=== PATIENT | male | born 1950 | race Caucasian/White ===

== ENCOUNTER → 2018-02-16 09:52 | Outpatient (CLI) | payer MEDICARE, SELFPAY ==
--- NOTE | 2018-02-16 09:54 | CDU_ITS ---
Reason For Study: CAROTID ATHEROSCLEROSIS Rt. Velocities/BP Lt. Velocities/BP Prox CCA 100/11 cm/sec. Prox CCA 155/19 cm/sec. Mid CCA 104/18 cm/sec. Mid CCA 130/29 cm/sec. Dist CCA 99/21 cm/sec. Dist CCA 97/21 cm/sec. Prox ICA 234/75 cm/sec. Prox ICA 77/28 cm/sec. Mid ICA 111/26 cm/sec. Mid ICA 57/19 cm/sec. Dist ICA 75/18 cm/sec. Dist ICA 55/21 cm/sec. Rt. ICA/CCA = 2.3. Lt. ICA/CCA = .6. Prox ECA 183/32 cm/sec. Prox ECA 141/30 cm/sec. Rt. Vert. 51/18 cm/sec. Lt. Vert. 51/13 cm/sec. Right Extracranial There is homogeneous, smooth atherosclerotic plaque noted in the right common carotid artery. There is homogeneous, smooth atherosclerotic plaque noted in the right internal carotid artery. There is homogeneous, smooth atherosclerotic plaque noted in the right external carotid artery. Antegrade flow is noted in the right vertebral artery. There is homogeneous, smooth atherosclerotic plaque noted in the right bulb. Left Extracranial There is homogeneous, smooth atherosclerotic plaque noted in the left common carotid artery. There is homogeneous, smooth atherosclerotic plaque noted in the left internal carotid artery. There is homogeneous, smooth atherosclerotic plaque noted in the left external carotid artery. Antegrade flow is noted in the left vertebral artery. There is heterogeneous, smooth atherosclerotic plaque noted in the left bulb. Procedure Carotid Duplex 22308. Exam performed in department. Interpretation Summary Smooth plague at the proximal right internal carotid with >70% stenosis. Moderate stenosis right external carotid Minimal plague at the proximal left internal carotid with <50% stenosis. Mild disease left external carotid Patent and antegrade vertebrals bilaterally Progression of stenosis on the right noted since the previous exam of 05/17/13 noted. Ordering Physician: Napoleon Sky Referring Physician: LEYLA HADLEY Performed By: Chayo Bass, RDCS, RVT
== END ==
PROVIDERS: Family Provider Internal Medicine; PCP Internal Medicine; Visit Provider Surgery
DX: I65.23 Occlusion and stenosis of bilateral carotid arteries (principal)
CPT/HCPCS: 93880

== ENCOUNTER → 2018-03-08 07:48 | Outpatient (CLI) | payer MEDICARE, SELFPAY ==
--- NOTE | 2018-03-08 07:49 | CT_ITS ---
STUDY: CTA NECK WITH CONTRAST REASON FOR EXAM: Male, 67 years old. Carotid stenosis. RADIATION DOSAGE (If Supplied By Facility): CTDIvol = ( 21.13 ) mGy, DLP = ( 589.77 ) mGycm TECHNIQUE: CT angiography with multi-detector data acquisition was performed from the aortic arch to the skull base following intravenous administration of 100cc ml of Isovue 370 contrast. MIP images were reconstructed from the axial data set. Post-processing of the angiographic images was performed, with multiplanar reformation and 3D reconstruction. Individualized dose optimization techniques were used for this CT. COMPARISON: None. FINDINGS: AORTIC ARCH: Normal visualized aortic arch. Normal origins of the brachiocephalic, left common carotid, and left subclavian arteries. RIGHT CAROTID ARTERIES: Normal right common carotid artery (CCA). There is a focal calcification at the carotid bifurcation. Narrowing of the carotid bulb which demonstrate a diameter 70% narrowing were then the proximal ICA. Normal origin of the right internal carotid (ICA) artery without a hemodynamically significant stenosis. Normal visualized cervical portion of the right internal carotid artery. Normal origin of the right external carotid artery (ECA). LEFT CAROTID ARTERIES: Normal left common carotid artery (CCA). There is minimal calcific plaque along the lateral aspect of the carotid bulb. There is no significant stenosis. Normal origin of the left internal carotid (ICA) artery without a hemodynamically significant stenosis. Normal visualized cervical portion of the left internal carotid artery. Normal origin of the left external carotid artery (ECA). VERTEBRAL ARTERIES: Normal bilateral vertebral arteries. CT/CTA Neck W/WO Contrast IMPRESSION: 1. Approximate 70% diameter stenosis of the right carotid bulb. 2. Minimal hemodynamically insignificant left carotid plaque. 3. Normal vertebral arteries. Electronically Signed: Clay Jose DO at 15:41 EDT Tel [phone], Service support ,
[2018-03-08 08:16] LABS: CREATININE FINGERSTICK 0.7 mg/dL (0.70-1.30); EGFR FINGERSTICK > 60.0000 mL/min (>60)
== END ==
PROVIDERS: Family Provider Internal Medicine; PCP Internal Medicine; Visit Provider Surgery
DX: I65.23 Occlusion and stenosis of bilateral carotid arteries (principal)
CPT/HCPCS: 70498; Q9967

== ENCOUNTER 2018-03-10 10:42 | Emergency (ER) | payer MEDICARE, SELFPAY ==
[2018-03-10 10:42] VITALS: BP 158/89; PULSE 95; RESP 16; TEMP 36.8; O2SAT 99; BMI 25.8
--- NOTE | 2018-03-10 11:05 | ED.DCSUM_ITS ---
- ER Visit Summary Date of Service: 03/10/18 Chief Complaint: Laceration History of Present Illness: The patient is a 67 M with a laceration to his left third digit with hedge clippers prior to arrival Physical Examination: There is a 3 cm laceration surrounding the nail but not invading into the nail or nailbed. Emergency Department Course and Treatment: A total of 5 of the 4 nylon sutures were placed using sterile technique. Patient tolerated procedure well Disposition: Discharged stable condition Impression: Finger laceration 3 cm left third This note was generated with [employer] dictation software. It may contain incorrect words, spelling, and punctuation that were not noted in review of the chart prior to signing ED Disposition - Plan for ED Patient: Disposition: Home or Assisted Living Chief Complaint: Laceration Instructions: ED Laceration Hand Referrals: Em Moore MD [Primary Care Provider] - 10 Day for suture removal
[2018-03-10] MEDS: Diphth,Pertuss(Acell),Tet Vac 0.5 ML Vial IM (11:10)
[2018-03-10 11:51] VITALS: RESP 18
== END 2018-03-10 11:52 | disposition home or self-care (01) ==
PROVIDERS: Emergency Provider Emergency Medicine; Family Provider Internal Medicine; PCP Internal Medicine
DX: S61.213A Laceration without foreign body of left middle finger without damage to nail, initial encounter (principal); W26.8XXA Contact with other sharp object(s), not elsewhere classified, initial encounter; Y93.9 Activity, unspecified; Y92.9 Unspecified place or not applicable
CPT/HCPCS: 12002; 90715; 99283

== ENCOUNTER → 2018-04-05 12:56 | Outpatient (CLI) | payer MEDICARE, SELFPAY | PROVIDERS: Family Provider Internal Medicine; PCP Internal Medicine; Visit Provider Internal Medicine Cardiovascular Disease | DX: Z98.890 Other specified postprocedural states (principal) | CPT/HCPCS: 93306 ==

== ENCOUNTER 2018-04-19 05:28 | Inpatient (IN) | payer MEDICARE, SELFPAY ==
[2018-04-12 13:41] VITALS: BP 146/90; PULSE 78; RESP 18; TEMP 37.2; O2SAT 94; BMI 26.6
[2018-04-12 15:03] LABS: Absolute Lymphocyte Count 1.55 X10^3/ul (0.83-4.51); Basophil# 0.02 X10^3/uL; Basophil% 0.3 % (0-1); Eosinophil# 0.46 X10^3/uL; Eosinophils% 6.9 % (0-5); Hematocrit 47.7 % (40-54); Hemoglobin 15.4 g/dl (13.0-16.5); Lymphocyte # 1.55 X10^3/ul (4.0); Lymphocyte % 23.3 % (19-41); Mean Corp Hgb Conc 32.3 g/gl (32-36); Mean Corpuscular Hgb 29.7 pg (27.0-32.0); Mean Corpuscular Volume 91.9 fL (80-94); Mean Platelet Vol. 9.3 fl (6.2-12.0); Neutrophil # 4.02 X10^3/uL (2.7-7.7); Neutrophil % 60.5 % (47-70); Platelet Count 286 K/mm3 (150-450); RBC Distribution Width CV 13.4 % (11.6-14.6); RBC Distribution Width SD 44.6 fl (35.1-43.9); Red Blood Count 5.19 M/mm3 (4.6-6.2); White Blood Count 6.7 K/mm3 (4.4-11.0)
[2018-04-12 15:06] LABS: POSITIVE COUNT NO; POSITIVE DIFFERENTIAL NO; POSITIVE MORPHOLOGY NO
[2018-04-12 15:11] LABS: Partial Thromboplast Time 29.3 Seconds (24.1-36.2); Prothrombin Time (Protime)PT. 12.7 SECONDS (11.7-14.9)
[2018-04-12 15:42] LABS: AST(SGOT) 41 U/L (15-37); Alanine Aminotransfer ALT/SGPT 54 U/L (16-61); Albumin, Serum 4.2 g/dL (3.2-5.0); Alkaline Phosphatase 88 U/L (45-117); Anion Gap 9 (5-15); BUN 34 mg/dL (7-18); BUN/Creat Ratio 32.1 RATIO (10-20); Bilirubin, Direct 0.14 mg/dL (0.00-0.30); Calcium,Total 9.4 mg/dL (8.5-10.1); Chloride 104 mmol/L (98-107); Creatinine, Serum 1.06 mg/dL (0.70-1.30); EST Glomerular Filtration Rate 74 mL/min (>60); Est Glom Filt Rate - Afr Amer 89 mL/min (>60); Estimated Creatinine Clearance 53.68 ml/min; Globulin 4.1 g/dL (2.2-4.2); Glucose 78 mg/dL (74-106); Potassium 4.5 mmol/L (3.5-5.1); Protein, Total 8.3 g/dL (6.4-8.2); Sodium Level 141 mmol/L (136-145)
[2018-04-19] VITALS (21 sets, daily range): BP systolic 131–176; BP diastolic 67–100; PULSE 73–112; RESP 14–18; TEMP 36.6–37.3; O2SAT 91–97; BMI 26.6
--- NOTE | 2018-04-19 06:48 | DCINST_ITS ---
Discharge Diet: Light diet - advance as tolerated - if you have questions about your diet instructions, please talk to you doctor. Discharge Activity: May Not Drive - for 1 week or while taking narcotic pain medicine. May shower in (days): 3 - You may shower on Wednesday Lifting Restrictions: 10 pounds Call your doctor if your incision/area has: Continuous Slow Oozing, Sudden Increased Bleeding, Increased Pain/ Swelling, Increased Redness, Foul Smelling Discharge Call your doctor if you observe: Fever of 101 or Higher Suture Line Care: Avoid Pulling/Pushing, Avoid Pinching/Bending Additional Dressing/Incision Instructions:: You may protect the incision with gauze and paper tape as needed to avoid clothing irritation. You may remove the Steri-Strips in 1 week Allergies/Adverse Reactions: Allergies No Known Allergies Allergy (Verified 04/12/18 13:10) Medications to take at Discharge Zolpidem Tartrate [Ambien] 5 mg PO QHS PRN PRN 09/19/16 Doxepin HCl 50 mg PO QHS 01/31/17 amoxicillin 500 mg capsule 2,000 mg PO .COMPLEX cap 10/19/17 aspirin 81 mg tablet,delayed release 81 mg PO .q day tab 10/19/17 clonazepam 0.5 mg tablet 0.5 mg PO TID PRN 10/19/17 duloxetine 30 mg capsule,delayed release 30 mg PO QDAY cap 10/19/17 omega-3 fatty acids 1,000 mg capsule 1,000 mg PO QDAY 10/19/17 rosuvastatin 40 mg tablet 40 mg PO QDAY 10/19/17 tadalafil 2.5 mg tablet 2.5 mg PO QDAY 10/19/17 Hydrocodone Bitart/Apap 5-325 [[place] 5MG-325MG] 1 tablet PO Q6H PRN PRN 3 Days # 8 tablet 04/19/18 The following prescriptions were given: Hydrocodone Bitart/Apap 5-325 [[place] 5MG-325MG] 1 tablet PO Q6H PRN PRN 3 Days # 8 tablet PRN Reason: Pain Primary Care Physician: Em Moore MD [Primary Care Provider] - Test Results: Test results from this visit will be discussed in further detail at your follow- up appointment, if applicable. Please Follow Up With: Napoleon Sky MD - [phone] When: Call to make an appointment to be seen in about 10 days.
--- NOTE | 2018-04-19 06:50 | OP.PCM_ITS ---
Problem List (1) Carotid stenosis, right Status: Acute Report of Operation Date of Procedure: 04/19/18 Pre-Operative Diagnosis: Severe stenosis right extracranial internal carotid Post-Operative Diagnosis: Same Surgery/Procedure Performed:: Right radial arterial line placement. Right carotid endarterectomy with bovine patch angioplasty Description of Surgical Findings:: Timeout and informed consent was obtained. Gonzalo test was performed demonstrating adequate ulnar flow. At the bedside the right wrist was gently extended prepped with Betadine. Under ultrasound guidance 1% lidocaine was instilled as local anesthetic. A total of 1 cc was used. A 20-gauge aero kit Angiocath under ultrasound guidance with advanced in the artery and then with Seldinger wire technique was easily advanced. It was secured to the skin with interrupted 3-0 silk. Pressure tubing was connected. OpSite dressing followed by 2 x 2 dressing and Janie wrap. The hand was viable to completion with no apparent complication and minimal blood loss. Good waveform was obtained. The patient was subsequently taken to the operating for planned definitive right carotid surgery. Patient was then taken to the operating room. He was placed on the table. He underwent general endotracheal intubation and anesthesia. He received 2 g of Ancef intravenously. The right neck was sterilely prepped draped. Oblique incision was made along the anterior border the sternocleidomastoid. Sharp dissection carried down through the substance tissue. The platysma was incised. The sternocleidomastoid was reflected laterally. Sharp dissection performed directly down upon the common carotid. Crossing facial vein branches were secured with hemoclips and 3-0 Vicryl ligatures. The bifurcation was identified and very careful dissection performed cephalad. Circumferential control was obtained of the common carotid. The vagus nerve had to be carefully freed from its adherence to the common carotid. A [place]ria tie of Dacron tape was placed. Dissection performed cephalad. There was a curving posterior nature to the internal carotid which was nicely dissected free. Cephalad then a Dacron tape and Abdi tourniquet was applied. Circumferential trial was obtained of the external carotid. FSE loop was applied. The patient received 7000 units of heparin weight base. After adequate circling time peripheral vascular clamps were placed on the internal common and external carotid. 11 blade was used to make an arteriotomy which was extended with Sanabria scissors. A #10 USCI style shunt was placed cephalad and proximally. Time to place the shunt was 2 minutes. An endarterectomy was performed by sharply incising the plaque proximally and then nicely feathering it with a [place]. Sharp transection was obtained proximally it was then carefully freed from the carotid bulb the primary moderate disease was right at the origin of the internal carotid almost like a focal web. I then was able to get the plaque to feathered nicely more distally. Inversion enterectomy was performed of the external carotid. Careful debris was carefully removed. 2 tacking sutures of 7-0 Prolene were used at the internal carotid to assure adherence of the intima. The vessel was irrigated and inspected. Then a is 0.8 x 8 cm bovine patch was shaped to form and a patch angioplasty was created with a running 6-0 Prolene. Prior to completion the shunt was removed and a patch angioplasty completed. There was good retrograde flow from the internal carotid external carotid good antegrade flow from the common carotid. Initial clamps are released from the external carotid common carotid find the internal carotid. A repair suture of 7-0 Prolene was used. Hemostasis was nicely intact. The patient then in aliquots received a total 30 minute grams of protamine. Assuring hemostasis then the neck was closed by approximating the platysma with a running 3-0 Vicryl. Skin edges approximated running septic or 5 -0 Vicryl. Ivanna-incisional areas anesthetized with 0.5% Marcaine 10 cc. Steri- Strips Telfa tape dressings applied. Sponge and instrument and needle counts were reported to the surgeon to be correct. Blood loss was minimal. Specimen includes plaque. Drains none. Blood loss minimal He was taken to the recovery room in satisfactory condition without apparent complication. He was grossly neurologically intact. Napoleon Sky M.D., F.A.C.S. senior assistant manager: None senior assistant manager: Colby Correia Type of Anesthesia:: General Anesthesiologist: Monalisa Martinez
[2018-04-19] MEDS: Cefazolin 2 GM in 0.9% Normal Saline 100 ML IV (07:09)
--- NOTE | 2018-04-19 07:15 | PLAQ_PTH ---
PATIENT: MARY ELLEN LABOY LOC: MS3 U#:[id number] AGE/SX: 67/M ROOM: MO316 RE04/19/[address]: Dr. Napoleon Sky MD : 1950 BED: 1 DIS: 04/20/2018 SPEC #: [id number] RECD: 04/19/18 13:34 STATUS: MELANIE REPaco #: [id number] SAY: 04/19/18 07:[address]: Napoleon Sky DEPT: SURGICAL PATHOLOGY RECD BY: Raul Eckert ENTERED: 04/19/18 13:35 SP TYPE: PLAQUE OTHR DR: Dr. Em Moore MD Tissues: PLAQUE Procedures: Decalcification bone/plaque Surgery Specimen Level III HEADER OPERATION: Carotid endarterectomy PRE-OP DIAGNOSIS: Severe stenosis right carotid artery; atherosclerosis of both carotid arteries TISSUE SUBMITTED: Plaque right carotid artery MICROSCOPIC DIAGNOSIS Right carotid artery plaque, endarterectomy: Calcified atheromatous plaque consistent with severe stenosis. AM:inocente 04/22/18 GROSS DESCRIPTION Received in fixative is one container labeled with the patient's name and designated plaque right carotid artery. The specimen consists of a previously opened, partially bifurcated tubular piece of castellanos, indurated tissue measuring 2 cm in length and 1.5 cm in diameter. The specimen cuts focally with a gritty sensation. The entire specimen is submitted in one cassette after decalcification. / SJ:inocente 04/19/18 TC:5 CPT: 73515, 27882
[2018-04-19] MEDS: Heparin Injection (Vial) 5,000 UNIT/ML VIAL 5000 UNIT (08:30)
[2018-04-19] MEDS: Bupivacaine Mpf 0.5% 30 ML VIAL (09:15)
[2018-04-19] MEDS: Cefazolin 1 GM/50 ML BAG IV ×2 (15:29→23:36)
--- NOTE | 2018-04-19 15:54 | NURSING ---
PT PLACED ON O2 1L VIA NC WHILE SLEEPING
[2018-04-19] MEDS: Acetaminophen 325 MG Tablet PO (18:00)
--- NOTE | 2018-04-19 18:47 | PCM.PN.BLA ---
Progress Note Neuro intact Mild swelling right neck Urinary retention Will get pt OOB to chair Stop IVF and give flomax
[2018-04-19] MEDS: Atorvastatin Calcium 80 MG Tablet PO (21:13)
[2018-04-19] MEDS: Tamsulosin HCl 0.4 MG Capsule PO (21:13)
[2018-04-19] MEDS: Zolpidem Tartrate 5 MG Tablet PO (21:14)
[2018-04-19] MEDS: DOXEPIN HCL 50 MG CAPSULE PO (21:14)
[2018-04-20 00:05] VITALS: BP 133/82; PULSE 87; RESP 16; TEMP 36.9; O2SAT 98
[2018-04-20 05:20] VITALS: BP 136/70; PULSE 90; RESP 18; TEMP 37.1; O2SAT 92
--- NOTE | 2018-04-20 05:50 | PCM.CAROT ---
General Carotid Note - Objective Vital Signs Temp Pulse Resp BP Pulse Ox 98.8 F 90 18 136/70 H 92 04/20/18 05:20 04/20/18 05:20 04/20/18 05:20 04/20/18 05:20 04/20/18 05:20 Neck: - - swollen right neck, stable from last night Neurological: Cranial nerves II-XII grossly intact Cardiovascular: Regular rate, Regular Rhythm - Plan discharge with dressing change this a.m.
[2018-04-20] MEDS: Enoxaparin 40 MG/0.4 ML Syringe SC (06:09)
== END 2018-04-20 09:30 | disposition home or self-care (01) | DRG 39 ==
PROVIDERS: Anesthesiology; Admitting Provider Surgery; Family Provider Internal Medicine; PCP Internal Medicine; Visit Provider Surgery
PROC: 03CK0Z6 (ICD-10-PCS; CPT 35301; principal; 2018-04-19 06:55)
DX: I65.21 Occlusion and stenosis of right carotid artery (principal); R33.9 Retention of urine, unspecified; E78.5 Hyperlipidemia, unspecified; Z87.891 Personal history of nicotine dependence
CPT/HCPCS: 80048; 80076; 85025; 85610; 85730; 88304; 88311; 93005; J7040; J7120; J2405

== ENCOUNTER → 2018-06-03 07:41 | Outpatient (CLI) | payer MEDICARE, SELFPAY ==
--- NOTE | 2018-06-03 07:45 | CDUL_ITS ---
Reason For Study: F/U RT CEA Rt. Velocities/BP Prox CCA 77.4/18.2 cm/sec. Mid CCA 75.6/17.0 cm/sec. Dist CCA 82.1/23.5 cm/sec. Prox ICA 51.5/14.9 cm/sec. Mid ICA 98.0/32.5 cm/sec. Dist ICA 94.2/30.6 cm/sec. Rt. ICA/CCA = 1.3. Prox ECA 92.6/17.6 cm/sec. Rt. Vert. 42.8/14.5 cm/sec. Right Extracranial There is intimal thickening but no significant atherosclerotic plaque noted in the right common carotid artery. There is no significant atherosclerotic plaque noted in the right internal carotid artery. There is no significant atherosclerotic plaque noted in the right external carotid artery. Antegrade flow is noted in the right vertebral artery. Procedure Carotid Duplex [id number]. Exam performed in department. Interpretation Summary Post operative changes of the right carotid bulb and internal carotid with widely patent findings and <50% stenosis. Normal flow right external carotid Patent and antegrade right vertebral Ordering Physician: Napoleon Sky Referring Physician: Napoleon Sky Performed By: Kristie Pollard RVT
== END ==
PROVIDERS: Family Provider Internal Medicine; PCP Internal Medicine; Referring Provider Surgery; Visit Provider Surgery
DX: I65.21 Occlusion and stenosis of right carotid artery (principal)
CPT/HCPCS: 93882

== ENCOUNTER → 2018-07-22 13:47 | Outpatient (CLI) | payer MEDICARE, SELFPAY | PROVIDERS: Family Provider Internal Medicine; PCP Internal Medicine; Referring Provider Otolaryngology; Visit Provider Otolaryngology | DX: H83.09 Labyrinthitis, unspecified ear (principal) | CPT/HCPCS: 87070; 87077; 87186; 87205 ==

== ENCOUNTER → 2019-06-16 08:37 | Outpatient (CLI) | payer MEDICARE, SELFPAY ==
[2018-10-27 08:59] VITALS: BMI 26.5
--- NOTE | 2019-06-16 08:39 | ECHOD_ITS ---
Reason For Study: Bicuspid AoV Procedure This was a 2D Doppler, Color Flow transthoracic echocardiogram. Exam performed in department. Left Ventricle Normal LV size. Left ventricular systolic function is normal. The estimated ejection fraction is 65 %. Stage 1 diastolic dysfunction. No regional wall motion abnormalities noted. Right Ventricle Normal RV size. Normal systolic function. Atria Normal left atrium. Normal right atrium. Mitral Valve Normal mitral valve. Tricuspid Valve Normal tricuspid valve. Mild (1+) tricuspid valve insufficiency. Pulmonary artery systolic pressure is 34 mmHg. Aortic Valve Moderate diffuse aortic valve calcification. The aortic valve is not well visualized. Peak aortic valve gradient 47 mmHg. Mean aortic valve gradient 27 mmHg. Calculated aortic valve area (continuity equation) is 1.4 cm2. Mild (1+) aortic valve insufficiency. Pulmonic Valve Normal pulmonic valve. Great Vessels Normal aortic root. The pulmonary artery is normal size. Normal inferior vena cava. Pericardium/Pleural No pericardial effusion. MMode/2D Measurements & Calculations LVIDd: 2.9 cm IVSd: 1.3 cm LVOT diam: 1.9 cm LVIDs: 1.7 cm LVPWd: 1.00 cm LVOT area: 2.8 cm2 RVDd: 3.2 cm FS: 41.7 % Ao root diam: 3.5 cm LAV(MOD-bp): 27.2 ml LVAd ap4: 17.4 cm2 LAV(MOD-bp) Indexed: 16.2 ml/m2 EDV(MOD-sp4): 36.8 ml LAV(MOD-sp2): 32.2 ml EDV(sp4-el): 38.6 ml LAV(MOD-sp4): 21.0 ml LVAs ap4: 7.3 cm2 ESV(MOD-sp4): 9.7 ml ESV(sp4-el): 9.7 ml EF(MOD-sp4): 73.6 % EF(sp4-el): 74.9 % SV(MOD-sp4): 27.1 ml SV(sp4-el): 28.9 ml LA A4 area: 10.0 cm2 RA A4 area: 10.4 cm2 Doppler Measurements & Calculations MV E max hola: 78.7 cm/sec Lat Peak E' Hola: 7.6 cm/sec Med Peak E' Hola: 5.4 cm/sec MV A max hola: 108.9 cm/sec E/E' lat: 10.3 E/E' med: 14.5 MV E/A: 0.72 Ao V2 max: 343.7 cm/sec AI max hola: 336.3 cm/sec LV V1 max: 170.9 cm/sec Ao max P.3 mmHg AI max P.3 mmHg LV V1 max P.7 mmHg Ao V2 mean: 243.9 cm/sec LV V1 mean P.0 mmHg Ao mean P.6 mmHg AI dec slope: 239.6 cm/sec2 LV V1 mean: 127.3 cm/sec Ao V2 VTI: 63.8 cm AI P1/2t: 411.1 msec LV V1 VTI: 33.6 cm APOLINAR(I,D): 1.5 cm2 APOLINAR(V,D): 1.4 cm2 SV(LVOT): 94.0 ml PA V2 max: 115.6 cm/sec TR max hola: 271.2 cm/sec TR max P.4 mmHg Interpretation Summary Normal LV size. Left ventricular systolic function is normal. The estimated ejection fraction is 65 %. Stage 1 diastolic dysfunction. Mean aortic valve gradient 27 mmHg. Calculated aortic valve area (continuity equation) is 1.4 cm2. Mild (1+) aortic valve insufficiency. Mild (1+) tricuspid valve insufficiency. Ordering Physician: Andrez Varela Referring Physician: Em Moore Performed By: Indy Yap, RDCS, RVT
--- NOTE | 2019-06-16 08:39 | CDU_ITS ---
Reason For Study: Carotid stenosis Rt. Velocities/BP Lt. Velocities/BP Prox CCA 86.5/16 cm/sec. Prox CCA 94.3/21.2 cm/sec. Mid CCA 78.6/17.3 cm/sec. Mid CCA 79.9/19.9 cm/sec. Dist CCA 83.8/21.3 cm/sec. Dist CCA 81.2/17.3 cm/sec. Prox ICA 68.2/21.3 cm/sec. Prox ICA 63/18.6 cm/sec. Mid ICA 89.1/25.2 cm/sec. Mid ICA 55.1/15.5 cm/sec. Dist ICA 79.9/21.3 cm/sec. Dist ICA 68.2/22.6 cm/sec. Rt. ICA/CCA = 1.1. Lt. ICA/CCA = 0.8. Prox ECA 109.9/20 cm/sec. Prox ECA 91.6/13.4 cm/sec. Rt. Vert. 43.4/16 cm/sec. Lt. Vert. 63/16 cm/sec. Right Extracranial There is homogeneous, smooth atherosclerotic plaque noted in the right common carotid artery. There is intimal thickening but no significant atherosclerotic plaque noted in the right internal carotid artery. There is no significant atherosclerotic plaque noted in the right external carotid artery. Antegrade flow is noted in the right vertebral artery. Left Extracranial There is homogeneous, smooth atherosclerotic plaque noted in the left common carotid artery. There is homogeneous, smooth atherosclerotic plaque noted in the left internal carotid artery. There is no significant atherosclerotic plaque noted in the left external carotid artery. Antegrade flow is noted in the left vertebral artery. Procedure Carotid Duplex [id number]. Exam performed in department. Interpretation Summary Post operative changes right carotid bulb and proximal internal carotid with no significant plague <50% stenosis right internal carotid <50% stenosis right external carotid Mild smooth plague at the proximal left internal carotid with <50% stenosis. <50% stenosis left external carotid Patent, antegrade, <50% stenosis bilateral vertebrals Ordering Physician: Napoleon Sky Referring Physician: Em Moore M.D. Performed By: Shereen Lange RVT
== END ==
PROVIDERS: Family Provider Internal Medicine; PCP Internal Medicine; Referring Provider Surgery; Visit Provider Surgery
DX: I65.21 Occlusion and stenosis of right carotid artery (principal); Z98.890 Other specified postprocedural states
CPT/HCPCS: 93306; 93880

== ENCOUNTER 2020-02-26 18:35 | Emergency (ER) | payer MEDICARE, SELFPAY ==
[2019-07-25 07:27] VITALS: BMI 25.3
[2020-02-26 18:36] VITALS: BP 159/95; PULSE 102; RESP 19; TEMP 36.7; O2SAT 93; BMI 25.4
[2020-02-26 18:56] LABS: Bacteria 0 SEEN /hpf (None Seen); Squamous Epithelial Cells - UA 0 SEEN /hpf (0-5)
[2020-02-26 19:05] LABS: Color, Urine Yellow (Yellow); Glucose, Dipstick Normal (Normal); Ketone-Dipstick 5 mg/dl (Negative); Leukocyte Esterase-Dipstick 25 /ul (Negative); Nitrite-Dipstick Negative (Negative); Occult Blood-Urine 250 /ul (Negative); Protein-Dipstick 30 mg/dl (Negative); Urine Bilirubin Dipstick Negative (Negative); Urine Clarity Sl. Cloudy (Clear); Urine Urobilinogen Normal (Normal)
[2020-02-26 19:16] LABS: Red Blood Cells-Urine > 100 SEEN /hpf (0-5); White Blood Cells 0-5 SEEN /hpf (0-5)
[2020-02-26 19:17] LABS: Mucous, Urine 1+ /hpf (<or=2+)
--- NOTE | 2020-02-26 20:13 | CT_ITS ---
HISTORY: LT FLANK PAIN LAST WEEK NOW IN PENIS,UNABLE TO URINAT,HEMATURIAHX:KIDNEY STONES,HERNIA REPAIR TECHNIQUE: Helically acquired images were obtained of the abdomen and pelvis without oral or IV contrast. A radiation dose optimization technique was used for this scan. COMPARISON: Most recent comparison study includes a chest x-ray from January 31, 2017. Previous CT scan of the abdomen and pelvis is June 16, 2010 FINDINGS: # of images incl. paperwork: [id number] LUNG BASES: New bilateral linear lung base airspace disease is likely atelectasis CT abdomen: Multilevel degenerative disc disease with loss of disc height, endplate sclerosis, subcortical cystic degenerative change, and enthesophytes. A tiny droplet of gas posterior to the superior aspect of the S1 vertebral body is likely disc gas phenomenon herniating through an annular tear of the L5-S1 disc. Although the disc gas phenomenon was present at the L5-S1 previously, the tiny amount of gas posterior to the superior aspect of the L5 vertebral body is new since 2009 The gallbladder remains. Liver, spleen, pancreas, and adrenal glands are normal. The kidneys are without hydronephrosis. Tiny nonobstructing 1-2 mm nephroliths are present within both kidneys. The right hydronephrosis and right ureterovesicular junction stone that was present on the previous study is no longer identified. A hypodense lesion within the posterior medial aspect of the right kidney likely representing a benign cyst is larger than the previous study The aorta is disease with calcific atherosclerotic plaque. There is no intra-or extrahepatic biliary ductal dilatation. CT pelvis: No ascites is present. The prostate gland is not enlarged. The appendix is normal. Series 2 image 127. The bladder is decompressed. Within the central posterior portion of the urinary bladder there is a 3 x 5 mm calcification, consistent with a stone, possibly at the bladder neck, at the origin of the urethra. Bowel gas pattern is normal. CT/Abdomen/Pelvis without Cont IMPRESSION: 3 x 5 mm calcification centrally posteriorly within the urinary bladder likely representing a ureteric stone that has passed into the bladder and may be causing ureteral, bladder neck obstruction. No hydronephrosis. Tiny nonobstructing bilateral nephroliths Individualized dose optimization techniques were used for this CT. at 2103 Reported and signed by: Juve Pierce MD Electronically Signed: Juve Pierce MD at 21:01 EDT Tel , Service support ,
[2020-02-26 20:54] LABS: Absolute Lymphocyte Count 1.56 X10^3/uL (0.83-4.51); Absolute Neutrophil Count 4.3 X10^3/uL (2.0-7.7); Basophil# 0.03 X10^3/uL; Basophil% 0.4 % (0-1); Eosinophil# 0.28 X10^3/uL; Hematocrit 44.8 % (40-54); Lymphocyte # 1.56 X10^3/ul (4.0); Lymphocyte % 22.5 % (19-41); Mean Corp Hgb Conc 31.3 g/dL (32-36); Mean Corpuscular Hgb 28.6 pg (27.0-32.0); Mean Corpuscular Volume 91.4 fL (80-94); Mean Platelet Vol. 9.4 fl (6.2-12.0); Monocyte# 0.74 X10^3/uL; Monocyte% 10.7 % (0-10); NRBC Flagged by Analyzer 0 % (0-5); Neutrophil # 4.31 X10^3/uL (2.7-7.7); Neutrophil % 62.1 % (47-70); Platelet Count 264 K/mm3 (150-450); RBC Distribution Width CV 14.2 % (11.6-14.6); RBC Distribution Width SD 47.8 fl (35.1-43.9); White Blood Count 6.9 K/mm3 (4.4-11.0)
[2020-02-26 21:14] LABS: Anion Gap 6 (5-15); BUN 25 mg/dL (7-18); BUN/Creat Ratio 20.7 RATIO (10-20); Calcium,Total 9.6 mg/dL (8.5-10.1); Chloride 106 mmol/L (98-107); Creatinine, Serum 1.21 mg/dL (0.70-1.30); EST Glomerular Filtration Rate 63 mL/min (>60); Est Glom Filt Rate - Afr Amer 76 mL/min (>60); Estimated Creatinine Clearance 45.72 ml/min; Glucose 84 mg/dL (74-106); Potassium 4.3 mmol/L (3.5-5.1); Sodium Level 140 mmol/L (136-145)
--- NOTE | 2020-02-26 21:58 | ED.VIS.GEN ---
History of Present Illness Chief Complaint: Complaint Informant: Patient Narrative: She states that he was experiencing bilateral flank pain left greater than right. He states now he is having penile pain dysuria and frequency. He states he went to urgent care they told him that he had hematuria. He wonders if he has a stone in his urethra. He does not believe he is having pain along the penile shaft or the meatus stating that it feels a little bit deeper than that. Past Medical History - Allergies and Home Meds Allergies/Adverse Reactions: Allergies No Known Allergies Allergy (Verified 02/26/20 18:38) Primary Care Physician: Em Moore MD [Primary Care Provider] - Surgical History: noncontributory Smoking Status: Former smoker Review of Systems General: Denies: Chills, Fever, Sweats Eyes: Denies: Visual changes - bilaterally, Diplopia ENT: Denies: Rhinorrhea, Sore throat Cardiovascular: Denies: Chest pain, Palpitations Respiratory: Denies: Dyspnea, Cough, Dyspnea on exertion Gastrointestinal: Denies: Abdominal pain, Nausea, Vomiting, Diarrhea, Melena, Hematochezia Genitourinary: Reports: Dysuria, Hematuria, Frequency Musculoskeletal: Reports: Back pain. Denies: Extremity Pain Skin: Denies: Rash, Wounds Neurological: Denies: Headache, Weakness, Numbness Physical Exam Vital Signs/Narrative: Vital Signs Temp Pulse Resp BP Pulse Ox 02/26/20 18:36 98.1 F 102 H 19 H 159/95 H 93 Inital Vital Signs reviewed: Yes General: Well nourished, Well developed, No Acute Distress Head: Normocephalic, Atraumatic Eyes: Perrl, EOMI ENT: Moist mucous membranes, No rhinorrhea Neck: Supple, Nontender Cardiovascular: Regular rate, Regular rhythm, No murmurs Respiratory: No distress, CTA bilaterally, Chest nontender Abdomen: Soft, Nontender, Nondistended, Normal bowel sounds : - - No pain upon palpation of the shaft and no obvious discharge or bleeding at the urethral meatus. No urinary retention Back: Nontender, Normal Inspection Extremities: Nontender, No edema Skin: Normal color, No rash Neurological: Alert, Oriented x3, Cranial nerves II-XII grossly intact, Normal Strength, Normal Sensation Psychological: Normal affect, Normal Mood Diagnostic/Tx/Re-eval Clinical Impression(s) from Imaging Studies Abdomen/Pelvis CT 02/26/20 20:13 IMPRESSION: 3 x 5 mm calcification centrally posteriorly within the urinary bladder likely representing a ureteric stone that has passed into the bladder and may be causing ureteral, bladder neck obstruction. No hydronephrosis. Tiny nonobstructing bilateral nephroliths Individualized dose optimization techniques were used for this CT. at 2103 Reported and signed by: Juve Pierce MD Electronically Signed: Juve Pierce MD at 21:01 EDT Tel , Service support , Laboratory Last Values WBC 6.9 K/mm3 (4.4-11.0) 02/26/20 20:20 RBC 4.90 M/mm3 (4.6-6.2) 02/26/20 20:20 Hgb 14.0 g/dL (13.0-16.5) 02/26/20 20:20 Hct 44.8 % (40-54) 02/26/20 20:20 MCV 91.4 fL (80-94) 02/26/20 20:20 MCH 28.6 pg (27.0-32.0) 02/26/20 20:20 MCHC 31.3 g/dL (32-36) L 02/26/20 20:20 RDW Std Deviation 47.8 fl (35.1-43.9) H 02/26/20 20:20 RDW Coeff of Uziel 14.2 % (11.6-14.6) 02/26/20 20:20 Plt Count 264 K/mm3 (150-450) 02/26/20 20:20 MPV 9.4 fl (6.2-12.0) 02/26/20 20:20 Immature Gran % (Auto) 0.300 % (0.0-0.9) 02/26/20 20:20 Neut % (Auto) 62.1 % (47-70) 02/26/20 20:20 Lymph % (Auto) 22.5 % (19-41) 02/26/20 20:20 [place] % (Auto) 10.7 % (0-10) H 02/26/20 20:20 Eos % (Auto) 4.0 % (0-5) 02/26/20 20:20 Baso % (Auto) 0.4 % (0-1) 02/26/20 20:20 Absolute Neuts (auto) 4.3 X10^3/uL (2.0-7.7) 02/26/20 20:20 Absolute Lymphs (auto) 1.56 X10^3/uL (0.83-4.51) 02/26/20 20:20 Nucleated RBC % 0 % (0-5) 02/26/20 20:20 Sodium 140 mmol/L (136-145) 02/26/20 20:20 Potassium 4.3 mmol/L (3.5-5.1) 02/26/20 20:20 Chloride 106 mmol/L (98-107) 02/26/20 20:20 Carbon Dioxide 28.0 mmol/L (21.0-32.0) 02/26/20 20:20 Anion Gap 6 (5-15) 02/26/20 20:20 BUN 25 mg/dL (7-18) H 02/26/20 20:20 Creatinine 1.21 mg/dL (0.70-1.30) 02/26/20 20:20 Estim Creat Clear Calc 45.72 ml/min 02/26/20 20:20 Est GFR (MDRD) Af Amer 76 mL/min (>60) 02/26/20 20:20 Est GFR (MDRD) Non-Af 63 mL/min (>60) 02/26/20 20:20 BUN/Creatinine Ratio 20.7 RATIO (10-20) H 02/26/20 20:20 Glucose 84 mg/dL (74-106) 02/26/20 20:20 Calcium 9.6 mg/dL (8.5-10.1) 02/26/20 20:20 Urine Color Yellow (Yellow) 02/26/20 18:50 Urine Clarity Sl. Cloudy (Clear) 02/26/20 18:50 Urine pH 5.0 (5.0 - 8.0) 02/26/20 18:50 Ur Specific [place] 1.020 (1.002-1.030) 02/26/20 18:50 Urine Protein 30 mg/dl (Negative) H 02/26/20 18:50 Urine Glucose (UA) Normal mg/dl (Normal) 02/26/20 18:50 Urine Ketones 5 mg/dl (Negative) H 02/26/20 18:50 Urine Occult Blood 250 /ul (Negative) H 02/26/20 18:50 Urine Nitrite Negative (Negative) 02/26/20 18:50 Urine Bilirubin Negative mg/dL (Negative) 02/26/20 18:50 Urine Urobilinogen Normal mg/dl (Normal) 02/26/20 18:50 Ur Leukocyte Esterase 25 /ul (Negative) H 02/26/20 18:50 Urine RBC > 100 SEEN /hpf (0-5) 02/26/20 18:50 Urine WBC 0-5 SEEN /hpf (0-5) 02/26/20 18:50 Ur Squamous Epith Cells 0 SEEN /hpf (0-5) 02/26/20 18:50 Urine Bacteria 0 SEEN /hpf (None Seen) 02/26/20 18:50 Urine Mucus 1+ /hpf (<or=2+) 02/26/20 18:50 - Medical Decision Making Patient has obvious hematuria but without evidence of infection. There is some hydronephrosis on the right and a 3 x 5 calculus in the bladder suggestive of a recently passed kidney stone. It is possible the patient's complaints of urinary frequency and small amounts could be due to the stone having difficulty entering the urethra. We will place him on Flomax and have him follow-up with urology. Return if worsening or concerns. We talked about urinary retention and indications to return. ED Disposition - Plan for ED Patient: Disposition: Home or Assisted Living Diagnosis: Bladder calculi, Kidney stone, Hematuria Instructions: ED Renal Stone w Colic Prescriptions: Tamsulosin HCl [Flomax] 0.4 mg PO QHS #7 cap Transmission Status: Pending to [facility] Referrals: Vel Claire MD [STAFF PHYSICIAN] - As soon as possible
[2020-02-26] MEDS: Tamsulosin HCl 0.4 MG Capsule PO (22:40)
== END 2020-02-26 22:41 | disposition home or self-care (01) ==
PROVIDERS: Emergency Provider Emergency Medicine; PCP Internal Medicine
DX: N13.2 Hydronephrosis with renal and ureteral calculous obstruction (principal); Z87.891 Personal history of nicotine dependence
CPT/HCPCS: 74176; 80048; 81001; 85025; 87086; 99283; A4216

== ENCOUNTER → 2020-06-29 07:05 | Outpatient (CLI) | payer MEDICARE, SELFPAY ==
[2020-06-29 08:43] LABS: Hematocrit 44.8 % (40-54); Hemoglobin 14.1 g/dL (13.0-16.5); Mean Corp Hgb Conc 31.5 g/dL (32-36); Mean Corpuscular Hgb 29.1 pg (27.0-32.0); Mean Corpuscular Volume 92.4 fL (80-94); Platelet Count 255 K/mm3 (150-450); RBC Distribution Width CV 13.6 % (11.6-14.6); Red Blood Count 4.85 M/mm3 (4.6-6.2); White Blood Count 6.4 K/mm3 (4.4-11.0)
[2020-06-29 09:16] LABS: Hemoglobin A1c 5.9 % (3.8-5.6)
[2020-06-29 09:18] LABS: AST(SGOT) 28 U/L (15-37); Alanine Aminotransfer ALT/SGPT 46 U/L (16-61); Alkaline Phosphatase 79 U/L (45-117); Anion Gap 6 (5-15); BUN 25 mg/dL (7-18); BUN/Creat Ratio 24.5 RATIO (10-20); Calcium,Total 9.3 mg/dL (8.5-10.1); Chloride 104 mmol/L (98-107); Cholesterol 156 mg/dL (200); Creatinine, Serum 1.02 mg/dL (0.70-1.30); EST Glomerular Filtration Rate 77 mL/min (>60); Est Glom Filt Rate - Afr Amer 93 mL/min (>60); Globulin 3.9 g/dL (2.2-4.2); Glucose 95 mg/dL (74-106); High Density Lipoprotein 60 mg/dL; Potassium 4.1 mmol/L (3.5-5.1); Protein, Total 7.9 g/dL (6.4-8.2); Sodium Level 138 mmol/L (136-145); Triglycerides 123 mg/dL; Very Low Density Lipoprotein 25 mg/dL (5-40)
== END ==
PROVIDERS: PCP Internal Medicine; Referring Provider Internal Medicine Cardiovascular Disease; Visit Provider Internal Medicine Cardiovascular Disease
DX: R06.02 Shortness of breath (principal); R63.5 Abnormal weight gain; E78.2 Mixed hyperlipidemia; R73.09 Other abnormal glucose; Z79.899 Other long term (current) drug therapy
CPT/HCPCS: 36415; 80053; 80061; 83036; 83880; 85027

== ENCOUNTER 2020-10-20 14:15 | Emergency (ER) | payer MEDICARE, SELFPAY ==
[2020-10-20 14:16] VITALS: BP 156/95; PULSE 84; RESP 18; TEMP 36.6; O2SAT 98; BMI 25.7
[2020-10-20 14:25] VITALS: BP 162/89; PULSE 86; RESP 18; TEMP 36.6; O2SAT 98
--- NOTE | 2020-10-20 14:31 | EKG12_ITS ---
Test Reason : Blood Pressure : / mmHG Vent. Rate : 081 BPM Atrial Rate : 081 BPM P-R Int : 154 ms QRS Dur : 072 ms QT Int : 358 ms P-R-T Axes : 063 062 064 degrees QTc Int : 415 ms Normal sinus rhythm Right atrial enlargement Borderline ECG Confirmed by SANCHEZ HAQUE, TIMOTEO ([id number]), video tape editor KAITLIN MCKEON ([id number]) on 10/22/2020 11:32:34 AM Referred By: REHAN Confirmed By:TIMOTEO BRADFORD MD
--- NOTE | 2020-10-20 14:32 | ED.VIS.GEN ---
History of Present Illness Chief Complaint: Shortness of Breath Narrative: Patient is a 69-year-old male who presents with shortness of breath. He has had about 3 weeks of shortness of breath. He also complains of a nonproductive cough. No fever. He has had rhinorrhea for about a year this is not a new symptom. He does complain of some postnasal drainage. He denies any chest pain. No peripheral edema. No vomiting or diarrhea. He did have some dizziness. He saw otolaryngology who initially thought that this was BPPV. It sounds like they attempted an Debbie maneuver. Patient saw ENT about 2 weeks ago and had ongoing dizziness so was advised to follow-up with cardiology for blood pressure check. Patient did have a nurse visit with cardiology for blood pressure check but it does not sound like they otherwise saw a provider. [facility]. Covid test returned negative. However ambulatory pulse ox was 87% and patient was sent here for further evaluation. They were also concerned that he may have heard crackles on auscultation of the lungs. Patient does have a history of a bicuspid aortic valve, no history of CHF or coronary disease. Past Medical History - Allergies and Home Meds Allergies/Adverse Reactions: Allergies No Known Allergies Allergy (Verified 10/20/20 14:19) Primary Care Physician: Em Moore MD [Primary Care Provider] - Past Medical History: - - Hypertension, hyperlipidemia Surgical History: noncontributory Smoking Status: Former smoker Review of Systems All systems negative except as indicated General: Denies: Fever Eyes: Denies: Visual changes - bilaterally ENT: Denies: Bilateral ear pain Cardiovascular: Denies: Chest pain Respiratory: Reports: Dyspnea, Cough. Denies: Sputum Gastrointestinal: Denies: Abdominal pain, Nausea, Vomiting, Diarrhea Musculoskeletal: Denies: Swelling, Extremity Pain Skin: Denies: Rash Neurological: Denies: Headache Hematologic: Denies: Easy bruising Allergy: Denies: Uticaria Physical Exam Vital Signs/Narrative: Vital Signs Temp Pulse Resp BP Pulse Ox 10/20/20 14:25 97.8 F 86 18 162/89 H 98 10/20/20 14:16 97.8 F 84 18 156/95 H 98 Inital Vital Signs reviewed: Yes General: Well nourished Head: Normocephalic Eyes: EOMI ENT: Moist mucous membranes Neck: Supple Cardiovascular: Regular rate, Regular rhythm Respiratory: No distress, CTA bilaterally. Negative for: Rales, Rhonchi, Wheezing Abdomen: Soft, Nontender Extremities: Nontender, No edema Skin: Normal color Neurological: Alert Psychological: Normal affect Diagnostic/Tx/Re-eval Impressions Chest X-Ray 10/20/20 14:50 IMPRESSION: Stable, nonacute x-ray examination of the chest. Electronically Signed: Marin Gong MD (Bro[place]) at 15:03 EST , Service support , 10/20/20 14:50 Chest PA and Lateral [RAD] Stat Laboratory Results 10/20/20 10/20/20 14:40 14:40 WBC 9.4 RBC 4.91 Hgb 14.3 Hct 45.8 MCV 93.3 MCH 29.1 MCHC 31.2 L RDW Std Deviation 44.9 H RDW Coeff of Uziel 13.2 Plt Count 334 MPV 9.0 Immature Gran % (Auto) 0.200 Neut % (Auto) 75.9 H Lymph % (Auto) 13.0 L [place] % (Auto) 8.0 Eos % (Auto) 2.6 Baso % (Auto) 0.3 Absolute Neuts (auto) 7.2 Absolute Lymphs (auto) 1.22 Nucleated RBC % 0 Sodium 140 Potassium 4.1 Chloride 103 Carbon Dioxide 32.0 Anion Gap 5 BUN 21 H Creatinine 1.12 Estim Creat Clear Calc 49.39 Est GFR (MDRD) Af Amer 83 Est GFR (MDRD) Non-Af 69 BUN/Creatinine Ratio 18.8 Glucose 85 Calcium 9.8 Troponin I < 0.015 - Medical Decision Making EKG shows normal sinus rhythm at a rate of 81 with no acute ischemic changes. Two-view chest x-ray obtained. On my interpretation the shows no acute process. X-ray read by radiology who agrees. Labs are unremarkable with a negative troponin. Ambulatory pulse ox normal here. Pulse ox 94% or greater with ambulation. Patient advised to follow-up as an outpatient with primary care and possibly pulmonology. He does understand return for new or worsening symptoms. All questions answered bedside. Patient discharged. ED Disposition - Plan for ED Patient: Disposition: Home or Assisted Living Diagnosis: Dyspnea Instructions: ED Dyspnea Referrals: Em Moore MD [Primary Care Provider] -
[2020-10-20 14:46] VITALS: O2SAT 99
--- NOTE | 2020-10-20 14:50 | RAD_ITS ---
STUDY: X-RAY CHEST REASON FOR EXAM: Male, 69 years old. shortness of breath x 1 month, difficulty swallowing TECHNIQUE: PA and lateral views of the chest. COMPARISON: 01/31/2017. FINDINGS: EKG leads project over the chest. There are surgical clips of the right neck. The lungs are clear and expanded. There is no demonstrated pleural abnormality. Normal size heart. Normal mediastinum and chana. Normal visualized pulmonary arteries. Normal visualized aortic arch and descending thoracic aorta. Normal visualized thoracic spine. Normal visualized ribs, clavicles, and shoulders. There is no demonstrated abnormality of the visualized soft tissue structures of the upper abdomen. RAD/Chest PA and Lateral IMPRESSION: Stable, nonacute x-ray examination of the chest. Electronically Signed: Marin Gong MD ([place]) at 15:03 EST , Service support ,
[2020-10-20 14:57] LABS: Absolute Lymphocyte Count 1.22 X10^3/uL (0.83-4.51); Absolute Neutrophil Count 7.2 X10^3/uL (2.0-7.7); Basophil# 0.03 X10^3/uL; Basophil% 0.3 % (0-1); Eosinophil# 0.24 X10^3/uL; Eosinophils% 2.6 % (0-5); Hematocrit 45.8 % (40-54); Hemoglobin 14.3 g/dL (13.0-16.5); Lymphocyte # 1.22 X10^3/ul (4.0); Mean Corp Hgb Conc 31.2 g/dL (32-36); Mean Corpuscular Hgb 29.1 pg (27.0-32.0); Mean Corpuscular Volume 93.3 fL (80-94); Monocyte# 0.75 X10^3/uL; NRBC Flagged by Analyzer 0 % (0-5); Neutrophil # 7.15 X10^3/uL (2.7-7.7); Neutrophil % 75.9 % (47-70); Platelet Count 334 K/mm3 (150-450); RBC Distribution Width CV 13.2 % (11.6-14.6); RBC Distribution Width SD 44.9 fl (35.1-43.9); Red Blood Count 4.91 M/mm3 (4.6-6.2); White Blood Count 9.4 K/mm3 (4.4-11.0)
[2020-10-20 15:14] LABS: Anion Gap 5 (5-15); BUN 21 mg/dL (7-18); BUN/Creat Ratio 18.8 RATIO (10-20); Calcium,Total 9.8 mg/dL (8.5-10.1); Chloride 103 mmol/L (98-107); Creatinine, Serum 1.12 mg/dL (0.70-1.30); EST Glomerular Filtration Rate 69 mL/min (>60); Est Glom Filt Rate - Afr Amer 83 mL/min (>60); Estimated Creatinine Clearance 49.39 ml/min; Glucose 85 mg/dL (74-106); Potassium 4.1 mmol/L (3.5-5.1); Sodium Level 140 mmol/L (136-145)
[2020-10-20 15:30] LABS: BNP,B-Type NATRIURETIC PEPTIDE 7.3 pg/mL (0-100)
[2020-10-20 15:37] VITALS: BP 153/84; PULSE 78; RESP 17; O2SAT 98
== END 2020-10-20 15:38 | disposition home or self-care (01) ==
PROVIDERS: Emergency Provider Emergency Medicine; PCP Internal Medicine
DX: R06.00 Dyspnea, unspecified (principal); R05 Cough; J34.89 Other specified disorders of nose and nasal sinuses; I10 Essential (primary) hypertension; E78.5 Hyperlipidemia, unspecified; Q23.1 Congenital insufficiency of aortic valve; Z79.82 Long term (current) use of aspirin; Z79.899 Other long term (current) drug therapy; Z87.891 Personal history of nicotine dependence
CPT/HCPCS: 71046; 80048; 83880; 84484; 85025; 93005; 99284; A4216

== ENCOUNTER → 2020-11-28 10:09 | Outpatient (CLI) | payer MEDICARE, SELFPAY ==
[2020-11-28 07:19] VITALS: BMI 25.4
[2020-11-28 13:00] LABS: BNP,B-Type NATRIURETIC PEPTIDE < 2.0 pg/mL (0-100)
== END ==
PROVIDERS: PCP Internal Medicine; Referring Provider Internal Medicine Cardiovascular Disease; Visit Provider Internal Medicine Cardiovascular Disease
DX: I35.2 Nonrheumatic aortic (valve) stenosis with insufficiency (principal)
CPT/HCPCS: 36415; 83880

== ENCOUNTER → 2020-12-09 10:33 | Outpatient (CLI) | payer MEDICARE, SELFPAY ==
[2020-11-28 07:19] VITALS: BMI 25.4
--- NOTE | 2020-12-09 10:36 | ECHOD_ITS ---
Version 2 Reason For Study: Murmur Procedure This was a 2D Doppler, Color Flow transthoracic echocardiogram. Exam performed in department. Left Ventricle Normal LV size. Left ventricular systolic function is normal. The estimated ejection fraction is 60 %. Stage 1 diastolic dysfunction. No regional wall motion abnormalities noted. Right Ventricle Normal size and thickness. Normal systolic function. Atria Normal left atrium. Normal right atrium. Mitral Valve Normal mitral valve. Tricuspid Valve Normal tricuspid valve. Mild (1+) tricuspid valve insufficiency. Pulmonary artery systolic pressure is 30 mmHg. Aortic Valve Trisinus/trileaflet aortic valve. Moderate focal aortic valve calcification. Peak aortic valve gradient 48 mmHg. Mean aortic valve gradient 26 mmHg. Mild to moderate aortic stenosis. Calculated aortic valve area (continuity equation) is 1.4 cm2. Mild (1+) aortic valve insufficiency. Pulmonic Valve Normal pulmonic valve. Great Vessels Normal aortic root. The pulmonary artery is normal size. Normal inferior vena cava. Pericardium/Pleural No pericardial effusion. MMode/2D Measurements & Calculations LVIDd: 4.3 cm IVSd: 1.1 cm LVOT diam: 1.9 cm LVIDs: 2.3 cm LVPWd: 1.3 cm LVOT area: 3.0 cm2 RVDd: 3.4 cm FS: 46.1 % Ao root diam: 3.5 cm LAV(MOD-bp): 28.4 ml LVAd ap4: 19.6 cm2 LAV(MOD-bp) Indexed: 16.9 ml/m2 EDV(MOD-sp4): 43.5 ml LAV(MOD-sp2): 31.8 ml EDV(sp4-el): 44.1 ml LAV(MOD-sp4): 23.5 ml LVAs ap4: 10.1 cm2 ESV(MOD-sp4): 14.0 ml ESV(sp4-el): 13.9 ml EF(MOD-sp4): 67.9 % EF(sp4-el): 68.6 % SV(MOD-sp4): 29.6 ml SV(sp4-el): 30.3 ml LA A4 area: 11.0 cm2 LA dimension(2D): 3.0 cm RA A4 area: 10.4 cm2 Doppler Measurements & Calculations MV E max hola: 88.7 cm/sec Lat Peak E' Hola: 7.5 cm/sec Med Peak E' Hola: 4.8 cm/sec MV A max hola: 114.4 cm/sec E/E' lat: 11.8 E/E' med: 18.6 MV E/A: 0.78 Ao V2 max: 349.4 cm/sec AI max hola: 358.1 cm/sec LV V1 max: 159.7 cm/sec Ao max P.8 mmHg AI max P.3 mmHg LV V1 max P.2 mmHg Ao V2 mean: 238.8 cm/sec LV V1 mean P.9 mmHg Ao mean P.6 mmHg AI dec slope: 221.2 cm/sec2 LV V1 mean: 116.7 cm/sec Ao V2 VTI: 68.3 cm AI P1/2t: 474.2 msec LV V1 VTI: 34.3 cm APOLINAR(I,D): 1.5 cm2 APOLINAR(V,D): 1.4 cm2 SV(LVOT): 101.3 ml PA V2 max: 119.1 cm/sec TR max hola: 258.3 cm/sec TR max P.7 mmHg ECHO/Echo Complete Interpretation Summary Normal LV size. Left ventricular systolic function is normal. The estimated ejection fraction is 60 %. Pulmonary artery systolic pressure is 30 mmHg. Stage 1 diastolic dysfunction. Calculated aortic valve area (continuity equation) is 1.4 cm2. Mild to moderate aortic stenosis. Mean aortic valve gradient 26 mmHg. The above findings are essentially the same. Trisinus/trileaflet aortic valve. Compared to previous study, the left ventricular systolic function is the same. . Ordering Physician: Andrez Varela Referring Physician: Em Moore Performed By: Indy Yap, RDCS, RVT
== END ==
PROVIDERS: PCP Internal Medicine; Referring Provider Internal Medicine Cardiovascular Disease; Visit Provider Internal Medicine Cardiovascular Disease
DX: I35.2 Nonrheumatic aortic (valve) stenosis with insufficiency (principal)
CPT/HCPCS: 93306

== ENCOUNTER → 2021-06-17 12:50 | Outpatient (CLI) | payer MEDICARE, SELFPAY ==
--- NOTE | 2021-06-17 12:53 | CDU_ITS ---
Reason For Study: STENOSIS Rt. Velocities/BP Lt. Velocities/BP Prox CCA 99.7/21.2 cm/sec. Prox CCA 138.5/25.4 cm/sec. Mid CCA 116.2/23.0 cm/sec. Mid CCA 102.0/25.4 cm/sec. Dist CCA 109.4/27.2 cm/sec. Dist CCA 111.1/29.0 cm/sec. Prox ICA 89.5/25.7 cm/sec. Prox ICA 87.4/18.1 cm/sec. Mid ICA 109.2/0.0 cm/sec. Mid ICA 105.6/30.8 cm/sec. Dist ICA 64.1/19.9 cm/sec. Dist ICA 133.0/18.1 cm/sec. Rt. ICA/CCA = 109.0/116.2=0.9. Lt. ICA/CCA = 133.0/102.0=1.3. Prox ECA 149.6/16.3 cm/sec. Prox ECA 127.5/21.7 cm/sec. Rt. Vert. 60.6/20.5 cm/sec. Lt. Vert. 85.6/21.7 cm/sec. Right Extracranial There is intimal thickening but no significant atherosclerotic plaque noted in the right common carotid artery. The right internal carotid artery is very tortuous. There is homogeneous, smooth atherosclerotic plaque noted in the right external carotid artery. Antegrade flow is noted in the right vertebral artery. Left Extracranial There is homogeneous, smooth atherosclerotic plaque noted in the left common carotid artery. There is homogeneous, smooth atherosclerotic plaque noted in the left internal carotid artery. The left internal carotid artery is very tortuous. There is homogeneous, smooth atherosclerotic plaque noted in the left external carotid artery. Antegrade flow is noted in the left vertebral artery. Procedure Carotid Duplex [id number]. This is a Carotid Duplex examination using B-mode, color flow and specral Doppler. Exam performed in department. VL/Carotid Duplex Ultrasound Interpretation Summary Postoperative changes of the right carotid bulb and proximal internal carotid a rtery with significant tortuosity noted but less than 50% stenosis of the internal carotid Less than 50% stenosis right external carotid Smooth plaque at the proximal left internal carotid artery Velocity is slightly elevated with the distal left internal carotid artery cons istent with 50 to 69% stenosis. Visualization of the carotid this point is difficult. There is no cinthya ocity elevation within the proximal mid left internal carotid making interpretation at that lev el less than 50% stenosis. Less than 50% stenosis left external carotid Patent antegrade vertebrals bilaterally From the previous examination of June 16, 2019 no change on the right and mi nimal change on the left Ordering Physician: Napoleon Sky Referring Physician: Em Moore Performed By: Roberta Ley, FRANSISCO, RVT
== END ==
PROVIDERS: PCP Internal Medicine; Referring Provider Surgery; Visit Provider Surgery
DX: I65.23 Occlusion and stenosis of bilateral carotid arteries (principal)
CPT/HCPCS: 93880

== ENCOUNTER 2021-09-04 15:13 | Outpatient (CLI) | payer MEDICARE, SELFPAY ==
[2021-09-04 15:48] LABS: Hematocrit 48.6 % (40-54); Hemoglobin 15.2 g/dL (13.0-16.5); Mean Corp Hgb Conc 31.3 g/dL (32-36); Mean Corpuscular Hgb 29.2 pg (27.0-32.0); Mean Corpuscular Volume 93.3 fL (80-94); Platelet Count 388 K/mm3 (150-450); RBC Distribution Width CV 13.5 % (11.6-14.6); RBC Distribution Width SD 46.2 fl (35.1-43.9); Red Blood Count 5.21 M/mm3 (4.6-6.2); White Blood Count 12.4 K/mm3 (4.4-11.0)
[2021-09-04 16:10] LABS: BNP,B-Type NATRIURETIC PEPTIDE 12.8 pg/mL (0-100)
[2021-09-04 16:12] LABS: Anion Gap 6 (5-15); BUN 31 mg/dL (7-18); BUN/Creat Ratio 32.5 RATIO (10-20); Calcium,Total 9.8 mg/dL (8.5-10.1); Chloride 104 mmol/L (98-107); Creatinine, Serum 0.96 mg/dL (0.70-1.30); EST Glomerular Filtration Rate 82 mL/min (>60); Est Glom Filt Rate - Afr Amer 100 mL/min (>60); Glucose 142 mg/dL (74-106); Potassium 4.4 mmol/L (3.5-5.1); Sodium Level 141 mmol/L (136-145)
== END 2021-09-04 23:59 | disposition short-term general hospital (02) ==
LOC: LAB 15:15
PROVIDERS: PCP Internal Medicine; Visit Provider Internal Medicine Cardiovascular Disease
DX: I35.2 Nonrheumatic aortic (valve) stenosis with insufficiency (principal); R06.02 Shortness of breath; Q23.1 Congenital insufficiency of aortic valve; I10 Essential (primary) hypertension
CPT/HCPCS: 36415; 80048; 83880; 85027

== ENCOUNTER → 2022-01-15 | Outpatient (CLI) | payer MEDICARE, SELFPAY ==
--- NOTE | 2022-01-15 12:57 | ECHOD_ITS ---
Reason For Study: DYSPNEA/SOB Procedure This was a 2D Doppler, Color Flow transthoracic echocardiogram. The study was technically difficult. Exam performed in department. Left Ventricle Normal LV size. Left ventricular systolic function is normal. The estimated ejection fraction is 60 %. Stage 1 diastolic dysfunction. No regional wall motion abnormalities noted. Right Ventricle Normal RV size. Normal systolic function. Atria Normal left atrium. Normal right atrium. Mitral Valve Normal mitral valve. Trivial eccentric mitral valve insufficiency. Tricuspid Valve Normal tricuspid valve. Mild (1+) tricuspid valve insufficiency. Pulmonary artery systolic pressure is 36 mmHg. Aortic Valve Trisinus/trileaflet aortic valve. Moderate focal aortic valve calcification. Peak aortic valve gradient 47 mmHg. Mean aortic valve gradient 29 mmHg. Mild to moderate aortic stenosis. Mild (1+) aortic valve insufficiency. Pulmonic Valve Normal pulmonic valve. Great Vessels Normal aortic root. The pulmonary artery is normal size. Normal inferior vena cava. Pericardium/Pleural No pericardial effusion. MMode/2D Measurements & Calculations LVIDd: 3.0 cm IVSd: 1.00 cm LVOT diam: 2.0 cm LVIDs: 2.0 cm LVPWd: 1.0 cm LVOT area: 3.0 cm2 RVDd: 3.2 cm FS: 33.7 % Ao root diam: 3.0 cm LAV(MOD-bp): 23.9 ml LVAd ap4: 20.6 cm2 LAV(MOD-bp) Indexed: 15.1 ml/m2 LVLd ap4: 7.1 cm LAV(MOD-sp2): 22.3 ml EDV(MOD-sp4): 49.5 ml LAV(MOD-sp4): 25.8 ml EDV(sp4-el): 51.0 ml LVAs ap4: 10.4 cm2 LVLs ap4: 5.6 cm ESV(MOD-sp4): 17.2 ml ESV(sp4-el): 16.4 ml EF(MOD-sp4): 65.4 % EF(sp4-el): 67.8 % SV(MOD-sp4): 32.4 ml SV(sp4-el): 34.6 ml LA A4 area: 11.8 cm2 LA dimension(2D): 3.2 cm RA A4 area: 8.8 cm2 Time Measurements MV dec time: 0.32 sec Doppler Measurements & Calculations MV E max hola: 63.2 cm/sec Lat Peak E' Hola: 10.1 cm/sec Med Peak E' Hola: 5.8 cm/sec MV A max hola: 111.7 cm/sec E/E' lat: 6.3 E/E' med: 10.9 MV E/A: 0.57 Ao V2 max: 354.0 cm/sec AI max hola: 435.3 cm/sec LV V1 max: 169.2 cm/sec Ao max P.1 mmHg AI max P.8 mmHg LV V1 max P.3 mmHg Ao V2 mean: 252.4 cm/sec LV V1 mean P.7 mmHg Ao mean P.7 mmHg AI dec slope: 368.4 cm/sec2 LV V1 mean: 121.9 cm/sec Ao V2 VTI: 65.5 cm AI P1/2t: 346.1 msec LV V1 VTI: 33.0 cm APOLINAR(I,D): 1.5 cm2 APOLINAR(V,D): 1.5 cm2 SV(LVOT): 100.1 ml PA V2 max: 104.3 cm/sec TR max hola: 285.1 cm/sec TR max P.5 mmHg ECHO/Echo Complete Interpretation Summary Normal LV size. Left ventricular systolic function is normal. The estimated ejection fraction is 60 %. Stage 1 diastolic dysfunction. Mean aortic valve gradient 29 mmHg. Mild to moderate aortic stenosis. Mild (1+) aortic valve insufficiency. In comparison with the previous there is no significant change in the ejection fraction or the aortic valve area. Ordering Physician: Ольга Moyer/Andrez Varela Referring Physician: LEYLA HADLEY Performed By: Jaqui Chaudhary, FRANSISCO
== END | disposition home or self-care (01) ==
LOC: CVS 12:56
PROVIDERS: PCP Internal Medicine; Referring Provider Physician Assistant Medical; Visit Provider Physician Assistant Medical
DX: Q23.1 Congenital insufficiency of aortic valve (principal)
CPT/HCPCS: 93306

== ENCOUNTER → 2022-01-21 | Outpatient (CLI) | payer MEDICARE, SELFPAY ==
--- NOTE | 2022-01-21 13:47 | ST.MBS ---
Modified Barium Swallow - Patient Information Study Date: 01/21/22 Study Time: 13:00 Direct Billable Minutes: 75 Total Minutes procedure & reportin Diagnosis: Dysphagia, unspecified (R13.10) Referring Physician: Storm Rosa Reason for Referral: Objectively assess swallow function, risk for aspiration, and determine recommendations for least restrictive diet textures and compensatory strategies to improve safety of swallow. Medical History: The patient is a 73-year-old male with PMH including anxiety, depression, GERD, BRIDGETTE, HTN, HLD, atherosclerosis of both carotid arteries, bicuspid aortic valve, nonrheumatic aortic valve stenosis (SEE EMR for full PMH). Per patient report, he has had increased difficulty swallowing in the past year characterized by coughing when consuming thin liquids, difficulty swallowing certain solids, sensation of certain foods becoming stuck. He informed the LEGAL MANAGER that recently his called the squad, while his daughter attempted the Heimlich on the patient. He had swallowed shredded wheat and couldn't breath. He ended up coughing up the food. He also reported having PNA in 2011 from inhaling liquid. He admits to quick rate of eating and drinking. Hx of GERD 10-15 years ago. Current Diet Ordered: Regular textures / Thin liquids Dentition: Missing Teeth - 2 teeth missing Mental Status: WNL Respiratory Status: Oxygenating on Room Air - Penetration-Aspiration Scale Penetration-Aspiration Scale: OBJECTIVE ASSESSMENT OF SWALLOW FUNCTION (QUANTITATIVE ? PER TRIAL): PENETRATION / ASPIRATION SCALE (BLOOD): 1 = does not enter airway 2 = enters airway/above vocal folds/ejected 3 = enters airway/above vocal folds/not ejected 4 = enters airway/contacts vocal folds/ejected 5 = enters airway/contacts vocal folds/not ejected 6 = enters airway/below vocal folds/ejected 7 = enters airway/below vocal folds/not ejected despite effort 8 = enters airway/below vocal folds/no effort VIDEOFLOROSCOPIC SCALE SCORE (BLOOD): Grade I = aspiration of material that has penetrated into the laryngeal vestibule, intact cough reflex Grade II = aspiration < 10 % of the bolus, intact cough reflex Grade III = aspiration of < 10 % of the bolus, reduced cough reflex or aspiration of > 10 % of the bolus, intact cough reflex Grade IV = aspiration of > 10 % of the bolus, reduced cough reflex - Penetration-Aspiration Scale Score Thin Liquid via teaspoon Result: 1= does not enter airway Thin Liquid via teaspoon Trial 2 Result: 1= does not enter airway Thin Liquid via small single sip from cup Result: 1= does not enter airway Thin Liquid via sequential sips from cup Result: 2= enter airway/above vocal folds/ejected [place] Thick Liquid via small single sip from cup Result: 1= does not enter airway [place] Thick Liquid via small single sip from cup Result: 1= does not enter airway Pudding via teaspoon with esophageal screen Result: 1= does not enter airway 1/2 Cookie with esophageal screen Result: 1= does not enter airway Whole Cookie Result: 1= does not enter airway Thin Liquid via single sip from straw Result: 1= does not enter airway Thin Liquid via sequential sips from straw Result: 1= does not enter airway - Oral Phase Labial Seal: No Labial Escape Tongue Control During Bolus Hold: Posterior escape of less than half of bolus Bolus Preparation/Mastication: Slow prolonged chewing/mashing with complete recollection - min posterior loss of <1/2 of whole cookie bolus to vallecula prior to swallow onset Bolus Transport/Lingual Motion: Brisk tongue motion Oral Residue: Residue collection on oral structures - Pharyngeal Phase Initiation of Pharyngeal Swallow: Bolus head in pyriforms - thin liquid Soft Palate Elevation: Trace column of contrast/air between soft palate and pharyngeal wall Laryngeal Elevation: Comp. Superior move thyroid cart w/comp. apprx arytenoid cart-epig pet Anterior Hyoid Excursion: Partial anterior movement Epiglottic Movement: Complete inversion Laryngeal Vestibule Closure at Height of Swallow: Incomplete; narrow column of air/contrast in laryngeal vestibule Pharyngeal Stripping Wave: Present - complete Pharyngoesophageal Segment Opening: Parital distension and partial duration; parital obstruction of flow Tongue Base Retraction: Narrow column of contrast between tongue base & post. pharyngeal wall Pharyngeal Residue: Collection of residue within or on pharyngeal structures - Esophageal Phase Esophageal Clearance: Esophageal retention w/ retrograde flow below pharyngoesophageal seg. - Treatment Strategies Effects of treatment strategies attemped:: Decreased bolus rate = effective. - Diagnosis/Impression Diagnosis: Mild oropharyngeal phase dysphagia (R13.12) Impression: The oral phase is marked by mild deficits in bolus control and oral residue. The patient demonstrated posterior loss of <1/2 liquid bolus to the pyriforms resulting in suboptimal bolus placement prior to swallow onset. He independently initiated second swallows to clear mild oral residues. The pharyngeal phase is marked by mildly decreased anterior hyoid excursion, tongue base retraction, and UES opening/duration. He demonstrated only trace penetration of sequential sips of thin liquids via cup with full ejection from the laryngeal vestibule. Trace retention of residue in upper esophagus. No aspiration observed during the study. - Recommendations Diet: Regular Textures, Thin Liquids Comment: Cut meat small bite size (1.5cmX1.5cm) and add sauce/gravy Compensatory Strategies: Small Bites, Small Sips, Slow Rate - Sips and bites one at a time. Practice setting down utensil and cup between each bite/sip prior to taking the next., Sitting upright, Remain sitting upright for 30 minutes after PO intake, Minimize/decrease distractions Recommend Repeat Modified Barium Swallow: No Need for Skilled Speech Therapy Services: Yes Comment: Will recommend the patient for outpatient dysphagia therapy to address mild deficits in oropharyngeal swallow function. Would consider the patient for oropharyngeal strengthening to improve lingual control, hyoid excursion, and duration of UES opening. The patient would benefit from thorough education regarding diet recommendations and recommended compensatory strategies, as he states he consumes food and drink with a quick rate. Education Completed: 1. Described result of evaluation., 7. Pt requires further education on strategies & risks. Comment: Discussed results with review of images, discussion, and written recommendations. Education well received and pt verbalized understanding. LEGAL MANAGER encouraged the patient to follow up with his ordering physician regarding referral for speech therapy. - Status Active ST Patient: Active
== END | disposition home or self-care (01) ==
LOC: RAD 12:39
PROVIDERS: PCP Internal Medicine; Referring Provider Internal Medicine; Visit Provider Otolaryngology
DX: R13.10 Dysphagia, unspecified (principal)
CPT/HCPCS: 74230; 92611

== ENCOUNTER 2022-02-17 09:43 | Observation (INO) | payer MEDICARE, SELFPAY ==
[2022-02-17] VITALS (15 sets, daily range): BP systolic 139–197; BP diastolic 76–115; PULSE 70–104; RESP 14–22; TEMP 36.6–36.8; O2SAT 93–97; BMI 23.7; BMI 22.8
--- NOTE | 2022-02-17 09:40 | CT_ITS ---
STUDY: CT HEAD STROKE PROTOCOL W/O CONTRAST INJECTION REASON FOR EXAM: Male, 71 years old. Neuro deficit, acute, stroke suspected RADIATION DOSAGE (If Supplied By Facility): CTDIvol = ( ) mGy, DLP = ( ) mGycm TECHNIQUE: Transaxial CT imaging of the brain was performed without administration of intravenous contrast material. Individualized dose optimization techniques were used for this CT. COMPARISON: No relevant priors. FINDINGS: No dense artery sign or sulcal effacement or focal area of parenchymal edema is seen on the current exam. Normal soft tissue structures. Normal calvarium. There is mild cerebral atrophy with widening of the extra-axial spaces and ventricular dilatation. There are areas of decreased attenuation within the white matter tracts of the supratentorial brain, consistent with microvascular disease changes. Normal basal ganglia and thalami. Normal brainstem. Normal cerebellum. There is no intracranial hemorrhage. There are no findings of an acute ischemic infarction. Normal visualized paranasal sinuses. ASPECT score: 10 CT/STROKE Brain/Head without Cont IMPRESSION: Chronic ischemic and involutional changes of the brain. N.B. : The above Results were Read Back by Fernandez Ramires MD to Phil Gan MD, and understanding confirmed on 02/17/2022 10:04:51 (ET). Electronically Signed: Fernandez Ramires MD at 10:05 EDT ,
--- NOTE | 2022-02-17 09:44 | CT_ITS ---
STUDY: CTA HEAD AND NECK WITH CONTRAST REASON FOR EXAM: Male, 71 years old. Neuro deficit, acute, stroke suspected RADIATION DOSAGE (If Supplied By Facility): CTDIvol = ( 18.78 ) mGy, DLP = ( 589.63 ) mGycm TECHNIQUE: CT angiography was performed with a multi-detector CT scanner. Data acquisition was obtained from the skull base through the vertex following intravenous administration of IV 100mL Isovue-370. MIP images were reconstructed from the axial data set. Post-processing of the angiographic images was performed, with multiplanar reformation and 3D reconstruction. Individualized dose optimization techniques were used for this CT. COMPARISON: Head CT dated FEBRUARY 17, 2022. CTA of the neck dated FEBRUARY 06, 2018 FINDINGS: Normal bilateral petrous carotid arteries. There is calcified plaque formation of the right cavernous carotid artery, with a mild stenosis (less than 50%). There is calcified plaque formation of the left cavernous carotid artery, with a mild stenosis (less than 50%). Normal right A1 segments of the anterior cerebral artery. Normal left A1 segments of the anterior cerebral artery. Normal intact anterior communicating artery (ACOM). Normal bilateral A2 segments of the anterior cerebral arteries. Normal right M1 and M2 segments of the middle cerebral arteries, with a normal M1 bifurcation. Normal left M1 and M2 segments of the middle cerebral arteries, with a normal M1 bifurcation. Normal right posterior communicating artery (PCOM). Normal left posterior communicating artery (PCOM). Patent bilateral vertebral arteries. Mild atherosclerotic calcium in focal narrowing in the left intracranial vertebral artery at the level of the occipital condyle. Normal basilar artery with a normal basilar bifurcation. The visualized bilateral superior cerebellar (SCA) arteries are normal. Normal bilateral P1, P2 and visualized P3 segments of the posterior cerebral arteries. There is no demonstrated aneurysm of the [place]. There is no demonstrated acute abnormality of the visualized brain. AORTIC ARCH: Normal visualized aortic arch. Normal origins of the brachiocephalic, left common carotid, and left subclavian arteries. RIGHT CAROTID ARTERIES: Normal right common carotid artery (CCA). Mild less than 50% luminal stenosis and evidence of prior angioplasty and dilatation since the previous neck CTA. Interval appearance of surgical clips around the distal aspect of the right common carotid artery/carotid bulb junction. Normal origin of the right internal carotid (ICA) artery without a hemodynamically significant stenosis. In the proximal one third aspect of the right internal carotid artery there is tortuosity and kinking and focal luminal narrowing of approximately 50-70%, see image 76/221 series 604. Normal visualized cervical portion of the right internal carotid artery. Normal origin of the right external carotid artery (ECA). LEFT CAROTID ARTERIES: Normal left common carotid artery (CCA). There is mild atherosclerotic plaque formation with minimal narrowing of the left carotid bulb. Normal origin of the left internal carotid (ICA) artery without a hemodynamically significant stenosis. Normal visualized cervical portion of the left internal carotid artery. Normal origin of the left external carotid artery (ECA). VERTEBRAL ARTERIES: Normal foraminal components of both vertebral arteries without luminal stenosis or occlusion or dissection. At the left foraminal V1 junction moderate concentric calcified plaque is present resulting in a 50% luminal stenosis, however the attachment to the subclavian artery is normal. There is a 70% focal luminal stenosis of the right V1 segment of the vertebral artery at the insertion on the subclavian artery. CT/STROKE CTA Head AND Neck W/Con IMPRESSION: 1. Unremarkable [place] without a demonstrated aneurysm or hemodynamically significant stenosis. 2. Mild less than 50% luminal stenosis and evidence of prior angioplasty and dilatation since the previous neck CTA. Interval appearance of surgical clips around the distal aspect of the right common carotid artery/carotid bulb junction. 3. In the proximal one third aspect of the right internal carotid artery there is tortuosity and kinking and focal luminal narrowing of approximately 50-70%, see image 76/221 series 604. 4. There is a 70% focal luminal stenosis of the right V1 segment of the vertebral artery at the insertion on the subclavian artery. N.B. : The above Results were Read Back by Fernandez Ramires MD to Phil Gan DO, and understanding confirmed on 02/17/2022 10:25:42 (ET). Electronically Signed: Fernandez Ramires MD at 10:27 EDT ,
--- NOTE | 2022-02-17 09:44 | RAD_ITS ---
STUDY: X-RAY CHEST REASON FOR EXAM: Male, 71 years old. Neuro deficit, acute, stroke suspected s PT. WAS AT [facility] FOR PT. PT. BECAME CONFUSED IN LOCKER ROOM AND DID NOT KNOW WHERE THEY WERE. WHEN EMS ARRIVED, PT. WAS UNABLE TO ARTICULATE ANY WORDS AND HAD SOME RIGHT SIDED WEAKNESS. BLOOD SUGAR 70, REPORTED BY EMS TECHNIQUE: Single AP portable view of the chest. COMPARISON: Chest x-ray dated October 20, 2020 FINDINGS: No visualized consolidation. There are bibasilar interstitial fibrotic changes of the lungs. Chronic emphysematous cystic changes in both lungs. Shallow lung volumes on the current study. There is no demonstrated pleural abnormality. Normal size heart. Normal mediastinum and chana. Normal visualized pulmonary arteries. There is atherosclerotic tortuosity of the aortic arch and descending thoracic aorta. There are diffuse degenerative changes of the visualized thoracic spine. Stable suture anchor in the left humeral head. There is no demonstrated abnormality of the visualized soft tissue structures of the upper abdomen. RAD/Chest 1 View IMPRESSION: No acute process Electronically Signed: Fernandez Ramires MD at 11:22 EDT Reading Location ID and State: [facility] / [place] , Service support ,
--- NOTE | 2022-02-17 09:44 | EKG12_ITS ---
Test Reason : R/OSTROKE Blood Pressure : / mmHG Vent. Rate : 097 BPM Atrial Rate : 097 BPM P-R Int : 148 ms QRS Dur : 074 ms QT Int : 330 ms P-R-T Axes : 045 056 041 degrees QTc Int : 419 ms Normal sinus rhythm Normal ECG Confirmed by PAULIE HAQUE, ARYA ([id number]), editor sound KAITLIN MCKEON ([id number]) on 02/19/2022 10:19:15 AM Referred By: ROBERT Confirmed By:ARYA APODACA MD
--- NOTE | 2022-02-17 09:45 | EDS_ITS ---
HPI History of Present Illness Chief Complaint: Neuro S/Sx Informant: patient Onset/Context/Timing Onset: Today Context: Sudden Onset Timing: Continuous Quality and Location: Positive for Expressive Aphasia Onset: 40 minutes prior to arrival Worsened by: Nothing Relieved by: Nothing Associated Symptoms Associated Symptoms: Negative for Headache, Nausea, Vomiting or Chest Pain Narrative Narrative: Patient presents with strokelike symptoms that began just prior to arrival. Patient's last known well was approximately 40 minutes prior to arrival. EMS states that the patient was unable to repeat the phrase that they had asked him to repeat. EMS also reports that the patient felt that sensation on his left leg was on his right leg. EMS triggered prehospital stroke alert. Patient is having some difficulty answering questions. Patient denies any headaches. Patient denies any weakness. [facility] Medical History Anxiety Bicuspid aortic valve Carotid stenosis Carotid stenosis, right Depression (emotion) Essential (primary) hypertension GERD (gastroesophageal reflux disease) HLD (hyperlipidemia) Nonrheumatic aortic (valve) stenosis with insufficiency Obstructive sleep apnea Home Medications zolpidem 5 mg tablet 10 mg PO QHS PRN PRN Insomnia 09/19/16 [History Last Taken Unknown] aspirin 81 mg tablet,delayed release (Adult Aspirin Regimen) 81 mg PO .q day heart health 10/19/17 [History Last Taken Unknown] omega-3 fatty acids 1,000 mg capsule (Fish Oil Concentrate) 1,000 mg PO QDAY supplement 10/19/17 [History Last Taken Unknown] rosuvastatin 40 mg tablet 40 mg PO QDAY cholesterol 10/19/17 [History Last Taken Unknown] tadalafil 2.5 mg tablet 2.5 mg PO PRN PRN Not Specified 10/20/20 [History Last Taken Unknown] budesonide-formoterol HFA 160 mcg-4.5 mcg/actuation aerosol inhaler gm inhalation 11/28/20 [History Last Taken Unknown] duloxetine 30 mg capsule,delayed release 30 mg PO BID supplement 11/28/20 [History Last Taken Unknown] lisinopril 20 mg tablet 20 mg PO DAILY #90 tabs 11/03/21 [Rx Last Taken Unknown] albuterol sulfate 2.5 mg inhalation Q4H PRN 01/30/22 [History Last Taken Unknown] budesonide-formoterol HFA 160 mcg-4.5 mcg/actuation aerosol inhaler (Symbicort) 1 puff inhalation ONCE 01/30/22 [History Last Taken Unknown] cholecalciferol (vitamin D3) 50 mcg (2,000 unit) capsule 50 mcg PO DAILY 01/30/22 [History Last Taken Unknown] loratadine 10 mg tablet 10 mg PO DAILY 01/30/22 [History Last Taken Unknown] Allergy/AdvReac Type Severity Reaction Status Date / Time No Known Allergies Allergy Verified 02/17/22 10:10 Family History Father CAD (coronary artery disease) Family history of CABG Mother Hypertension CAD (coronary artery disease) Hyperlipidemia Surgical History History of carpal tunnel surgery History of hernia repair History of right-sided carotid endarterectomy (04/19/18) History of shoulder surgery Social History Smoking Status: Former smoker pack-years: 20 EXAM Physical Exam Const Vital Signs: 02/17/22 10:00 02/17/22 10:20 02/17/22 10:02 Temperature 98.0 F Temperature Source Temporal Pulse Rate 99 84 Respiratory Rate 22 H 14 Blood Pressure 197/115 H 179/94 H Blood Pressure Mean 142 122 Pulse Ox 95 97 95 Oxygen Delivery Method Room Air Room Air Room Air 02/17/22 11:06 02/17/22 12:45 Temperature Temperature Source Pulse Rate 85 88 Respiratory Rate 14 16 Blood Pressure 146/86 H 150/89 H Blood Pressure Mean 106 109 Pulse Ox 97 96 Oxygen Delivery Method Room Air Room Air Positive well nourished and well developed General Appearance ED: well developed and NAD HEENT Reports moist mucous membranes Eyes PERRL and EOMs intact bilaterally Neck supple and no JVD Chest Wall inspection of chest normal and palpation of chest normal Resp normal respiratory effort and clear to auscultation bilaterally Cardio Rate: regular rate Rhythm: regular rhythm GI normal to inspection, nondistended, normoactive bowel sounds, soft to palpation and non-tender Extremity normal to inspection Neuro CN's II-XII intact bilaterally and no sensory deficits noted Sensorium / Orientation: awake and alert Speech: speech abnormal Details: Positive for slurred Motor Exam: strength 5/5 throughout Pupil Exam: Normal Pupillary Reactivity/Response: left Psych mental status grossly normal STROKE Vital Signs/Narrative: Vital Signs Temp Pulse Resp BP Pulse Ox 02/17/22 12:45 88 16 150/89 H 96 02/17/22 11:06 85 14 146/86 H 97 02/17/22 10:02 95 02/17/22 10:20 84 14 179/94 H 97 02/17/22 10:00 98.0 F 99 22 H 197/115 H 95 NIHSS Initial: 1a Level of Consciousness: 0 1b LOC Questions (Score 2 if aphasic/stupor): 0 1c LOC Commands (Only score 1st attempt): 0 2 Best Gaze (If aphasic, use reflexive mvmts.): 0 3 Visual: 0 4 Facial Palsy: 0 5 Motor Arm Right (UN = amputation/fusion): 0 5 Motor Arm Left: 0 6 Motor Leg Right: 0 6 Motor Leg Left: 0 7 Limb ataxia (Only + if out of proportion): 0 8 Sensory (Aphasia/stupor=0 or 1, coma=2): 0 9 Best Language: 1 10 Dysarthria (mute, coma=2, intubated=UN): 0 11 Extinction and Inattention (only scored if +): 0 Total Score: 1 MDM MDM MDM Narrative Medical decision making narrative: Prehospital stroke team was called. CT scan of the brain was obtained. There is no acute infarct or bleed noted. This was interpreted by the radiologist and reviewed by myself. CTA of the head and neck was obtained. There is less than 50% stenosis of the right carotid artery. In the proximal one third of the right internal carotid artery, there is tortuosity, kinking, and focal luminal narrowing of approximately 50 to 70%. There is also 70% stenosis to the right V1 segment of the vertebral artery. Patient was evaluated by stroke neurology from [facility] [place]. She did not feel that tPA was indicated since his symptoms have resolved. EKG was obtained. On my interpretation, it showed a normal sinus rhythm with a rate of 97. ME interval, QRS interval, and QTc intervals were all normal. [place] was normal. There are no acute ST or T wave changes. CBC was within normal limits. PT with INR and PTT were within normal limits. Basic metabolic profile was normal. Troponin was normal. On reevaluation, patient is feeling better. Patient states his speech is better than it normally is. Currently, patient denies any symptoms. Case was discussed with the hospitalist. She will admit the patient to her service. Patient understood and was agreeable with the plan. All questions were answered. Lab Data Attestation: I reviewed the patient's lab results. Labs: Laboratory Results - last 24 hr 02/17/22 02/17/22 02/17/22 09:32 09:32 09:32 WBC 5.8 RBC 5.07 Hgb 15.1 Hct 47.1 MCV 92.9 MCH 29.8 MCHC 32.1 RDW Std Deviation 46.7 H RDW Coeff of Uziel 13.8 Plt Count 303 MPV 8.9 Immature Gran % (Auto) 0.300 Neut % (Auto) 58.9 Lymph % (Auto) 25.3 Jackson % (Auto) 10.9 H Eos % (Auto) 4.3 Baso % (Auto) 0.3 Absolute Neuts (auto) 3.4 Absolute Lymphs (auto) 1.46 Nucleated RBC % 0 PT 11.6 L INR 0.9 APTT 26.6 Sodium 140 Potassium 4.0 Chloride 104 Carbon Dioxide 32.0 Anion Gap 4 L BUN 27 H Creatinine 0.90 Est GFR (MDRD) Af Amer 107 Est GFR (MDRD) Non-Af 88 BUN/Creatinine Ratio 30.0 H Glucose 74 Calcium 9.9 Troponin I High Sens 13 Radiography Diagnostic Testing: Clinical Impression(s) from Imaging Studies Brain CT 02/17/22 09:40 IMPRESSION: Chronic ischemic and involutional changes of the brain. N.B. : The above Results were Read Back by Fernandez Ramires MD to Phil Gan MD, and understanding confirmed on 02/17/2022 10:04:51 (ET). Electronically Signed: Fernandez Ramires MD at 10:05 EDT , Chest X-Ray 02/17/22 09:44 IMPRESSION: No acute process Electronically Signed: Fernandez Ramires MD at 11:22 EDT , Head/Neck CTA 02/17/22 09:44 IMPRESSION: 1. Unremarkable [place] without a demonstrated aneurysm or hemodynamically significant stenosis. 2. Mild less than 50% luminal stenosis and evidence of prior angioplasty and dilatation since the previous neck CTA. Interval appearance of surgical clips around the distal aspect of the right common carotid artery/carotid bulb junction. 3. In the proximal one third aspect of the right internal carotid artery there is tortuosity and kinking and focal luminal narrowing of approximately 50-70%, see image 76/221 series 604. 4. There is a 70% focal luminal stenosis of the right V1 segment of the vertebral artery at the insertion on the subclavian artery. N.B. : The above Results were Read Back by Fernandez Ramires MD to Phil Gan DO, and understanding confirmed on 02/17/2022 10:25:42 (ET). Electronically Signed: Fernandez Ramires MD at 10:27 EDT , EKG Initial EKG: Attestation: I personally reviewed and interpreted this EKG as follows: Interpretation: Sinus Rhythm (97) and No Acute Injury Pattern Prior EKG tracings: available for review Prior: Unchanged (10/20/2020) Discharge Plan Triage Chief Complaint: Neuro S/Sx ED Provider: Phil Gan Dx/Rx/DC Orders Clinical Impression: TIA (transient ischemic attack), Essential (primary) hypertension Prescriptions: No Action aspirin [Adult Aspirin Regimen] 81 mg tablet,delayed release (DR/EC) 81 mg PO .q day omega-3 fatty acids [Fish Oil Concentrate] 1,000 mg capsule 1,000 mg PO QDAY rosuvastatin 40 mg tablet 40 mg PO QDAY budesonide-formoterol 160-4.5 mcg/actuation HFA aerosol inhaler INHALATION Label Comments: inhale 2 puffs by mouth twice a day cholecalciferol (vitamin D3) 50 mcg (2,000 unit) capsule 50 mcg PO DAILY budesonide-formoterol [Symbicort] 160-4.5 mcg/actuation HFA aerosol inhaler 1 puff inhalation ONCE loratadine 10 mg tablet 10 mg PO DAILY albuterol sulfate 2.5 mg /3 mL (0.083 %) solution for nebulization 2.5 mg inhalation Q4H PRN (Reason: Shortness Of Breath) zolpidem 5 MG tablet 10 mg PO QHS PRN PRN (Reason: Insomnia) duloxetine 30 mg capsule,delayed release(DR/EC) 30 mg PO BID tadalafil 2.5 MG tablet 2.5 mg PO PRN PRN (Reason: Not Specified) lisinopril 20 mg tablet 20 mg PO DAILY Qty: 90 3RF Primary Care Provider: Em Moore Referrals: Em Moore MD [Primary Care Provider] - Disposition Disposition: Acute Care [facility]
[2022-02-17 09:54] LABS: Absolute Lymphocyte Count 1.46 X10^3/uL (0.83-4.51); Absolute Neutrophil Count 3.4 X10^3/uL (2.0-7.7); Basophil# 0.02 X10^3/uL; Basophil% 0.3 % (0-1); Eosinophil# 0.25 X10^3/uL; Eosinophils% 4.3 % (0-5); Hematocrit 47.1 % (40-54); Hemoglobin 15.1 g/dL (13.0-16.5); Lymphocyte # 1.46 X10^3/ul (0.83-4.51); Lymphocyte % 25.3 % (19-41); Mean Corp Hgb Conc 32.1 g/dL (32-36); Mean Corpuscular Hgb 29.8 pg (27.0-32.0); Mean Corpuscular Volume 92.9 fL (80-94); Mean Platelet Vol. 8.9 fl (6.2-12.0); Monocyte# 0.63 X10^3/uL; Monocyte% 10.9 % (0-10); NRBC Flagged by Analyzer 0 % (0-5); Neutrophil % 58.9 % (47-70); Platelet Count 303 K/mm3 (150-450); RBC Distribution Width CV 13.8 % (11.6-14.6); RBC Distribution Width SD 46.7 fl (35.1-43.9); Red Blood Count 5.07 M/mm3 (4.6-6.2); White Blood Count 5.8 K/mm3 (4.4-11.0)
[2022-02-17 10:01] LABS: International Normalized Ratio 0.9; Prothrombin Time (Protime)PT. 11.6 SECONDS (11.7-14.9)
[2022-02-17 10:02] LABS: Partial Thromboplast Time 26.6 Seconds (24.1-36.2)
[2022-02-17 10:09] LABS: Anion Gap 4 (5-15); BUN 27 mg/dL (7-18); Calcium,Total 9.9 mg/dL (8.5-10.1); Chloride 104 mmol/L (98-107); EST Glomerular Filtration Rate 88 mL/min (>60); Est Glom Filt Rate - Afr Amer 107 mL/min (>60); Glucose 74 mg/dL (74-106); Sodium Level 140 mmol/L (136-145); Troponin-I HS 13 pg/mL (3.0-78.0)
--- NOTE | 2022-02-17 10:17 | ED.RN ---
PT. ARRIVED AT 0941, [facility] CALLED AT 0946, PT. ARRIVED BACK FROM CT A AND [facility] CALLED AT [phone], NEURO ONLINE. 1005, DETERMINED PT. NOT CANDIDATE FOR TPA . DR. IVAN AT BEDSIDE.
--- NOTE | 2022-02-17 12:59 | HP.PCM.HOS_ITS ---
HPI - General General Date of Admission: 02/17/22 Date of Service: 02/17/22 Chief Complaint: Dizziness, slurred speech - 1 day HPI Narrative MARY ELLEN LABOY, is a 71 M who presents above. Patient has a history of chronic back pain/severe degenerative disease of the spine, history of chronic dysphagia follows up with neurosurgery in [facility] and has been undergoing physical therapy at the [facility]. He had water therapy planned at 9 AM today. Whilst he was getting ready to get into the pool, patient stated that he felt very dizzy, felt confused and disorganized. He stated that he could not find his way out of the locker room. He had evidence of slurred speech and could not complete his sentences. The EMS was called and patient's BP was 183/117. His blood sugar was 70. His admitting blood pressure was 197/115, heart rate 99, respiratory 22, temperature was 90 8.0F, SPO2 95% on room air. His CBCD was unremarkable. INR was 0.9. BMP was remarkable for BUN of 27. TSH was 1.66. Hemoglobin A1c was 6.[address] showed chronic involuntary changes. Chest x-ray was unremarkable. CTA of the head and neck showed less than 50% luminal stenosis and evidence of prior angioplasty and dilatation with surgical clips around the distal aspect of the right common carotid artery/carotid bulb junction. [facility] Medical History Anxiety Bicuspid aortic valve Carotid stenosis Carotid stenosis, right Depression (emotion) Essential (primary) hypertension GERD (gastroesophageal reflux disease) HLD (hyperlipidemia) Nonrheumatic aortic (valve) stenosis with insufficiency Obstructive sleep apnea Home Medications zolpidem 5 mg tablet 10 mg PO QHS PRN PRN Insomnia 09/19/16 [History Last Taken Unknown] aspirin 81 mg tablet,delayed release (Adult Aspirin Regimen) 81 mg PO .q day heart [facility] 10/19/17 [History Last Taken 02/16/22 22:00] omega-3 fatty acids 1,000 mg capsule (Fish Oil Concentrate) 1,000 mg PO QDAY supplement 10/19/17 [History Last Taken 02/17/22 08:00] rosuvastatin 40 mg tablet 40 mg PO QDAY cholesterol 10/19/17 [History Last Taken 02/16/22 22:00] tadalafil 2.5 mg tablet 2.5 mg PO PRN PRN Not Specified 10/20/20 [History Last Taken Unknown] duloxetine 30 mg capsule,delayed release 30 mg PO BID supplement 11/28/20 [History Last Taken 02/17/22 08:00] lisinopril 20 mg tablet 20 mg PO DAILY #90 tabs 11/03/21 [Rx Last Taken 02/16/22 22:00] albuterol sulfate 2.5 mg inhalation Q4H PRN Shortness Of Breath 01/30/22 [History Last Taken 02/17/22 08:00] budesonide-formoterol HFA 160 mcg-4.5 mcg/actuation aerosol inhaler (Symbicort) 1 puff inhalation ONCE 01/30/22 [History Last Taken 02/17/22 08:00] cholecalciferol (vitamin D3) 50 mcg (2,000 unit) capsule 50 mcg PO DAILY 01/30/22 [History Last Taken 02/17/22 08:00] loratadine 10 mg tablet 10 mg PO DAILY allergy 01/30/22 [History Last Taken 02/17/22 08:00] Allergy/AdvReac Type Severity Reaction Status Date / Time No Known Allergies Allergy Verified 02/17/22 10:10 Family History Father CAD (coronary artery disease) Family history of CABG Mother Hypertension CAD (coronary artery disease) Hyperlipidemia Surgical History History of carpal tunnel surgery History of hernia repair History of right-sided carotid endarterectomy (04/19/18) History of shoulder surgery Social History (Updated 02/17/22 @ 17:[address] Tg James MD) household members: spouse and family Smoking Status: Former smoker pack-years: 20 alcohol intake: never substance use type: does not use ROS ROS Narrative Constitutional: Reports: Malaise, Weakness, Fatigue. Denies: Anorexia, Chills, Fever, Night Sweats, Weight Change Eyes: Denies: Blurred vision, Cataracts, Conjunctivae Inflammation, Pain, Redne ss, Vision Change HEENT: Denies: Difficulty Hearing, Difficulty Swallowing, Head Aches, Hearing Changes, Sinus Congestion, Sinus Drainage Cardiovascular: Denies: Chest Pain, Orthopnea, Palpitations Respiratory: Denies: Cough, Shortness of breath at rest, Sputum production Gastrointestinal: Denies: Abdominal Pain, Nausea, Vomiting Genitourinary: Denies: Dysuria Musculoskeletal: Denies: Joint Pain, Joint stiffness, Joint swelling, Joint Tenderness Skin: Denies: Rash, Wounds Neurological: Denies: Numbness, Tingling, Focal weakness, see HPI Vital Signs Vital Signs Vital Signs: 02/17/22 10:00 02/17/22 10:20 02/17/22 10:02 Temperature 98.0 F Temperature Source Temporal Pulse Rate 99 84 Respiratory Rate 22 H 14 Blood Pressure 197/115 H 179/94 H Blood Pressure Mean 142 122 Pulse Ox 95 97 95 Oxygen Delivery Method Room Air Room Air Room Air 02/17/22 11:06 02/17/22 12:45 Temperature Temperature Source Pulse Rate 85 88 Respiratory Rate 14 16 Blood Pressure 146/86 H 150/89 H Blood Pressure Mean 106 109 Pulse Ox 97 96 Oxygen Delivery Method Room Air Room Air Weight Weight: 60.8 kg Body Mass Index (BMI) 23.7 Physical Exam Narrative Physical exam: General: Alert, Oriented x3, Cooperative, No apparent distress, appears anxious HEENT: Atraumatic Oral: Moist Mucosa Neck: Supple Lungs: Clear to auscultation Cardiovascular: HS I+II, regular, no murmurs Abdomen: Bowel Sounds Present, Soft, Non Tender Extremities: No edema Skin: No rashes, No breakdown Neurological: Grossly intact except for slurred speech Psych/Mental Status: Appropriate Results Lab / Micro Data Result Diagrams: 02/17/22 09:32 02/17/22 09:32 Labs: Laboratory Results - last 24 hr 02/17/22 09:32: WBC 5.8, RBC 5.07, Hgb 15.1, Hct 47.1, MCV 92.9, MCH 29.8, MCHC 32.1, RDW Std Deviation 46.7 H, RDW Coeff of Uziel 13.8, Plt Count 303, MPV 8.9, Immature Gran % (Auto) 0.300, Neut % (Auto) 58.9, Lymph % (Auto) 25.3, Green % (Auto) 10.9 H, Eos % (Auto) 4.3, Baso % (Auto) 0.3, Absolute Neuts (auto) 3.4, Absolute Lymphs (auto) 1.46, Nucleated RBC % 0 02/17/22 09:32: PT 11.6 L, INR 0.9, APTT 26.6 02/17/22 09:32: Sodium 140, Potassium 4.0, Chloride 104, Carbon Dioxide 32.0, Anion Gap 4 L, BUN 27 H, Creatinine 0.90, Est GFR (MDRD) Af Amer 107, Est GFR (MDRD) Non-Af 88, BUN/Creatinine Ratio 30.0 H, Glucose 74, Calcium 9.9, Troponin I High Sens [address] 02/17/22 09:40 IMPRESSION: Chronic ischemic and involutional changes of the brain. N.B. : The above Results were Read Back by Fernandez Ramires MD to Phil Gan MD, and understanding confirmed on 02/17/2022 10:04:51 (ET). Electronically Signed: Fernandez Ramires MD at 10:05 EDT Reading Location ID and State: [facility] / [place] , Service support , Chest X-Ray 02/17/22 09:44 IMPRESSION: No acute process Electronically Signed: Fernandez Ramires MD at 11:22 EDT , Head/Neck CTA 02/17/22 09:44 IMPRESSION: 1. Unremarkable [place] without a demonstrated aneurysm or hemodynamically significant stenosis. 2. Mild less than 50% luminal stenosis and evidence of prior angioplasty and dilatation since the previous neck CTA. Interval appearance of surgical clips around the distal aspect of the right common carotid artery/carotid bulb junction. 3. In the proximal one third aspect of the right internal carotid artery there is tortuosity and kinking and focal luminal narrowing of approximately 50-70%, see image 76/221 series 604. 4. There is a 70% focal luminal stenosis of the right V1 segment of the vertebral artery at the insertion on the subclavian artery. N.B. : The above Results were Read Back by Fernandez Ramires MD to Phil Schwiger, DO, and understanding confirmed on 02/17/2022 10:25:42 (ET). Electronically Signed: Fernandez Ramires MD at 10:27 EDT , Assessment & Plan Assessment/Plan (1) TIA (transient ischemic attack): PLAN: Plan 1. Acute onset of slurred speech, confusion, likely secondary to TIA/CVA vs hypertensive encephalopathy Patient with multiple risk factors, history of right carotid stenosis status post carotid endarterectomy Initial CT of the brain as well as CTA of the head and neck is unremarkable Admitting NIHSS score was 2, last known normal was around 9 AM Admit to PCU, monitor on telemetry, MRI of the brain Recent 2D echo in December 2021 showed EF of 60%, stage I diastolic dysfunction, trivial valvular abnormality Lipid profile in am, HbA1c, continue on aspirin 2. Accelerated hypertension, blood pressure was very high 197/115, received IV labetalol We will continue on home lisinopril with as needed hydralazine 3. Hyperlipidemia, check lipid profile, continue statin 4. Anxiety/depression, continue Cymbalta 5. DVT PPx- Heparin SC I discussed and explained in details the various types of CODE STATUS-full code, DNR CCA, DNR CC. Patient chose DNR CCA, no intubation Time spent discussing CODE STATUS 16 minutes Charges/Coding Visit Charges Inpatient E&M: 86660 Subs Hosp L2
[2022-02-17 13:41] LABS: Thyroid Stim Hormone (TSH) 1.66 uIU/mL (0.358-3.74); Troponin-I HS 22 pg/mL (3.0-78.0)
--- NOTE | 2022-02-17 13:54 | MRI_ITS ---
EXAM: MR HEAD WITHOUT INTRAVENOUS CONTRAST CLINICAL INDICATION: neuro deficit,acute, stroke suspected TECHNIQUE: Multiplanar and multisequence MR images of the brain were obtained without intravenous contrast. This report was created using [employer] report generation technology. COMPARISON: ct done earlier today. FINDINGS: BRAIN AND EXTRA-AXIAL SPACES: Chronic involutional changes of the brain. No intra- or extra-axial hemorrhage. No evidence of acute infarct. No intracranial mass or mass effect. There is preservation of the dickinson/white matter interface. Posterior fossa structures are unremarkable. Ventricles are appropriate for age. No hydrocephalus. Basal cisterns are patent. SELLA: Unremarkable. Normal sella turcica, pituitary gland, infundibular stalk, optic chiasm and hypothalamus. AUDITORY SYSTEM: Unremarkable. The internal auditory canals are patent. BONES/JOINTS: Unremarkable. No discrete lytic or blastic abnormalities. SINUSES: Unremarkable as visualized. Clear. MASTOID AIR CELLS: Unremarkable as visualized. Clear. ORBITS: Unremarkable as visualized. Both globes, extraocular muscles, optic nerves and retrobulbar fat appear unremarkable. VASCULATURE: Unremarkable as visualized. Normal flow voids in the major intracranial circulation. MRI/Brain without Contrast IMPRESSION: Chronic involutional changes of the brain. Electronically Signed: Parth Sandhu MD at 16:01 EDT ,
--- NOTE | 2022-02-17 18:32 | TELEMED_ITS ---
[facility] Tele[facility] has confirmed receipt of a request for visit. This document confirms receipt of the order initiating the consult. To find the results of the consultation, please view the patient's reports for the scanned Telemed Consult.
[2022-02-17] MEDS: 0.9% Saline Lock 10 ML Syringe IV (19:02)
[2022-02-17] MEDS: Ondansetron 4 MG/2 ML Vial IV (19:02)
[2022-02-17] MEDS: Albuterol 2.5 MG/3 ML VIAL.NEB. INHALATION (22:00)
[2022-02-17] MEDS: Budesonide Respules 0.5 MG/2 ML AMPUL.NEB. INHALATION (22:00)
[2022-02-17] MEDS: Acetaminophen 325 MG Tablet 650 MG PO (22:14)
[2022-02-17] MEDS: Lisinopril 20 MG Tablet PO (22:16)
[2022-02-17] MEDS: Heparin Injection (Vial) 5,000 UNIT/ML VIAL 5000 UNIT SC (22:17)
[2022-02-17] MEDS: DULoxetine Hcl 30 MG Capsule PO (22:17)
[2022-02-17] MEDS: Atorvastatin Calcium 80 MG Tablet PO (22:17)
[2022-02-18 02:00] VITALS: PULSE 92
[2022-02-18 04:30] VITALS: BP 101/75; PULSE 84; RESP 18; TEMP 36.6; O2SAT 93
[2022-02-18 05:00] VITALS: BMI 22.8
[2022-02-18 06:23] LABS: Absolute Lymphocyte Count 0.39 X10^3/uL (0.83-4.51); Basophil# 0.02 X10^3/uL; Basophil% 0.2 % (0-1); Eosinophil# 0.41 X10^3/uL; Eosinophils% 4.4 % (0-5); Hematocrit 41.3 % (40-54); Hemoglobin 13.2 g/dL (13.0-16.5); Lymphocyte # 0.39 X10^3/ul (0.83-4.51); Lymphocyte % 4.2 % (19-41); Mean Corpuscular Hgb 29.9 pg (27.0-32.0); Mean Corpuscular Volume 93.7 fL (80-94); Mean Platelet Vol. 9.1 fl (6.2-12.0); Monocyte# 0.53 X10^3/uL; Monocyte% 5.7 % (0-10); NRBC Flagged by Analyzer 0 % (0-5); Neutrophil # 7.99 X10^3/uL (2.7-7.7); Neutrophil % 85.2 % (47-70); POSITIVE DIFFERENTIAL YES; Platelet Count 304 K/mm3 (150-450); RBC Distribution Width CV 14.1 % (11.6-14.6); RBC Distribution Width SD 48.8 fl (35.1-43.9); Red Blood Count 4.41 M/mm3 (4.6-6.2); White Blood Count 9.4 K/mm3 (4.4-11.0)
[2022-02-18 06:24] LABS: Differential Indicated SCAN CRITERIA MET
[2022-02-18 06:47] LABS: Differential Comment SCANNED
[2022-02-18 06:59] LABS: ALB/GLOB Ratio 1.1 RATIO (0.9-2.4); AST(SGOT) 20 U/L (15-37); Alanine Aminotransfer ALT/SGPT 36 U/L (16-61); Albumin, Serum 3.4 g/dL (3.2-5.0); Alkaline Phosphatase 66 U/L (45-117); Anion Gap 1 (5-15); BUN 23 mg/dL (7-18); Calcium,Total 9.2 mg/dL (8.5-10.1); Chloride 105 mmol/L (98-107); Cholesterol 182 mg/dL (200); Creatinine, Serum 0.96 mg/dL (0.70-1.30); EST Glomerular Filtration Rate 82 mL/min (>60); Est Glom Filt Rate - Afr Amer 99 mL/min (>60); Estimated Creatinine Clearance 55.98 ml/min; Glucose 117 mg/dL (74-106); High Density Lipoprotein 60 mg/dL; Potassium 4.6 mmol/L (3.5-5.1); Protein, Total 6.4 g/dL (6.4-8.2); Sodium Level 138 mmol/L (136-145); Triglycerides 137 mg/dL; Very Low Density Lipoprotein 27 mg/dL (5-40)
[2022-02-18 07:04] VITALS: PULSE 73
[2022-02-18] MEDS: Budesonide Respules 0.5 MG/2 ML AMPUL.NEB. INHALATION (07:17)
[2022-02-18] MEDS: Albuterol 2.5 MG/3 ML VIAL.NEB. INHALATION (07:17)
[2022-02-18 07:19] VITALS: PULSE 104; RESP 18; O2SAT 94
[2022-02-18 08:33] VITALS: BP 100/61; PULSE 89; RESP 15; TEMP 36.6; O2SAT 95
[2022-02-18] MEDS: Acetaminophen 325 MG Tablet 650 MG PO (08:49)
[2022-02-18] MEDS: Loratadine 10 MG Tablet PO (08:50)
[2022-02-18] MEDS: Aspirin 81 MG TAB.CHEW PO (08:50)
[2022-02-18] MEDS: Cholecalciferol (VIT D3) 25 MCG TABLET (1,000 UNITS) 50 MCG PO (08:50)
[2022-02-18] MEDS: DULoxetine Hcl 30 MG Capsule PO (08:50)
[2022-02-18] MEDS: Omega-3 Acid Ethyl Esters 1 GM Capsule PO (08:51)
--- NOTE | 2022-02-18 09:54 | CASEMGMT ---
Per therapy notes, no further therapy recommended. SStaten RN CM
--- NOTE | 2022-02-18 11:03 | DCINST_ITS ---
Discharge Instructions Diet Discharge Diet: Low fat / Low cholesterol and 2000 mg Sodium Diet Activity Discharge Activity: Return to Normal Activity Weight Bearing Status: Weight bearing as tolerated Follow Up Care Test Results: Test results from this visit will be discussed in further detail at your follow- up appointment, if applicable. Discharge Plan Admission Admit Date/Time: 02/17/22 12:50 Primary Reason for Your Visit: Acute TIA Attending Provider: Tg James Primary Care Provider: Em Moore Instructions Additional Instructions / Restrictions: Take note of changes to your medications Follow-up with Neurologist in the outpatient. Discharge Orders/Prescriptions Prescriptions: New atorvastatin 80 mg Tablet 80 mg PO QHS 30 Days Qty: 30 0RF aspirin 81 mg Tablet,Chewable 81 mg PO BREAKFAST 30 Days Qty: 30 0RF clopidogrel [Plavix] 75 mg tablet 75 mg PO DAILY 30 Days Qty: 30 0RF Continued aspirin [Adult Aspirin Regimen] 81 mg tablet,delayed release (DR/EC) 81 mg PO .q day omega-3 fatty acids [Fish Oil Concentrate] 1,000 mg capsule 1,000 mg PO QDAY rosuvastatin 40 mg tablet 40 mg PO QDAY cholecalciferol (vitamin D3) 50 mcg (2,000 unit) capsule 50 mcg PO DAILY budesonide-formoterol [Symbicort] 160-4.5 mcg/actuation HFA aerosol inhaler 1 puff inhalation ONCE loratadine 10 mg tablet 10 mg PO DAILY albuterol sulfate 2.5 mg /3 mL (0.083 %) solution for nebulization 2.5 mg inhalation Q4H PRN (Reason: Shortness Of Breath) zolpidem 5 MG tablet 10 mg PO QHS PRN PRN (Reason: Insomnia) duloxetine 30 mg capsule,delayed release(DR/EC) 30 mg PO BID tadalafil 2.5 MG tablet 2.5 mg PO PRN PRN (Reason: check with primary) lisinopril 20 mg tablet 20 mg PO DAILY Qty: 90 3RF Referrals / Follow Up: Em Moore MD [Primary Care Provider] - Eduar Keita MD [STAFF PHYSICIAN] - 03/09/22 8:45 am Disposition Disposition (needs filled in before D/C Order can be placed): Home, Self Care
--- NOTE | 2022-02-18 11:09 | PCM.DC.SUM ---
Providers Date of Admission: 02/17/22 Date of Discharge: 02/18/22 Primary Care Physician: Dr. Em Moore MD Reason For Visit: TIA/CVA Diagnosis Discharge Diagnosis (1) TIA (transient ischemic attack): Status: Acute Code(s): G45.9 - Transient cerebral ischemic attack, unspecified Medications at Discharge Home Medications zolpidem 5 mg tablet 10 mg PO QHS PRN PRN Insomnia 09/19/16 omega-3 fatty acids 1,000 mg capsule (Fish Oil Concentrate) 1,000 mg PO QDAY supplement 10/19/17 rosuvastatin 40 mg tablet 40 mg PO QDAY cholesterol 10/19/17 tadalafil 2.5 mg tablet 2.5 mg PO PRN PRN check with primary 10/20/20 duloxetine 30 mg capsule,delayed release 30 mg PO BID mental health 11/28/20 lisinopril 20 mg tablet 20 mg PO DAILY #90 tabs 11/03/21 albuterol sulfate 2.5 mg inhalation Q4H PRN Shortness Of Breath 01/30/22 budesonide-formoterol HFA 160 mcg-4.5 mcg/actuation aerosol inhaler (Symbicort) 1 puff inhalation ONCE breathing 01/30/22 cholecalciferol (vitamin D3) 50 mcg (2,000 unit) capsule 50 mcg PO DAILY vitamin 01/30/22 loratadine 10 mg tablet 10 mg PO DAILY allergy 01/30/22 aspirin 81 mg chewable tablet 81 mg PO BREAKFAST 30 days #30 tabs 02/18/22 clopidogrel 75 mg tablet (Plavix) 75 mg PO DAILY 30 days #30 tabs 02/18/22 Hospital Course Operations None Procedures None Summary of Care Provided Minutes Spent on Discharge: 45 Hospital Course: 71-year-old male with past medical history of chronic back pain/severe degenerative disease of the spine, history of chronic dysphagia.follows up with ENT and speech therapy in the outpatient. Patient and is undergoing physical therapy at [facility]. He had a planned water therapy session at 9 AM on the day of admission. While patient was in the locker room getting ready to go, he felt very confused, he felt disoriented. He could not think of her way out of the locker room. He had evidence of slurred speech and could not complete his sentences. The EMS were called, patient's BP was elevated. He was seen in the emergency room, his vitals were stable except for slightly elevated blood pressure. CT of the brain showed chronic involutional changes. Chest x-ray was unremarkable. CTA of the head and neck showed less than 50% luminal stenosis and evidence of prior angioplasty and the rotation with surgical clips around the distal aspect of the right common carotid artery/carotid bulb junction. Patient was admitted to the PCU and monitored on the stroke protocol. MRI of the brain did not show any acute infarct. Patient was seen by [facility]. Patient per to have tongue fasciculations on exam. Patient was referred to an inpatient neurologist. It was recommended that he be on aspirin and Plavix for 6 months and then go off the Plavix. He received Plavix 300 mg p.o. x1. Discussed patient with Dr. Keita, patient has a set appointment for March 09. He may be seen earlier if there are cancellations. He knows that patient might need EMG/NCS in the outpatient. Patient was also advised to discussed anxiety medications with his primary care doctor. He stated that he was on a clonazepam. I asked him to talk to his primary care doctor about SSRIs. Physical Exam Narrative Physical exam: General: Alert, Oriented x3, Cooperative, No apparent distress, appears anxious HEENT: Atraumatic Oral: Moist Mucosa Neck: Supple Lungs: Clear to auscultation Cardiovascular: HS I+II, regular, no murmurs Abdomen: Bowel Sounds Present, Soft, Non Tender Extremities: No edema Skin: No rashes, No breakdown Neurological: Grossly intact, tongue fasciculations seen, slightly slurred speech Psych/Mental Status: Appropriate Weight / BMI Weight Weight: 58.3 kg Body Mass Index (BMI) 22.8 ABG / Lab / Microbiology Data Result Diagrams: 02/18/22 05:50 02/18/22 05:50 Laboratory: Laboratory Results - last 24 hr 02/17/22 13:15: Troponin I High Sens , TSH 1.66 02/17/22 13:15: Hemoglobin A1c 6.0 H 02/18/22 05:50: WBC 9.4, RBC 4.41 L, Hgb 13.2, Hct 41.3, MCV 93.7, MCH 29.9, MCHC 32.0, RDW Std Deviation 48.8 H, RDW Coeff of Uziel 14.1, Plt Count 304, MPV 9.1, Immature Gran % (Auto) 0.300, Neut % (Auto) 85.2 H, Lymph % (Auto) 4.2 L, Alger % (Auto) 5.7, Eos % (Auto) 4.4, Baso % (Auto) 0.2, Absolute Neuts (auto) 8.0 H, Absolute Lymphs (auto) 0.39 L, Nucleated RBC % 0, Differential Comment SCANNED 02/18/22 05:50: Sodium 138, Potassium 4.6, Chloride 105, Carbon Dioxide 32.0, Anion Gap 1 L, BUN 23 H, Creatinine 0.96, Estim Creat Clear Calc 55.98, Est GFR (MDRD) Af Amer 99, Est GFR (MDRD) Non-Af 82, BUN/Creatinine Ratio 24.0 H, Glucose 117 H, Calcium 9.2, Total Bilirubin 0.80, AST 20, ALT 36, Alkaline Phosphatase 66, Total Protein 6.4, Albumin 3.4, Globulin 3.0, Albumin/Globulin Ratio 1.1, Triglycerides 137, Cholesterol 182, LDL Cholesterol 95, VLDL Cholesterol 27, HDL Cholesterol 60 Radiography Diagnostic Testing: Radiology Impression Chest X-Ray 02/17/22 09:44 IMPRESSION: No acute process Electronically Signed: Fernandez Ramires MD at 11:22 EDT Reading Location ID and State: [facility] / MD , Service support , Brain MRI 02/17/22 13:54 IMPRESSION: Chronic involutional changes of the brain. Electronically Signed: Parth Sandhu MD at 16:01 EDT , D/C Instructions Discharge Diet: Low fat / Low cholesterol and 2000 mg Sodium Diet Weight Bearing Status: Weight bearing as tolerated Meaningful Use Info Meaningful Use Diagnoses (Choose all that apply): None applicable Discharge Plan Admission Admit Date/Time: 02/17/22 12:50 Primary Reason for Your Visit: Acute TIA Attending Provider: Tg James Primary Care Provider: Em Moore Instructions Additional Instructions / Restrictions: Take note of changes to your medications Follow-up with Neurologist in the outpatient. Discharge Orders/Prescriptions Prescriptions: New clopidogrel [Plavix] 75 mg tablet 75 mg PO DAILY 30 Days Qty: 30 0RF aspirin 81 mg Tablet,Chewable 81 mg PO BREAKFAST 30 Days Qty: 30 0RF Continued omega-3 fatty acids [Fish Oil Concentrate] 1,000 mg capsule 1,000 mg PO QDAY rosuvastatin 40 mg tablet 40 mg PO QDAY cholecalciferol (vitamin D3) 50 mcg (2,000 unit) capsule 50 mcg PO DAILY budesonide-formoterol [Symbicort] 160-4.5 mcg/actuation HFA aerosol inhaler 1 puff inhalation ONCE loratadine 10 mg tablet 10 mg PO DAILY albuterol sulfate 2.5 mg /3 mL (0.083 %) solution for nebulization 2.5 mg inhalation Q4H PRN (Reason: Shortness Of Breath) zolpidem 5 MG tablet 10 mg PO QHS PRN PRN (Reason: Insomnia) duloxetine 30 mg capsule,delayed release(DR/EC) 30 mg PO BID tadalafil 2.5 MG tablet 2.5 mg PO PRN PRN (Reason: check with primary) lisinopril 20 mg tablet 20 mg PO DAILY Qty: 90 3RF Discontinued aspirin [Adult Aspirin Regimen] 81 mg tablet,delayed release (DR/EC) 81 mg PO .q day Referrals / Follow Up: Em Moore MD [Primary Care Provider] - Eduar Keita MD [STAFF PHYSICIAN] - 03/09/22 8:45 am Disposition Disposition (needs filled in before D/C Order can be placed): Home, Self Care Charges/Coding Visit Charges Inpatient E&M: 02683 Disch Hosp
--- NOTE | 2022-02-18 12:00 | PHA.DC.MC ---
Pharmacy Service has performed discharge medication reconciliation and counseling for this patient. Spoke to Dr James, patient on Crestor at home and Lipitor was sent as a new prescription. She will D/C Lipitor. She will also delete duplicate aspirin on home medication list. 1. CLOPIDOGREL 75MG PO DAILY The patient's discharge medication list was reviewed for discrepancies and discrepancies were resolved. Home Medications zolpidem 5 mg tablet 10 mg PO QHS PRN PRN Insomnia 09/19/16 omega-3 fatty acids 1,000 mg capsule (Fish Oil Concentrate) 1,000 mg PO QDAY supplement 10/19/17 rosuvastatin 40 mg tablet 40 mg PO QDAY cholesterol 10/19/17 tadalafil 2.5 mg tablet 2.5 mg PO PRN PRN check with primary 10/20/20 duloxetine 30 mg capsule,delayed release 30 mg PO BID mental health 11/28/20 lisinopril 20 mg tablet 20 mg PO DAILY #90 tabs 11/03/21 albuterol sulfate 2.5 mg inhalation Q4H PRN Shortness Of Breath 01/30/22 budesonide-formoterol HFA 160 mcg-4.5 mcg/actuation aerosol inhaler (Symbicort) 1 puff inhalation ONCE breathing 01/30/22 cholecalciferol (vitamin D3) 50 mcg (2,000 unit) capsule 50 mcg PO DAILY vitamin 01/30/22 loratadine 10 mg tablet 10 mg PO DAILY allergy 01/30/22 aspirin 81 mg chewable tablet 81 mg PO BREAKFAST 30 days #30 tabs 02/18/22 clopidogrel 75 mg tablet (Plavix) 75 mg PO DAILY 30 days #30 tabs 02/18/22 The patient was counseled on the following discharge medications and changes in medications for homegoing were reviewed. The Reason for Use, instructions for use, and potential side effects were reviewed for all new medications. The patient's questions regarding all of their medications were answered. The patient was able to verbally demonstrate an understanding of their discharge medications.
[2022-02-18] MEDS: Clopidogrel Bisulfate 300 MG Tablet PO (12:16)
[2022-02-18 12:23] VITALS: BMI 22.8
== END 2022-02-18 07:24 | disposition home or self-care (01) ==
LOC: ED 12:54 → PCU 13:04
PROVIDERS: Admitting Provider Internal Medicine; Emergency Provider Emergency Medicine; PCP Internal Medicine; Visit Provider Internal Medicine
DX: G45.9 Transient cerebral ischemic attack, unspecified (principal); E78.5 Hyperlipidemia, unspecified; I10 Essential (primary) hypertension; R47.81 Slurred speech; Z87.891 Personal history of nicotine dependence; R47.01 Aphasia; F41.9 Anxiety disorder, unspecified; F32.A Depression, unspecified; G47.33 Obstructive sleep apnea (adult) (pediatric); Z79.899 Other long term (current) drug therapy; R29.701 NIHSS score 1; Z79.82 Long term (current) use of aspirin; R47.1 Dysarthria and anarthria
CPT/HCPCS: 36415; 70450; 70496; 70498; 70551; 71045; 80048; 80053; 80061; 83036; 84443; 84484; 85025; 85610; 85730; 92523; 92611; 93005; 94640; 96372; 96374; 97162; 99218; 99285; Q9967; A4216; G0378; J2405

== ENCOUNTER 2022-02-20 09:00 | Outpatient (RCR) | payer MEDICARE, SELFPAY ==
--- NOTE | 2022-01-29 09:52 | HP.PTEVAL ---
Patient's Visit Information MARY ELLNE LABOY is a 71 year old M referred to Physical Therapy by Dr. Macario Aparicio, with a diagnosis of LUMBAR SPINAL STENOSIS. Date of Evaluation: 01/29/22 Physical Therapist: Layla Rosas PT, Cert MDT - Visit Plan Frequency: 2-3x /Week Duration: 4-6 Weeks Plan: AQUATIC THERAPY FOR PAIN RELIEF, SHIFT CORRECTION, POSTURE CORRECTION/STRENGTHENING, INSTRUCTION IN APPROPRIATE BODY MECHANICS AND ACTIVITY MODIFICATIONS. DLS STARTING WITH A NEUTRAL SPINE PROGRESSING ROM TOLERATED. MANSOOR LE ROM, STRETCHING AND STRENGTHENING. HEP INSTRUCTION. 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 Disability: NO. Present symptoms: MANSOOR LOW BACK PAIN L> R. LEANS TO THE RIGHT TO WALK. INTERMITTENT MANSOOR FOOT TINGLING THAT USUALLY OCCURS WHEN LIES DOWN AT NIGHT. Present since: CHRONIC BUT WORSENING OVER THE LAST 1.5 YEARS. Pain Scale: WORST 8/10, LEAST 2/10. Currently: 2/10. Commenced as a result of: NO APPARENT REASON. Symptoms at onset: LOW BACK PAIN IN HIGH SCHOOL THAT HE RELATES TO PHYSICALLY OVER WORKING ALL OF HIS LIFE. Worse: THE DAY PROGRESSES, STANDING AND WALKING. BENDING. LIFTING. Better: LYING DOWN, SITTING. Disturbed sleep: NO. Previous history/Previous treatment: NO BACK SURGERY. LAURENEC APPROX 2009 AND THEN MORE RECENTLY AUG/SEP 2021. THE LAST INJECTION DID NOT HELP. HAS TRIED SOME PAIN MEDICATIONS IN THE PAST BUT JUST TAKING ALEVE NOW. Coughing/sneezing/straining: NEGATIVE. Gait: PATIENT REPORTS HE WALKS BENT OVER AND IT GETS WORSE THE DAY PROGRESS'S TO THE POINT THAT HE IS WALKING WITH HIS HAND ON HIS RIGHT KNEE. Difficulty initiating urination: NO. Bowel or Bladder Dysfunction: NO. Accidents: NO. Unexplained weight loss: NO. Imaging: LUMBAR X-RAYS FALL OF 2020 - STENOSIS, DDD. PMH: MANSOOR RCR'S. CAROTID ARTERY SX 2019 TO OPEN IT UP. HEART MURMER. SEE FURTHER PMH BELOW. OTHER: PATIENT REPORTS DR. APARICIO DID NOT LEAN TOWARD SX DUE TO HIS AGE AND HEART CONDITION. - Objective Sitting/Standing Posture: POOR. INCREASED TRUNK FLEXION. R LATERAL SHIFT. Active Correction of posture: WORSE. Other Observations: INDEP GAIT INTO PT WITHOUT ANY ASSISTIVE DEVICES OR LOB BUT INCREASED TRUNK FLEXION AND RIGHT LATERAL SHIFT. Sensory deficit: MANSOOR LE LIGHT TOUCH SENSATION GROSSLY INTACT AND SYMMETRICAL. ROM deficit: TIGHT MANSOOR LE HS'S AND GASTROC SOLEUS COMPLEX'S. Motor deficit: MANSOOR LE'S 5/5 WITH MMT'ING EXCEPT HIPS 4/5. Dural Signs: NEGATIVE MANSOOR LE'S. Lumbar mvmt loss: flex - MOD. ext - AMARILIS. R SG - MOD. L SG - AMARILIS. PATIENT C/O INCREASED LBP WITH ATTEMPS AT SHIFT CORRECTION. Core strength: POOR. Palpation: NO ACUTE TENDERNESS IN LOWER THORACIC OR LUMBAR REGIONS. TREATMENT: NEUROMUSCULAR REEDUCATION - RETRAINING OF MVMT AND POSTURE FOR SITTING, LYING AND STANDING ACTIVITIES. - Balance/Special Test Scores Oswestry Low Back Score: 13 - Goals Goal 1:: DECREASE C/O LOW BACK PAIN Goal Time Frame: 4-6 Weeks Goal 2:: IMPROVE PERSONAL CARE, LIFTING, WALKING, SITTING, STANDING, SOCIAL LIFE, TRAVEL AND HOMEMAKING FUNCTION Goal Time Frame: 4-6 Weeks Goal 3:: INSTRUCT IN PROPHYLAXIS Goal Time Frame: 4-6 Weeks - Anticipated Interventions Patient/Client Instruction: Educate patient on: Condition, Plan of Care, Risk Factors Therapeutic Exercise to Include: Strength training, Body mechanics, Postural training, Flexibilty training, Neuromotor development, In an aquatic setting, Dynamic Lumbar Stabilization For the Purpose of:: To decrease pain, To increase ROM, To improve muscle performance and motor function, To increase tolerance to activity/condition/position, To improve ability of physical actions for home/community/work/leisure Thank you for the opportunity to evaluate your patient. For Medicare and Medicare HMO plans, please review the plan of care and approve it. It will need to be FAXED BACK to us at [phone] for Medicare purposes. For Medicare only, by signing this I certify the plan of care. Please let me know if there are questions or concerns regarding this plan of care. Physician Signature: Date:
--- NOTE | 2022-02-02 17:21 | ST ---
[facility] Speech Pathology [address] [place] [address] Modified Barium Swallow Study MR#: [id number] Acct: [id number] Name: MARY ELLEN LABOY Rep #: [id number] : 1950 71 From: Bela Riojas M.A., [facility]-PLANT WR[employer]PER Modified Barium Swallow - Patient Information Study Date: 01/21/22 Study Time: 13:00 Direct Billable Minutes: 75 Total Minutes procedure & reportin Diagnosis: Dysphagia, unspecified (R13.10) Referring Physician: Storm Rosa Reason for Referral: Objectively assess swallow function, risk for aspiration, and determine recommendations for least restrictive diet textures and compensatory strategies to improve safety of swallow. Medical History: The patient is a 73-year-old male with PMH including anxiety, depression, GERD, BRIDGETTE, HTN, HLD, atherosclerosis of both carotid arteries, bicuspid aortic valve, nonrheumatic aortic valve stenosis (SEE EMR for full PMH). Per patient report, he has had increased difficulty swallowing in the past year characterized by coughing when consuming thin liquids, difficulty swallowing certain solids, sensation of certain foods becoming stuck. He informed the PLANT WRAPPER that recently his called the squad, while his daughter attempted the Heimlich on the patient. He had swallowed shredded wheat and couldn't breath. He ended up coughing up the food. He also reported having PNA in 2012 from inhaling liquid. He admits to quick rate of eating and drinking. Hx of GERD 10-15 years ago. Current Diet Ordered: Regular textures / Thin liquids Dentition: Missing Teeth - 2 teeth missing Mental Status: WNL Respiratory Status: Oxygenating on Room Air - Penetration-Aspiration Scale Penetration-Aspiration Scale: OBJECTIVE ASSESSMENT OF SWALLOW FUNCTION (QUANTITATIVE ? PER TRIAL): PENETRATION / ASPIRATION SCALE (BLOOD): 1 = does not enter airway 2 = enters airway/above vocal folds/ejected 3 = enters airway/above vocal folds/not ejected 4 = enters airway/contacts vocal folds/ejected 5 = enters airway/contacts vocal folds/not ejected 6 = enters airway/below vocal folds/ejected 7 = enters airway/below vocal folds/not ejected despite effort 8 = enters airway/below vocal folds/no effort - Penetration-Aspiration Scale Score Thin Liquid via teaspoon Result: 1= does not enter airway Thin Liquid via teaspoon Trial 2 Result: 1= does not enter airway Thin Liquid via small single sip from cup Result: 1= does not enter airway Thin Liquid via sequential sips from cup Result: 2= enter airway/above vocal folds/ejected [place] Thick Liquid via small single sip from cup Result: 1= does not enter airway [place] Thick Liquid via small single sip from cup Result: 1= does not enter airway Pudding via teaspoon with esophageal screen Result: 1= does not enter airway 1/2 Cookie with esophageal screen Result: 1= does not enter airway Whole Cookie Result: 1= does not enter airway Thin Liquid via single sip from straw Result: 1= does not enter airway Thin Liquid via sequential sips from straw Result: 1= does not enter airway - Oral Phase Labial Seal: No Labial Escape Tongue Control During Bolus Hold: Posterior escape of less than half of bolus Bolus Preparation/Mastication: Slow prolonged chewing/mashing with complete recollection - min posterior loss of <1/2 of whole cookie bolus to vallecula prior to swallow onset Bolus Transport/Lingual Motion: Brisk tongue motion Oral Residue: Residue collection on oral structures - Pharyngeal Phase Initiation of Pharyngeal Swallow: Bolus head in pyriforms - thin liquid Soft Palate Elevation: Trace column of contrast/air between soft palate and pharyngeal wall Laryngeal Elevation: Comp. Superior move thyroid cart w/comp. apprx arytenoid cart-epig pet Anterior Hyoid Excursion: Partial anterior movement Epiglottic Movement: Complete inversion Laryngeal Vestibule Closure at Height of Swallow: Incomplete; narrow column of air/contrast in laryngeal vestibule Pharyngeal Stripping Wave: Present - complete Pharyngoesophageal Segment Opening: Parital distension and partial duration; parital obstruction of flow Tongue Base Retraction: Narrow column of contrast between tongue base & post. pharyngeal wall Pharyngeal Residue: Collection of residue within or on pharyngeal structures - Esophageal Phase Esophageal Clearance: Esophageal retention w/ retrograde flow below pharyngoesophageal seg. - Treatment Strategies Effects of treatment strategies attemped:: Decreased bolus rate = effective. - Diagnosis/Impression Diagnosis: Mild oropharyngeal phase dysphagia (R13.12) Impression: The oral phase is marked by mild deficits in bolus control and oral residue. The patient demonstrated posterior loss of <1/2 liquid bolus to the pyriforms resulting in suboptimal bolus placement prior to swallow onset. He independently initiated second swallows to clear mild oral residues. The pharyngeal phase is marked by mildly decreased anterior hyoid excursion, tongue base retraction, and UES opening/duration. He demonstrated only trace penetration of sequential sips of thin liquids via cup with full ejection from the laryngeal vestibule. Trace retention of residue in upper esophagus. No aspiration observed during the study. - Recommendations Diet: Regular Textures, Thin Liquids Comment: Cut meat small bite size (1.5cmX1.5cm) and add sauce/gravy Compensatory Strategies: Small Bites, Small Sips, Slow Rate - Sips and bites one at a time. Practice setting down utensil and cup between each bite/sip prior to taking the next., Sitting upright, Remain sitting upright for 30 minutes after PO intake, Minimize/decrease distractions Recommend Repeat Modified Barium Swallow: No Need for Skilled Speech Therapy Services: Yes Comment: Will recommend the patient for outpatient dysphagia therapy to address mild deficits in oropharyngeal swallow function. Would consider the patient for oropharyngeal strengthening to improve lingual control, hyoid excursion, and duration of UES opening. The patient would benefit from thorough education regarding diet recommendations and recommended compensatory strategies, as he states he consumes food and drink with a quick rate. Education Completed: 1. Described result of evaluation., 7. Pt requires further education on strategies & risks. Comment: Discussed results with review of images, discussion, and written recommendations. Education well received and pt verbalized understanding. PLANT WRAPPER encouraged the patient to follow up with his ordering physician regarding referral for speech therapy. - Status Active ST Patient: Active 01/21/22 [id number] <Electronically signed by Bela Riojas M.A., CCC-PLANT WRAPPER> Date/Time Bela Riojas M.A., CCC-PLANT WRAPPER
--- NOTE | 2022-02-02 17:34 | HP.SP.EVAL ---
History - History Date of Eval: 02/02/22 Previous speech therapy: No Other Relevant Medical History/Diagnoses/Surgery: MARY ELLEN LABOY is a 71 year old male who presents to [facility] for a speech therapy evaluation s/p dx of dysphagia. Pt reports having a hard time drinking water. He reports choking on it because he feels rushed. Pt participated in a MBSS on 01/21/22, see results below. Pt has a PMH including anxiety, depression, GERD, BRIDGETTE, HTN, HLD, atherosclerosis of both carotid arteries, bicuspid aortic valve, nonrheumatic aortic valve stenosis (SEE EMR for full PMH). Pt admits to a quick rate of intake with solids and liquids. He has had PNA in the past following inhaling liquids. Pt reports being evaluated by the ENT who reports overall normal laryngeal structure and function with the exception of slight bowing in his vocal cords. Smoking Status: Former smoker Hx Smoking: Yes - quit in 1989 Hx Tobacco Use: No - Pain Is pain an issue with your current prescribed condition?: No Patient Allergies - Allergies Allergies No Known Allergies Allergy (Verified 01/30/22 08:52) Subjective Dysphagia - Symptoms Reported Symptoms/Problems with: Difficulty Swallowing Solids, Difficulty Swallowing Liquids - Current Diet Solids Current Diet: Regular - Current Diet Liquids Current Liquids: Thin - Comments Diagnostic Education -: Direct education provided re: results of Pt's MBSS. Oriented Pt to the anatomical physiology of the swallow. Pt's overall swallowing function appears to be WFL. Pt presenting with osteophytes at the level of C4-C6, however they do not appear to be grossly impacting swallowing function. Discussed Pt's habits of eating and drinking at a fast rate, talking during intake, and walking around while eating as well. Discussed how these behaviors could put Pt at increased risk for premature posterior spillage, then resulting choking episodes. Pt verbalized understanding, however would benefit from cont'd education and visuals. Will continue to provided education re: oropharyngeal exercises to improve bolus control and manipulation as well as overall coordination of swallow. Objective Dysphagia - Swallowing Impairment Contributing Factors to Swallowing Impairment: Reduced Alertness or Attention, Difficulty Following Directions, Reduced Oral Strength/Coordination/Sensation - Recommendations Modified Barium Swallow/Cookie Swallow Recommended: No Swallowing Treatment: Yes - Diet Texture Recommendations Solids: Regular (Level 7) Liquids: Thin (Level 0) - Safety Saftey Precautions/Swallowing Recommendations (Check all that Apply): 1 to 1 Distant Supervision, Reduce Distractions, Needs Verbal Cues to Use Recommended Strategies, Small Sips & Bites when Eating, No Straw, Multiple Swallows - Results Swallowing Diagnosis: Oropharyngeal Phase Dysphagia (R13.12) Additional: Suspecting a behavioral component Severity: Mild Modified Barium Results Hx MBS Report Entered: Yes MBS Results (from prior exam): 02/02/22 17:21 Speech Therapy by Viktoria Mathew [facility] Speech Pathology [id number] [facility] [place] [address] Modified Barium Swallow Study MR#: [id number] Acct: [id number] Name: MARY ELLEN LABOY Rep #: [id number] : 1950 71 From: Bela Riojas M.A., [facility]-NETWORK LIAISON Modified Barium Swallow - Patient Information Study Date: 01/21/22 Study Time: 13:00 Direct Billable Minutes: 75 Total Minutes procedure & reportin Diagnosis: Dysphagia, unspecified (R13.10) Referring Physician: Storm Rosa Reason for Referral: Objectively assess swallow function, risk for aspiration, and determine recommendations for least restrictive diet textures and compensatory strategies to improve safety of swallow. Medical History: The patient is a 73-year-old male with PMH including anxiety, depression, GERD, BRIDGETTE, HTN, HLD, atherosclerosis of both carotid arteries, bicuspid aortic valve, nonrheumatic aortic valve stenosis (SEE EMR for full PMH). Per patient report, he has had increased difficulty swallowing in the past year characterized by coughing when consuming thin liquids, difficulty swallowing certain solids, sensation of certain foods becoming stuck. He informed the NETWORK LIAISON that recently his called the squad, while his daughter attempted the Heimlich on the patient. He had swallowed shredded wheat and couldn't breath. He ended up coughing up the food. He also reported having PNA in 2012 from inhaling liquid. He admits to quick rate of eating and drinking. Hx of GERD 10-15 years ago. Current Diet Ordered: Regular textures / Thin liquids Dentition: Missing Teeth - 2 teeth missing Mental Status: WNL Respiratory Status: Oxygenating on Room Air - Penetration-Aspiration Scale Penetration-Aspiration Scale: OBJECTIVE ASSESSMENT OF SWALLOW FUNCTION (QUANTITATIVE ? PER TRIAL): PENETRATION / ASPIRATION SCALE (BLOOD): 1 = does not enter airway 2 = enters airway/above vocal folds/ejected 3 = enters airway/above vocal folds/not ejected 4 = enters airway/contacts vocal folds/ejected 5 = enters airway/contacts vocal folds/not ejected 6 = enters airway/below vocal folds/ejected 7 = enters airway/below vocal folds/not ejected despite effort 8 = enters airway/below vocal folds/no effort - Penetration-Aspiration Scale Score Thin Liquid via teaspoon Result: 1= does not enter airway Thin Liquid via teaspoon Trial 2 Result: 1= does not enter airway Thin Liquid via small single sip from cup Result: 1= does not enter airway Thin Liquid via sequential sips from cup Result: 2= enter airway/above vocal folds/ejected [place] Thick Liquid via small single sip from cup Result: 1= does not enter airway Honey Thick Liquid via small single sip from cup Result: 1= does not enter airway Pudding via teaspoon with esophageal screen Result: 1= does not enter airway 1/2 Cookie with esophageal screen Result: 1= does not enter airway Whole Cookie Result: 1= does not enter airway Thin Liquid via single sip from straw Result: 1= does not enter airway Thin Liquid via sequential sips from straw Result: 1= does not enter airway - Oral Phase Labial Seal: No Labial Escape Tongue Control During Bolus Hold: Posterior escape of less than half of bolus Bolus Preparation/Mastication: Slow prolonged chewing/mashing with complete recollection - min posterior loss of <1/2 of whole cookie bolus to vallecula prior to swallow onset Bolus Transport/Lingual Motion: Brisk tongue motion Oral Residue: Residue collection on oral structures - Pharyngeal Phase Initiation of Pharyngeal Swallow: Bolus head in pyriforms - thin liquid Soft Palate Elevation: Trace column of contrast/air between soft palate and pharyngeal wall Laryngeal Elevation: Comp. Superior move thyroid cart w/comp. apprx arytenoid cart-epig pet Anterior Hyoid Excursion: Partial anterior movement Epiglottic Movement: Complete inversion Laryngeal Vestibule Closure at Height of Swallow: Incomplete; narrow column of air/contrast in laryngeal vestibule Pharyngeal Stripping Wave: Present - complete Pharyngoesophageal Segment Opening: Parital distension and partial duration; parital obstruction of flow Tongue Base Retraction: Narrow column of contrast between tongue base & post. pharyngeal wall Pharyngeal Residue: Collection of residue within or on pharyngeal structures - Esophageal Phase Esophageal Clearance: Esophageal retention w/ retrograde flow below pharyngoesophageal seg. - Treatment Strategies Effects of treatment strategies attemped:: Decreased bolus rate = effective. - Diagnosis/Impression Diagnosis: Mild oropharyngeal phase dysphagia (R13.12) Impression: The oral phase is marked by mild deficits in bolus control and oral residue. The patient demonstrated posterior loss of <1/2 liquid bolus to the pyriforms resulting in suboptimal bolus placement prior to swallow onset. He independently initiated second swallows to clear mild oral residues. The pharyngeal phase is marked by mildly decreased anterior hyoid excursion, tongue base retraction, and UES opening/duration. He demonstrated only trace penetration of sequential sips of thin liquids via cup with full ejection from the laryngeal vestibule. Trace retention of residue in upper esophagus. No aspiration observed during the study. - Recommendations Diet: Regular Textures, Thin Liquids Comment: Cut meat small bite size (1.5cmX1.5cm) and add sauce/gravy Compensatory Strategies: Small Bites, Small Sips, Slow Rate - Sips and bites one at a time. Practice setting down utensil and cup between each bite/sip prior to taking the next., Sitting upright, Remain sitting upright for 30 minutes after PO intake, Minimize/decrease distractions Recommend Repeat Modified Barium Swallow: No Need for Skilled Speech Therapy Services: Yes Comment: Will recommend the patient for outpatient dysphagia therapy to address mild deficits in oropharyngeal swallow function. Would consider the patient for oropharyngeal strengthening to improve lingual control, hyoid excursion, and duration of UES opening. The patient would benefit from thorough education regarding diet recommendations and recommended compensatory strategies, as he states he consumes food and drink with a quick rate. Education Completed: 1. Described result of evaluation., 7. Pt requires further education on strategies & risks. Comment: Discussed results with review of images, discussion, and written recommendations. Education well received and pt verbalized understanding. NETWORK LIAISON encouraged the patient to follow up with his ordering physician regarding referral for speech therapy. - Status Active ST Patient: Active 01/21/22 [id number] <Electronically signed by Bela Riojas M.A., CCC-NETWORK LIAISON> Date/Time Bela Riojas M.A., CCC-NETWORK LIAISON Initialized on 02/02/22 17:21 - END OF NOTE NQOL Plan - Plan Plan: Will rx Pt for skilled outpatient tx to address mild deficits in oropharyngeal dysphagia. Pt would benefit from training and education re: behavioral training and awareness and oral and swallowing exercises to aid in oropharyngeal strengthening. Without skilled intervention, Pt is at risk for choking and PNA should he continue with his eating style. - Recommendations Treatment Warranted: Yes Treatment Warranted: Dysphagia - Progress Prognosis: Excellent - Frequency Frequency: 1x/Week Additional (Frequency): 30 min Duration: 3 consecutive-->follow up Visits in this POC: 6 - Goal #1-5 Goal #1: Mary Ellen will demonstrate understanding of behaviors that impact safety of the swallow by charting frequency of instances of unhealthy intake behaviors (fast rate of intake, large bites/drinks) as they occur throughout the session/day with 90% acc independently. Goal #2: Mary Ellen will complete oropharyngeal exercises for 10 reps, 3x/day independently to improve tongue base retraction, PES opening/distention, and hyolaryngeal elevation and excursion. Goal #3: Mary Ellen will complete oral motor exercises to aid in bolus manipulation, oral strengthening, and ROM with no cues. Education - Patient has Indicated that the Following Identified Educational Needs: None The Patient has indicated that they have no educational or learning abilities that may effect their care.: Yes - Patient Instruction Patient Education: Diagnosis, Treatment Plan, Goals Person Taught: Patient Teaching Method: Discussion, Handout Response to teaching: Return demonstration, Verbalize understanding, Reinforcement needed
--- NOTE | 2022-02-20 10:11 | HP.PTDCSUM ---
It has been my pleasure to treat MARY ELLEN LABOY referred by Dr. Macario Yousif DO, with the diagnosis of LUMBAR SPINAL STENOSIS for a total of 6 visit(s). Discharge Date: 02/20/22 Please see the following information for a summary of their discharge status. Subjective: PATIENT REPORTS HE WAS DX'D WITH A TIA BUT TESTING WAS INCONCLUSIVE. HE REPORTS THERAPY HAS NOT HELPED HIS BACK AND HE PLANS TO GET AN MRI. PATIENT REPORTS HIS BACK IS NOT HURTING AT THE MOMENT BUT LAST NIGHT HE HAD PAIN SO BAD THAT HE COULD NOT STAND TO TALK TO HIS NEIGHBOR. Lumbar Spine Pain Intensity (Out of 10): 0 % Improvement: 0 Objective/Function: PATIENT WAS SEEN TODAY FOR RE-ASSESSMENT OF PROGRESS TOWARD THE SET PT GOALS AND THE NEED FOR FURTHER PHYSICAL THERAPY VS READINESS FOR DISCHARGE. UPON EXAM TODAY THERE ARE NO SIGNIFICANT CHANGES SINCE INITIAL EVAL. HE IS APPROPRIATE FOR PHYSICIAN RE-ASSESSMENT AT THIS POINT AND D/C FROM PT. PATIENT REPORTS HE ISN'T IN A VERY GOOD MOOD TODAY AND WANTS TO CANCEL SPEECH THERAPY IF POSSIBLE. HIS IS WITH HIM AND SHE REPORTS SHE THINKS HE IS IN A BAD MOOD BECAUSE OF HER, PATIENT DENIED BUT DID NOT ELABORATE FURTHER. Goal 1:: DECREASE C/O LOW BACK PAIN Goal Progress: Not Progressing Goal 2:: IMPROVE PERSONAL CARE, LIFTING, WALKING, SITTING, STANDING, SOCIAL LIFE, TRAVEL AND HOMEMAKING FUNCTION Goal Progress: Not Progressing Goal 3:: INSTRUCT IN PROPHYLAXIS Goal Progress: Not Progressing Plan: D/C. PATIENT AGREEABLE. If there are questions or concerns regarding this patient's physical therapy, please feel free to call me at [phone]. Thank you for the referral of this patient. Sincerely, Layla Rosas, PT, Cert MDT Balance/Gait/Functional tests - Balance/Special Test Scores Oswestry Low Back Score: 13
== END 2022-02-20 19:00 | disposition home or self-care (01) ==
LOC: PT 09:00
PROVIDERS: PCP Internal Medicine
DX: R13.13 Dysphagia, pharyngeal phase (principal); M48.062 Spinal stenosis, lumbar region with neurogenic claudication; M54.50 Low back pain, unspecified; G89.29 Other chronic pain; M47.816 Spondylosis without myelopathy or radiculopathy, lumbar region
CPT/HCPCS: 92526; 92610; 97112; 97113; 97162; 97164

== ENCOUNTER → 2022-03-11 | Outpatient (CLI) | payer MEDICARE, SELFPAY ==
[2022-03-11 11:14] LABS: Lyme Ab Screen Interpretation REF LAB
[2022-03-11 11:43] LABS: Erythrocyte Sedimentation Rate 9 mm/hr (0-20)
[2022-03-11 12:47] LABS: HIV - WCH Non-Reactive (Nonreactive); Vitamin B12 722 pg/mL (211-911)
[2022-03-13 17:07] LABS: Albumin 3.8 g/dL (2.9-4.4); Alpha-1-Globulins 0.3 g/dL (0.0-0.4); Gamma Globulin 0.8 g/dL (0.4-1.8); Immunoglobulin A 78 mg/dL (61-437); Immunoglobulin G 780 mg/dL (603-1613); Immunoglobulin M 41 mg/dL (15-143); PROEL- TOTAL PROTEIN 6.9 g/dL (6.0-8.5)
[2022-03-13 20:21] LABS: Arsenic 7245 2 ug/L (0-9); Lead, Blood < 1 ug/dL (0-4); Lyme Scn Total Ab w/Rflx Negative (Negative); Mercury, Blood 85324 < 1.0 ug/L (0.0-14.9)
== END | disposition home or self-care (01) ==
LOC: LABSPEC 11:07
PROVIDERS: PCP Internal Medicine; Visit Provider Psychiatry & Neurology Neurology
DX: G12.20 Motor neuron disease, unspecified (principal); G95.9 Disease of spinal cord, unspecified
CPT/HCPCS: 36415; 82175; 82607; 82746; 82784; 83655; 83825; 83970; 84165; 85652; 86334; 86618; 86703

== ENCOUNTER → 2022-03-18 | Outpatient (CLI) | payer MEDICARE, SELFPAY ==
--- NOTE | 2022-03-18 12:20 | MRI_ITS ---
STUDY: MRI CERVICAL SPINE WITHOUT CONTRAST REASON FOR EXAM: Male, 71 years old. Possible motor neuron disease; cervical DJD TECHNIQUE: Standardized fat and water weighted pulse sequences were obtained in the sagittal and axial planes. COMPARISON: None FINDINGS: Normal foramen magnum and brainstem-cervical cord junction. Normal craniovertebral junction. Normal anterior atlantoaxial articulation. Normal odontoid process. Normal cervical lordosis. Normal vertebral bodies and posterior osseous elements. C2-3: Normal endplates. Normal disc height, signal and minimal bulging of the disc.. Normal central canal and intervertebral neural foramina. C3-4: Grade 1 retrolisthesis. Narrowed disc space and mild bulging disc osteophyte complex. Mild central canal stenosis. Moderate to severe bilateral neuroforaminal stenosis due to bony hypertrophy.. C4-5: Grade 1 retrolisthesis. Narrowed disc space and minor bulging disc osteophyte complex small left posterolateral/foraminal disc protrusion. Mild narrowing of the central canal. Mild to moderate right neuroforaminal stenosis and more severe narrowing on the left C5-6: Narrowed disc space and mild bulging disc osteophyte complex. Narrowing the central canal and mild cord effacement. Severe bilateral neuroforaminal stenosis. C6-7: Narrowed disc space and minor bulging disc. Minor narrowing of the central canal and bilateral neuroforaminal encroachment. C7-T1: Mildly narrowed disc space and minimal bulging of the disc. Normal central canal. Mild bilateral neuroforaminal encroachment Normal cervical cord. Normal visualized soft tissue structures. MRI/Spine Cervical (Routine) IMPRESSION: No evidence for acute fracture or other significant bony pathology. Advanced spondylosis and multilevel spinal stenosis secondary to disc disease and bony hypertrophy most severe at C4-5 and C5-6 Findings as above Electronically Signed: Mg Gray MD at 16:42 EDT Reading Location ID and State: [address] [place] [address] , Service support ,
== END | disposition home or self-care (01) ==
LOC: MRI 12:20
PROVIDERS: PCP Internal Medicine; Referring Provider Psychiatry & Neurology Neurology; Visit Provider Psychiatry & Neurology Neurology
DX: G12.20 Motor neuron disease, unspecified (principal); G95.9 Disease of spinal cord, unspecified
CPT/HCPCS: 72141

== ENCOUNTER → 2022-05-05 | Outpatient (CLI) | payer MEDICARE, SELFPAY ==
--- NOTE | 2022-05-05 18:44 | STRESSREP_ITS ---
Stress Test Report Pharmacologic myocardial perfusion stress test. 71-year-old man with a history of peripheral vascular disease. Stress protocol: Resting EKG demonstrates normal sinus rhythm with a rate of 75 bpm normal intervals are noted resting blood pressure is 126/68 mmHg. 0.4 mg of regadenoson was infused per usual protocol followed by rapid intravenous saline flush injection continuous EKG monitoring was performed. The maximum heart rate was 102 bpm which was 68% of max impacted heart rate the maximum workload was 1 metabolic equivalent. At rest there were no ST or T wave changes noted to suggest abnormal flow reserve and a peak infusion nonspecific ST changes were noted with did not meet the criteria for ischemia. No clinical angina was n oted. The test was terminated due to completion of the protocol. The final blood pressure was 118/64 mmHg. Myocardial perfusion protocol. 11.8 mCi of technetium 99m sestamibi was injected at rest. 0.4 mg of regadenoson was infused per usual protocol. At peak infusion 34.0 mCi of technetium 99m sestamibi was injected stress images were obtained stress and rest images were reconstructed in comparing the short axis vertical long and horizontal long axis. Gated images were also obtained. Perfusion SPECT analysis: Review of the stress images demonstrate normal uptake of tracer noted in all a reas of the myocardium. The resting images similar demonstrate normal uptake of tracer noted in all areas of the myocardium. No areas of reversibility are noted to suggest ischemia no previous infarct is noted. Gated SPECT analysis: The gated ejection fraction is 79%. Conclusion: Normal pharmacologic myocardial perfusion stress test Preserved ejection fraction
== END | disposition home or self-care (01) ==
PROVIDERS: PCP Internal Medicine; Referring Provider Nurse Practitioner Gerontology; Visit Provider Nurse Practitioner Gerontology
DX: R94.31 Abnormal electrocardiogram [ECG] [EKG] (principal); M54.9 Dorsalgia, unspecified
CPT/HCPCS: 78452; 93017; 93225; 93226; A9500; A4216; J2785

== ENCOUNTER → 2022-06-03 | Outpatient (CLI) | payer MEDICARE, SELFPAY ==
--- NOTE | 2022-06-03 15:56 | NEURO ---
NCS and/or EMG Patient Report Ordering Doctor: Eduar Keita DATE OF SERVICE: 06/03/22 Ton presents for electrodiagnostic testing. He reports having difficulty swallowing and trouble with his speech since approximately December 2021. He reports having had a stroke around that time. Electrodiagnostic Testing: Testing performed in the right upper and right lower limb. Right median motor nerve demonstrates prolonged distal latency with reduced amplitude and mildly reduced conduction velocity. Normal right ulnar motor response. Normal right tibial motor response. Right peroneal motor nerve demonstrates decreased amplitude with normal distal latency and conduction velocity. Prolonged right median and right ulnar F waves are noted. Prolonged right median sensory latency at the wrist. Prolonged right ulnar sensory latency. On needle EMG, all muscles tested in the right upper and right lower limb showed no evidence of denervation with normal motor unit action potentials. No evidence of fasciculations were noted in any muscle tested. Additionally, EMG testing was completed in the right masseter. No acute denervation or fasciculations were noted. Electrodiagnostic impression: This is an abnormal study. 1. 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 However, patient does not have classical symptoms of carpal tunnel syndrome. 2. 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 3. There is no electrodiagnostic evidence suggestive of motor neuron disease. No fasciculations are evident in any muscles tested. Additionally, no acute denervation is noted. 4. There is no electrodiagnostic evidence for cervical or lumbosacral radiculopathy.
== END | disposition home or self-care (01) ==
LOC: PSN 12:00
PROVIDERS: PCP Internal Medicine; Referring Provider Psychiatry & Neurology Neurology; Visit Provider Psychiatry & Neurology Neurology
DX: G12.20 Motor neuron disease, unspecified (principal)
CPT/HCPCS: 95886; 95912

== ENCOUNTER → 2022-06-10 | Outpatient (CLI) | payer MEDICARE, SELFPAY ==
--- NOTE | 2022-06-10 10:25 | RAD_ITS ---
INDICATION: Pain with inspiration/coughing. Choking when eats EXAMINATION/TECHNIQUE: X-RAY - XR Chest 2 Views COMPARISON: 02/17/2022 FINDINGS: LIFE-SUPPORT AND LINES: 1. None HEART AND VESSELS: The cardiac silhouette, pulmonary vasculature have normal appearance. No evidence of congestive failure. LUNGS AND PLEURAL SPACES: Shallow inspiration and bibasilar atelectasis. There is trace RIGHT effusion. No consolidation No pulmonary mass is noted. MEDIASTINUM AND HILAR REGIONS: No masses adenopathy noted. No areas of calcification. Visualized upper airway is normal in position. BONY ELEMENTS: No acute bony changes noted. RAD/Chest PA and Lateral IMPRESSION: 1. Shallow aspiration, bibasilar atelectasis and trace RIGHT effusion. 2. No congestive failure, no lobar consolidation. Electronically Signed: Milton Robins MD at 17:47 EDT ,
== END | disposition home or self-care (01) ==
LOC: RAD 10:15
PROVIDERS: PCP Internal Medicine; Referring Provider Internal Medicine Cardiovascular Disease; Visit Provider Internal Medicine Cardiovascular Disease
DX: R07.9 Chest pain, unspecified (principal); R13.10 Dysphagia, unspecified
CPT/HCPCS: 71046

== ENCOUNTER → 2022-06-15 | Outpatient (CLI) | payer MEDICARE, SELFPAY ==
--- NOTE | 2022-06-15 08:27 | CDU_ITS ---
Reason For Study: CAROTID STENOSIS Rt. Velocities/BP Lt. Velocities/BP Prox CCA 91.9/8.10 cm/sec. Prox CCA 116.7/21.7 cm/sec. Mid CCA 109.1/12.4 cm/sec. Mid CCA 125.8/18.1 cm/sec. Dist CCA 84.2/12.7 cm/sec. Dist CCA 127.7/16.3 cm/sec. Prox ICA 105.5/22.0 cm/sec. Prox ICA 95.7/22.0 cm/sec. Mid ICA 124.0/29.0 cm/sec. Mid ICA 132.6/30.3 cm/sec. Dist ICA 124.0/27.2 cm/sec. Dist ICA 61.3/20.8 cm/sec. Rt. ICA/CCA = 124.0/109.1=1.1. Lt. ICA/CCA = 132.6/127.7=1.0. Prox ECA 124.0/12.6 cm/sec. Prox ECA 118.5/14.4 cm/sec. Rt. Vert. 60.3/16.4 cm/sec. Lt. Vert. 80.9/24.4 cm/sec. Right Extracranial There is intimal thickening but no significant atherosclerotic plaque noted in the right common carotid artery. There is homogeneous, smooth atherosclerotic plaque noted in the right internal carotid artery. The right internal carotid artery is very tortuous. There is homogeneous, smooth atherosclerotic plaque noted in the right external carotid artery. Antegrade flow is noted in the right vertebral artery. Left Extracranial There is homogeneous, smooth atherosclerotic plaque noted in the left common carotid artery. There is homogeneous, smooth atherosclerotic plaque noted in the left internal carotid artery. The left internal carotid artery is very tortuous. There is homogeneous, smooth atherosclerotic plaque noted in the left external carotid artery. Antegrade flow is noted in the left vertebral artery. Procedure Carotid Duplex [id number]. This is a Carotid Duplex examination using B-mode, color flow and specral Doppler. Exam performed in department. VL/Carotid Duplex Ultrasound Interpretation Summary Postoperative changes of the right carotid bulb and proximal internal carotid a rtery with less than 50% stenosis. Less than 50% stenosis right external carotid artery Smooth plaque at the proximal left internal carotid artery with tortuosity of t he left internal carotid artery. 50 to 69% stenosis of the left internal carotid artery Less than 50% stenosis left external carotid artery Patent and antegrade vertebral arteries bilaterally No change from the previous examination of June 17, 2021 Ordering Physician: Napoleon Sky Referring Physician: Em Moore Performed By: Roberta Ley, RDCS, RVT
== END | disposition home or self-care (01) ==
LOC: CVS 08:26
PROVIDERS: PCP Internal Medicine; Referring Provider Surgery; Visit Provider Surgery
DX: I65.23 Occlusion and stenosis of bilateral carotid arteries (principal)
CPT/HCPCS: 93880

== ENCOUNTER 2022-10-07 14:00 | Outpatient (RCR) | payer MEDICARE, SELFPAY ==
--- NOTE | 2022-07-29 18:03 | HP.SP.EV_ITS ---
History - History Date of Eval: 07/29/22 Medical Diagnosis (from RX): TIA Previous speech therapy: Yes Results: Patient saw speech therapy twice after his MBS in December 2021. He then had a TIA with no therapy after that. Other Relevant Medical History/Diagnoses/Surgery: zolpidem 5 mg tablet 10 mg PO QHS PRN PRN Insomnia 09/19/16 [History Confirmed 07/09/22]. omega-3 fatty acids 1,000 mg capsule (Fish Oil Concentrate) 1,000 mg PO QDAY supplement [History Confirmed 07/09/22]. rosuvastatin 40 mg tablet 40 mg PO QDAY cholesterol 10/19/17 [History Confirmed 07/09/22]. duloxetine 30 mg capsule,delayed release 30 mg PO BID mental health 11/28/20 [History Confirmed. 07/09/22]. lisinopril 20 mg tablet 20 mg PO DAILY #90 tabs 11/03/21 [Rx Confirmed 07/09/22]. albuterol sulfate 2.5 mg/3 mL (0.083 %) solution for nebulization 2.5 mg inhalation Q4H PRN. budesonide-formoterol HFA 160 mcg-4.5 mcg/actuation aerosol inhaler (Symbicort) 1 puff inhalation. ONCE breathing 01/30/22 [History Confirmed 07/09/22]. cholecalciferol (vitamin D3) 50 mcg (2,000 unit) capsule 50 mcg PO DAILY vitamin 01/30/22 [History. Confirmed 07/09/22]. loratadine 10 mg tablet 10 mg PO DAILY allergy 01/30/22 [History Confirmed 07/09/22]. clonazepam 0.5 mg tablet 0.5 mg PO DAILY 03/09/22 [History Confirmed 07/09/22]. magnesium chloride 70 mg (magnesium chloride) tablet,delayed release 70 mg PO DAILY 03/09/22. [History Confirmed 07/09/22]. zinc acetate 50 mg (zinc) capsule (Galzin) 50 mg PO DAILY 03/09/22 [History Confirmed 07/09/22]. clopidogrel 75 mg tablet (Plavix) 75 mg PO DAILY #90 tabs 04/15/22 [Rx Confirmed 07/09/22] Medications related to this diagnosis: Anxiety. Asthma. Bicuspid aortic valve. Carotid stenosis, right. Carpal tunnel syndrome. Depression (emotion). Difficulty swallowing. Essential (primary) hypertension. GERD (gastroesophageal reflux disease). History of back problems. HLD (hyperlipidemia). Murmur, heart. Nonrheumatic aortic (valve) stenosis with in sufficiency. Obstructive sleep apnea. Seasonal allergies Smoking Status: Former smoker Hx Smoking: Yes - quit in 1989 Hx Smoking Cessation Date: 09/30/99 Hx Tobacco Use: No - Pain Is pain an issue with your current prescribed condition?: Yes Patient Allergies - Allergies Allergies No Known Allergies Allergy (Verified 07/09/22 08:40) Subjective Dysphagia - Symptoms Reported Symptoms/Problems with: Food gets stuck, Weight Loss - Current Diet Solids Current Diet: Regular - Current Diet Liquids Current Liquids: Thin Objective Dysphagia - Administered by Administered by: Self - Thin Liquids Administred via: Cup Oral Transit: WNL Bolus clearance: fully cleared Gagging: No Cough: delayed, weak reflexive cough Patient Report: Patient reported that he felt like he had to clear his throat. He had a significant delay in doing so. Unable to determine if this is due to a mental fear of swallowing or actual deficit. He will be monitored to see if it continues. His second drink when he was not as focused on swallowing had no throat clear or deficits observed. - Pureed Administered via: Cup Oral Preparation: WNL Oral Transit: WNL Bolus clearance: fully cleared Gagging: No Cough: none observed/unable to assess Patient Report: No deficits - Regular Oral Preparation: WNL Oral Transit: WNL Bolus clearance: fully cleared Gagging: No Cough: none observed/unable to assess Comments: He masticated an appropriate length of time however he stated that he was fearful of swallowing. He was given a choice of three foods and immediately ruled out 2 as too difficult to chew. He then chose a bite of beef jerky which was WNL for oral skills. - Impact Impact on Safety & Functioning: Risk for Inadequate Nutrition/Hydration Comments: Patient has significant fear of eating and has lost 30 pounds. - Safety Saftey Precautions/Swallowing Recommendations (Check all that Apply): Small Sips & Bites when Eating, Other (Specify Below) Other: add moisture to hard/dry foods. - Results Swallowing Within Normal Limits: No Swallowing Diagnosis: Dysphagia Unspecified (R13.10) Severity: Mild Subjective Oral Motor - Subjective Patient Reports: Slurred Speech, Difficulty being Understood Dentures ill fitting: No Objective Oral Motor - Oral Status Dentition: Missing Teeth Additional: 2 missing - Labial Impairment: WNL Closure: WNL Pucker: WNL Retraction: WNL Alternating Pucker/Retraction: WNL Involuntary Movement noted: No - Lingual Impairment: Mild Protrusion: WNL Retraction: WNL Lateralization: WNL Involuntary Movement: No - Lingual Comments Comments: Patient unable to elevate tongue. - Jaw Impairment: WNL - Respiratory Status Respiratory Status: Room Air Objective Voice - Objective data Objective Data: Objective data: Sound pressure level (SPL acoustic correlation of vocal loudness) was measured with a sound level meter at a distance of 40 cm from the patient's mouth. Average conversational loudness is 70-80 dB and sustained phonation duration is 15 to 20 seconds for a typical adult. Sustained Phonatin duration (seconds): 4 Is the individual stimulable to increase vocal intensity: Yes - yes to 7 seconds Vocal Intensity at Conversational Level (dB SPL): 59 Subjective Clinical Impression - Adult Clinical Impression Hoarseness: excessive 'noise' in the signal creating an unpleasant, rough vocal quality: Present - Non-Phonatory Behaviors/Respiration Reduced loudness or vocal weakness: Present Limited breath support for speech: Present Swallowing Performance Scale - Swallowing Performance Scale Swallowing Performance Scale Result: 2 Within Functional Limit Plan - Plan Plan: Speech therapy is warranted for dysphonia as well as dysphagia. A vocal intensity based intervention approach applying LSVT principles to improve his speech intelligibility will be used. Patient presents with reduced volume and decreased respiratory support. - Recommendations Treatment Warranted: Yes Treatment Warranted: Dysphagia, Voice - Progress Prognosis: Good - Frequency Frequency: 1x/Week Duration: 2 Months Visits in this POC: 8 - Goals that are Established Determination:: Goals will be added/modified as deemed necessary and appropriate. Therapy will be discontinued when results of re-evaluation indicate therapy is no longer needed or lack of progress has been documented. - Goal #1-5 Goal #1: The Patient will demonstrate and utilize recommended compensatory swallowing techniques to facilitate improved airway protection and decreased risk for aspiration during PO intake, across 3 out of 3 sessions. Goal #2: The Patient will independently demonstrate and utilize recommended compensatory articulation techniques (increased vocal intensity, reduced rate of speech) to facilitate increased expressive communication abilities in the home and social environments. Goal #3: Patient will increase vocal loudness to reach a target sound pressure level of 65 dB THERAPIST ASST with 1 cue during sustained phonation, which will help in crease vocal respiratory support for functional communication. Goal #4: Patient will sustained phonation for 10 seconds, which will help increase vocal respiratory support for functional communication. Goal #5: Patient will increase vocal loudness to reach a target sound pressure level of 60-65 dB THERAPIST ASST with 1 cue during reading at the word and sentence level, which will help increase vocal respiratory support for functional communication. Education - Patient has Indicated that the Following Identified Educational Needs: None The Patient has indicated that they have no educational or learning abilities that may effect their care.: Yes - Patient Instruction Patient Education: Diagnosis, Treatment Plan, Goals, Safety Precautions, Diet Level Person Taught: Patient Teaching Method: Discussion Response to teaching: Return demonstration
--- NOTE | 2022-08-19 12:15 | HP.PTEVAL_ITS ---
Patient's Visit Information MARY ELLEN LABOY is a 71 year old M referred to Physical Therapy by MICHELLE TannerC with a diagnosis of SPINAL STENOSIS OF LUMBAR REGION ,LUMABR SPONDYLOSIS. Date of Evaluation: 08/19/22 Physical Therapist: Troy Layton, PT, Cert MDT, OCS - Visit Plan Frequency: 2x /Week Duration: 4 Weeks Plan: PATIENT HAD TIA/CVA IN DECEMBER AFFECTING SPEECH. PT INTERVETIONS DLS ,POSTURAL EX'S , LUMBAR FLEXION AND MODALTIES - Subjective This 71 y/o male presents to physical therapy with lumbar pain. Patient has had lumbar pain many years which has progressively worse past year. Patient seen Pain management had injection Aug 05 2weeks but symptoms return . Patient plans to see DR again. Patient had MRI showed lumbar stenosis. Location of pain symmetrical lumbar . Aggravating factors extended walking ,standing and unable to sleep. Alleviating factors sitting rest. Patient taking no MEDS. Patient has paresthesia/tingling in left leg. Patient had TIA stroke in December 2021 . Affects mainly speech and and swalling. Patient has had prior PT in past. Seen chiropractor 2 years ago .Symptom affects sleeping unable to lay supine thus needs to sleep on side. Patient condition affects QOL and function. Patient has lost weight due to unable to swalling. SOCAIL: . VOCATION: retired teacher - Pain Bilateral Back Pain Intensity (Out of 10): 8 Pain Intensity Range: 10 - Objective POSTURE: mod forward posture. NEURO: denies paresthesia/tingling ,reflexes L3-4,L4-5,LL5-S1 1/3. PALAPTION: tender LS region ,. GAIT: mod forward posture reciprocal pattern. LUMBAR ROM: flexion mod loss ,extension severe loss ,side glides mod loss. FLEXABLITY: hamstrings mod tight. MMT: quads/hams 4/5 ,hip flexion 4/5 ,ankle ,4/5 - Special Tests L/S Slump test left side: Negative L/S Slump test right side: Negative L/S Left Straight Leg Raise: Negative L/S Right Straight Leg Raise: Negative Lumbar Standing: Flexion - Mechanical Response: No effect Lumbar Standing: Flexion - Symptoms During Testing: Decreases Lumbar Standing: Flexion - Symptoms After Testing: No better Lumbar Standing: Extension - Mechanical Response: No effect Lumbar Standing: Extension - Symptoms During Testing: Increases Lumbar Standing: Extension - Symptoms After Testing: No worse Lumbar Standing: Right Side Glides - Mechanical Response: No effect Lumbar Standing: Right Side [place] - Symptoms During Testing: No effect Lumbar Standing: Right Side [place] - Symptoms After Testing: No effect Lumbar Standing: Left Side [place] - Mechanical Response: No effect Lumbar Standing: Left Side [place] - Symptoms During Testing: No effect Lumbar Standing: Left Side [place] - Symptoms After Testing: No effect - Balance/Special Test Scores Oswestry Low Back Score: 30 - Goals Goal 1:: Patient to be I with HEP Goal Time Frame: 4-6 Weeks Goal 2:: Patient be able to walk and stand > 10-15 mins with less back pain Goal Time Frame: 4-6 Weeks Goal 3:: Patient to demonstrate 50% improvement with decrease back pain and improved function Goal Time Frame: 4-6 Weeks Goal 4:: Patient to improve lumbar ROM to improve function of recovery for ADL's and walking Goal Time Frame: 4-6 Weeks Goal 5:: Patient to improve back osewstry score by 5 points to improve QO,L. Goal Time Frame: 4-6 Weeks - Rehabilitation Potential Physical Therapy Diagnosis: This patient has lumbar stenosis with lumbar pain with decrease posture ,pain worse with walking and standing better with sitting thus will benefit from skilled PT Rehabilitation Potential: Good - Anticipated Interventions Patient/Client Instruction: Educate patient on: Condition, Plan of Care For the Purpose of:: To decrease pain, To increase ROM, To improve muscle performance and motor function, To increase tolerance to activity/condition/position, To improve ability of physical actions for home/community/work/leisure, To improve gait and locomotor functions, To improve health of tissue, To decrease soft tissue restriction, To increase flexibility/ROM Therapeutic Exercise to Include: Strength training, Endurance training, Balance training, Body mechanics, Postural training, Flexibilty training, Dynamic Lumbar Stabilization For the Purpose of:: To decrease pain, To increase ROM, To improve muscle performance and motor function, To improve ability to perform ADL's, To increase tolerance to activity/condition/position, To improve ability of physical actions for home/community/work/leisure, To improve health of tissue, To decrease soft tissue restriction, To increase flexibility/ROM TENS: Yes IF ES: Yes Cryotherapy (ice pack, ice massage): Yes Thermo therapy (hot pack): Yes Ultrasound (thermal/non thermal): Yes For the Purpose of:: To decrease pain, To increase ROM, To improve health of tissue, To decrease soft tissue restriction Thank you for the opportunity to evaluate your patient. For Medicare and Medicare HMO plans, please review the plan of care and approve it. It will need to be FAXED BACK to us at [phone] for Medicare purposes. For Medicare only, by signing this I certify the plan of care. Please let me know if there are questions or concerns regarding this plan of care. Physician Signature: Date:
--- NOTE | 2022-09-29 10:52 | HP.PTDCSUM ---
It has been my pleasure to treat MARY ELLEN LABOY referred by Nakia Keen NP-C, with the diagnosis of SPINAL STENOSIS OF LUMBAR REGION ,LUMABR SPONDYLOSIS for a total of 9 visit(s). Discharge Date: Please see the following information for a summary of their discharge status. Subjective: Patient is about same ,just knows limitations. Been having a better appetite Bilateral Back Pain Intensity (Out of 10): 5 Objective/Function: POSTURE: forward posture. GAIT: reciprocal pattern forward posture. LUMBAR ROM: flexion min loss ,extension severe loss, side glides min loss. MMT: quads/hams 4/5 ,hip flexion 4-/5 Goal 1:: Patient to be I with HEP Goal Progress: Goal Met Goal 2:: Patient be able to walk and stand > 10-15 mins with less back pain Goal Progress: Progressing Goal 3:: Patient to demonstrate 50% improvement with decrease back pain and improved function Goal Progress: Not Progressing Goal 4:: Patient to improve lumbar ROM to improve function of recovery for ADL's and walking Goal Progress: Progressing Goal 5:: Patient to improve back osewstry score by 5 points to improve QO,L. Goal Progress: Progressing Plan: D/C TO HEP AND PLANS TO USE GYM If there are questions or concerns regarding this patient's physical therapy, please feel free to call me at [phone]. Thank you for the referral of this patient. Sincerely, Troy Layton, PT, Cert MDT, OCS Balance/Gait/Functional tests - Balance/Special Test Scores Oswestry Low Back Score: 26
--- NOTE | 2022-10-07 14:40 | HP.PTREVAL_ITS ---
Nakia Keen, HAYDEN-C, It has been my pleasure to treat MARY ELLEN LABOY over the last 10 visits for SPINAL STENOSIS OF LUMBAR REGION ,LUMABR SPONDYLOSIS. Please see the progress note below for an update on the physical therapy plan of care! Subjective: Patient reports getting in/out bed makes pain worse. Standing /walking aggravates symptoms. C/O paresthesia left leg worse with walking. Patient wants to cont with PT WITH GYM EX'S Objective/Function: POSTURE: forward posture. GAIT: reciprocal pattern forward posture. LUMBAR ROM: flexion min loss ,extension severe loss, side glides min loss. MMT: quads/hams 4/5 ,hip flexion 4-/5 Plan Plan: PATIENT HAD TIA/CVA IN DECEMBER AFFECTING SPEECH. GOAL TO ADVANCE TO GYM EX'S AT [facility] TO I. PT INTERVETIONS FOCUS ON GYM EX' .DLS ,POSTURAL EX'S , LUMBAR FLEXION AND MODALTIES Balance/Gait/Functional tests - Balance/Special Test Scores Oswestry Low Back Score: 26 Goals Goal 1:: Patient to be I with HEP add gym program ( new goal) Goal Time Frame: 4-6 Weeks Goal Progress: Goal Met Goal 2:: Patient be able to walk and stand > 10-15 mins with less back pain Goal Time Frame: 4-6 Weeks Goal Progress: Progressing Goal 3:: Patient to demonstrate 50% improvement with decrease back pain and im proved function Goal Time Frame: 4-6 Weeks Goal Progress: Not Progressing Goal 4:: Patient to improve lumbar ROM to improve function of recovery for ADL's and walking Goal Time Frame: 4-6 Weeks Goal Progress: Progressing Goal 5:: Patient to improve back osewstry score by 5 points to improve QO,L. Goal Time Frame: 4-6 Weeks Goal Progress: Progressing Anticipated Interventions Patient/Client Instruction: Educate patient on: Condition, Plan of Care For the Purpose of:: To decrease pain, To increase ROM, To improve muscle performance and motor function, To increase tolerance to activity/condition/position, To improve ability of physical actions for home/community/work/leisure, To improve gait and locomotor functions, To improve health of tissue, To decrease soft tissue restriction, To increase flexibility/ROM Therapeutic Exercise to Include: Strength training, Endurance training, Balance training, Body mechanics, Postural training, Flexibilty training, Dynamic Lumbar Stabilization For the Purpose of:: To decrease pain, To increase ROM, To improve muscle performance and motor function, To improve ability to perform ADL's, To increase tolerance to activity/condition/position, To improve ability of physical actions for home/community/work/leisure, To improve health of tissue, To decrease soft tissue restriction, To increase flexibility/ROM TENS: Yes IF ES: Yes Cryotherapy (ice pack, ice massage): Yes Thermo therapy (hot pack): Yes Ultrasound (thermal/non thermal): Yes For the Purpose of:: To decrease pain, To increase ROM, To improve health of tissue, To decrease soft tissue restriction Please do not hesitate to contact me at [phone] by phone or if you have questions or concerns regarding this new plan of care! Sincerely, Troy Layton, PT, Cert MDT, OCS
--- NOTE | 2022-11-02 13:42 | HP.SP.DC_ITS ---
ST Discharge Summary - Discharged: Discharge: Ton Gray is discharged from [facility] Speech therapy as of November 02, 2022. He was evaluated on 07/19/22 with a total of 8 visits completed after that. The focus of his treatment was on compensatory strategies for dysphagia in which he was able to do so independently. Another goal was to demonstrate and utilize recommended compensatory articulation techniques. During the course of his therapy, he did increase his volume and use over articulation. A goal to sustain phonation was not addressed at patient gagged every attempt for this goal. His last goal was to produce target sound pressure level of 60-65 dB ESTIMATOR AND DRAFTER SUPERVISOR with 1 cue during reading at the word and sentence level and at the last session he was 64 dB in conversation. The plan was to go to one time per month to follow patient, but he was admitted to the hospital on 10/15/21 with a discharge date of 10/30/22 to an ECF per the discharge report. Thank you for allowing me to participate in the care of this patient.
== END 2022-10-07 19:00 | disposition home or self-care (01) ==
LOC: PT 14:00
PROVIDERS: PCP Internal Medicine; Referring Provider Clinical Nurse Specialist; Visit Provider Clinical Nurse Specialist
DX: R13.10 Dysphagia, unspecified (principal); G45.9 Transient cerebral ischemic attack, unspecified; M48.061 Spinal stenosis, lumbar region without neurogenic claudication; M47.816 Spondylosis without myelopathy or radiculopathy, lumbar region
CPT/HCPCS: 92507; 92524; 92526; 92610; 97110; 97162; 97530

== ENCOUNTER 2022-10-15 17:30 | Inpatient (IN) | payer MEDICARE, SELFPAY ==
[2022-10-15] VITALS (8 sets, daily range): BP systolic 123–131; BP diastolic 63–99; PULSE 89–101; RESP 12–20; TEMP 36.6; O2SAT 81–100; BMI 18.8
--- NOTE | 2022-10-15 19:22 | ED.VIS.DYS ---
HPI History of Present Illness Chief Complaint: Shortness of Breath Narrative Narrative: Patient presents with dyspnea and its been worse over the past few days. He does have difficulty swallowing after a stroke. He was seen by his neurologist today and sent to the ED for hypoxia. No reported fever or chills. No known aspiration. No cough or congestion. No new neurological symptoms. [facility] Medical History Anxiety Asthma Bicuspid aortic valve Carotid stenosis, right Carpal tunnel syndrome Cataract (lens) fragments in eye following cataract surgery, bilateral Depression (emotion) Difficulty swallowing Esophagitis Essential (primary) hypertension GERD (gastroesophageal reflux disease) History of back problems HLD (hyperlipidemia) IBS (irritable bowel syndrome) Insomnia Lumbar stenosis Murmur, heart Nonrheumatic aortic (valve) stenosis with insufficiency Obstructive sleep apnea BRIDGETTE on CPAP Seasonal allergies Home Medications omega-3 fatty acids 1,000 mg capsule (Fish Oil Concentrate) 1,000 mg PO QDAY supplement 10/19/17 [History Last Taken 02/17/22 08:00] rosuvastatin 40 mg tablet 40 mg PO QDAY cholesterol 10/19/17 [History Last Taken 02/16/22 22:00] duloxetine 30 mg capsule,delayed release 30 mg PO BID mental health 11/28/20 [History Last Taken 02/17/22 08:00] lisinopril 20 mg tablet 20 mg PO DAILY #90 tabs 11/03/21 [Rx Last Taken 02/16/22 22:00] albuterol sulfate 2.5 mg/3 mL (0.083 %) solution for nebulization 2.5 mg inhalation Q4H PRN Shortness Of Breath 01/30/22 [History Last Taken 02/17/22 08:00] cholecalciferol (vitamin D3) 50 mcg (2,000 unit) capsule 50 mcg PO DAILY vitamin 01/30/22 [History Last Taken 02/17/22 08:00] clonazepam 0.5 mg tablet 0.5 mg PO DAILY 03/09/22 [History Last Taken Unknown] zinc acetate 50 mg (zinc) capsule (Galzin) 50 mg PO DAILY 03/09/22 [History Last Taken Unknown] clopidogrel 75 mg tablet (Plavix) 75 mg PO DAILY #90 tabs 08/07/22 [Rx Last Taken Unknown] tadalafil 2.5 mg tablet 2.5 mg PO DAILY 09/01/22 [History Last Taken Unknown] ascorbic acid (vitamin C) 500 mg capsule 500 mg PO DAILY 10/15/22 [History Last Taken Unknown] loratadine 10 mg tablet 10 mg PO DAILY PRN allergy 10/15/22 [History Last Taken Unknown] megestrol 20 mg tablet 20 mg PO DAILY 10/15/22 [History Last Taken Unknown] zolpidem 10 mg tablet 5 mg PO QHS 10/15/22 [History Last Taken Unknown] Allergy/AdvReac Type Severity Reaction Status Date / Time No Known Allergies Allergy Verified 10/15/22 17:32 Family History Father CAD (coronary artery disease) Family history of CABG Mother Hypertension CAD (coronary artery disease) Hyperlipidemia Surgical History History of carpal tunnel surgery History of hernia repair History of right-sided carotid endarterectomy (04/19/18) History of shoulder surgery Social History household members: spouse and family Smoking Status: Former smoker pack-years: 20 Tobacco: How many years used: 20 alcohol intake: never substance use type: does not use caffeine: Yes Type: coffee Number of servings: 2 timothy/adventist: Rastafarian seatbelt use: always ROS ROS ED ROS Narrative Past medical history: Reviewed, includes chronic dyspnea, CVA, dysphagia, carotid stenosis, hypertension, hyperlipidemia Medications: Reviewed Social history: Noncontributory Review of systems: All systems negative except as indicated General: No fever Eyes: No visual changes ENT: No upper airway congestion, normal voice Neck: No neck pain Cardiovascular: No chest pain Respiratory: Dyspnea as in HPI Gastrointestinal: No abdominal pain, nausea vomiting or diarrhea Genitourinary: No dysuria Musculoskeletal: Denies myalgias no difficulty with ambulation Skin: No rash Neurological: No memory loss, confusion or any focal weakness Psych: No recent behavioral changes EXAM Physical Exam Narrative Exam Narrative: Physical exam General: Patient is now on oxygen, he appears more comfortable but he appears in some distress Head: Normocephalic, Atraumatic Eyes: Conjunctiva not pale ENT: Moist mucous membranes Neck: Supple, Nontender, No lymphadenopathy Cardiovascular: Regular rate, Regular rhythm Respiratory: Coarse bilateral breath sounds, shallow inspirations and expirations. Abdomen: Soft, Nontender, Nondistended Back: Nontender, Normal Inspection. Negative for: CVA tenderness Extremities: Nontender, No edema Skin: Normal color, No rash Neurological: Alert, Normal Strength, Normal Sensation Psychological: Normal affect Const Vital Signs: 10/15/22 17:32 10/15/22 18:19 10/15/22 18:20 Temperature 97.9 F Temperature Source Temporal Pulse Rate 101 H Respiratory Rate 16 Respiratory Effort Respiratory Depth Respiratory Pattern Blood Pressure 125/63 H Blood Pressure Mean 83 Pulse Ox 100 81 97 Oxygen Delivery Method Room Air Nasal Cannula Oxygen Flow Rate (L/min) 2 10/15/22 19:39 10/15/22 20:00 Temperature Temperature Source Pulse Rate 89 Respiratory Rate 19 H Respiratory Effort Short of Breath Respiratory Depth Normal Respiratory Pattern Normal Blood Pressure 126/99 H Blood Pressure Mean 108 Pulse Ox 97 Oxygen Delivery Method Nasal Cannula Nasal Cannula Oxygen Flow Rate (L/min) 2 2 [facility] MDM Lab Data Labs: Laboratory Results - last 24 hr 10/15/22 10/15/22 10/15/22 19:36 19:36 19:36 WBC 5.9 RBC 4.55 L Hgb 13.4 Hct 43.9 MCV 96.5 H MCH 29.5 MCHC 30.5 L RDW Std Deviation 49.5 H RDW Coeff of Uziel 14.0 Plt Count 297 MPV 9.3 Immature Gran % (Auto) 0.200 Neut % (Auto) 77.1 H Lymph % (Auto) 12.5 L [place] % (Auto) 9.3 Eos % (Auto) 0.7 Baso % (Auto) 0.2 Absolute Neuts (auto) 4.6 Absolute Lymphs (auto) 0.74 L Nucleated RBC % 0 Sodium 144 Potassium 4.5 Chloride 102 Carbon Dioxide 38.0 H Anion Gap 4 L BUN 31 H Creatinine 0.80 Estim Creat Clear Calc 57.02 Est GFR (MDRD) Af Amer 122 Est GFR (MDRD) Non-Af 101 BUN/Creatinine Ratio 38.9 H Glucose 105 Calcium 9.9 Total Bilirubin 0.40 AST 35 ALT 58 Alkaline Phosphatase 61 Troponin I High Sens 20 B-Natriuretic Peptide 17.6 Total Protein 6.9 Albumin 3.6 Globulin 3.3 Albumin/Globulin Ratio 1.1 Radiography Diagnostic Testing: Clinical Impression(s) from Imaging Studies Chest X-Ray 10/15/22 19:41 IMPRESSION: No radiographic evidence of acute cardiopulmonary disease. Electronically Signed: Randolph Wu MD at 20:31 EST , Chest x-ray read by me is unremarkable EKG Initial EKG: Comments: Sinus rhythm with a rate of 88. Normal MT and QTc intervals. No ischemic changes. Interpreted by emergency doctor Treatment and Re-Evaluation Narrative: A. Problems addressed Patient is found to be hypoxic. He now is dependent on nasal cannula. I do not see any signs or symptoms of pneumonia or CHF. He will need admission and further work-up. He does have shallow inspirations and expirations and this is not secondary to pain, he may have a motor neuron disease or a central etiology, this can be worked up and patient he will need admission for his hypoxia and oxygen dependency. B. Amount and/or complexity of the data 1. I discussed with daughter and in the room CBC CMP, natruretic peptide and troponin interpreted by me 2. Independent interpretation of test Telemetry: Sinus rhythm with a rate in the 80s without ectopy 3. Discussion of management with patient's neurologist as well as hospitalist C. Risk of complications and/or morbidity Differential diagnosis: Pneumonia, not found the ED, PE, lung disease. Discharge Plan Triage Chief Complaint: Shortness of Breath ED Provider: Jama Marerro Dx/Rx/DC Orders Clinical Impression: Hypoxia, Dysphagia, History of stroke Prescriptions: No Action omega-3 fatty acids [Fish Oil Concentrate] 1,000 mg capsule 1,000 mg PO QDAY rosuvastatin 40 mg tablet 40 mg PO QDAY cholecalciferol (vitamin D3) 50 mcg (2,000 unit) capsule 50 mcg PO DAILY albuterol sulfate 2.5 mg /3 mL (0.083 %) solution for nebulization 2.5 mg inhalation Q4H PRN (Reason: Shortness Of Breath) loratadine 10 mg tablet 10 mg PO DAILY PRN (Reason: allergy ) clonazepam 0.5 mg tablet 0.5 mg PO DAILY Rx Instructions: for 180 days Galzin 50 mg (zinc) capsule 50 mg PO DAILY megestrol 20 mg tablet 20 mg PO DAILY Label Comments: take 1 tablet by mouth once daily TO INCREASE APPITITE zolpidem 10 mg tablet 5 mg PO QHS Label Comments: take 1/2 to 1 tablet by mouth at bedtime tadalafil 2.5 mg tablet 2.5 mg PO DAILY ascorbic acid (vitamin C) 500 mg capsule 500 mg PO DAILY duloxetine 30 mg capsule,delayed release(DR/EC) 30 mg PO BID lisinopril 20 mg tablet 20 mg PO DAILY Qty: 90 3RF clopidogrel [Plavix] 75 mg tablet 75 mg PO DAILY Qty: 90 3RF Primary Care Provider: Em Moore Referrals: Em Moore MD [Primary Care Provider] -
--- NOTE | 2022-10-15 19:41 | RAD_ITS ---
EXAM: XR CHEST, 1 VIEW CLINICAL INDICATION: sob TECHNIQUE: Frontal view of the chest. This report was created using [employer] report generation technology. COMPARISON: 02/17/2022 FINDINGS: LUNGS AND PLEURAL SPACES: Unremarkable. No consolidation or edema. No pneumothorax. No effusion. HEART: Unremarkable. Cardiac silhouette not enlarged. MEDIASTINUM: Central airways and mediastinal contour are unremarkable. BONES/JOINTS: Unremarkable. SOFT TISSUES: Unremarkable. RAD/Chest 1 View (Portable) IMPRESSION: No radiographic evidence of acute cardiopulmonary disease. Electronically Signed: Randolph Wu MD at 20:31 EST ,
[2022-10-15 19:46] LABS: Absolute Lymphocyte Count 0.74 X10^3/uL (0.83-4.51); Absolute Neutrophil Count 4.6 X10^3/uL (2.0-7.7); Basophil# 0.01 X10^3/uL; Basophil% 0.2 % (0-1); Eosinophil# 0.04 X10^3/uL; Eosinophils% 0.7 % (0-5); Hematocrit 43.9 % (40-54); Hemoglobin 13.4 g/dL (13.0-16.5); Lymphocyte # 0.74 X10^3/ul (0.83-4.51); Lymphocyte % 12.5 % (19-41); Mean Corp Hgb Conc 30.5 g/dL (32-36); Mean Corpuscular Hgb 29.5 pg (27.0-32.0); Mean Corpuscular Volume 96.5 fL (80-94); Mean Platelet Vol. 9.3 fl (6.2-12.0); Monocyte# 0.55 X10^3/uL; Monocyte% 9.3 % (0-10); NRBC Flagged by Analyzer 0 % (0-5); Neutrophil # 4.55 X10^3/uL (2.7-7.7); Neutrophil % 77.1 % (47-70); Platelet Count 297 K/mm3 (150-450); RBC Distribution Width SD 49.5 fl (35.1-43.9); Red Blood Count 4.55 M/mm3 (4.6-6.2); White Blood Count 5.9 K/mm3 (4.4-11.0)
[2022-10-15 20:06] LABS: ALB/GLOB Ratio 1.1 RATIO (0.9-2.4); AST(SGOT) 35 U/L (15-37); Alanine Aminotransfer ALT/SGPT 58 U/L (16-61); Albumin, Serum 3.6 g/dL (3.2-5.0); Alkaline Phosphatase 61 U/L (45-117); Anion Gap 4 (5-15); BNP,B-Type NATRIURETIC PEPTIDE 17.6 pg/mL (0-100); BUN 31 mg/dL (7-18); BUN/Creat Ratio 38.9 RATIO (10-20); Calcium,Total 9.9 mg/dL (8.5-10.1); Chloride 102 mmol/L (98-107); EST Glomerular Filtration Rate 101 mL/min (>60); Est Glom Filt Rate - Afr Amer 122 mL/min (>60); Estimated Creatinine Clearance 57.02 ml/min; Globulin 3.3 g/dL (2.2-4.2); Glucose 105 mg/dL (74-106); Potassium 4.5 mmol/L (3.5-5.1); Protein, Total 6.9 g/dL (6.4-8.2); Sodium Level 144 mmol/L (136-145); Troponin-I HS 20 pg/mL (3.0-78.0)
[2022-10-16] VITALS (44 sets, daily range): BP systolic 82–125; BP diastolic 50–100; PULSE 82–111; RESP 12–35; TEMP 36.4–37.3; O2SAT 90–100; BMI 19.5
--- NOTE | 2022-10-16 02:34 | PCM.HP.STD ---
HPI - General General Date of Admission: 10/16/22 Date of Service: 10/16/22 Chief Complaint: Hypoxia HPI Narrative MARY ELLEN LABOY, is a 71-year-old male with a history of CVA with resultant difficulty swallowing in January 2022, right-sided carotid stenosis s/p CEA, and hypertension presented to [facility] 10/15/2022 with hypoxia which was found at his neurologist office day of presentation. Per neurology note he had had some worsening of his dysarthria and dysphagia and given the new hypoxia he wanted MRI head and neck as there is concern for central etiology of his hypoxia. In ED patient was 81% but responded well to 2 L of O2 and hospitalist was contacted for admission. Patient evaluated with at bedside and they report that he began to have difficulties after his stroke in January and that his speech and swallowing had never completely returned to baseline but he had been doing better until May when he began to slowly decline. Over the past 1 month he has been having a harder time breathing and has had shallow breathing as well and then over the past couple days this is worsened. He is supposed to go back to see a stitcher standard machine and have pulmonary function tests but has not had this scheduled yet. He went to his neurologist's office and was found to be hypoxic in the 80s and was sent to the emergency department where his hypoxia was confirmed. Has not had significant cough and has other complaints of some generalized weakness and tremors and difficulty swallowing, no headache, no chest pain. He does report remote history of asthma for which he uses albuterol nebs and was previously on Symbicort but was taken off of this due to tightening of his vocal cords. [facility] Medical History Anxiety Asthma Bicuspid aortic valve Carotid stenosis, right Carpal tunnel syndrome Cataract (lens) fragments in eye following cataract surgery, bilateral Depression (emotion) Difficulty swallowing Esophagitis Essential (primary) hypertension GERD (gastroesophageal reflux disease) History of back problems HLD (hyperlipidemia) IBS (irritable bowel syndrome) Insomnia Lumbar stenosis Murmur, heart Nonrheumatic aortic (valve) stenosis with insufficiency Obstructive sleep apnea BRIDGETTE on CPAP Seasonal allergies Home Medications omega-3 fatty acids 1,000 mg capsule (Fish Oil Concentrate) 1,000 mg PO QDAY supplement 10/19/17 [History Last Taken 02/17/22 08:00] rosuvastatin 40 mg tablet 40 mg PO QDAY cholesterol 10/19/17 [History Last Taken 02/16/22 22:00] duloxetine 30 mg capsule,delayed release 30 mg PO BID mental health 11/28/20 [History Last Taken 02/17/22 08:00] lisinopril 20 mg tablet 20 mg PO DAILY #90 tabs 11/03/21 [Rx Last Taken 02/16/22 22:00] albuterol sulfate 2.5 mg/3 mL (0.083 %) solution for nebulization 2.5 mg inhalation Q4H PRN Shortness Of Breath 01/30/22 [History Last Taken 02/17/22 08:00] cholecalciferol (vitamin D3) 50 mcg (2,000 unit) capsule 50 mcg PO DAILY vitamin 01/30/22 [History Last Taken 02/17/22 08:00] clonazepam 0.5 mg tablet 0.5 mg PO DAILY 03/09/22 [History Last Taken Unknown] zinc acetate 50 mg (zinc) capsule (Galzin) 50 mg PO DAILY 03/09/22 [History Last Taken Unknown] clopidogrel 75 mg tablet (Plavix) 75 mg PO DAILY #90 tabs 08/07/22 [Rx Last Taken Unknown] tadalafil 2.5 mg tablet 2.5 mg PO DAILY 09/01/22 [History Last Taken Unknown] ascorbic acid (vitamin C) 500 mg capsule 500 mg PO DAILY 10/15/22 [History Last Taken Unknown] loratadine 10 mg tablet 10 mg PO DAILY PRN allergy 10/15/22 [History Last Taken Unknown] megestrol 20 mg tablet 20 mg PO DAILY 10/15/22 [History Last Taken Unknown] zolpidem 10 mg tablet 5 mg PO QHS 10/15/22 [History Last Taken Unknown] Allergy/AdvReac Type Severity Reaction Status Date / Time No Known Allergies Allergy Verified 10/15/22 17:32 Family History Father CAD (coronary artery disease) Family history of CABG Mother Hypertension CAD (coronary artery disease) Hyperlipidemia Surgical History History of carpal tunnel surgery History of hernia repair History of right-sided carotid endarterectomy (04/19/18) History of shoulder surgery Social History household members: spouse and family Smoking Status: Former smoker pack-years: 20 Tobacco: How many years used: 20 alcohol intake: never substance use type: does not use caffeine: Yes Type: coffee Number of servings: 2 timothy/hoahaoism: Restorationist seatbelt use: always ROS ROS Narrative General: Denies fever or chills HENT: Denies headache, denies stuffy nose, denies sore throat EYES: Denies changes in vision Resp: Denies cough, progressively worsening shortness of breath Cardiac: Denies chest pain GI: Denies abdominal pain, denies changes in bowel, denies nausea, denies vomiting : Denies changes in urination Extremity: Denies swelling MSK: Generalized weakness Neuro: Denies any numbness, denies tingling, has some generalized tremors Heme: Denies any bleeding or bruising Skin: Denies rashes Psychiatric: No complaints voiced Vital Signs Vital Signs Vital Signs: 10/15/22 17:32 10/15/22 18:19 10/15/22 18:20 Temperature 97.9 F Temperature Source Temporal Pulse Rate 101 H Respiratory Rate 16 Respiratory Effort Respiratory Depth Respiratory Pattern Blood Pressure 125/63 H Blood Pressure Mean 83 Blood Pressure Source Blood Pressure Position Blood Pressure Location Pulse Ox 100 81 97 Oxygen Delivery Method Room Air Nasal Cannula Oxygen Flow Rate (L/min) 2 10/15/22 19:39 10/15/22 20:00 10/15/22 22:00 Temperature Temperature Source Pulse Rate 89 96 Respiratory Rate 19 H 19 H Respiratory Effort Short of Breath Respiratory Depth Normal Respiratory Pattern Normal Blood Pressure 126/99 H 123/70 H Blood Pressure Mean 108 87 Blood Pressure Source Blood Pressure Position Blood Pressure Location Pulse Ox 97 95 Oxygen Delivery Method Nasal Cannula Nasal Cannula Nasal Cannula Oxygen Flow Rate (L/min) 2 2 2 10/15/22 23:05 10/16/22 00:00 10/16/22 01:30 Temperature 97.9 F 98.2 F Temperature Source Temporal Oral Pulse Rate 97 97 98 Respiratory Rate 20 H 19 H 18 Respiratory Effort Respiratory Depth Respiratory Pattern Blood Pressure 131/70 H 117/73 112/67 Blood Pressure Mean 90 87 82 Blood Pressure Source Monitor Blood Pressure Position Semi-Fowlers Blood Pressure Location Right Arm Pulse Ox 95 95 97 Oxygen Delivery Method Nasal Cannula Nasal Cannula Nasal Cannula Oxygen Flow Rate (L/min) 2 2 2 10/16/22 01:30 Temperature Temperature Source Pulse Rate Respiratory Rate Respiratory Effort Non-Labored Short of Breath Respiratory Depth Normal Respiratory Pattern Normal Blood Pressure Blood Pressure Mean Blood Pressure Source Blood Pressure Position Blood Pressure Location Pulse Ox Oxygen Delivery Method Nasal Cannula Oxygen Flow Rate (L/min) 2 Weight Weight: 49.952 kg Body Mass Index (BMI) 19.5 Results Lab / Micro Data Result Diagrams: 10/15/22 19:36 10/15/22 19:36 Labs: Laboratory Results - last 24 hr 10/15/22 19:36: WBC 5.9, RBC 4.55 L, Hgb 13.4, Hct 43.9, MCV 96.5 H, MCH 29.5, MCHC 30.5 L, RDW Std Deviation 49.5 H, RDW Coeff of Uziel 14.0, Plt Count 297, MPV 9.3, Immature Gran % (Auto) 0.200, Neut % (Auto) 77.1 H, Lymph % (Auto) 12.5 L, [place] % (Auto) 9.3, Eos % (Auto) 0.7, Baso % (Auto) 0.2, Absolute Neuts (auto) 4.6, Absolute Lymphs (auto) 0.74 L, Nucleated RBC % 0 10/15/22 19:36: Sodium 144, Potassium 4.5, Chloride 102, Carbon Dioxide 38.0 H, Anion Gap 4 L, BUN 31 H, Creatinine 0.80, Estim Creat Clear Calc 57.02, Est GFR (MDRD) Af Amer 122, Est GFR (MDRD) Non-Af 101, BUN/Creatinine Ratio 38.9 H, Glucose 105, Calcium 9.9, Total Bilirubin 0.40, AST 35, ALT 58, Alkaline Phosphatase 61, Troponin I High Sens 20, Total Protein 6.9, Albumin 3.6, Globulin 3.3, Albumin/Globulin Ratio 1.1 10/15/22 19:36: B-Natriuretic Peptide 17.6 Micro: Microbiology 10/15/22 19:32 Nasal Secretion SARS-CoV-2 & FLU Antigen (Rapid) - Final Radiology Impression Chest X-Ray 10/15/22 19:41 IMPRESSION: No radiographic evidence of acute cardiopulmonary disease. Electronically Signed: Randolph Wu MD at 20:31 EST , Assessment & Plan Assessment/Plan (1) Hypoxia: (2) Dysphagia: (3) History of stroke: PLAN: Plan #Hypoxia Unclear etiology, currently being worked up for motor neuron disease and is to have outpatient PFTs Given symptoms with worsening dysarthria and dysphagia per neurology they had concern for central etiology of sudden hypoxia and sent him to ED for MRI head and neck, these have been ordered May need to assess for home O2 prior to discharge Slightly elevated bicarb, if worsening of underlying motor neuron disease may be retaining CO2, not altered but will obtain VBG in the a.m. to assess for any degree of retention Nebs ordered given reported history of asthma and report that he uses albuterol nebs at home Incentive spirometry Chest x-ray unremarkable COVID and influenza negative, will obtain respiratory panel as well, no sputum for culture Do not feel he has an asthma exacerbation and will on treating with steroids If MRI negative will need further work-up on outpatient basis #Dysphagia Did not pass bedside swallow, speech therapy consulted and patient made n.p.o. Has been chronic but progressive recently #History of CVA Continue Plavix and statin Follows with Dr. Keita as an outpatient #DVT ppx: Lovenox subcu Susy Rankin MD Time spent in the patient's overall evaluation,decision-making process, review of diagnostic data, adjustment of management, discussion with other providers, nursing nursing and ancillary staff involved in patient's care documentation, 60 minutes
[2022-10-16] MEDS: MELATONIN 3 MG TABLET PO (02:47)
[2022-10-16 06:37] LABS: Absolute Lymphocyte Count 0.51 X10^3/uL (0.83-4.51); Absolute Neutrophil Count 4.4 X10^3/uL (2.0-7.7); Basophil# 0.02 X10^3/uL; Basophil% 0.4 % (0-1); Eosinophil# 0.03 X10^3/uL; Eosinophils% 0.5 % (0-5); Hematocrit 42.1 % (40-54); Hemoglobin 12.6 g/dL (13.0-16.5); Lymphocyte # 0.51 X10^3/ul (0.83-4.51); Lymphocyte % 9.3 % (19-41); Mean Corp Hgb Conc 29.9 g/dL (32-36); Mean Corpuscular Volume 100.2 fL (80-94); Mean Platelet Vol. 9.3 fl (6.2-12.0); Monocyte# 0.56 X10^3/uL; Monocyte% 10.2 % (0-10); NRBC Flagged by Analyzer 0 % (0-5); Neutrophil # 4.37 X10^3/uL (2.7-7.7); Neutrophil % 79.4 % (47-70); POSITIVE DIFFERENTIAL YES; Platelet Count 261 K/mm3 (150-450); RBC Distribution Width SD 51.5 fl (35.1-43.9); White Blood Count 5.5 K/mm3 (4.4-11.0)
[2022-10-16 06:41] LABS: Differential Indicated SCAN CRITERIA MET
[2022-10-16 07:02] LABS: Differential Comment SCANNED
--- NOTE | 2022-10-16 07:05 | NURSING ---
Entered pt room looking to speak to the TOWBOAT ENGINEER. Monica Meneses in room with patient sitting at side of bed. Patient was found and in bathroom and returned to bed. Short of breath and confusion. Monica starting to do vital signs and asked for respiratory to assess. This nurse called respiratory and notified primary RN Valdemar of concern in room with new confusion.
[2022-10-16 07:09] LABS: AST(SGOT) 35 U/L (15-37); Alanine Aminotransfer ALT/SGPT 55 U/L (16-61); Albumin, Serum 3.1 g/dL (3.2-5.0); Alkaline Phosphatase 59 U/L (45-117); Anion Gap 2 (5-15); BUN 29 mg/dL (7-18); BUN/Creat Ratio 33.3 RATIO (10-20); Calcium,Total 9.3 mg/dL (8.5-10.1); Chloride 100 mmol/L (98-107); Creatinine, Serum 0.87 mg/dL (0.70-1.30); EST Glomerular Filtration Rate 91 mL/min (>60); Est Glom Filt Rate - Afr Amer 110 mL/min (>60); Estimated Creatinine Clearance 54.23 ml/min; Globulin 3.1 g/dL (2.2-4.2); Glucose 163 mg/dL (74-106); Potassium 4.3 mmol/L (3.5-5.1); Protein, Total 6.2 g/dL (6.4-8.2); Sodium Level 143 mmol/L (136-145)
--- NOTE | 2022-10-16 07:20 | NURSING ---
this RN was called to pt room by CHOKER SETTER at 0705, CHOKER SETTER stating pt had increased SOB and new onset confusion. upon assessment, pt unable to recall person, place, or time. pt unable to speak at this time, only looked at this RN. pt was restless and trying to get out of bed. new onset of left sided weakness noted. stroke team was called to [facility] at 0715 Blood glucose was 132.
--- NOTE | 2022-10-16 07:31 | CT_ITS ---
We are attempting to reach an attending provider to discuss findings. An addendum with communication details will be sent when the communication is complete. INDICATION: CVA- RIGHT CAROTIDENDARTECTOMY 2021 WITH CVA EXAMINATION: CTA HEAD - CTA Head and Neck W/ Contrast Injection (and W/O Contrast Images if performed) TECHNIQUE: [place]/head CT angiogram protocol was performed following IV contrast. Routine carotid CT angiogram protocol was performed without and with IV contrast. NASCET criteria using the distal ICAs for comparison were used for evaluation of stenoses. 3D reconstructions were reviewed of the CT angiogram head and neck. A radiation dose optimization technique was used for this scan. IV Contrast dosage and agent: 100 cc [id number] COMPARISON: None. FINDINGS: --Anterior cerebral circulation: ACAs: No significant stenosis at the visualized segments. ACOM: Present. MCAs: No significant stenosis at the visualized segments. --Posterior cerebral circulation: PCOMs: Not present hvac operations technician: No significant stenosis at the visualized segments. BASILAR ARTERY: No significant stenosis. --Carotid and vertebral circulation: AORTIC ARCH AND BRANCHES: Normal anatomy, patent. RIGHT CCA: Deformity of the distal right CCA suggestive of endarterectomy. No occlusion, significant stenosis or dissection. RIGHT ICA: No occlusion, significant stenosis or dissection. LEFT CCA: No occlusion, significant stenosis or dissection. LEFT ICA: Calcific plaquing at the origin. No occlusion, significant stenosis or dissection. RIGHT VERTEBRAL ARTERY: No occlusion, significant stenosis or dissection. LEFT VERTEBRAL ARTERY: No occlusion, significant stenosis or dissection. NECK SOFT TISSUES: Unremarkable. LUNG APICES: Clear. BONES: Unremarkable. CT/STROKE CTA Head AND Neck W/Con IMPRESSION: No evidence of arterial stenosis, occlusion, dissection or intracranial aneurysm. Electronically Signed: Roland Contreras MD at 8:15 EST ,
--- NOTE | 2022-10-16 07:34 | CT_ITS ---
We are attempting to reach an attending provider to discuss findings. An addendum with communication details will be sent when the communication is complete. EXAM: CT HEAD WITHOUT INTRAVENOUS CONTRAST CLINICAL INDICATION: cva TECHNIQUE: Multiple axial images were obtained of the head without intravenous contrast. This CT exam was performed using one or more of the following dose reduction techniques: automated exposure control, adjustment of the mA and/or kV according to patient size, and/or use of iterative reconstruction technique. This report was created using [employer] technology. COMPARISON: None. FINDINGS: BRAIN AND EXTRA-AXIAL SPACES: Areas of diminished white matter density noted within both cerebral hemispheres suggestive of chronic microvascular change. No intra- or extra-axial hemorrhage. No evidence of acute infarct. No intracranial mass or mass effect. There is preservation of the dickinson/white matter interface. Posterior fossa structures are unremarkable. Ventricles are appropriate for age. No hydrocephalus. Basal cisterns are patent. BONES/JOINTS: No suspicious lytic or blastic abnormality. SINUSES: Unremarkable as visualized. No acute sinusitis. MASTOID AIR CELLS: Normal. Clear. ORBITS: Visualized globes, extraocular muscles, optic nerves and retrobulbar fat appear unremarkable. CT/STROKE Brain/Head without Cont IMPRESSION: 1. No acute intracranial abnormality. 2. Chronic microvascular changes. Aspect score 10 Electronically Signed: Roland Contreras MD at 7:53 EST ,
--- NOTE | 2022-10-16 07:46 | NURSING ---
arrive to CT at 726. ED stroke team pt on table at this time
[2022-10-16 08:05] LABS: Allen Test Positive; Base Excess 16 mmol/L (-2 to +2); Bicarbonate 43.1 mmol/L (22-26); Blood Gas Specimen Type ART; O2 Delivery Device Cannula; PO2 63 mmHG (75-100); SITE R Radial; SO2 85 % (95-99); Total Carbon Dioxide 46 mmol/L; pCO2 101.1 mmHg (35-45); pH 7.24 (7.35-7.45)
--- NOTE | 2022-10-16 08:17 | NURSING ---
tried calling Donna [phone]; did not answer, phone just rang, no voicemail picked up
[2022-10-16] MEDS: 0.9% Saline Lock 10 ML Syringe IV ×3 (08:29→19:57)
--- NOTE | 2022-10-16 10:22 | CON.PCM.CC_ITS ---
Assessment & Plan Assessment/Plan (1) CVA (cerebral vascular accident): (2) Acute and chronic respiratory failure with hypercapnia: PLAN: Plan RECOMMENDATIONS: 1. Obtain ABG now 2. Potentially transition to AVAPS with TTV of 400 3. Postthrombolytic protocol 4. Consider holding hypertensive medications 5. Wean FiO2 to keep saturations between 90 and 94% IMPRESSIONS: 1. Acute CVA status post thrombolysis Patient appears to have responded well to thrombolysis. Patient does have previous stenosis noted of the vertebral arteries. Patient is also being worked up for a possible neuromuscular disorder by neurology. We will continue with postthrombolytic protocol. Patient will require repeat echocardiogram. Patient is on telemetry. Patient should be n.p.o. until evaluated by speech therapy. 2. Acute on chronic hypercarbic respiratory failure Exact etiology is unclear at this time. Patient reportedly had a PFT in the past that was suggestive only of asthma. This does not typically lead to CO2 retention. Clinical suspicion is for a neuromuscular disorder. Will likely need a room air ABG in the future to evaluate AA gradient. For now, patient should have an ABG to evaluate if BiPAP settings are sufficient. Could attempt transition to AVAPS if CO2 is not responding. Elevated bicarbonate is suggestive that the patient may have been retaining CO2 for some time now, but this cannot be confirmed with the available data. We will attempt to obtain the pulmonary function test for further recommendations. 3. Chronic diastolic CHF/aortic stenosis/PVD Chest x-ray was not suggestive of acute CHF. ABG is primarily showing hypercarbic, not hypoxic findings. We will hold patient's lisinopril for now to allow for permissive hypertension given problem #1. This can likely be reinitiated tomorrow. Would recommend limiting IV fluids if possible 4. Dysphagia/history of CVA/debility Complicates care, management, recovery and prognosis. Patient did not pass a bedside swallow prior to his acute CVA issues this morning. Patient will need speech therapy to evaluate. Verified that patient is a DNR Comfort Care arrest no intubation from documentation. TIME: 32 minutes critical care time spent addressing patient's acute CVA, respiratory failure, CHF, review of all data and collaboration with care team HPI Consult Data Date of Consult: 10/16/22 HPI Narrative Reason for Consultation: Respiratory failure and CVA HPI Narrative: MARY ELLEN LABOY is a 71 M, with past medical history listed below, who presents to [facility] on 10/15/2022 secondary to dyspnea and difficulty swallowing over the previous few days. Patient reportedly had been complaining of shortness of breath for several days, but was sent to the emergency department after being seen by his neurologist. Patient reportedly had no fevers or chills. Patient had denied any aspiration, cough or congestion. No new neurologic symptoms have been reported. In the ER, patient was afebrile, but tachycardic at 101 bpm. Patient was normotensive, but saturating 81% on room air. Patient improved to 97% on 2 L/min. Laboratory work-up showed a white blood cell count of 5.9, hemoglobin of 13.4 and platelets of 297. Chemistries were significant for a bicarbonate of 38 with a creatinine of 0.8 and normal LFTs, BNP and glucose. Chest x-ray showed no acute infiltrates. EKG confirmed sinus rhythm with no ischemic changes. Given hypoxia, patient was admitted to the floor for further evaluation. There was some concern for motor neuron disease or central etiology, but no ABG was obtained at that time. Viral work-up has been negative At approximately 8:00 this morning, a stroke team was called on [facility] secondary to new onset left-sided weakness and expressive aphasia. Patient was evaluated by telemetry neurology and the determination was made to give tPA at approximately 8:12 AM. An ABG done at that time showed significant CO2 retention with an acute on chronic respiratory acidosis and increased AA gradient. Patient was subsequently placed on BiPAP therapy and transferred admitted to the intensive care unit. Since being in the intensive care unit, patient is confused, but is awake. Patient was evaluated at approximately 9:45 AM and had resolution of left-sided weakness. Patient was not reporting any pain. Patient was confused and not able to provide any additional information. Hospitalist was able to determine that the patient is seen at [facility] and reportedly has been suspected of having asthma in the past. Patient reportedly only takes albuterol as needed. Patient does have a bicuspid aortic valve and has had TIAs previously. Patient was hospitalized in January 2022 for similar neurologic complaints. At that time, teleneurology was suspecting an upper motor neuron issue. Patient was noted to have stenosis of his vertebral arteries with a 70% right V1 subsegment stenosis. Patient's is reportedly his sole occupational medicine officer, but was not at the bedside to provide additional information. [facility] Medical History Anxiety Asthma Bicuspid aortic valve Carotid stenosis, right Carpal tunnel syndrome Cataract (lens) fragments in eye following cataract surgery, bilateral Depression (emotion) Difficulty swallowing Esophagitis Essential (primary) hypertension GERD (gastroesophageal reflux disease) History of back problems HLD (hyperlipidemia) IBS (irritable bowel syndrome) Insomnia Lumbar stenosis Murmur, heart Nonrheumatic aortic (valve) stenosis with insufficiency Obstructive sleep apnea BRIDGETTE on CPAP Seasonal allergies Home Medications omega-3 fatty acids 1,000 mg capsule (Fish Oil Concentrate) 1,000 mg PO QDAY supplement 10/19/17 [History Last Taken 02/17/22 08:00] rosuvastatin 40 mg tablet 40 mg PO QDAY cholesterol 10/19/17 [History Last Taken 02/16/22 22:00] duloxetine 30 mg capsule,delayed release 30 mg PO BID mental health 11/28/20 [History Last Taken 02/17/22 08:00] lisinopril 20 mg tablet 20 mg PO DAILY #90 tabs 11/03/21 [Rx Last Taken 02/16/22 22:00] albuterol sulfate 2.5 mg/3 mL (0.083 %) solution for nebulization 2.5 mg inhalation Q4H PRN Shortness Of Breath 01/30/22 [History Last Taken 02/17/22 08:00] cholecalciferol (vitamin D3) 50 mcg (2,000 unit) capsule 50 mcg PO DAILY vitamin 01/30/22 [History Last Taken 02/17/22 08:00] clonazepam 0.5 mg tablet 0.5 mg PO DAILY 03/09/22 [History Last Taken Unknown] zinc acetate 50 mg (zinc) capsule (Galzin) 50 mg PO DAILY 03/09/22 [History Last Taken Unknown] clopidogrel 75 mg tablet (Plavix) 75 mg PO DAILY #90 tabs 08/07/22 [Rx Last Taken Unknown] tadalafil 2.5 mg tablet 2.5 mg PO DAILY 09/01/22 [History Last Taken Unknown] ascorbic acid (vitamin C) 500 mg capsule 500 mg PO DAILY 10/15/22 [History Last Taken Unknown] loratadine 10 mg tablet 10 mg PO DAILY PRN allergy 10/15/22 [History Last Taken Unknown] megestrol 20 mg tablet 20 mg PO DAILY 10/15/22 [History Last Taken Unknown] zolpidem 10 mg tablet 5 mg PO QHS 10/15/22 [History Last Taken Unknown] Allergy/AdvReac Type Severity Reaction Status Date / Time No Known Allergies Allergy Verified 10/15/22 17:32 Family History Father CAD (coronary artery disease) Family history of CABG Mother Hypertension CAD (coronary artery disease) Hyperlipidemia Surgical History History of carpal tunnel surgery History of hernia repair History of right-sided carotid endarterectomy (04/19/18) History of shoulder surgery Social History household members: spouse and family Smoking Status: Former smoker pack-years: 20 Tobacco: How many years used: 20 alcohol intake: never substance use type: does not use caffeine: Yes Type: coffee Number of servings: 2 timothy/hoahaoism: Mormon seatbelt use: always ROS Review of Systems ROS Unobtainable: due to mental status Physical Exam Const alert and no apparent distress Constitutional Narrative: On BiPAP therapy during my evaluation General Appearance: cooperative and well developed HEENT normocephalic, head/scalp atraumatic and moist oral mucous membranes HEENT Narrative: Unable to assess facial droop secondary to BiPAP Eyes PERRL, EOMs intact bilaterally, conjunctivae normal and no scleral icterus Neck full ROM and no lymphadenopathy Chest inspection of chest normal Resp normal respiratory effort and no use of accessory muscles Effort and Inspection: able to speak in complete sentences Auscultation: clear to auscultation bilaterally; Negative for rales, rhonchi or wheezes Percussion: Negative for dullness Cardio regular rate, regular rhythm, S1 normal heart sound, S2 normal heart sound, no rub and no gallops Heart Sounds: murmur systolic III/ loud mid left sternal border GI normal to inspection, nondistended, normoactive bowel sounds no CVA tenderness Extremity no clubbing, cyanosis or edema Skin no rashes or lesions noted Neuro CN's II-XII intact bilaterally, moves all extremities and no focal motor deficits Neuro Narrative: Unable to assess facial droop secondary to BiPAP. However, no left-sided weakness appreciated Psych affect normal Mood & Affect: anxious Medical Records Data Attestation: I reviewed the patient's medical records Medical records narrative: Patient reportedly had pulmonary function studies suggestive of asthma, with t hese were noted available for personal review. Lab / Micro Data Attestation: I reviewed the patient's lab results. Lab results narrative: Patient does not have any previous arterial blood gases for comparison. However, patient did have an elevated bicarbonate over 30 since the beginning of 2020. Result Diagrams: 10/16/22 05:55 10/16/22 05:55 Labs: Laboratory Results - last 24 hr 10/15/22 19:36: WBC 5.9, RBC 4.55 L, Hgb 13.4, Hct 43.9, MCV 96.5 H, MCH 29.5, MCHC 30.5 L, RDW Std Deviation 49.5 H, RDW Coeff of Uziel 14.0, Plt Count 297, MPV 9.3, Immature Gran % (Auto) 0.200, Neut % (Auto) 77.1 H, Lymph % (Auto) 12.5 L, [place] % (Auto) 9.3, Eos % (Auto) 0.7, Baso % (Auto) 0.2, Absolute Neuts (auto) 4.6, Absolute Lymphs (auto) 0.74 L, Nucleated RBC % 0 10/15/22 19:36: Sodium 144, Potassium 4.5, Chloride 102, Carbon Dioxide 38.0 H, Anion Gap 4 L, BUN 31 H, Creatinine 0.80, Estim Creat Clear Calc 57.02, Est GFR (MDRD) Af Amer 122, Est GFR (MDRD) Non-Af 101, BUN/Creatinine Ratio 38.9 H, Glucose 105, Calcium 9.9, Total Bilirubin 0.40, AST 35, ALT 58, Alkaline Phosphatase 61, Troponin I High Sens 20, Total Protein 6.9, Albumin 3.6, Globulin 3.3, Albumin/Globulin Ratio 1.1 10/15/22 19:36: B-Natriuretic Peptide 17.6 10/16/22 05:55: WBC 5.5, RBC 4.20 L, Hgb 12.6 L, Hct 42.1, MCV 100.2 H, MCH 30.0, MCHC 29.9 L, RDW Std Deviation 51.5 H, RDW Coeff of Uziel 14.0, Plt Count 261, MPV 9.3, Immature Gran % (Auto) 0.200, Neut % (Auto) 79.4 H, Lymph % (Auto) 9.3 L, [place] % (Auto) 10.2 H, Eos % (Auto) 0.5, Baso % (Auto) 0.4, Absolute Neuts (auto) 4.4, Absolute Lymphs (auto) 0.51 L, Nucleated RBC % 0, Differential Comment SCANNED 10/16/22 05:55: Sodium 143, Potassium 4.3, Chloride 100, Carbon Dioxide 41.0 H, Anion Gap 2 L, BUN 29 H, Creatinine 0.87, Estim Creat Clear Calc 54.23, Est GFR (MDRD) Af Amer 110, Est GFR (MDRD) Non-Af 91, BUN/Creatinine Ratio 33.3 H, Glucose 163 H, Calcium 9.3, Total Bilirubin 0.40, AST 35, ALT 55, Alkaline Phosphatase 59, Total Protein 6.2 L, Albumin 3.1 L, Globulin 3.1, Albumin/Globulin Ratio 1.0 Micro: Microbiology 10/15/22 19:32 Nasal Secretion SARS-CoV-2 & FLU Antigen (Rapid) - Final ABG Data ABG results: ABG 10/16/22 07:58 Specimen Type ART Sample Site R Radial pH 7.24 L Bicarbonate Actual 43.1 H Total CO2 46 Base Excess 16 H O2 Saturation 85 L ABG pCO2 101.1 H* ABG pO2 63 L Gonzalo Test Positive O2 Delivery Device Cannula Liter Flow 3.0 Crit Call To/Read Back Yes Blood Gas Notified Whom TELETSKY Radiology Impression Chest X-Ray 10/15/22 19:41 IMPRESSION: No radiographic evidence of acute cardiopulmonary disease. Electronically Signed: Randolph Wu MD at 20:31 EST , Head/Neck CTA 10/16/22 07:31 IMPRESSION: No evidence of arterial stenosis, occlusion, dissection or intracranial aneurysm. Electronically Signed: Roland Contreras MD at 8:15 EST , ADDENDUM: 10/16/22 0840 IMPRESSION: No evidence of arterial stenosis, occlusion, dissection or intracranial aneurysm. N.B. : The above Results were Read Back by Roland Contreras MD to Annmarie Long RN, and understanding confirmed on 10/16/2022 08:33:52 (ET). Electronically Signed: Roland Contreras MD at 8:15 EST , Brain CT 10/16/22 07:34 IMPRESSION: 1. No acute intracranial abnormality. 2. Chronic microvascular changes. Aspect score 10 Electronically Signed: Roland Contreras MD at 7:53 EST , ADDENDUM: 10/16/22 0814 IMPRESSION: 1. No acute intracranial abnormality. 2. Chronic microvascular changes. Aspect score 10 N.B. : The above Results were Read Back by Roland Contreras MD to Larry Alonzo MD, and understanding confirmed on 10/16/2022 08:07:31 (ET). Electronically Signed: Roland Contreras MD at 7:53 EST , Charges/Coding Procedures Hospitalists Procedures: [id number] Critial Care 1st Hr
[2022-10-16 10:35] LABS: Allen Test Positive; Base Excess 14 mmol/L (-2 to +2); Bicarbonate 39.8 mmol/L (22-26); Blood Gas Specimen Type ART; FI02 25; O2 Delivery Device BiPAP; PEEP 8; PO2 77 mmHG (75-100); PS 14; SITE L Radial; SO2 93 % (95-99); Total Carbon Dioxide 42 mmol/L; pCO2 76.9 mmHg (35-45); pH 7.32 (7.35-7.45)
[2022-10-16] MEDS: Ipratropium/Albuterol Sulfate 3 ML AMPUL.NEB INHALATION ×2 (12:19→19:19)
--- NOTE | 2022-10-16 13:30 | CASEMGMT ---
RN?CM?PUBLIC INFORMATION DIRECTOR?CM?to room to meet with patient and for initial transition planning/care coordination?assessment.?RN?CM?introduced self and role at [facility]. Pt and voice understanding and consent to?assessment?at this time.? Pt resting in bed in no distress at this time, on O2 via N/C at this time. @ bedside. Pt is A/O but speech is garbled and difficult to understand at times. Pt able to provide some information and able to provide further details/info. Care providers, pharmacy, and demographics verified/updated at this time. PCP: Dr Moore Specialists:Dr Destiny Leonard and DOPER Nandini Herrera-pulmonology @ [facility], [place]. Dr Varela-cardiology. Dr Yousif--ortho @ [facility]/[place]. Preferred Pharmacy:[facility] Insurance:[employer] [facility] Prescription Benefit: Yes? Living Will/HPOA:?Has both LW and HCPOA, who is his , Donna. LNOK: , Donna. 3 children Living Arrangements: Lives w/ and dtr in one-story home w/basement w/2 steps to enter.. Pt able to navigate the stairs well physically, but he has been becoming SOB on them. Pt indep w/ADL's, manages his own medications, and does his own laundry. manages most of the other home tasks. Transportation:?Pt states drives self and states no transportation concerns at this time.? also drives. DME: ?Has the following DME:?nebulizer, pulse ox. Pt also has a CPAP from [facility], but he does not use it @ night. states he will use it when he becomes SOB for awhile until he recovers. Pt does not have home O2. Provided w/list of local DME companies, should pt qualify for home O2 or trilogy @ d/c and made aware [employer] is affiliated w/[facility]. states [employer]. Pt sleeps in a recliner. Pt and state no need for further DME at this time.? HHC/SNF: No hx of either. Pt currently going to [facility] for OP ST and PT. Pt also sees a auto garage mechanic @ [facility]. Pt and made aware therapy evals to be completed once bedrest in complete and will make recommendations, as needed. CM to follow for any discharge planning needs. Pt and deny having further questions/concerns/needs at this time. PLAN:??TBD by pt's course of tx and progress w/therapy. Follow for possible home O2 @ d/c. Byron BSN?RN?CM
--- NOTE | 2022-10-16 17:56 | PCM.HOSP.N ---
Hospitalist Note Patient was seen and examined today, I talked with his by phone later this morning. A stroke team was called on the patient approximately 705 this morning, he had left-sided weakness and dysarthria. Patient underwent a CTA of the head and neck which did not show an acute stroke or bleed, teleneurology did not examination of the patient and endorsed use of Tenecteplase, this administration was delayed because we could not contact the and the patient was unable to give permission. It was deemed necessary based on the patient's physical exam and recommendation from teleneurology. In addition the patient was found to be hypercapnic, BiPAP was applied, patient was transferred to ICU for further care and will be seen by critical care. MRI will be performed tomorrow. When talking with the patient's later on this morning, she states she would have endorsed administration of Tenecteplase.
[2022-10-16] MEDS: Atorvastatin Calcium 80 MG Tablet PO (19:57)
[2022-10-16] MEDS: DULoxetine Hcl 30 MG Capsule PO (19:57)
[2022-10-16] MEDS: Haloperidol Lactate 5 MG/ML Vial IV (19:57)
--- NOTE | 2022-10-16 22:20 | NURSING ---
Addendum entered by Varsha Quiroz 10/16/22 23:09: Pt taken down to CT w/ respiratory on bipap. Upon return to unit, pt was a lot more awake and appropriate, answering questions appropriately and following commands. Dr. Rankin notified of pt still being on thrombolytic precautions and okay given for VBG if able to draw off of IV instead of an arterial stick. Original Note: Upon assessment for 2199 NIHSS, pt was difficult to arouse and perform NIH Pt had previously refused to wear the bipap around 2029 this evening. Pt placed on bipap and soon became more awake and restless, attempting to climb out of bed and pull things off. Notified Dr. Rankin, who placed orders for stat head CT to be cautious, as well as an ABG d/t suspicion for hypercapnia.
--- NOTE | 2022-10-16 22:32 | CT_ITS ---
INDICATION: mental status change s/p tenecteplase EXAMINATION: CT BRAIN - CT Head or Brain W/O Contrast Injection TECHNIQUE: Multiple axial images were obtained of the head without intravenous contrast. A radiation dose optimization technique was used for this scan. IV Contrast dosage and agent: None. RADIATION DOSAGE (If Supplied By Facility): CTDIvol = ( 44.99 ) mGy, DLP = ( 846.73 ) mGycm COMPARISON: CT of earlier same date at 7:37 AM, 10/16/2022 FINDINGS: HEMISPHERES: 1. The cerebral parenchyma, ventricular system, subarachnoid spaces have normal configuration and density. There is a normal gyral pattern. There is normal dickinson/white differentiation. No midline shift.. 2. Chronic microvascular deep white matter changes again noted. 3. No intraparenchymal mass, hemorrhage, or acute territorial infarct. CEREBELLUM - BRAINSTEM: The cerebellum, brainstem, basilar and suprasellar cisterns have normal appearance. No Chiari malformation. PITUITARY: Infundibulum and pituitary have normal configuration. Midline structures appear normal. CSF SPACES: Appropriate for age. No hydrocephalus. Basal cisterns are patent. VESSELS: 1. Moderate vascular calcifications throughout the cavernous carotid vessels. 2. No hyperdense vascular signs noted.. ORBITS AND PARANASAL SINUSES: 1. Normal appearance of the bony orbits. Normal appearance of the globes and retrobulbar soft tissues.. 2. Paranasal sinuses are clear. BONY ELEMENTS: Bony elements of the cranial vault, facial skeleton and skull base have normal appearance. SCALP AND SOFT TISSUES: Normal appearance of the soft tissues of the scalp and the visualized face OTHER: None ASPECTS Score for Acute Strokes: 10 CT/Brain/Head without Contrast IMPRESSION: 1. Stable exam. 2. 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 3. No intracranial mass, hemorrhage or acute territorial infarct. 4. No radiographically significant sinus disease.. Electronically Signed: Milton Robins MD at 23:24 EST ,
[2022-10-16 23:20] LABS: Blood Gas Specimen Type VEN; O2 Delivery Device BiPAP; VBG BASE EXCESS 12 mmol/L (-1.0-3.5); VBG Bicarbonate 37 mmol/L (22-26); VBG PO2 88 mmHg (25-40); VBG SO2 97 % (50-70); VBG TCO2 39 mmol/L (23-33); VBG pCO2 57.3 mmHg (41-51); VBG pH 7.42 (7.32-7.42)
[2022-10-17] VITALS (22 sets, daily range): BP systolic 97–146; BP diastolic 54–81; PULSE 81–108; RESP 14–24; TEMP 36.4–37.1; O2SAT 91–99; BMI 19.5
[2022-10-17 03:20] LABS: Absolute Lymphocyte Count 0.66 X10^3/uL (0.83-4.51); Absolute Neutrophil Count 4.5 X10^3/uL (2.0-7.7); Basophil# 0.03 X10^3/uL; Basophil% 0.5 % (0-1); Eosinophil# 0.06 X10^3/uL; Hematocrit 38.1 % (40-54); Hemoglobin 11.7 g/dL (13.0-16.5); Lymphocyte # 0.66 X10^3/ul (0.83-4.51); Lymphocyte % 11.3 % (19-41); Mean Corp Hgb Conc 30.7 g/dL (32-36); Mean Corpuscular Hgb 30.3 pg (27.0-32.0); Mean Corpuscular Volume 98.7 fL (80-94); Mean Platelet Vol. 9.1 fl (6.2-12.0); Monocyte# 0.58 X10^3/uL; Monocyte% 9.9 % (0-10); NRBC Flagged by Analyzer 0 % (0-5); Neutrophil # 4.49 X10^3/uL (2.7-7.7); Platelet Count 213 K/mm3 (150-450); RBC Distribution Width CV 13.9 % (11.6-14.6); RBC Distribution Width SD 50.5 fl (35.1-43.9); Red Blood Count 3.86 M/mm3 (4.6-6.2); White Blood Count 5.8 K/mm3 (4.4-11.0)
[2022-10-17 03:40] LABS: Anion Gap 3 (5-15); BUN 25 mg/dL (7-18); BUN/Creat Ratio 40.7 RATIO (10-20); Calcium,Total 9.2 mg/dL (8.5-10.1); Chloride 100 mmol/L (98-107); Creatinine, Serum 0.62 mg/dL (0.70-1.30); EST Glomerular Filtration Rate 137 mL/min (>60); Est Glom Filt Rate - Afr Amer 165 mL/min (>60); Estimated Creatinine Clearance 46.22 ml/min; Glucose 103 mg/dL (74-106); Potassium 4.3 mmol/L (3.5-5.1); Sodium Level 142 mmol/L (136-145)
--- NOTE | 2022-10-17 07:22 | PCM.PN.INT ---
Assessment & Plan Assessment/Plan (1) CVA (cerebral vascular accident): (2) Acute and chronic respiratory failure with hypercapnia: PLAN: Plan RECOMMENDATIONS: 1. Obtain room air ABG if possible today while awake 2. Continue AVAPS with TTV of 400 with all sleep 3. Postthrombolytic protocol. Potential MRI this morning 4. Consider holding hypertensive medications 5. Wean FiO2 to keep saturations between 90 and 94% IMPRESSIONS: 1. Acute CVA status post thrombolysis Patient appears to have responded well to thrombolysis. Patient does have previous stenosis noted of the vertebral arteries. Patient is also being worked up for a possible neuromuscular disorder by neurology. We will continue with postthrombolytic protocol. Patient will require repeat echocardiogram. Patient is on telemetry. Patient should be n.p.o. until evaluated by speech therapy. 2. Acute on chronic hypercarbic respiratory failure Exact etiology is unclear at this time. Patient reportedly had a PFT in the past that was suggestive only of asthma. This does not typically lead to CO2 retention. Clinical suspicion is for a neuromuscular disorder. Will likely need a room air ABG, possibly today while awake, to evaluate AA gradient. For now, patient should continue with AVAPS while sleeping. Elevated bicarbonate is suggestive that the patient may have been retaining CO2 for some time now, but this cannot be confirmed with the available data. We will attempt to obtain the pulmonary function test for further recommendations. 3. Chronic diastolic CHF/aortic stenosis/PVD Chest x-ray was not suggestive of acute CHF. ABG is primarily showing hypercarbic, not hypoxic findings. Likely okay to reinitiate lisinopril if patient can swallow appropriately.. Would recommend limiting IV fluids if possible 4. Dysphagia/history of CVA/debility Complicates care, management, recovery and prognosis. Patient did not pass a bedside swallow prior to his acute CVA issues this morning. Patient will need speech therapy to evaluate. Verified that patient is a DNR Comfort Care arrest no intubation from documentation. Subjective Subjective Patient with significant impulsiveness overnight. Patient did receive 2 doses of Haldol in the last 24 hours. Patient did have a CT of the head given decreased responsiveness overnight. Patient was then attempted on BiPAP. Patient initially was not able to tolerate BiPAP therapy, but after being on following Haldol BiPAP patient has done well overnight. No significant hypotension has been noted. Objective Data Objective Data Vital Signs: Vital Signs Temp Pulse Resp BP Pulse Ox O2 Del Method O2 Flow Rate 36.8 C 88 20 H 139/68 H 96 Bi-pap 2 10/17/22 04:00 10/17/22 07:00 10/17/22 07:00 10/17/22 07:00 10/17/22 07:00 10/17/22 07:00 10/16/22 22:00 FiO2 25 10/17/22 07:00 Oxygen Flow Rate (L/min) 2 Oxygen Delivery Method Bi-pap Weight: 48.1 kg Body Mass Index (BMI) 19.5 Intake & Output: Intake and Output for Last 24 Hours 10/15/22 10/16/22 10/17/22 23:59 23:59 23:59 Output Total 400 / 525 175 / 175 Balance -400 / -525 -175 / -175 Medical Nutrition Assessment Dietitian: Malnutrition Criteria Met Start: 10/16/22 12:47 Freq: Status: Active Protocol: Document 10/16/22 12:47 SLA (Rec: 10/16/22 12:48 SLA [id number]) Nutrition Malnutrition Evidence of Malnutrition Exists Yes Malnutrition (severe): Chronic Evidenced By Suboptimal Energy Intake ( Severe),Weight Loss (Severe) Clinical Problem Chronic Disease or Condition Related Malnutrition Etiology related to stroke and inadequate energy intake Signs/Symptoms as evidenced by po intake meeting <75% of estimated nutritional needs and 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 Lab / Micro Data Attestation: I reviewed the patient's lab results. Result Diagrams: 10/17/22 03:12 10/17/22 03:12 Labs: Laboratory Results - last 24 hr 10/17/22 03:12: WBC 5.8, RBC 3.86 L, Hgb 11.7 L, Hct 38.1 L, MCV 98.7 H, MCH 30.3, MCHC 30.7 L, RDW Std Deviation 50.5 H, RDW Coeff of Uziel 13.9, Plt Count 213, MPV 9.1, Immature Gran % (Auto) 0.300, Neut % (Auto) 77.0 H, Lymph % (Auto) 11.3 L, Meigs % (Auto) 9.9, Eos % (Auto) 1.0, Baso % (Auto) 0.5, Absolute Neuts (auto) 4.5, Absolute Lymphs (auto) 0.66 L, Nucleated RBC % 0 10/17/22 03:12: Sodium 142, Potassium 4.3, Chloride 100, Carbon Dioxide 39.0 H, Anion Gap 3 L, BUN 25 H, Creatinine 0.62 L, Estim Creat Clear Calc 46.22, Est GFR (MDRD) Af Amer 165, Est GFR (MDRD) Non-Af 137, BUN/Creatinine Ratio 40.7 H, Glucose 103, Calcium 9.2 Micro: Microbiology 10/16/22 08:47 Mucosa - Nose Respiratory Panel (PCR) - Final 10/15/22 19:32 Nasal Secretion SARS-CoV-2 & FLU Antigen (Rapid) - Final ABG Data ABG results: ABG 10/16/22 10/16/22 10/16/22 07:58 10:30 23:12 Specimen Type ART ART SRAVAN Sample Site R Radial L Radial pH 7.24 L 7.32 L Bicarbonate Actual 43.1 H 39.8 H Total CO2 46 42 Base Excess 16 H 14 H O2 Saturation 85 L 93 L O2 % 25 ABG pCO2 101.1 H* 76.9 H* ABG pO2 63 L 77 Gonzalo Test Positive Positive VBG pH 7.42 VBG pO2 88 H VBG HCO3 37 H VBG Total CO2 39 H VBG O2 Sat (Calc) 97 H VBG Base Excess 12 H POC Mix VBG pCO2 Pt Tmp 57.3 H O2 Delivery Device Cannula BiPAP BiPAP Liter Flow 3.0 POC PEEP 8 POC Pressure Suppt 14 Crit Call To/Read Back Yes Yes Blood Gas Notified Whom TELETSKY Andre Radiography Diagnostic Testing: Radiology Impression Head/Neck CTA 10/16/22 07:31 IMPRESSION: No evidence of arterial stenosis, occlusion, dissection or intracranial aneurysm. Electronically Signed: Roland Contreras MD at 8:15 EST , ADDENDUM: 10/16/22 0840 IMPRESSION: No evidence of arterial stenosis, occlusion, dissection or intracranial aneurysm. N.B. : The above Results were Read Back by Roland Contreras MD to Annmarie Long RN, and understanding confirmed on 10/16/2022 08:33:52 (ET). Electronically Signed: Roland Contreras MD at 8:15 EST , Brain CT 10/16/22 07:34 IMPRESSION: 1. No acute intracranial abnormality. 2. Chronic microvascular changes. Aspect score 10 Electronically Signed: Roland Contreras MD at 7:53 EST , ADDENDUM: 10/16/22 0814 IMPRESSION: 1. No acute intracranial abnormality. 2. Chronic microvascular changes. Aspect score 10 N.B. : The above Results were Read Back by Roland Contreras MD to Larry Alonzo MD, and understanding confirmed on 10/16/2022 08:07:31 (ET). Electronically Signed: Roland Contreras MD at 7:53 EST , Brain CT 10/16/22 22:32 IMPRESSION: 1. Stable exam. 2. 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 3. No intracranial mass, hemorrhage or acute territorial infarct. 4. No radiographically significant sinus disease.. Electronically Signed: Milton Robins MD at 23:24 EST , Physical Exam Const no apparent distress Constitutional Narrative: On BiPAP therapy during my evaluation. Resting comfortably. Opens eyes briefly to voice. General Appearance: cooperative and well developed HEENT normocephalic, head/scalp atraumatic and moist oral mucous membranes Eyes PERRL, EOMs intact bilaterally, conjunctivae normal and no scleral icterus Neck full ROM and no lymphadenopathy Chest inspection of chest normal Resp normal respiratory effort and no use of accessory muscles Effort and Inspection: able to speak in complete sentences Auscultation: clear to auscultation bilaterally; Negative for rales, rhonchi or wheezes Percussion: Negative for dullness Cardio regular rate, regular rhythm, S1 normal heart sound, S2 normal heart sound, no rub and no gallops Heart Sounds: murmur systolic III/ loud mid left sternal border GI normal to inspection, nondistended, normoactive bowel sounds no CVA tenderness Extremity no clubbing, cyanosis or edema Skin no rashes or lesions noted Neuro CN's II-XII intact bilaterally, moves all extremities and no focal motor deficits Neuro Narrative: Unable to assess facial droop secondary to BiPAP. However, no left-sided weakness appreciated Psych affect normal Mood & Affect: flat affect Charges/Coding Visit Charges Inpatient E&M: 76061 Subs Hosp L3
[2022-10-17] MEDS: Ipratropium/Albuterol Sulfate 3 ML AMPUL.NEB INHALATION ×3 (07:28→19:39)
--- NOTE | 2022-10-17 08:50 | PCM.PN.HOSP ---
Reason for Visit Reason for Visit: Diagnoses Cerebral infarction, unspecified (10/16/22) Acute and chronic respiratory failure with hypercapnia (10/16/22) Hypoxemia (10/16/22) Dysphagia, unspecified (10/16/22) Personal history of transient ischemic attack (TIA), and cerebral infarction without residual deficits (10/16/22) Subjective Subjective Patient was seen and examined today, he is on nasal cannula, he is alert and appropriate. Patient is to have his MRI scan performed today, I talked with critical care briefly about his care, they request that a room air blood gas be obtained to see if he qualifies for BiPAP usage at home. Patient's neurological exam today is unremarkable. Objective Data Objective Data Vital Signs: Vital Signs Temp Pulse Resp BP Pulse Ox O2 Del Method O2 Flow Rate 97.9 F 100 20 H 126/74 H 91 Nasal Cannula 1 10/17/22 08:00 10/17/22 08:00 10/17/22 08:00 10/17/22 08:00 10/17/22 08:00 10/17/22 08:00 10/17/22 08:00 FiO2 25 10/17/22 07:00 Oxygen Flow Rate (L/min) 1 Oxygen Delivery Method Nasal Cannula Weight: 48.1 kg Body Mass Index (BMI) 19.5 Intake & Output: Intake and Output for Last 24 Hours 10/15/22 10/16/22 10/17/22 23:59 23:59 23:59 Output Total 400 / 525 175 / 175 Balance -400 / -525 -175 / -175 Medical Nutrition Assessment Dietitian: Malnutrition Criteria Met Start: 10/16/22 12:47 Freq: Status: Active Protocol: Document 10/16/22 12:47 SLA (Rec: 10/16/22 12:48 SLA [id number]) Nutrition Malnutrition Evidence of Malnutrition Exists Yes Malnutrition (severe): Chronic Evidenced By Suboptimal Energy Intake ( Severe),Weight Loss (Severe) Clinical Problem Chronic Disease or Condition Related Malnutrition Etiology related to stroke and inadequate energy intake Signs/Symptoms as evidenced by po intake meeting <75% of estimated nutritional needs and 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 Lab / Micro Data Result Diagrams: 10/17/22 03:12 10/17/22 03:12 Labs: Laboratory Results - last 24 hr 10/17/22 03:12: WBC 5.8, RBC 3.86 L, Hgb 11.7 L, Hct 38.1 L, MCV 98.7 H, MCH 30.3, MCHC 30.7 L, RDW Std Deviation 50.5 H, RDW Coeff of Uziel 13.9, Plt Count 213, MPV 9.1, Immature Gran % (Auto) 0.300, Neut % (Auto) 77.0 H, Lymph % (Auto) 11.3 L, Hitchcock % (Auto) 9.9, Eos % (Auto) 1.0, Baso % (Auto) 0.5, Absolute Neuts (auto) 4.5, Absolute Lymphs (auto) 0.66 L, Nucleated RBC % 0 10/17/22 03:12: Sodium 142, Potassium 4.3, Chloride 100, Carbon Dioxide 39.0 H, Anion Gap 3 L, BUN 25 H, Creatinine 0.62 L, Estim Creat Clear Calc 46.22, Est GFR (MDRD) Af Amer 165, Est GFR (MDRD) Non-Af 137, BUN/Creatinine Ratio 40.7 H, Glucose 103, Calcium 9.2 Micro: Microbiology 10/16/22 08:47 Mucosa - Nose Respiratory Panel (PCR) - Final 10/15/22 19:32 Nasal Secretion SARS-CoV-2 & FLU Antigen (Rapid) - Final ABG Data ABG results: ABG 10/16/22 10/16/22 10:30 23:12 Specimen Type ART SRAVAN Sample Site L Radial pH 7.32 L Bicarbonate Actual 39.8 H Total CO2 42 Base Excess 14 H O2 Saturation 93 L O2 % 25 ABG pCO2 76.9 H* ABG pO2 77 Gonzalo Test Positive VBG pH 7.42 VBG pO2 88 H VBG HCO3 37 H VBG Total CO2 39 H VBG O2 Sat (Calc) 97 H VBG Base Excess 12 H POC Mix VBG pCO2 Pt Tmp 57.3 H O2 Delivery Device BiPAP BiPAP POC PEEP 8 POC Pressure Suppt 14 Crit Call To/Read Back Yes Blood Gas Notified Whom Andre Radiography Diagnostic Testing: Radiology Impression Brain CT 10/16/22 22:32 IMPRESSION: 1. Stable exam. 2. 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 3. No intracranial mass, hemorrhage or acute territorial infarct. 4. No radiographically significant sinus disease.. Electronically Signed: Milton Robins MD at 23:24 EST , Physical Exam Const alert, oriented x3 and no apparent distress Constitutional Narrative: Patient appears older than stated age General Appearance: cooperative, well kempt and well developed Orientation / Consciousness: awake, oriented to person, oriented to place and oriented to time HEENT normocephalic, head/scalp atraumatic and moist oral mucous membranes Eyes PERRL, EOMs intact bilaterally and conjunctivae normal Neck supple, no JVD, thyroid normal and no carotid bruits General: trachea midline Resp normal respiratory effort, no retractions, no use of accessory muscles and clear to auscultation bilaterally Auscultation: Negative for rales, rhonchi or wheezes Cardio regular rate, regular rhythm, S1 normal heart sound, S2 normal heart sound, no murmurs, no rub and no gallops GI normal to inspection, nondistended, normoactive bowel sounds, soft to palpation, non-tender and non-distended Extremity no clubbing, cyanosis or edema Skin no rashes or lesions noted General Skin Exam: no breakdown Neuro oriented x3, CN's II-XII intact bilaterally, moves all extremities, no focal motor deficits and no sensory deficits noted Sensorium / Orientation: awake and alert Speech: speech normal Psych affect normal Assessment & Plan Assessment/Plan (1) Acute and chronic respiratory failure with hypercapnia: PLAN: Plan 1. Acute combined respiratory failure-etiology unclear at this time, continue to monitor closely, pulmonary medicine is participating in his care #2 possible acute CVA-patient is going down for an MRI today, he will need to take an aspirin, Plavix, and statin as long as there is no sign of intracranial hemorrhage. 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
--- NOTE | 2022-10-17 09:45 | NURSING ---
Off unit for MRI
--- NOTE | 2022-10-17 09:55 | MRI_ITS ---
HISTORY: CVA -- MRI 24 hours after IV thrombolytic administration. TECHNIQUE: Multiplanar and multisequence MR images of the brain were obtained without contrast. 280 images. COMPARISON: CT prior day. FINDINGS: BRAIN PARENCHYMA: Moderate foci and small zones of increased T2 FLAIR signal in the bilateral white matter. No abnormal focus of restricted diffusion. No acute intracranial hemorrhage identified. CSF SPACES: Mild generalized volume loss. No significant midline shift or other mass effect.No extra-axial fluid collection. VASCULAR SYSTEM: Major intracranial flow voids are maintained. PARANASAL SINUSES AND MASTOID AIR CELLS: No significant air fluid levels. ORBITS: Bilateral lens resections. MRI/Brain without Contrast IMPRESSION: No evidence for acute infarct. Chronic involutional and white matter changes. Electronically Signed: Naomi Ching MD at 11:33 EST ,
[2022-10-17] MEDS: Clopidogrel Bisulfate 75 MG Tablet PO (12:21)
[2022-10-17] MEDS: Lisinopril 10 MG Tablet PO (12:21)
[2022-10-17] MEDS: DULoxetine Hcl 30 MG Capsule PO ×2 (12:25→21:30)
[2022-10-17] MEDS: Aspirin E.C. 81 MG Tablet PO (12:42)
--- NOTE | 2022-10-17 12:46 | CASEMGMT ---
According to [employer]'s website, the following tertiary facilities are in network: [facility], [facility], [facility], [facility], [facility], [facility], [facility], [facility] and . Updated hospitalist.
[2022-10-17 16:00] LABS: Allen Test Positive; Base Excess 13 mmol/L (-2 to +2); Bicarbonate 38.1 mmol/L (22-26); Blood Gas Specimen Type ART; O2 Delivery Device Room Air; PO2 65 mmHG (75-100); SITE R Radial; SO2 91 % (95-99); Total Carbon Dioxide 40 mmol/L; pCO2 65.4 mmHg (35-45); pH 7.37 (7.35-7.45)
[2022-10-17] MEDS: Ensure Plus High Protein 120 ML LIQUID PO ×2 (17:09→21:30)
--- NOTE | 2022-10-17 18:15 | NURSING ---
Patient stated he wanted to sleep in the chair- this nurse advised the patient if he is going to nap, he needs to wear his bipap. Patient immediately refused. This nurse explained to the patient why he needs to wear it- for his health and that the doctors want him to wear it with ANY sleep. Patient continued to refuse the mask despite multiple explanations. Patient then stated he would stay awake. here to visit patient and this nurse explained to the about the patients refusal of the bipap and that perhaps she can talk to him.
[2022-10-17] MEDS: Atorvastatin Calcium 80 MG Tablet PO (21:30)
[2022-10-17] MEDS: Haloperidol Lactate 5 MG/ML Vial IV (21:44)
[2022-10-17] MEDS: 0.9% Saline Lock 10 ML Syringe IV (21:45)
--- NOTE | 2022-10-17 23:21 | CPS ---
Started patient on bipap at 22:32. At 22:50 patient ripped bipap off and was trying to get out of the recliner. Will try starting bipap again once patient falls asleep again and is less agitated.
[2022-10-18] VITALS (12 sets, daily range): BP systolic 94–131; BP diastolic 62–84; PULSE 77–107; RESP 14–28; TEMP 36.4–36.6; O2SAT 92–99; BMI 19.5
[2022-10-18 05:19] LABS: Absolute Lymphocyte Count 0.39 X10^3/uL (0.83-4.51); Absolute Neutrophil Count 4.6 X10^3/uL (2.0-7.7); Basophil# 0.01 X10^3/uL; Basophil% 0.2 % (0-1); Eosinophil# 0.04 X10^3/uL; Eosinophils% 0.7 % (0-5); Hematocrit 39.2 % (40-54); Hemoglobin 11.8 g/dL (13.0-16.5); Lymphocyte # 0.39 X10^3/ul (0.83-4.51); Mean Corp Hgb Conc 30.1 g/dL (32-36); Mean Corpuscular Hgb 29.4 pg (27.0-32.0); Mean Corpuscular Volume 97.5 fL (80-94); Monocyte# 0.56 X10^3/uL; NRBC Flagged by Analyzer 0 % (0-5); Neutrophil # 4.57 X10^3/uL (2.7-7.7); Neutrophil % 81.7 % (47-70); POSITIVE DIFFERENTIAL YES; Platelet Count 225 K/mm3 (150-450); RBC Distribution Width CV 13.8 % (11.6-14.6); RBC Distribution Width SD 49.6 fl (35.1-43.9); Red Blood Count 4.02 M/mm3 (4.6-6.2); White Blood Count 5.6 K/mm3 (4.4-11.0)
[2022-10-18 05:23] LABS: Differential Indicated SCAN CRITERIA MET
[2022-10-18 05:34] LABS: Anion Gap 4 (5-15); BUN 22 mg/dL (7-18); BUN/Creat Ratio 31.1 RATIO (10-20); Calcium,Total 9.6 mg/dL (8.5-10.1); Chloride 97 mmol/L (98-107); Creatinine, Serum 0.71 mg/dL (0.70-1.30); EST Glomerular Filtration Rate 116 mL/min (>60); Est Glom Filt Rate - Afr Amer 140 mL/min (>60); Estimated Creatinine Clearance 45.43 ml/min; Glucose 112 mg/dL (74-106); Potassium 4.4 mmol/L (3.5-5.1); Sodium Level 139 mmol/L (136-145)
[2022-10-18 07:08] LABS: Differential Comment SCANNED
--- NOTE | 2022-10-18 07:18 | PN.CC_ITS ---
Assessment & Plan Assessment/Plan (1) CVA (cerebral vascular accident): (2) Acute and chronic respiratory failure with hypercapnia: PLAN: Plan RECOMMENDATIONS: 1. Consider arrangements for noninvasive ventilator at discharge 2. Await neurologic work-up 3. Okay to leave the intensive care unit 4. Okay to resume baseline medications 5. Hemodynamically stable on room air. Will sign off from a critical care perspective 6. Patient should follow-up with primary surveillance inspector to coordinate NIV IMPRESSIONS: 1. Acute CVA status post thrombolysis Patient appears to have responded well to thrombolysis. Patient does have previous stenosis noted of the vertebral arteries. Patient is also being worked up for a possible neuromuscular disorder by neurology. MRI is not showing any significant defect at this time. Patient did have a fall, but no signs of bleeding complications are noted. 2. Acute on chronic hypercarbic respiratory failure Exact etiology is unclear at this time. Patient reportedly had a PFT in the past that was suggestive only of asthma. This does not typically lead to CO2 retention. Room air ABG shows fully compensated respiratory acidosis with a normal AA gradient consistent with neuromuscular hypoventilation. Patient will need an NIV if he continues to wish to be aggressive. This can be coordinated by his primary surveillance inspector at the [facility]. Continue AVAPS while hospitalized. Given hemodynamically stable on room air, will sign off from a pulmonary/critical care perspective 3. Chronic diastolic CHF/aortic stenosis/PVD Chest x-ray was not suggestive of acute CHF. ABG is primarily showing hypercarbic, not hypoxic findings. Likely okay to reinitiate lisinopril if patient can swallow appropriately.. Would recommend limiting IV fluids if possible 4. Dysphagia/history of CVA/debility Complicates care, management, recovery and prognosis. Patient did not pass a bedside swallow prior to his acute CVA issues this morning. Patient will need speech therapy to evaluate. Verified that patient is a DNR Comfort Care arrest no intubation from documentation. Subjective Subjective Patient did well overnight. Patient did tolerate BiPAP for most of the evening, but required frequent redirection. Patient did have a fall overnight, but no injuries were evident. Objective Data Objective Data Vital Signs: Vital Signs Temp Pulse Resp BP Pulse Ox O2 Del Method O2 Flow Rate 36.5 C L 86 18 131/84 H 97 Bi-pap 95 10/18/22 02:00 10/18/22 05:09 10/18/22 05:09 10/18/22 02:00 10/18/22 05:09 10/18/22 02:02 10/18/22 02:02 FiO2 25 10/18/22 05:09 Oxygen Flow Rate (L/min) 95 Oxygen Delivery Method Bi-pap Weight: 48.7 kg Body Mass Index (BMI) 19.5 Intake & Output: Intake and Output for Last 24 Hours 10/16/22 10/17/22 10/18/22 23:59 23:59 23:59 Output Total 400 / 525 375 / 375 Balance -400 / -525 -375 / -375 Medical Nutrition Assessment Dietitian: Malnutrition Criteria Met Start: 10/16/22 12:47 Freq: Status: Active Protocol: Document 10/16/22 12:47 SLA (Rec: 10/16/22 12:48 SLA [id number]) Nutrition Malnutrition Evidence of Malnutrition Exists Yes Malnutrition (severe): Chronic Evidenced By Suboptimal Energy Intake ( Severe),Weight Loss (Severe) Clinical Problem Chronic Disease or Condition Related Malnutrition Etiology related to stroke and inadequate energy intake Signs/Symptoms as evidenced by po intake meeting <75% of estimated nutritional needs and 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 Lab / Micro Data Attestation: I reviewed the patient's lab results. Result Diagrams: 10/18/22 05:15 10/18/22 05:15 Labs: Laboratory Results - last 24 hr 10/18/22 05:15: WBC 5.6, RBC 4.02 L, Hgb 11.8 L, Hct 39.2 L, MCV 97.5 H, MCH 29.4, MCHC 30.1 L, RDW Std Deviation 49.6 H, RDW Coeff of Uziel 13.8, Plt Count 225, MPV 9.0, Immature Gran % (Auto) 0.400, Neut % (Auto) 81.7 H, Lymph % (Auto) 7.0 L, Eddy % (Auto) 10.0, Eos % (Auto) 0.7, Baso % (Auto) 0.2, Absolute Neuts (auto) 4.6, Absolute Lymphs (auto) 0.39 L, Nucleated RBC % 0, Differential Comment SCANNED 10/18/22 05:15: Sodium 139, Potassium 4.4, Chloride 97 L, Carbon Dioxide 38.0 H, Anion Gap 4 L, BUN 22 H, Creatinine 0.71, Estim Creat Clear Calc 45.43, Est GFR (MDRD) Af Amer 140, Est GFR (MDRD) Non-Af 116, BUN/Creatinine Ratio 31.1 H, Glucose 112 H, Calcium 9.6 Micro: Microbiology 10/16/22 08:47 Mucosa - Nose Respiratory Panel (PCR) - Final 10/15/22 19:32 Nasal Secretion SARS-CoV-2 & FLU Antigen (Rapid) - Final ABG Data ABG results: ABG 10/17/22 15:57 Specimen Type ART Sample Site R Radial pH 7.37 Bicarbonate Actual 38.1 H Total CO2 40 Base Excess 13 H O2 Saturation 91 L ABG pCO2 65.4 H ABG pO2 65 L Gonzalo Test Positive O2 Delivery Device Room Air Attestation: I personally reviewed and interpreted this ABG as follows: (Fully compensated respiratory acidosis with normal AA gradient consistent with hypoventilation) Radiography Diagnostic Testing: Radiology Impression Brain MRI 10/17/22 09:55 IMPRESSION: No evidence for acute infarct. Chronic involutional and white matter changes. Electronically Signed: Naomi Ching MD at 11:33 EST Reading Location ID and State: [facility] / [place] Tel , Service support , Physical Exam Const alert and no apparent distress Constitutional Narrative: On BiPAP therapy during my evaluation. Resting comfortably. Opens eyes briefly to voice. General Appearance: cooperative and well developed HEENT normocephalic, head/scalp atraumatic and moist oral mucous membranes Eyes PERRL, EOMs intact bilaterally, conjunctivae normal and no scleral icterus Neck full ROM and no lymphadenopathy Chest inspection of chest normal Resp normal respiratory effort and no use of accessory muscles Effort and Inspection: able to speak in complete sentences Auscultation: clear to auscultation bilaterally; Negative for rales, rhonchi or wheezes Percussion: Negative for dullness Cardio regular rate, regular rhythm, S1 normal heart sound, S2 normal heart sound, no rub and no gallops Heart Sounds: murmur systolic III/ loud mid left sternal border GI normal to inspection, nondistended, normoactive bowel sounds no CVA tenderness Extremity no clubbing, cyanosis or edema Skin no rashes or lesions noted Neuro CN's II-XII intact bilaterally, moves all extremities and no focal motor deficits Neuro Narrative: Unable to assess facial droop secondary to BiPAP. However, no left-sided weakness appreciated Psych affect normal Mood & Affect: anxious and flat affect Charges/Coding Visit Charges Inpatient E&M: 44205 Subs Hosp L2
[2022-10-18] MEDS: Ipratropium/Albuterol Sulfate 3 ML AMPUL.NEB INHALATION ×3 (07:32→19:57)
[2022-10-18] MEDS: Ensure Plus High Protein 120 ML LIQUID PO ×3 (10:16→21:30)
[2022-10-18] MEDS: Clopidogrel Bisulfate 75 MG Tablet PO (10:16)
[2022-10-18] MEDS: Aspirin E.C. 81 MG Tablet PO (10:16)
[2022-10-18] MEDS: Lisinopril 10 MG Tablet PO (10:17)
[2022-10-18] MEDS: DULoxetine Hcl 30 MG Capsule PO ×2 (10:20→21:36)
--- NOTE | 2022-10-18 10:23 | PCM.PN.HOSP ---
Reason for Visit Reason for Visit: Diagnoses Cerebral infarction, unspecified (10/16/22) Acute and chronic respiratory failure with hypercapnia (10/16/22) Hypoxemia (10/16/22) Dysphagia, unspecified (10/16/22) Personal history of transient ischemic attack (TIA), and cerebral infarction without residual deficits (10/16/22) Subjective Subjective Patient was seen and examined today, he is on BiPAP at the time my examination he is resting quietly. I talked at length with the today by phone, I think it would benefit the patient to go to a facility that has a full neurology department so he could be worked up for any neuromuscular disease, I also talked with pulmonary medicine and they feel that he probably has a neuromuscular problem. At the time of this dictation, I have made contact with the [facility] transfer line and they recommended Krystian Palomares, the wanted to in the hospital but my [facility] does not have inpatient neurology. Objective Data Objective Data Vital Signs: Vital Signs Temp Pulse Resp BP Pulse Ox O2 Del Method O2 Flow Rate 97.7 F L 84 15 131/84 H 98 Bi-pap 95 10/18/22 02:00 10/18/22 07:35 10/18/22 07:35 10/18/22 02:00 10/18/22 07:35 10/18/22 02:02 10/18/22 02:02 FiO2 25 10/18/22 07:35 Oxygen Flow Rate (L/min) 95 Oxygen Delivery Method Bi-pap Weight: 48.7 kg Body Mass Index (BMI) 19.5 Intake & Output: Intake and Output for Last 24 Hours 10/16/22 10/17/22 10/18/22 23:59 23:59 23:59 Output Total 400 / 525 375 / 375 Balance -400 / -525 -375 / -375 Medical Nutrition Assessment Dietitian: Malnutrition Criteria Met Start: 10/16/22 12:47 Freq: Status: Active Protocol: Document 10/16/22 12:47 CAMILLE (Rec: 10/16/22 12:48 CAMILLE [id number]) Nutrition Malnutrition Evidence of Malnutrition Exists Yes Malnutrition (severe): Chronic Evidenced By Suboptimal Energy Intake ( Severe),Weight Loss (Severe) Clinical Problem Chronic Disease or Condition Related Malnutrition Etiology related to stroke and inadequate energy intake Signs/Symptoms as evidenced by po intake meeting <75% of estimated nutritional needs and 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 Lab / Micro Data Result Diagrams: 10/18/22 05:15 10/18/22 05:15 Labs: Laboratory Results - last 24 hr 10/18/22 05:15: WBC 5.6, RBC 4.02 L, Hgb 11.8 L, Hct 39.2 L, MCV 97.5 H, MCH 29.4, MCHC 30.1 L, RDW Std Deviation 49.6 H, RDW Coeff of Uziel 13.8, Plt Count 225, MPV 9.0, Immature Gran % (Auto) 0.400, Neut % (Auto) 81.7 H, Lymph % (Auto) 7.0 L, Man[place]e % (Auto) 10.0, Eos % (Auto) 0.7, Baso % (Auto) 0.2, Absolute Neuts (auto) 4.6, Absolute Lymphs (auto) 0.39 L, Nucleated RBC % 0, Differential Comment SCANNED 10/18/22 05:15: Sodium 139, Potassium 4.4, Chloride 97 L, Carbon Dioxide 38.0 H, Anion Gap 4 L, BUN 22 H, Creatinine 0.71, Estim Creat Clear Calc 45.43, Est GFR (MDRD) Af Amer 140, Est GFR (MDRD) Non-Af 116, BUN/Creatinine Ratio 31.1 H, Glucose 112 H, Calcium 9.6 Micro: Microbiology 10/16/22 08:47 Mucosa - Nose Respiratory Panel (PCR) - Final 10/15/22 19:32 Nasal Secretion SARS-CoV-2 & FLU Antigen (Rapid) - Final ABG Data ABG results: ABG 10/17/22 15:57 Specimen Type ART Sample Site R Radial pH 7.37 Bicarbonate Actual 38.1 H Total CO2 40 Base Excess 13 H O2 Saturation 91 L ABG pCO2 65.4 H ABG pO2 65 L Gonzalo Test Positive O2 Delivery Device Room Air Radiography Diagnostic Testing: Radiology Impression Brain MRI 10/17/22 09:55 IMPRESSION: No evidence for acute infarct. Chronic involutional and white matter changes. Electronically Signed: Naomi Ching MD at 11:33 EST , Physical Exam Const no apparent distress Constitutional Narrative: Patient appears older than stated age General Appearance: cooperative, well kempt and well developed HEENT normocephalic, head/scalp atraumatic and moist oral mucous membranes Eyes PERRL, EOMs intact bilaterally and conjunctivae normal Neck no JVD and thyroid normal General: trachea midline Resp normal respiratory effort, no retractions, no use of accessory muscles and clear to auscultation bilaterally Auscultation: Negative for rales, rhonchi or wheezes Cardio regular rate, regular rhythm, S1 normal heart sound, S2 normal heart sound, no murmurs, no rub and no gallops GI normal to inspection, nondistended, normoactive bowel sounds, soft to palpation, non-tender and non-distended Extremity no clubbing, cyanosis or edema Skin no rashes or lesions noted General Skin Exam: no breakdown Neuro CN's II-XII intact bilaterally, no focal motor deficits and no sensory deficits noted Neuro Narrative: Patient is sleeping at the time of my examination, I did not awaken him Psych Psych Narrative: Patient is asleep on BiPAP at the time my examination Assessment & Plan Assessment/Plan (1) Acute and chronic respiratory failure with hypercapnia: PLAN: Plan 1. Acute combined respiratory failure-etiology unclear at this time, continue to monitor closely, pulmonary medicine is participating in his care, again I talked with the about transferring the patient to a facility that has inpatient neurological coverage, she is okay with this, she does not want to go to the main campus at [facility] but she wants to try to stay within the [facility] system. 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 #4 aortic valve stenosis with insufficiency-mild to moderate, patient follows up with cardiology #5 essential hypertension-continue current medications #6 hyperlipidemia-patient is on a statin Total clinical time spent by myself addressing the patient's medical issues, reviewing all the data, and collaborating with the patient's care team: 50 minutes Charges/Coding Visit Charges Inpatient E&M: 07001 Subs Hosp L3
[2022-10-18] MEDS: Atorvastatin Calcium 80 MG Tablet PO (21:30)
[2022-10-19] VITALS (21 sets, daily range): BP systolic 81–118; BP diastolic 50–74; PULSE 81–105; RESP 14–24; TEMP 36.3–37.1; O2SAT 94–100; BMI 19.5
--- NOTE | 2022-10-19 00:28 | PCM.HOSP.N ---
Hospitalist Note Received call about anxiety and agitation but that he was mostly setting frustration about his current situation and lack of control and would like something to help with his nerves. Given his likely neuromuscular disorder and significant tendency to retain CO2 even without anything sedating we will attempt to avoid benzodiazepines, will give small dose of oral Risperdal in conjunction with melatonin and start BuSpar 5 mg 3 times daily moving forward to help synergistically with his Cymbalta
[2022-10-19] MEDS: MELATONIN 10 MG TABLET PO ×2 (01:14→22:34)
[2022-10-19] MEDS: RisperiDONE 0.25 MG Tablet PO (01:14)
--- NOTE | 2022-10-19 02:18 | NURSING ---
Extensive education provided regarding use of call light, safety, and fall reduction. Additionally, plan of care was discussed. Pt responded to questioning by writing on paper concerns and issues. This nurse spent an abundance of time sitting down with patient and addressing various needs. Pt indicated that he was fearful of the current situation and was acting out because of his fears. He also indicated that he was impulsive as a result of anxiety related to current situation and felt as though he had a lack of control. This nurse discussed speaking with provider to provide anxiety relief in addition to providing emotional support and education on plan of care. MD notified of correspondence with pt. Pt agreed to meet with delivery supervisor to discuss emotional distress. During this exchange, pt recognized need to ask for assistance with transfers and could relay back instructions on what needs to be done. Importance of BiPap use was also discussed. MD ordered medication to aid with sleep/relaxation. Pt responding positively to interventions at this time. Repeated education will be employed as needed.
[2022-10-19] MEDS: RisperiDONE 0.5 MG Tablet PO (04:20)
[2022-10-19] MEDS: Ipratropium/Albuterol Sulfate 3 ML AMPUL.NEB INHALATION ×3 (06:50→19:11)
--- NOTE | 2022-10-19 07:44 | PN.HOSP_ITS ---
Reason for Visit Reason for Visit: Diagnoses Cerebral infarction, unspecified (10/16/22) Acute and chronic respiratory failure with hypercapnia (10/16/22) Hypoxemia (10/16/22) Dysphagia, unspecified (10/16/22) Personal history of transient ischemic attack (TIA), and cerebral infarction without residual deficits (10/16/22) Subjective Subjective Had another bout where patient was having difficulty speaking. Neurology was consulted and recommending and repeat MRI. Discussed with the family, patient had some issues with swallowing prior to his Legend stroke and January. Objective Data Objective Data Vital Signs: Vital Signs Temp Pulse Resp BP Pulse Ox O2 Del Method O2 Flow Rate 36.5 C L 82 14 84/61 L 100 Bi-pap 2 10/19/22 06:00 10/19/22 06:00 10/19/22 06:00 10/19/22 06:00 10/19/22 06:00 10/19/22 06:00 10/19/22 02:00 FiO2 30 10/19/22 06:00 Oxygen Flow Rate (L/min) 2 Oxygen Delivery Method Bi-pap Weight: 48.5 kg Body Mass Index (BMI) 19.5 Intake & Output: Intake and Output for Last 24 Hours 10/17/22 10/18/22 10/19/22 23:59 23:59 23:59 Intake Total 540 / 540 Output Total 375 / 375 750 / 750 0 / 0 Balance -375 / -375 -210 / -210 0 / 0 Medical Nutrition Assessment Dietitian: Malnutrition Criteria Met Start: 10/16/22 12:47 Freq: Status: Active Protocol: Document 10/16/22 12:47 CAMILLE (Rec: 10/16/22 12:48 CAMILLE [id number]) Nutrition Malnutrition Evidence of Malnutrition Exists Yes Malnutrition (severe): Chronic Evidenced By Suboptimal Energy Intake ( Severe),Weight Loss (Severe) Clinical Problem Chronic Disease or Condition Related Malnutrition Etiology related to stroke and inadequate energy intake Signs/Symptoms as evidenced by po intake meeting <75% of estimated nutritional needs and 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 Lab / Micro Data Result Diagrams: 10/18/22 05:15 10/18/22 05:15 Micro: Microbiology 10/16/22 08:47 Mucosa - Nose Respiratory Panel (PCR) - Final 10/15/22 19:32 Nasal Secretion SARS-CoV-2 & FLU Antigen (Rapid) - Final Physical Exam Const Constitutional Narrative: Patient awake but not speaking other than simple things such as no. Peers to be pocketing saliva in the back of his throat which HEENT head/scalp atraumatic and moist oral mucous membranes HEENT Narrative: Startled appearance. Mouth agape. Eyes Eyes Narrative: Slight impaired saccades vertically. Resp normal respiratory effort, no retractions, no use of accessory muscles and clear to auscultation bilaterally Cardio regular rate, regular rhythm, S1 normal heart sound and S2 normal heart sound GI normal to inspection, nondistended, normoactive bowel sounds, soft to palpation, non-tender and non-distended Extremity normal to inspection and full ROM Neuro oriented x3, CN's II-XII intact bilaterally, moves all extremities, no focal motor deficits and no sensory deficits noted Sensorium / Orientation: awake and alert Coordination / Balance: [id number] test normal Motor Exam: strength 5/5 throughout Assessment & Plan Assessment/Plan (1) Acute and chronic respiratory failure with hypercapnia: PLAN: Acute combined respiratory failure-etiology unclear at this time, pulmonary medicine is participating in his care, Patient requires volume ventilation and all other alternative therapies, including bilevel, have been considered and ruled out due to the severity of the disease state, weak breathing muscles and potential life-threatening condition including CO2 retention probability of acute exacerbation, patient requires ve ntilation to be used during the day as needed, addition to every night usage with facemask. (2) CVA (cerebral vascular accident): PLAN: 10/16 pt developed new onset left-sided weakness and expressive aphasia. Received tenecteplase. continue ASA, clopidogrel, HIS CTA of head and neck negative on 10/16 subsequent MRI on 10/17 was negative for CVA consult teleneurology for post-tenecteplase eval Frankly not sure the patient actually ever had strokes. Patient had normal MRI January. MRI here was negative and a repeat MRI will be performed on the . Given the patient's parents and concern about a neuromuscular disorder along the lines of Parkinson's/PSP/MSA or some other process altogether. Patient has prior history of nerve conduction test and EMGs which were reportedly negative therefore making the likelihood of ALS low. Strength villanueva he seems to be intact. I did recommend that he follow-up with neuromuscular/movement disorder specialist upon discharge for further diagnosis. Did tell the patient, his and daughter that if he does have such disease that it would not be reversible. Also told him that that would be an outpatient follow-up. Told him that such facilities are at [facility], [facility] and [facility]. (3) Dysphagia: PLAN: ST eval Failed modified barium swallow. Currently NPO. Discussed comfort feedings versus PEG tube with the patient and his family. They will think and get back to us. (4) Anxiety: PLAN: on buspirone, duloxetine avoid BZDs given respiratory issues. Symptoms seem to be exacerbated with the use of haloperidol. We will add to his allergy list though not a true allergy but adverse reaction. PLAN: Plan Chronic stable conditions: * aortic valve stenosis with insufficiency-mild to moderate, patient follows up with cardiology * essential hypertension-continue current medications * hyperlipidemia-patient is on a statin VTE prophylaxis: SCDs Greater than 55 minutes spent which greater than for percent of time was at bedside discussing with the patient and his family about the possibilities ne urologic conditions including Parkinson's, PSP versus MSA versus other. Also discussing his dysphagia and failed modified barium swallow and addressing the options with that. Charges/Coding Visit Charges Inpatient E&M: 93601 [facility] Hosp L3
--- NOTE | 2022-10-19 10:05 | CT_ITS ---
STUDY: CT BRAIN WITHOUT CONTRAST REASON FOR EXAM: Male, 71 years old. Change in mental status RADIATION DOSAGE (If Supplied By Facility): CTDIvol = ( 44.99 ) mGy, DLP = ( 863.60 ) mGycm TECHNIQUE: Transaxial CT imaging of the brain was performed without administration of intravenous contrast material. Individualized dose optimization techniques were used for this CT. COMPARISON: Comparison is made with prior study dated 10/16/2022. FINDINGS: Normal soft tissue structures. Normal calvarium. There is mild cerebral atrophy with widening of the extra-axial spaces and ventricular dilatation. There are areas of decreased attenuation within the white matter tracts of the supratentorial brain, consistent with microvascular disease changes. Normal basal ganglia and thalami. Normal brainstem. Normal cerebellum. There is no intracranial hemorrhage. There are no findings of an acute ischemic infarction. Normal visualized paranasal sinuses. CT/Brain/Head without Contrast IMPRESSION: Chronic involutional changes of the brain. Electronically Signed: Hector Krishnamurthy MD at 10:44 EST ,
--- NOTE | 2022-10-19 10:52 | PN.CC_ITS ---
Assessment & Plan Assessment/Plan (1) CVA (cerebral vascular accident): (2) Acute and chronic respiratory failure with hypercapnia: PLAN: Plan RECOMMENDATIONS: 1. Obtain stat CT head. 2. Obtain follow-up neurology consultation. 3. Obtain arterial blood gas. 4. Continue to wean supplemental oxygen as tolerated. 5. Continue AVAPS therapy as tolerated. 6. Encourage incentive spirometer use and mobilize patient as tolerated. IMPRESSIONS: 1. Acute CVA status post thrombolysis MRI brain was unremarkable. The patient does have previous stenosis noted of the vertebral arteries. The patient is also being worked up for a possible neuromuscular disorder by neurology. On account of the patient's confusion and dysarthria this morning, will obtain follow-up CT head, along with neurology follow-up. 2. Acute on chronic hypercarbic respiratory failure Exact etiology is unclear at this time. The patient reportedly had a PFT in the past that was suggestive only of asthma. Room air ABG shows compensated respiratory acidosis with a normal AA gradient consistent with neuromuscular hypoventilation. The patient will need an NIV if he continues to wish to be aggressive. This can be coordinated by his primary department mgr at the [facility]. Continue AVAPS while hospitalized. 3. Dysphagia/history of CVA/debility/chronic heart failure with preserved ejection fraction/aortic stenosis Complicates care, management, recovery and prognosis. Continue supportive measures with dietary advancement per speech therapy. This note was generated with [employer] dictation software. It may contain incorrect words, spelling, and punctuation that were not noted in checking the note before signing. Subjective Subjective The patient was seen and examined at the bedside this morning. Events from the last 24 hours have been reviewed. The patient is currently afebrile, hemodynamically stable and maintaining appropriate oxygen saturations on 4 L/min via nasal cannula. The patient was noted by nursing staff this morning to be more confused and dysarthric. Therefore, stat CT head was obtained. Objective Data Objective Data The patient's most recent lab work, culture data and imaging studies have all been personally reviewed. Brain MRI dated October 17 was negative for acute infarct. Vital Signs: Vital Signs Temp Pulse Resp BP Pulse Ox O2 Del Method O2 Flow Rate 98 F 90 17 101/62 100 Nasal Cannula 5 10/19/22 10:10/19/22 10:17 10/19/22 10:10/19/22 10:17 10/19/22 10:19 10/19/22 10:19 10/19/22 10:19 FiO2 30 10/19/22 06:50 Oxygen Flow Rate (L/min) 5 Oxygen Delivery Method Nasal Cannula Weight: 106 lb 14.787 oz Body Mass Index (BMI) 19.5 Intake & Output: Intake and Output for Last 24 Hours 10/17/22 10/18/22 10/19/22 23:59 23:59 23:59 Intake Total 540 / 540 Output Total 375 / 375 750 / 750 0 / 0 Balance -375 / -375 -210 / -210 0 / 0 Medical Nutrition Assessment Dietitian: Malnutrition Criteria Met Start: 10/16/22 12:47 Freq: Status: Active Protocol: Document 10/16/22 12:47 SLA (Rec: 10/16/22 12:48 SLA [id number]) Nutrition Malnutrition Evidence of Malnutrition Exists Yes Malnutrition (severe): Chronic Evidenced By Suboptimal Energy Intake ( Severe),Weight Loss (Severe) Clinical Problem Chronic Disease or Condition Related Malnutrition Etiology related to stroke and inadequate energy intake Signs/Symptoms as evidenced by po intake meeting <75% of estimated nutritional needs and 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 Lab / Micro Data Attestation: I reviewed the patient's lab results. Result Diagrams: 10/18/22 05:15 10/18/22 05:15 Micro: Microbiology 10/16/22 08:47 Mucosa - Nose Respiratory Panel (PCR) - Final 10/15/22 19:32 Nasal Secretion SARS-CoV-2 & FLU Antigen (Rapid) - Final Radiography Diagnostic Testing: Radiology Impression Brain CT 10/19/22 10:05 IMPRESSION: Chronic involutional changes of the brain. Electronically Signed: Hector Krishnamurthy MD at 10:44 EST , Physical Exam Const alert and no apparent distress General Appearance: cooperative HEENT normocephalic and head/scalp atraumatic Eyes PERRL, EOMs intact bilaterally and conjunctivae normal Neck supple General: trachea midline Chest inspection of chest normal Resp normal respiratory effort Auscultation: Negative for rales, rhonchi or wheezes Cardio regular rate and regular rhythm Heart Sounds: murmur GI normal to inspection, nondistended, normoactive bowel sounds Extremity no clubbing, cyanosis or edema Skin no rashes or lesions noted Neuro Neuro Narrative: Mild confusion with dysarthric speech Psych cooperative Charges/Coding Visit Charges Inpatient E&M: 27626 Subs Hosp L3
[2022-10-19] MEDS: Clopidogrel Bisulfate 75 MG Tablet PO (11:25)
[2022-10-19] MEDS: Aspirin E.C. 81 MG Tablet PO (11:26)
[2022-10-19] MEDS: busPIRone 5 MG Tablet PO ×2 (11:26→22:34)
[2022-10-19] MEDS: Ensure Plus High Protein 120 ML LIQUID PO (11:27)
[2022-10-19 11:30] LABS: Base Excess 16 mmol/L (-2 to +2); Bicarbonate 41.9 mmol/L (22-26); Blood Gas Specimen Type ART; O2 Delivery Device Cannula; PO2 109 mmHG (75-100); SITE L Brach; SO2 98 % (95-99); Total Carbon Dioxide 44 mmol/L; pCO2 78.4 mmHg (35-45); pH 7.34 (7.35-7.45)
[2022-10-19] MEDS: DULoxetine Hcl 30 MG Capsule PO (11:31)
--- NOTE | 2022-10-19 12:21 | MRI_ITS ---
EXAM: MR HEAD WITHOUT AND WITH INTRAVENOUS CONTRAST CLINICAL INDICATION: Dysarthria, ?CVA TECHNIQUE: Multiplanar and multisequence MR images of the brain were obtained without and with intravenous contrast. This report was created using [employer] technology. CONTRAST: IV 9ml Clariscan COMPARISON: MRI brain without contrast 10/17/2022. FINDINGS: BRAIN AND EXTRA-AXIAL SPACES: T2 FLAIR hyperintensity foci in the white matter of both cerebral hemispheres are chronic white matter ischemic changes and unchanged. Following IV contrast administration, there are no abnormal enhancing lesions intra-axially and extra-axially. Brain detail is limited due to motion artifacts. No intra- or extra-axial hemorrhage. No intracranial mass or mass effect. Posterior fossa structures are unremarkable. Ventricles are appropriate for age. No hydrocephalus. Basal cisterns are patent. No diffusion restriction to suspect acute or subacute ischemic infarct. SELLA: Unremarkable. Normal sella turcica, pituitary gland, infundibular stalk, optic chiasm and hypothalamus. AUDITORY SYSTEM: Unremarkable. The internal auditory canals are patent. BONES/JOINTS: Unremarkable. No discrete lytic or blastic abnormalities. SINUSES: Unremarkable as visualized. Clear. MASTOID AIR CELLS: Unremarkable as visualized. Clear. ORBITS: Unremarkable as visualized. Both globes, extraocular muscles, optic nerves and retrobulbar fat appear unremarkable. VASCULATURE: Unremarkable as visualized. Normal flow voids in the major intracranial circulation. MRI/Brain W/WO Contrast IMPRESSION: 1. No MRI evidence of acute or subacute ischemic infarct or acute intracranial abnormality. 2. No abnormal enhancing lesions intra-axially and extra-axially. 3. Chronic white matter ischemic changes in both cerebral hemispheres. 4. Limited brain detail due to motion artifacts. 5. No significant interval change when compared to 10/17/2022. Electronically Signed: Freddy Silverman MD at 10:19 EST ,
--- NOTE | 2022-10-19 13:51 | CASEMGMT ---
Addendum entered by Giovanna Rothman 10/19/22 15:13: Telephone call to TCU/Acute Rehab Unit, [place]. Patient placed on list. Original Note: Social Work This social sciences professor met with patient spouse, Donna and daughter, Cristy in room. Introduced self and social sciences professor role. Donna agreeable to speak with this social sciences professor. Patient continues to be present and appears to have difficulty engaging in conversation. Donna states concern of patient returning to home and would like Rehab Unit or TCU as placement options. This social sciences professor educating Donna that patient will need to be able to tolerate 3 hours of therapy daily to be able to discharge to the Rehab Unit and that TCU currently has been full but that this social sciences professor is able to place patient on list. Donna aware that insurance will need to approval either skilled care or an acute rehab unit in order for the stay to be covered. Donna reports to be patient Health Care Power of personal injury attorney. This social sciences professor noting that HCPOA documents are not on file, Donna plans to bring documents into the hospital when coming to visit patient again. Active support and listening provided to Donna and Cristy throughout conversation. This social sciences professor did provided Donna with list of in-network half-way facilities that are local to patient geographical region in the event that TCU or Rehab are not able to be an option for patient. Donna plans to look over list and consider another option, if needed. PLAN: SNF vs. Rehab Unit. Social Work to continue to follow as needed. Nini QUINTERO, VITO
--- NOTE | 2022-10-19 13:54 | CHAPLAIN ---
Type of Pastoral Visit _x__ Initial Visit ___ Follow-up Visit ___ On-call Visit ___ General Patient Visit ___ Spiritual Assessment ___ Family Conference ___ Bereavement ___ Rapid Response ___ Code Blue ___ Other (describe below) Pastoral Care Referral From _x__ Patient ___ Family _x__ Nurse ___ Physician ___ Caramel Cutter Hand ___ Strategy Specialist ___ Other (describe below) Sacrament/Intervention _x__ Active listening ___ Anointing ___ Amish ___ Bereavement ___ Communion ___ Asya exploration ___ ___ Life review _x__ Prayer ___ Reconciliation ___ Sacrament of Sick _x__ Supportive presence ___ Wedding ___ Other (describe below) Pastoral Comments patient is waiting on consultation from neurology in [place]; pt has difficulty with getting some words out and speaking loudly; pt told by this grinder setup operator to take time and speak slowly; pt appeared comfortable; pt was asked if he was anxious or concerned about anything; pt did not indicate any worries or anxieties; pt did say that he would welcome a prayer; pt expressed thanks for support
--- NOTE | 2022-10-19 14:32 | SP.MBSS_ITS ---
Modified Barium Swallow - Patient Information Study Date: 10/19/22 Study Time: 13:30 Direct Billable Minutes: 118 Total Minutes procedure & reportin Diagnosis: Dysphagia (R13.10), Hx of Stroke (Z86.73) Referring Physician: Phil Montes De Oca Reason for Referral: Objectively assess swallow function, assess risk for aspiration, and determine recommendations for least restrictive diet textures and compensatory strategies to improve safety of swallow. Medical History: Ton Gray is a 71-year-old male with a history of CVA with resultant diff iculty swallowing in January 2022, right-sided carotid stenosis s/p CEA, hypertension, asthma, bicuspid aortic valve, esophagitis, GERD, HLD, and IBS. See [facility] for full report. Pt presented to [facility] 10/15/2022 with hypoxia which was found at his neurologist office day of presentation. Per neurology note he had had some worsening of his dysarthria and dysphagia and given the new hypoxia he wanted MRI head and neck as there is concern for central etiology of his hypoxia. In ED patient was 81% but responded well to 2 L of O2 and hospitalist was contacted for admission. Patient evaluated with at bedside and they report that he began to have difficulties after his stroke in January and that his speech and swallowing had never completely returned to baseline but he had been doing better until May when he began to slowly decline. Over the past 1 month he has been having a harder time breathing and has had shallow breathing as well and then over the past couple days this is worsened. He is supposed to go back to see a mat gauger and have pulmonary function tests but has not had this scheduled yet. He went to his neurologist's office and was found to be hypoxic in the 80s and was sent to the emergency department where his hypoxia was confirmed. Has not had significant cough and has other complaints of some generalized weakness and tremors and difficulty swallowing, no headache, no chest pain. He does report remote history of asthma for which he uses albuterol nebs and was previously on Symbicort but was taken off of this due to tightening of his vocal cords. Pt had a MBSS as an outpatient on 01/21/22. Pt was recommended for thin liquids/regular textures with small bites/sips, and a slow rate. Pt followed up with outpatient speech therapy to manage dysphagia after MBSS. Pt was referred to speech due to failing the RN bedside swallow evaluation upon admission to [facility] 10/15/2022. He was placed on Easy to Chew textures / Thin liquids with Direct Supervision, no straws. The patient was followed daily, but he experienced altered mental status 10/19/22 and RN requested speech therapy re-assess swallow function. BACTERIOLOGY RESEARCH ASSISTANT recommended MBSS after observing consistent s/s of aspiration with food/drink trials. Current Diet Ordered: Easy to Chew textures / Thin liquids Dentition: WNL Mental Status: Impaired - altered mental status Respiratory Status: Oxygenating on Room Air - Penetration-Aspiration Scale Penetration-Aspiration Scale: OBJECTIVE ASSESSMENT OF SWALLOW FUNCTION (QUANTITATIVE ? PER TRIAL): PENETRATION / ASPIRATION SCALE (BLOOD): 1 = does not enter airway 2 = enters airway/above vocal folds/ejected 3 = enters airway/above vocal folds/not ejected 4 = enters airway/contacts vocal folds/ejected 5 = enters airway/contacts vocal folds/not ejected 6 = enters airway/below vocal folds/ejected 7 = enters airway/below vocal folds/not ejected despite effort 8 = enters airway/below vocal folds/no effort VIDEOFLOROSCOPIC SCALE SCORE (BLOOD): Grade I = aspiration of material that has penetrated into the laryngeal vestibule, intact cough reflex Grade II = aspiration < 10 % of the bolus, intact cough reflex Grade III = aspiration of < 10 % of the bolus, reduced cough reflex or aspiration of > 10 % of the bolus, intact cough reflex Grade IV = aspiration of > 10 % of the bolus, reduced cough reflex - Penetration-Aspiration Scale Score Thin Liquid via teaspoon Result: 1= does not enter airway - Deficits in oral sensation as patient did not initially want to proceed to next trial, stating he still had this trial in his mouth. However, only trace residues remained in oral cavity. Thin Liquid via teaspoon Trial 2 Result: 3= enters airways/above vocal folds/not ejected - weak throat clear in response Thin Liquid via large single sip from cup Result: 7= enters airways/below vocal folds/not ejected despite effort - Delayed, weak, and ineffective cough reflex. Kaanapali Thick Liquid via teaspoon Result: 7= enters airways/below vocal folds/not ejected despite effort - Reflexive throat clear did clear aspirated contrast from the trachea; however, pt was unable to clear contrast from the laryngeal vestibule. Pudding via teaspoon with esophageal screen Result: 2= enter airway/above vocal folds/ejected Thin Liquid via teaspoon Effortful swallow Result: 1= does not enter airway - Post prandial aspiration observed, likely from nectar thick and pudding thick trials consumed prior to this trial. After the swallow, BACTERIOLOGY RESEARCH ASSISTANT cued 3 cough and re-swallows. Pt was able to somewhat clear aspirated contrast from below the vocal folds; however, contrast remained in the laryngeal vestibule. Honey Thick Liquid via teaspoon Result: 1= does not enter airway - SILENT post prandial aspiration, likely of pharyngeal residues of previous trials - Oral Phase Labial Seal: Escape beyond mid-chin Tongue Control During Bolus Hold: Posterior escape of greater than half of bolus Bolus Transport/Lingual Motion: Slowed tongue motion Oral Residue: Trace residue lining oral structures - Pharyngeal Phase Soft Palate Elevation: No bolus between soft palate and pharyngeal wall Laryngeal Elevation: Partial superior movement thyroid cart/partial apprx aryt-epig petiole Anterior Hyoid Excursion: Partial anterior movement Epiglottic Movement: No inversion - inconsistent epiglottic inversion Laryngeal Vestibule Closure at Height of Swallow: Incomplete; narrow column of air/contrast in laryngeal vestibule Pharyngeal Stripping Wave: Present - diminished Pharyngoesophageal Segment Opening: Parital distension and partial duration; parital obstruction of flow Tongue Base Retraction: Wide column of contrast between tongue base & post. pharyngeal wall Pharyngeal Residue: Majority of contrast within or on pharyngeal structures - ~50% of pudding remained in pharynx after the initial swallow - Esophageal Phase Esophageal Clearance: Esophageal retention - minimal retention - Diagnosis/Impression Diagnosis: Severe oropharyngeal phase dysphagia (R13.12) Impression: The oral phase is primarily marked by... -Decreased labial seal with escape of thin by tsp to the patient's anterior neck. -Decreased bolus control with >1/2 of the bolus spilling posteriorly to the pyriforms prior to swallow onset observed with thin liquids especially. -Slowed tongue motion for A-P transport. -Did not complete cookie trial due to concerns for choking with decreased oral sensation/awareness and poor pharyngeal clearance with thicker viscosities. The pharyngeal phase is primarily marked by... -Decreased airway closure during the swallow due to severely decreased anterior hyoid excursion, inconsistent epiglottic inversion (at times, no inversion was observed), and mildly decreased laryngeal elevation. -Severely decreased tongue base retraction, severely decreased UES opening/duration, and moderately diminished pharyngeal stripping wave with resulting moderate-severe pharyngeal residues after the swallow. The patient experienced post prandial aspiration several times during the study, which pharyngeal residue likely contributed to. -Post prandial SILENT aspiration of residues remaining in the laryngeal vestibule and pharynx - BACTERIOLOGY RESEARCH ASSISTANT suspects post prandial aspiration occurred with nectar and pudding residues, but unable to definitively determine which residues resulted in post prandial aspiration. Overt aspiration of thin liquids by cup and nectar thick liquids via tsp with weak cough or throat clear responses. SEE PAS scores above for further details. - Recommendations Diet: NPO - critical medications only crushed in tsp of applesauce Comment: Will recommend this patient for alternative means of nutrition and hydration due to HIGH aspiration risk across various liquid viscosities, including pudding. Recommend Repeat Modified Barium Swallow: Yes - 1-2 weeks after implementation of oropharyngeal exercise program and if deemed clinically appropriate by treating BACTERIOLOGY RESEARCH ASSISTANT. Need for Skilled Speech Therapy Services: Yes Comment: Will recommend the patient for intensive dysphagia therapy to address severe deficits in oropharyngeal swallow function. Will recommend the patient for oropharyngeal strengthening to improve lingual control, hyoid excursion/laryngeal elevation, tongue base retraction, and pharyngeal contraction (lingual resistance, CTAR, Whitney, effortful, Nikki). The patient would benefit from thorough education regarding diet recommendations and recommended compensatory strategies. Recommended Referrals: Dietitian Consult - Spray Dyer is already following - BACTERIOLOGY RESEARCH ASSISTANT alerted associate account executive, Cornelia, to NPO recommendations from MBSS. Education Completed: 1. Described result of evaluation., 2. Pt understands evaluation & agrees with goals and treatment plan., 7. Pt requires further education on strategies & risks. Comment: BACTERIOLOGY RESEARCH ASSISTANT educated the patient, RN, Cortney, and associate account executive, Cornelia in recommendations. BACTERIOLOGY RESEARCH ASSISTANT placed call to Dr. Montes De Oca to further discuss BACTERIOLOGY RESEARCH ASSISTANT recommendations for NPO with alternative means of nutrition and hydration. Awaiting call back. - Status Active ST Patient: Active - Contact Information [facility] Speech Therapy:: Bela Riojas M.A. [facility]-BACTERIOLOGY RESEARCH ASSISTANT Speech-Language Pathologist [facility] [address] [place] [address] [email or web address] [phone] 10/19/22 15:14
[2022-10-19 16:05] LABS: Bedside Glucose 132 mg/dL (74-106)
--- NOTE | 2022-10-19 18:03 | EX.PCM.CON.G ---
HPI Consult Data Date of Consult: 10/19/22 HPI Narrative Reason for Consultation: PEG placement HPI Narrative: MARY ELLEN LABOY, is a 71 M with a history of hypertension, borderline diabetes mellitus, hyperlipidemia, mild to moderate aortic stenosis, left carpal tunnel surgery, obstructive sleep apnea on CPAP, renal calculi and prior right carotid endarterectomy. He reports having difficulty swallowing and trouble with his speech since approximately December 2021.? He reports having had a stroke vs TIA around that time. He had presented to the emergency room on January 2022 with expressive aphasia and a CVA was ruled out he had a CT and MRI both of which were normal.? His progressive dysphagia has been getting worse and he recently underwent a repeat swallow study and was noted to have aspiration. He is also been suffering from a lot of anxiety during his hospitalization. I was consulted for PEG tube placement. Almost all history is obtained from the chart due to patient's mental status. [facility] Medical History Anxiety Asthma Bicuspid aortic valve Carotid stenosis, right Carpal tunnel syndrome Cataract (lens) fragments in eye following cataract surgery, bilateral Depression (emotion) Difficulty swallowing Esophagitis Essential (primary) hypertension GERD (gastroesophageal reflux disease) History of back problems HLD (hyperlipidemia) IBS (irritable bowel syndrome) Insomnia Lumbar stenosis Murmur, heart Nonrheumatic aortic (valve) stenosis with insufficiency Obstructive sleep apnea BRIDGETTE on CPAP Seasonal allergies Home Medications omega-3 fatty acids 1,000 mg capsule (Fish Oil Concentrate) 1,000 mg PO QDAY supplement 10/19/17 [History Last Taken 02/17/22 08:00] rosuvastatin 40 mg tablet 40 mg PO QDAY cholesterol 10/19/17 [History Last Taken 02/16/22 22:00] duloxetine 30 mg capsule,delayed release 30 mg PO BID mental health 11/28/20 [History Last Taken 02/17/22 08:00] lisinopril 20 mg tablet 20 mg PO DAILY #90 tabs 11/03/21 [Rx Last Taken 02/16/22 22:00] albuterol sulfate 2.5 mg/3 mL (0.083 %) solution for nebulization 2.5 mg inhalation Q4H PRN Shortness Of Breath 01/30/22 [History Last Taken 02/17/22 08:00] cholecalciferol (vitamin D3) 50 mcg (2,000 unit) capsule 50 mcg PO DAILY vitamin 01/30/22 [History Last Taken 02/17/22 08:00] clonazepam 0.5 mg tablet 0.5 mg PO DAILY 03/09/22 [History Last Taken Unknown] zinc acetate 50 mg (zinc) capsule (Galzin) 50 mg PO DAILY 03/09/22 [History Last Taken Unknown] clopidogrel 75 mg tablet (Plavix) 75 mg PO DAILY #90 tabs 08/07/22 [Rx Last Taken Unknown] tadalafil 2.5 mg tablet 2.5 mg PO DAILY 09/01/22 [History Last Taken Unknown] ascorbic acid (vitamin C) 500 mg capsule 500 mg PO DAILY 10/15/22 [History Last Taken Unknown] loratadine 10 mg tablet 10 mg PO DAILY PRN allergy 10/15/22 [History Last Taken Unknown] megestrol 20 mg tablet 20 mg PO DAILY 10/15/22 [History Last Taken Unknown] zolpidem 10 mg tablet 5 mg PO QHS 10/15/22 [History Last Taken Unknown] Allergy/AdvReac Type Severity Reaction Status Date / Time haloperidol AdvReac Severe Other Verified 10/19/22 16:29 Family History Father CAD (coronary artery disease) Family history of CABG Mother Hypertension CAD (coronary artery disease) Hyperlipidemia Surgical History History of carpal tunnel surgery History of hernia repair History of right-sided carotid endarterectomy (04/19/18) History of shoulder surgery Social History household members: spouse and family Smoking Status: Former smoker pack-years: 20 Tobacco: How many years used: 20 alcohol intake: never substance use type: does not use caffeine: Yes Type: coffee Number of servings: 2 timothy/episcopalian: Jehovah'S Witness seatbelt use: always ROS Review of Systems ROS Unobtainable: due to mental status Physical Exam Const alert and no apparent distress General Appearance: cooperative HEENT normocephalic and head/scalp atraumatic Eyes PERRL, EOMs intact bilaterally and conjunctivae normal Neck supple General: trachea midline Chest inspection of chest normal Resp normal respiratory effort Auscultation: Negative for rales, rhonchi or wheezes Cardio regular rate and regular rhythm Heart Sounds: murmur GI normal to inspection, nondistended, normoactive bowel sounds Extremity no clubbing, cyanosis or edema Skin no rashes or lesions noted Neuro Neuro Narrative: Mild confusion with dysarthric speech Psych cooperative Medical Records Data Medical Nutrition Assessment Dietitian: Malnutrition Criteria Met Start: 10/16/22 12:47 Freq: Status: Active Protocol: Document 10/19/22 11:10 SLA (Rec: 10/19/22 11:10 SLA Desktop) Nutrition Malnutrition Evidence of Malnutrition Exists Yes Malnutrition (severe): Chronic Evidenced By Suboptimal Energy Intake ( Severe),Weight Loss (Severe) Clinical Problem Chronic Disease or Condition Related Malnutrition Etiology related to stroke and inadequate energy intake Signs/Symptoms as evidenced by po intake meeting <75% of estimated nutritional needs and 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 Will provide CIB w/ breakfast, magic cup w/ lunch and ensure pudding w/ dinner for increased nutrition if consumed. Will continue to monitor oral intakes and modify interventions as needed. Recommend Matt for wound healing if indicated. Lab / Micro Data Result Diagrams: 10/18/22 05:15 10/18/22 05:15 Labs: Laboratory Results - last 24 hr 10/16/22 07:19: POC Glucose 132 H ABG Data ABG results: ABG 10/19/22 11:25 Specimen Type ART Sample Site L Brach pH 7.34 L Bicarbonate Actual 41.9 H Total CO2 44 Base Excess 16 H O2 Saturation 98 ABG pCO2 78.4 H* ABG pO2 109 H O2 Delivery Device Cannula Liter Flow 3.0 Crit Call To/Read Back Yes Blood Gas Notified Whom [facility]OWN Radiology Impression Brain CT 10/19/22 10:05 IMPRESSION: Chronic involutional changes of the brain. Electronically Signed: Hector Krishnamurthy MD at 10:44 EST , Assessment & Plan Assessment/Plan (1) Dysphagia: PLAN: Esophageal dysphagia with protein, nutrition. Recommend on temporary feeding tube placement. Patient's power of criminal defense attorney was explained alternatives, risk, benefits including outstanding bleeding,, sepsis perforation, need for additional. He will have an a day of 3. Recommend to hold antiplatelet therapy and anticoagulation. Charges/Coding Visit Charges Inpatient E&M: 71456 Init Hosp L2
[2022-10-19] MEDS: Acetaminophen 325 MG Tablet 650 MG PO (22:33)
[2022-10-19] MEDS: Atorvastatin Calcium 80 MG Tablet PO (22:34)
[2022-10-20] VITALS (14 sets, daily range): BP systolic 112–144; BP diastolic 68–84; PULSE 87–123; RESP 14–32; TEMP 36.6–37.1; O2SAT 82–100; BMI 18.8
--- NOTE | 2022-10-20 06:07 | PN.CC_ITS ---
Assessment & Plan Assessment/Plan (1) CVA (cerebral vascular accident): (2) Acute and chronic respiratory failure with hypercapnia: PLAN: Plan RECOMMENDATIONS: 1. Await MRI brain this morning. 2. Agree with PEG tube assessment for nutritional support. 3. Continue to wean oxygen as tolerated. 4. Continue AVAPS therapy nightly. 5. Encourage incentive spirometer use and mobilize patient as tolerated. 6. Will sign off from a critical care perspective. Please call with any harrison tional questions. IMPRESSIONS: 1. Acute CVA status post thrombolysis MRI brain was unremarkable. The patient does have previous stenosis noted of the vertebral arteries. The patient is also being worked up for a possible neuromuscular disorder by neurology. On account of the patient's confusion and dysarthria yesterday, a repeat CT head was obtained and was unremarkable. Neurology recommended follow-up MRI, which is currently pending. 2. Acute on chronic hypercarbic respiratory failure Exact etiology is unclear at this time. The patient reportedly had a PFT in the past that was suggestive only of asthma. Room air ABG shows compensated respiratory acidosis with a normal AA gradient consistent with neuromuscular hypoventilation. The patient will need an NIV if he continues to wish to be aggressive. This can be coordinated by his primary manager of business operations at the [facility]. Continue AVAPS while hospitalized. 3. Dysphagia/history of CVA/debility/chronic heart failure with preserved ejection fraction/aortic stenosis Complicates care, management, recovery and prognosis. Continue supportive measures with dietary advancement per speech therapy. This note was generated with [employer] dictation software. It may contain incorrect words, spelling, and punctuation that were not noted in checking the note before signing. Subjective Subjective The patient was seen and examined at the bedside this morning. Events from the last 24 hours have been reviewed. The patient is currently afebrile, hem odynamically stable and maintaining appropriate oxygen saturations on 2 L/min via nasal cannula. The patient failed his swallow evaluation yesterday. He was tolerant of PAP therapy for a portion of the night. He did become agitated overnight and threatened to leave AMA. He is currently scheduled to undergo an MRI this morning. Objective Data Objective Data The patient's most recent lab work, culture data and imaging studies have all been personally reviewed. Brain MRI dated October 17 was negative for acute infarct. Vital Signs: Vital Signs Temp Pulse Resp BP Pulse Ox O2 Del Method O2 Flow Rate 98.7 F 123 H 26 H 144/84 H 97 Bi-pap 2 10/20/22 03:15 10/20/22 04:48 10/20/22 04:48 10/20/22 03:15 10/20/22 04:48 10/20/22 03:15 10/19/22 22:00 FiO2 30 10/20/22 04:48 Oxygen Flow Rate (L/min) 2 Oxygen Delivery Method Bi-pap Weight: 106 lb 7.732 oz Body Mass Index (BMI) 18.8 Intake & Output: Intake and Output for Last 24 Hours 10/18/22 10/19/22 10/20/22 23:59 23:59 23:59 Intake Total 540 / 540 240 / 240 0 / 0 Output Total 750 / 750 0 / 150 150 / 150 Balance -210 / -210 240 / 90 -150 / -150 Medical Nutrition Assessment Dietitian: Malnutrition Criteria Met Start: 10/16/22 12:47 Freq: Status: Active Protocol: Document 10/19/22 11:10 SLA (Rec: 10/19/22 11:10 SLA Desktop) Nutrition Malnutrition Evidence of Malnutrition Exists Yes Malnutrition (severe): Chronic Evidenced By Suboptimal Energy Intake ( Severe),Weight Loss (Severe) Clinical Problem Chronic Disease or Condition Related Malnutrition Etiology related to stroke and inadequate energy intake Signs/Symptoms as evidenced by po intake meeting <75% of estimated nutritional needs and 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 Will provide CIB w/ breakfast, magic cup w/ lunch and ensure pudding w/ dinner for increased nutrition if consumed. Will continue to monitor oral intakes and modify interventions as needed. Recommend Matt for wound healing if indicated. Lab / Micro Data Attestation: I reviewed the patient's lab results. Result Diagrams: 10/18/22 05:15 10/18/22 05:15 Labs: Laboratory Results - last 24 hr 10/16/22 07:19: POC Glucose 132 H Micro: Microbiology 10/16/22 08:47 Mucosa - Nose Respiratory Panel (PCR) - Final 10/15/22 19:32 Nasal Secretion SARS-CoV-2 & FLU Antigen (Rapid) - Final ABG Data ABG results: ABG 10/19/22 11:25 Specimen Type ART Sample Site L Brach pH 7.34 L Bicarbonate Actual 41.9 H Total CO2 44 Base Excess 16 H O2 Saturation 98 ABG pCO2 78.4 H* ABG pO2 109 H O2 Delivery Device Cannula Liter Flow 3.0 Crit Call To/Read Back Yes Blood Gas Notified Whom BROWN Radiography Diagnostic Testing: Radiology Impression Brain CT 10/19/22 10:05 IMPRESSION: Chronic involutional changes of the brain. Electronically Signed: Hector Krishnamurthy MD at 10:44 EST , Physical Exam Const alert and no apparent distress General Appearance: cooperative HEENT normocephalic and head/scalp atraumatic Eyes PERRL, EOMs intact bilaterally and conjunctivae normal Neck supple General: trachea midline Chest inspection of chest normal Resp normal respiratory effort Auscultation: Negative for rales, rhonchi or wheezes Cardio regular rate and regular rhythm Heart Sounds: murmur GI normal to inspection, nondistended, normoactive bowel sounds Extremity no clubbing, cyanosis or edema Skin no rashes or lesions noted Neuro Neuro Narrative: Residual dysarthria with expressive aphasia Psych cooperative Charges/Coding Visit Charges Inpatient E&M: 07309 Subs Hosp L2
[2022-10-20] MEDS: Ipratropium/Albuterol Sulfate 3 ML AMPUL.NEB INHALATION ×3 (07:08→19:23)
--- NOTE | 2022-10-20 07:17 | PCM.PN.HOSP ---
Reason for Visit Reason for Visit: Diagnoses Anxiety disorder, unspecified (10/16/22) Cerebral infarction, unspecified (10/16/22) Acute and chronic respiratory failure with hypercapnia (10/16/22) Hypoxemia (10/16/22) Dysphagia, unspecified (10/16/22) Personal history of transient ischemic attack (TIA), and cerebral infarction without residual deficits (10/16/22) Subjective Subjective Last night was able to articulate some words but today is still having difficulty speaking. Is either writing his responses or questions or motioning what he may want. Objective Data Objective Data Vital Signs: Vital Signs Temp Pulse Resp BP Pulse Ox O2 Del Method O2 Flow Rate 37.1 C 95 18 144/84 H 97 Nasal Cannula 2 10/20/22 03:15 10/20/22 06:00 10/20/22 06:00 10/20/22 03:15 10/20/22 04:48 10/20/22 06:00 10/20/22 06:00 FiO2 30 10/20/22 04:48 Oxygen Flow Rate (L/min) 2 Oxygen Delivery Method Nasal Cannula Weight: 48.3 kg Body Mass Index (BMI) 18.8 Intake & Output: Intake and Output for Last 24 Hours 10/18/22 10/19/22 10/20/22 23:59 23:59 23:59 Intake Total 540 / 540 240 / 240 0 / 0 Output Total 750 / 750 0 / 150 350 / 350 Balance -210 / -210 240 / 90 -350 / -350 Medical Nutrition Assessment Dietitian: Malnutrition Criteria Met Start: 10/16/22 12:47 Freq: Status: Active Protocol: Document 10/19/22 11:10 SLA (Rec: 10/19/22 11:10 SLA Desktop) Nutrition Malnutrition Evidence of Malnutrition Exists Yes Malnutrition (severe): Chronic Evidenced By Suboptimal Energy Intake ( Severe),Weight Loss (Severe) Clinical Problem Chronic Disease or Condition Related Malnutrition Etiology related to stroke and inadequate energy intake Signs/Symptoms as evidenced by po intake meeting <75% of estimated nutritional needs and 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 Will provide CIB w/ breakfast, magic cup w/ lunch and ensure pudding w/ dinner for increased nutrition if consumed. Will continue to monitor oral intakes and modify interventions as needed. Recommend Matt for wound healing if indicated. Lab / Micro Data Result Diagrams: 10/18/22 05:15 10/18/22 05:15 Labs: Laboratory Results - last 24 hr 10/16/22 07:19: POC Glucose 132 H Micro: Microbiology 10/16/22 08:47 Mucosa - Nose Respiratory Panel (PCR) - Final 10/15/22 19:32 Nasal Secretion SARS-CoV-2 & FLU Antigen (Rapid) - Final ABG Data ABG results: ABG 10/19/22 11:25 Specimen Type ART Sample Site L Brach pH 7.34 L Bicarbonate Actual 41.9 H Total CO2 44 Base Excess 16 H O2 Saturation 98 ABG pCO2 78.4 H* ABG pO2 109 H O2 Delivery Device Cannula Liter Flow 3.0 Crit Call To/Read Back Yes Blood Gas Notified Whom BROWN Radiography Diagnostic Testing: Radiology Impression Brain CT 10/19/22 10:05 IMPRESSION: Chronic involutional changes of the brain. Electronically Signed: Hector Krishnamurthy MD at 10:44 EST , Physical Exam Const Constitutional Narrative: Awake. Alert. Dysarthric. Startled appearance. HEENT head/scalp atraumatic Psych affect normal Assessment & Plan Assessment/Plan (1) Acute and chronic respiratory failure with hypercapnia: PLAN: Acute combined respiratory failure-etiology unclear at this time, pulmonary medicine is participating in his care, Patient requires volume ventilation and all other alternative therapies, including bilevel, have been considered and ruled out due to the severity of the disease state, weak breathing muscles and potential life-threatening condition including CO2 retention probability of acute exacerbation, patient requires ventilation to be used during the day as needed, addition to every night usage with facemask. (2) CVA (cerebral vascular accident): PLAN: Ruled out 10/16 pt developed new onset left-sided weakness and expressive aphasia. Received tenecteplase. continue ASA, clopidogrel, HIS CTA of head and neck negative on 10/16 subsequent MRI on 10/17 was negative for CVA consult teleneurology for post-tenecteplase eval Frankly not sure the patient actually ever had strokes. Patient had normal MRI January. negative MRIs. Given the patient's parents and concern about a neuromuscular disorder along the lines of Parkinson's/PSP/MSA or some other process altogether. Patient has prior history of nerve conduction test and EMGs which were reportedly negative therefore making the likelihood of ALS low. Strength villanueva he seems to be intact. I did recommend that he follow-up with neuromuscular/movement disorder specialist upon discharge for further diagnosis. Did tell the patient, his and daughter that if he does have such disease that it would not be reversible. Also told him that that would be an outpatient follow-up. Told him that such facilities are at [facility], [facility] and [facility]. (3) Dysphagia: PLAN: ST [place] Failed modified barium swallow. Currently NPO. Discussed comfort feedings versus PEG tube with the patient and his family. They will think and get back to us. Patient wishes to proceed with PEG tube. Dr. Rodrigues has been consulted. (4) Anxiety: PLAN: on buspirone, duloxetine avoid BZDs given respiratory issues. Symptoms seem to be exacerbated with the use of haloperidol. We will add to his allergy list though not a true allergy but adverse reaction. 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 Charges/Coding Visit Charges Inpatient E&M: 14787 Subs Hosp L2
--- NOTE | 2022-10-20 07:58 | CASEMGMT ---
Social Work Patient continues to be confused and unable to complete PHQ-9 assessment.
--- NOTE | 2022-10-20 10:28 | CASEMGMT ---
Social Work Collaborating with therapy, NILESH Lam reports that patient is able to tolerate 3 hours of therapy daily and would benefit from the acute rehab unit. Telephone call to patient spouse, Donna. This social insurance analyst updated Donna on above. Donna continues to be agreeable to pursuing acute rehab unit at [facility] and aware that patient will need to be approved by medical billing coordinator on the rehab unit as well as insurance. Donna reminded to bring in advanced directives and plans to do so today. Telephone call to acute rehab unit, Luiza. This social insurance analyst updated Luiza on above. Uliza to have case reviewed by medical billing coordinator and get back to social insurance analyst. PLAN: Acute Rehab Unit at [facility], pending medical billing coordinator approval and insurance approval. Social Work to continue to follow. Nini QUINTERO, VITO
--- NOTE | 2022-10-20 10:28 | NURSING ---
nurse spoke with yesterday. Looked to see whom was on contact list. was 1st and biological daughter (Zhanna) was second. stated that daughter Zhanna can have information but no decisions . He has not seen her and no contact with her for 7 years. stated that patient did not want to see her. states she did text daughter to let her know he was in hospital and she showed up. She states she is ok with her visiting as long as she does not upset him. She states his stepdaughters -(Rosy and Ольга) have been around him helping with his care
--- NOTE | 2022-10-20 11:56 | CASEMGMT ---
Social Work Patient spouse, Donna brought in HCPOA/LW documents for patient. This elementary school social worker made copies and added documents to patient chart. This elementary school social worker noting that Donna is first HCPOA and second is Althea Schaeffer (patient niece). This elementary school social worker added Althea Laury to patient contact information. Nini QUINTERO, ELVISS
[2022-10-20] MEDS: busPIRone 5 MG Tablet PO ×2 (15:40→20:20)
[2022-10-20] MEDS: Lisinopril 10 MG Tablet PO (15:41)
[2022-10-20] MEDS: DULoxetine Hcl 30 MG Capsule PO ×2 (15:46→20:24)
[2022-10-20] MEDS: Atorvastatin Calcium 80 MG Tablet PO (20:20)
[2022-10-20] MEDS: MELATONIN 10 MG TABLET PO (20:20)
[2022-10-20] MEDS: Acetaminophen 325 MG Tablet 650 MG PO (20:24)
[2022-10-21] VITALS (18 sets, daily range): BP systolic 87–119; BP diastolic 54–73; PULSE 89–114; RESP 14–30; TEMP 36.4–37.1; O2SAT 80–100; BMI 18.8
[2022-10-21 05:33] LABS: Absolute Lymphocyte Count 0.44 X10^3/uL (0.83-4.51); Absolute Neutrophil Count 4.6 X10^3/uL (2.0-7.7); Basophil# 0.02 X10^3/uL; Basophil% 0.4 % (0-1); Eosinophil# 0.04 X10^3/uL; Eosinophils% 0.7 % (0-5); Hematocrit 46.4 % (40-54); Hemoglobin 14.1 g/dL (13.0-16.5); Lymphocyte # 0.44 X10^3/ul (0.83-4.51); Lymphocyte % 7.8 % (19-41); Mean Corp Hgb Conc 30.4 g/dL (32-36); Mean Corpuscular Hgb 29.9 pg (27.0-32.0); Mean Corpuscular Volume 98.5 fL (80-94); Mean Platelet Vol. 9.6 fl (6.2-12.0); Monocyte# 0.55 X10^3/uL; Monocyte% 9.8 % (0-10); NRBC Flagged by Analyzer 0 % (0-5); Neutrophil # 4.55 X10^3/uL (2.7-7.7); Neutrophil % 81.1 % (47-70); POSITIVE DIFFERENTIAL YES; Platelet Count 281 K/mm3 (150-450); RBC Distribution Width SD 51.4 fl (35.1-43.9); Red Blood Count 4.71 M/mm3 (4.6-6.2); White Blood Count 5.6 K/mm3 (4.4-11.0)
[2022-10-21 05:56] LABS: Differential Indicated SCAN CRITERIA MET
[2022-10-21] MEDS: Ipratropium/Albuterol Sulfate 3 ML AMPUL.NEB INHALATION ×3 (06:58→19:18)
[2022-10-21 07:02] LABS: BUN 40 mg/dL (7-18); Creatinine, Serum 0.81 mg/dL (0.70-1.30); Glucose 100 mg/dL (74-106)
[2022-10-21 07:03] LABS: Anion Gap 4 (5-15); BUN/Creat Ratio 49.3 RATIO (10-20); Calcium,Total 10.1 mg/dL (8.5-10.1); Chloride 99 mmol/L (98-107); EST Glomerular Filtration Rate 99 mL/min (>60); Est Glom Filt Rate - Afr Amer 120 mL/min (>60); Estimated Creatinine Clearance 56.08 ml/min; Potassium 4.9 mmol/L (3.5-5.1); Sodium Level 139 mmol/L (136-145)
--- NOTE | 2022-10-21 07:10 | PN.HOSP_ITS ---
Reason for Visit Reason for Visit: Diagnoses Anxiety disorder, unspecified (10/16/22) Cerebral infarction, unspecified (10/16/22) Acute and chronic respiratory failure with hypercapnia (10/16/22) Hypoxemia (10/16/22) Dysphagia, unspecified (10/16/22) Personal history of transient ischemic attack (TIA), and cerebral infarction without residual deficits (10/16/22) Subjective Subjective Having difficulty speaking. Objective Data Objective Data Vital Signs: Vital Signs Temp Pulse Resp BP Pulse Ox O2 Del Method O2 Flow Rate 36.6 C 94 15 104/72 99 Nasal Cannula 2 10/21/22 05:00 10/21/22 05:00 10/21/22 05:00 10/21/22 05:00 10/21/22 05:00 10/21/22 05:00 10/21/22 05:00 FiO2 30 10/20/22 22:46 Oxygen Flow Rate (L/min) 2 Oxygen Delivery Method Nasal Cannula Weight: 48.1 kg Body Mass Index (BMI) 18.8 Intake & Output: Intake and Output for Last 24 Hours 10/19/22 10/20/22 10/21/22 23:59 23:59 23:59 Intake Total 240 / 240 0 / 0 Output Total 0 / 150 450 / 600 150 / 150 Balance 240 / 90 -450 / -600 -150 / -150 Medical Nutrition Assessment Dietitian: Malnutrition Criteria Met Start: 10/16/22 12:47 Freq: Status: Active Protocol: Document 10/20/22 10:55 AG (Rec: 10/20/22 10:55 AG [id number]) Nutrition Malnutrition Evidence of Malnutrition Exists Yes Malnutrition (severe): Chronic Evidenced By Suboptimal Energy Intake ( Severe),Weight Loss (Severe) Clinical Problem Chronic Disease or Condition Related Malnutrition Etiology severe, chronic malnutrition related to inadequate energy intake s/p stroke Signs/Symptoms as evidenced by estimated PO intake meeting < 75% of estimated energy needs > 3 months; unintentional wt loss of 22.7#/17.5% wt loss x 8 months; BMI 18.9 Status Active Problem Recommendation Dietitian Recommendations/Changes NPO per DRUM MAKER; When medically appropriate via PEG- Jevity 1. 5 at goal rate of 50mL/hour w/ 125mL H2O flush every 4 hours to provide 1800 calories, 76 g protein, and 1715mL total fluid/day. Would start at 20mL /hour and increase by 15mL/ hour every 8-12 hours as tolerated until goal rate is achieved. Lab / Micro Data Result Diagrams: 10/21/22 05:10 10/21/22 06:35 Labs: Laboratory Results - last 24 hr 10/21/22 05:10: WBC 5.6, RBC 4.71, Hgb 14.1, Hct 46.4, MCV 98.5 H, MCH 29.9, MCHC 30.4 L, RDW Std Deviation 51.4 H, RDW Coeff of Uziel 14.0, Plt Count 281, MPV 9.6, Immature Gran % (Auto) 0.200, Neut % (Auto) 81.1 H, Lymph % (Auto) 7.8 L, Dundy % (Auto) 9.8, Eos % (Auto) 0.7, Baso % (Auto) 0.4, Absolute Neuts (auto) 4 .6, Absolute Lymphs (auto) 0.44 L, Nucleated RBC % 0 10/21/22 05:10: Sodium Cancelled, Potassium Cancelled, Chloride Cancelled, Carbon Dioxide Cancelled, Anion Gap Cancelled, BUN Cancelled, Creatinine Cancelled, Estim Creat Clear Calc Cancelled, Est GFR (MDRD) Af Amer Cancelled, Est GFR (MDRD) Non-Af Cancelled, BUN/Creatinine Ratio Cancelled, Glucose C ancelled, Calcium Cancelled 10/21/22 06:35: Sodium 139, Potassium 4.9, Chloride 99, Carbon Dioxide 36.0 H, Anion Gap 4 L, BUN 40 H, Creatinine 0.81, Estim Creat Clear Calc 56.08, Est GFR (MDRD) Af Amer 120, Est GFR (MDRD) Non-Af 99, BUN/Creatinine Ratio 49.3 H, Glucose 100, Calcium 10.1 Micro: Microbiology 10/16/22 08:47 Mucosa - Nose Respiratory Panel (PCR) - Final 10/15/22 19:32 Nasal Secretion SARS-CoV-2 & FLU Antigen (Rapid) - Final Radiography Diagnostic Testing: Radiology Impression Brain MRI 10/19/22 12:21 IMPRESSION: 1. No MRI evidence of acute or subacute ischemic infarct or acute intracranial abnormality. 2. No abnormal enhancing lesions intra-axially and extra-axially. 3. Chronic white matter ischemic changes in both cerebral hemispheres. 4. Limited brain detail due to motion artifacts. 5. No significant interval change when compared to 10/17/2022. Electronically Signed: Freddy Silverman MD at 10:19 EST , Physical Exam Const alert Constitutional Narrative: startled appearance. Resp normal respiratory effort, no retractions, no use of accessory muscles and clear to auscultation bilaterally Cardio regular rate, regular rhythm, S1 normal heart sound and S2 normal heart sound GI normal to inspection, nondistended, normoactive bowel sounds, soft to palpation, non-tender and non-distended Extremity normal to inspection Assessment & Plan Assessment/Plan (1) Acute and chronic respiratory failure with hypercapnia: PLAN: Acute combined respiratory failure-etiology unclear at this time, pulmonary medicine is participating in his care, Patient requires volume ventilation and all other alternative therapies, including bilevel, have been considered and ruled out due to the severity of the disease state, weak breathing muscles and potential life-threatening condition including CO2 retention probability of acute exacerbation, patient requires ventilation to be used during the day as needed, addition to every night usage with facemask. (2) CVA (cerebral vascular accident): PLAN: Ruled out 10/16 pt developed new onset left-sided weakness and expressive aphasia. Received tenecteplase. continue ASA, clopidogrel, HIS CTA of head and neck negative on 10/16 subsequent MRI on 10/17 was negative for CVA consult teleneurology for post-tenecteplase eval Frankly not sure the patient actually ever had strokes. Patient had normal MRI January. negative MRIs. Given the patient's parents and concern about a neuromuscular disorder along the lines of Parkinson's/PSP/MSA or some other process altogether. Patient has prior history of nerve conduction test and EMGs which were reportedly negative therefore making the likelihood of ALS low. Strength villanueva he seems to be intact. I did recommend that he follow-up with neuromuscular/movement disorder specialist upon discharge for further diagnosis. Did tell the patient, his and daughter that if he does have such disease that it would not be reversible. Also told him that that would be an outpatient follow-up. Told him that such facilities are at [facility], [facility] and [facility]. (3) Dysphagia: PLAN: ST [place] Failed modified barium swallow. Currently NPO. Discussed comfort feedings versus PEG tube with the patient and his family. They will think and get back to us. Patient wishes to proceed with PEG tube. Dr. Rodrigues has been consulted. Concern for neurodegenerative process including Parkinson's versus PSP versus MSA. Though unlikely, cannot rule out the possibility of this being myasthenia gravis we will check a acetylcholinesterase blocking antibody as well as modulating antibody. (4) Anxiety: PLAN: on buspirone, duloxetine avoid BZDs given respiratory issues. Symptoms seem to be exacerbated with the use of haloperidol. We will add to his allergy list though not a true allergy but adverse reaction. 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
--- NOTE | 2022-10-21 11:17 | CASEMGMT ---
Social Work SW spoke w/Luiza in rehab, they can take pt and will start precert. SW called pt's Donna, let her know that pt was accepted in rehab and now need to try for insurance authorization. states understanding. SW will continue to follow. VITO Barragan
[2022-10-21] MEDS: levoFLOXacin IV 500 MG/100 ML BAG 100 MG IV (16:16)
--- NOTE | 2022-10-21 16:54 | OP.EGD_ITS ---
Patient Name: Ton Gray Procedure Date: 10/21/2022 3:48 PM Date of : 1950 Age: 71 Procedure: Upper GI endoscopy Indications: Dysphagia Providers: Zelalem Rodrigues DO Medicines: Monitored Anesthesia Care Patient Profile: This is a 71 year old male. Refer to note in patient chart for documentation of history and physical. Patient has symptoms of acute dysphagia and dysphagia with both liquids and solids. Complications: No immediate complications. Procedure: Pre-Anesthesia Assessment: - Prior to the procedure, a History and Physical was performed, and patient medications and allergies were reviewed. The risks and benefits of the procedure and the sedation options and risks were discussed with the patient. All questions were answered and informed consent was obtained. Patient identification and proposed procedure were verified by the physician in the pre-procedure area. Mental Status Examination: normal. Prophylactic Antibiotics: The patient does not require prophylactic antibiotics. Prior Anticoagulants: The patient has taken no previous anticoagulant or antiplatelet agents. After reviewing the risks and benefits, the patient was deemed in satisfactory condition to undergo the procedure. The anesthesia plan was to use monitored anesthesia care (MAC). Immediately prior to administration of medications, the patient was re-assessed for adequacy to receive sedatives. The heart rate, respiratory rate, oxygen saturations, blood pressure, adequacy of pulmonary ventilation, and response to care were monitored throughout the procedure. The physical status of the patient was re-assessed after the procedure. After obtaining informed consent, the endoscope was passed under direct vision. Throughout the procedure, the patient's blood pressure, pulse, and oxygen saturations were monitored continuously. The Endoscope was introduced through the mouth, and advanced to the second part of duodenum. The upper GI endoscopy was accomplished without difficulty. The patient tolerated the procedure well. Scope In: 4:22:22 PM Scope Out: 4:36:52 PM Total Procedure Duration Time 0 hours 14 minutes 30 seconds Findings: The examined esophagus was normal. However there was some old blood in the oropharynx that was seen. The origin of the blood was not determined. Patchy mild inflammation characterized by congestion (edema) was found in the gastric body. Biopsies were taken with a cold forceps for histology. Verification of patient identification for the specimen was done. The patient was placed in the supine position for PEG placement. The stomach was insufflated to appose gastric and abdominal donahue. A site was located in the body of the stomach with excellent transillumination for placement. The abdominal wall was marked and prepped in a sterile manner. The area was anesthetized with 1 mL of 0.5% lidocaine. The trocar needle was introduced through the abdominal wall and into the stomach under direct endoscopic view. A snare was introduced through the endoscope and opened in the gastric lumen. The guide wire was passed through the trocar and into the open snare. The snare was closed around the guide wire. The endoscope and snare were removed, pulling the wire out through the mouth. A skin incision was made at the site of needle insertion. The endoscopically removable 20 Fr Bard gastrostomy tube was lubricated. The G-tube was tied to the guide wire and pulled through the mouth and into the stomach. The trocar needle was removed, and the gastrostomy tube was pulled out from the stomach through the skin. The external bumper was attached to the gastrostomy tube, and the tube was cut to remove the guide wire. The final position of the gastrostomy tube was confirmed by relook endoscopy, and skin marking noted to be 4 cm at the external bumper. The final tension and compression of the abdominal wall by the PEG tube and external bumper were checked and revealed that the bumper was loose and lightly touching the skin. The feeding tube was capped, and the tube site cleaned and dressed. Estimated blood loss was minimal. No gross lesions were noted in the first portion of the duodenum. Impression: - Normal esophagus. Old blood in the oropharynx possibly secondary to nosebleed or from the lungs. - Gastritis. Biopsied. - No gross lesions in the first portion of the duodenum. - An endoscopically removable PEG placement was successfully completed. Recommendation: - [facility]. - Please follow the post-PEG recommendations including: Nutrition consult for formula and volume, advance food and medications per primary care provider, external bolster 1 cm from abdominal wall, remove dressing after 2 weeks, may use PEG today for meds and water and clean site with soap and water daily and dry thoroughly. - Continue present medications. Procedure Code(s): --- Professional --- 08725, Esophagogastroduodenoscopy, flexible, transoral; with directed placement of percutaneous gastrostomy tube 50421, Esophagogastroduodenoscopy, flexible, transoral; with biopsy, single or multiple CPT copyright 2017 [employer]. All rights reserved. The codes documented in this report are preliminary and upon electrician wiring review may be revised to meet current compliance requirements. Zelalem Rodrigues DO 10/21/2022 4:54:36 PM This report has been signed electronically. Number of Addenda: 0 Note Initiated On: 10/21/2022 3:48 PM
--- NOTE | 2022-10-21 16:55 | OP.CCLET_ITS ---
10/21/2022 Em Moore [address] [place] [address] Re : Upper GI endoscopy procedure for Ton Gray Dear Dr. Moore This procedure was performed on Friday, October 21, 2022. My impressions and recommendations are as follows: Impressions : - Normal esophagus. Old blood in the oropharynx possibly secondary to nosebleed or from the lungs. - Gastritis. Biopsied. - No gross lesions in the first portion of the duodenum. - An endoscopically removable PEG placement was successfully completed. Recommendations : - [facility]. - Please follow the post-PEG recommendations including: Nutrition consult for formula and volume, advance food and medications per primary care provider, external bolster 1 cm from abdominal wall, remove dressing after 2 weeks, may use PEG today for meds and water and clean site with soap and water daily and dry thoroughly. - Continue present medications. My findings are described in the full procedure note, which is enclosed. If I can be of further assistance, please feel free to contact me at . Sincerely, Zelalem Rodrigues, 10/21/2022 4:54:36 PM This report has been signed electronically.
[2022-10-21] MEDS: 0.9% Normal Saline 1,000 ML 100 ML IV (18:43)
[2022-10-21] MEDS: Ondansetron 4 MG/2 ML Vial IV (19:59)
[2022-10-21] MEDS: MELATONIN 10 MG TABLET GT (19:59)
[2022-10-21] MEDS: Atorvastatin Calcium 80 MG Tablet GT (19:59)
[2022-10-21] MEDS: busPIRone 5 MG Tablet GT (19:59)
[2022-10-21] MEDS: Ensure Plus High Protein 120 ML LIQUID GT (20:00)
[2022-10-21] MEDS: Acetaminophen 650 MG/20 ML UDC GT (20:00)
[2022-10-21] MEDS: DULoxetine Hcl 30 MG Capsule PO (20:01)
--- NOTE | 2022-10-21 20:12 | NURSING ---
pt very restless, getting out of bed, confused, pulling at things, prn tylenol and all hs meds given early via the peg tube. sitter at the bedside. called for an abd binder
[2022-10-21] MEDS: Morphine 2 MG/ML Syringe IV (22:40)
[2022-10-22] VITALS (12 sets, daily range): BP systolic 99–126; BP diastolic 52–70; PULSE 85–111; RESP 14–19; TEMP 36.4–37.1; O2SAT 88–99; BMI 18.4
[2022-10-22] MEDS: busPIRone 5 MG Tablet GT ×3 (04:00→20:37)
[2022-10-22] MEDS: Acetaminophen 650 MG/20 ML UDC GT ×2 (04:02→20:37)
[2022-10-22] MEDS: 0.9% Normal Saline 1,000 ML 100 ML IV ×2 (04:06→13:50)
[2022-10-22] MEDS: Ipratropium/Albuterol Sulfate 3 ML AMPUL.NEB INHALATION ×3 (06:55→19:52)
--- NOTE | 2022-10-22 07:19 | PN.HOSP_ITS ---
Reason for Visit Reason for Visit: Diagnoses Anxiety disorder, unspecified (10/16/22) Cerebral infarction, unspecified (10/16/22) Acute and chronic respiratory failure with hypercapnia (10/16/22) Hypoxemia (10/16/22) Dysphagia, unspecified (10/16/22) Personal history of transient ischemic attack (TIA), and cerebral infarction without residual deficits (10/16/22) Subjective Subjective Denies any pain. Cannot speak this AM. Objective Data Objective Data Vital Signs: Vital Signs Temp Pulse Resp BP Pulse Ox O2 Del Method O2 Flow Rate 36.4 C L 110 H 14 126/70 H 96 Bi-pap 2 10/22/22 04:10 10/22/22 06:56 10/22/22 06:56 10/22/22 04:10 10/22/22 06:56 10/22/22 06:56 10/21/22 18:00 FiO2 30 10/22/22 06:56 Oxygen Flow Rate (L/min) 2 Oxygen Delivery Method Bi-pap Weight: 47.2 kg Body Mass Index (BMI) 18.4 Intake & Output: Intake and Output for Last 24 Hours 10/20/22 10/21/22 10/22/22 23:59 23:59 23:59 Intake Total 0 / 0 100 / 320 1158.33 / 1158.33 Output Total 450 / 600 300 / 450 425 / 425 Balance -450 / -600 -200 / -130 733.33 / 733.33 Medical Nutrition Assessment Dietitian: Malnutrition Criteria Met Start: 10/16/22 12:47 Freq: Status: Active Protocol: Document 10/20/22 10:55 AG (Rec: 10/20/22 10:55 AG [id number]) Nutrition Malnutrition Evidence of Malnutrition Exists Yes Malnutrition (severe): Chronic Evidenced By Suboptimal Energy Intake ( Severe),Weight Loss (Severe) Clinical Problem Chronic Disease or Condition Related Malnutrition Etiology severe, chronic malnutrition related to inadequate energy intake s/p stroke Signs/Symptoms as evidenced by estimated PO intake meeting < 75% of estimated energy needs > 3 months; unintentional wt loss of 22.7#/17.5% wt loss x 8 months; BMI 18.9 Status Active Problem Recommendation Dietitian Recommendations/Changes NPO per STERILIZATION TECHNICIAN; When medically appropriate via PEG- Jevity 1. 5 at goal rate of 50mL/hour w/ 125mL H2O flush every 4 hours to provide 1800 calories, 76 g protein, and 1715mL total fluid/day. Would start at 20mL /hour and increase by 15mL/ hour every 8-12 hours as tolerated until goal rate is achieved. Lab / Micro Data Result Diagrams: 10/21/22 05:10 10/21/22 06:35 Micro: Microbiology 10/16/22 08:47 Mucosa - Nose Respiratory Panel (PCR) - Final 10/15/22 19:32 Nasal Secretion SARS-CoV-2 & FLU Antigen (Rapid) - Final Physical Exam Const alert and no apparent distress HEENT head/scalp atraumatic and moist oral mucous membranes Resp normal respiratory effort, no retractions, no use of accessory muscles and clear to auscultation bilaterally Cardio regular rate, regular rhythm, S1 normal heart sound and S2 normal heart sound GI normal to inspection, nondistended, normoactive bowel sounds and soft to palpation GI Narrative: PEG in place. Assessment & Plan Assessment/Plan (1) Acute and chronic respiratory failure with hypercapnia: PLAN: Acute combined respiratory failure-etiology unclear at this time, pulmonary medicine is participating in his care, Patient requires volume ventilation and all other alternative therapies, including bilevel, have been considered and ruled out due to the severity of the disease state, weak breathing muscles and potential life-threatening condition including CO2 retention probability of acute exacerbation, patient requires ventilation to be used during the day as needed, addition to every night usage with facemask. (2) CVA (cerebral vascular accident): PLAN: Ruled out 10/16 pt developed new onset left-sided weakness and expressive aphasia. Received tenecteplase. continue ASA, clopidogrel, HIS CTA of head and neck negative on 10/16 subsequent MRI on 10/17 was negative for CVA consult teleneurology for post-tenecteplase eval Frankly, not sure the patient actually ever had strokes. Patient had normal MRI negative MRIs. Given the patient's parents and concern about a neuromuscular disorder along the lines of Parkinson's/PSP/MSA or some other process altogether. Patient has prior history of nerve conduction test and EMGs which were reportedly negative therefore making the likelihood of ALS low. Strength villanueva he seems to be intact. I did recommend that he follow-up with neuromuscular/movement disorder specialist upon discharge for further diagnosis. Did tell the patient, his and daughter that if he does have such disease that it would not be reversible. Also told him that that would be an outpatient follow-up. Told him that such facilities are at [facility], [facility] and [facility]. (3) Dysphagia: PLAN: [facility] [place] Failed modified barium swallow. Currently NPO. Discussed comfort feedings versus PEG tube with the patient and his family. They will think and get back to us. Concern for neurodegenerative process including Parkinson's versus PSP versus MSA. Though unlikely, cannot rule out the possibility of this being myasthenia gravis we will check a acetylcholinesterase blocking antibody as well as modulating antibody. PEG tube placed 10/21 (4) Anxiety: PLAN: on buspirone, duloxetine avoid BZDs given respiratory issues. Symptoms seem to be exacerbated with the use of haloperidol. We will add to his allergy list though not a true allergy but adverse reaction. PLAN: Plan Chronic stable conditions: * aortic valve stenosis with insufficiency-mild to moderate, patient follows up with cardiology * essential hypertension-continue current medications * hyperlipidemia-patient is on a statin VTE prophylaxis: SCDs Charges/Coding Visit Charges Inpatient E&M: 42176 Subs Hosp L2
[2022-10-22] MEDS: Lisinopril 10 MG Tablet GT (09:11)
[2022-10-22] MEDS: DULoxetine Hcl 30 MG Capsule PO ×2 (09:20→20:37)
--- NOTE | 2022-10-22 11:33 | WOUNDNOTE ---
wound photo: left inner buttock
[2022-10-22] MEDS: Jevity 1.5 1,000 ML 20 ML GT (11:50)
--- NOTE | 2022-10-22 17:54 | PN_ITS ---
Subjective Subjective Patient underwent PEG tube placement yesterday. He does not have any abdominal pain around incision. He is able to tolerate medicines, feedings and fluid administration due to PEG tube. Objective Data Objective Data Vital Signs: Vital Signs Temp Pulse Resp BP Pulse Ox O2 Del Method O2 Flow Rate 97.9 F 89 15 99/55 L 96 Nasal Cannula 2 10/22/22 14:30 10/22/22 14:30 10/22/22 14:30 10/22/22 14:30 10/22/22 14:30 10/22/22 14:30 10/22/22 14:56 FiO2 35 10/22/22 09:29 Oxygen Flow Rate (L/min) 2 Oxygen Delivery Method Nasal Cannula Weight: 104 lb 0.931 oz Body Mass Index (BMI) 18.4 Intake & Output: Intake and Output for Last 24 Hours 10/20/22 10/21/22 10/22/22 23:59 23:59 23:59 Intake Total 0 / 0 100 / 320 2251.66 / 2251.66 Output Total 450 / 600 300 / 450 825 / 825 Balance -450 / -600 -200 / -130 1426.66 / 1426.66 Medical Nutrition Assessment Dietitian: Malnutrition Criteria Met Start: 10/16/22 12:47 Freq: Status: Active Protocol: Document 10/22/22 10:05 JAMESON (Rec: 10/22/22 10:05 JAMESON Desktop) Nutrition Malnutrition Evidence of Malnutrition Exists Yes Malnutrition (severe): Chronic Evidenced By Suboptimal Energy Intake ( Severe),Weight Loss (Severe) Clinical Problem Chronic Disease or Condition Related Malnutrition Etiology severe, chronic malnutrition related to inadequate energy intake s/p stroke Signs/Symptoms as evidenced by estimated PO intake meeting < 75% of estimated energy needs > 3 months; unintentional wt loss of 22.7#/17.5% wt loss x 8 months; BMI 18.9 Status Active Problem Recommendation Dietitian Recommendations/Changes NPO per ENGRAVINGS POLISHER; When medically appropriate via PEG- Jevity 1. 5 at goal rate of 50mL/hour w/ 125mL H2O flush every 4 hours to provide 1800 calories, 76 g protein, and 1715mL total fluid/day. Would start at 20mL /hour and increase by 15mL/ hour every 8-12 hours as tolerated until goal rate is achieved. Lab / Micro Data Result Diagrams: 10/21/22 05:10 02/22/23 06:35 Micro: Microbiology 10/16/22 08:47 Mucosa - Nose Respiratory Panel (PCR) - Final 10/15/22 19:32 Nasal Secretion SARS-CoV-2 & FLU Antigen (Rapid) - Final Physical Exam Const alert and no apparent distress HEENT head/scalp atraumatic and moist oral mucous membranes Resp normal respiratory effort, no retractions, no use of accessory muscles and clear to auscultation bilaterally Cardio regular rate, regular rhythm, S1 normal heart sound and S2 normal heart sound GI normal to inspection, nondistended, normoactive bowel sounds and soft to palpation GI Narrative: PEG in place. Assessment & Plan Assessment/Plan (1) Acute and chronic respiratory failure with hypercapnia: PLAN: Patient is doing a lot better from a respiratory standpoint at this time. I do suspect that he was having episodes of aspiration. (2) CVA (cerebral vascular accident): PLAN: Patient is followed by neurology as an outpatient. He is on antiplatelet therapy he can restart that as it was held for the PEG tube placement. (3) Dysphagia: PLAN: Patient can have NG tube for full usage. Recommend nutrition consult. Hopefully if his neuro neurologic status improves he may be able to have the tube removed in the future. (4) Anxiety: Charges/Coding Visit Charges Inpatient E&M: 20283 Subs Hosp L3
[2022-10-22] MEDS: Atorvastatin Calcium 80 MG Tablet GT (20:37)
[2022-10-22] MEDS: MELATONIN 10 MG TABLET GT (20:38)
[2022-10-23] VITALS (14 sets, daily range): BP systolic 108–116; BP diastolic 55–65; PULSE 84–104; RESP 14–28; TEMP 36.7–37.2; O2SAT 94–100; BMI 18.5
[2022-10-23] MEDS: 0.9% Normal Saline 1,000 ML 100 ML IV ×3 (00:07→20:07)
--- NOTE | 2022-10-23 02:51 | NURSING ---
VSA vital signs to be obtained late to promote sleep hygiene for pt. Pt has been notably disoriented, confused, and impulsive requiring constant monitoring to prevent injury. Will obtain vital signs when clinically appropriate.
[2022-10-23 05:34] LABS: Absolute Lymphocyte Count 0.44 X10^3/uL (0.83-4.51); Absolute Neutrophil Count 4.5 X10^3/uL (2.0-7.7); Basophil# 0.01 X10^3/uL; Basophil% 0.2 % (0-1); Eosinophil# 0.04 X10^3/uL; Eosinophils% 0.7 % (0-5); Hematocrit 35.6 % (40-54); Hemoglobin 10.5 g/dL (13.0-16.5); Lymphocyte # 0.44 X10^3/ul (0.83-4.51); Lymphocyte % 7.8 % (19-41); Mean Corp Hgb Conc 29.5 g/dL (32-36); Mean Corpuscular Hgb 30.2 pg (27.0-32.0); Mean Corpuscular Volume 102.3 fL (80-94); Mean Platelet Vol. 9.4 fl (6.2-12.0); Monocyte# 0.62 X10^3/uL; NRBC Flagged by Analyzer 0 % (0-5); Neutrophil # 4.53 X10^3/uL (2.7-7.7); Neutrophil % 79.9 % (47-70); POSITIVE DIFFERENTIAL YES; Platelet Count 205 K/mm3 (150-450); RBC Distribution Width CV 14.2 % (11.6-14.6); RBC Distribution Width SD 53.8 fl (35.1-43.9); Red Blood Count 3.48 M/mm3 (4.6-6.2); White Blood Count 5.7 K/mm3 (4.4-11.0)
[2022-10-23 05:47] LABS: Differential Indicated SCAN CRITERIA MET
[2022-10-23 05:48] LABS: Anion Gap 0 (5-15); BUN 24 mg/dL (7-18); BUN/Creat Ratio 36.3 RATIO (10-20); Calcium,Total 9.2 mg/dL (8.5-10.1); Chloride 104 mmol/L (98-107); Creatinine, Serum 0.66 mg/dL (0.70-1.30); Differential Comment SCANNED; EST Glomerular Filtration Rate 125 mL/min (>60); Est Glom Filt Rate - Afr Amer 152 mL/min (>60); Estimated Creatinine Clearance 44.86 ml/min; Glucose 155 mg/dL (74-106); Sodium Level 145 mmol/L (136-145)
[2022-10-23] MEDS: busPIRone 5 MG Tablet GT ×3 (05:55→20:27)
[2022-10-23] MEDS: Acetaminophen 650 MG/20 ML UDC GT ×3 (06:34→20:27)
[2022-10-23] MEDS: Ipratropium/Albuterol Sulfate 3 ML AMPUL.NEB INHALATION ×3 (06:51→20:11)
--- NOTE | 2022-10-23 07:27 | PN.HOSP_ITS ---
Reason for Visit Reason for Visit: Diagnoses Anxiety disorder, unspecified (10/16/22) Cerebral infarction, unspecified (10/16/22) Acute and chronic respiratory failure with hypercapnia (10/16/22) Hypoxemia (10/16/22) Dysphagia, unspecified (10/16/22) Personal history of transient ischemic attack (TIA), and cerebral infarction without residual deficits (10/16/22) Subjective Subjective Able to speak better today. But does endorse that it waxes and wanes throughout the day. Does complain of some abdominal discomfort. Objective Data Objective Data Vital Signs: Vital Signs Temp Pulse Resp BP Pulse Ox O2 Del Method O2 Flow Rate 36.8 C 104 H 18 108/65 95 Nasal Cannula 2 10/23/22 03:00 10/23/22 06:52 10/23/22 06:52 10/23/22 03:00 10/23/22 06:52 10/23/22 06:52 10/23/22 06:52 FiO2 25 10/23/22 04:50 Oxygen Flow Rate (L/min) 2 Oxygen Delivery Method Nasal Cannula Weight: 47.5 kg Body Mass Index (BMI) 18.5 Intake & Output: Intake and Output for Last 24 Hours 10/21/22 10/22/22 10/23/22 23:59 23:59 23:59 Intake Total 100 / 320 2549.99 / 2674.99 1250 / 1250 Output Total 300 / 450 875 / 1325 600 / 600 Balance -200 / -130 1674.99 / 1349.99 650 / 650 Medical Nutrition Assessment Dietitian: Malnutrition Criteria Met Start: 10/16/22 12:47 Freq: Status: Active Protocol: Document 10/22/22 10:05 LO (Rec: 10/22/22 10:05 LO Desktop) Nutrition Malnutrition Evidence of Malnutrition Exists Yes Malnutrition (severe): Chronic Evidenced By Suboptimal Energy Intake ( Severe),Weight Loss (Severe) Clinical Problem Chronic Disease or Condition Related Malnutrition Etiology severe, chronic malnutrition related to inadequate energy intake s/p stroke Signs/Symptoms as evidenced by estimated PO intake meeting < 75% of estimated energy needs > 3 months; unintentional wt loss of 22.7#/17.5% wt loss x 8 months; BMI 18.9 Status Active Problem Recommendation Dietitian Recommendations/Changes NPO per APPLICATION DEVELOPMENT CONSULTANT; When medically appropriate via PEG- Jevity 1. 5 at goal rate of 50mL/hour w/ 125mL H2O flush every 4 hours to provide 1800 calories, 76 g protein, and 1715mL total fluid/day. Would start at 20mL /hour and increase by 15mL/ hour every 8-12 hours as tolerated until goal rate is achieved. Lab / Micro Data Result Diagrams: 10/23/22 05:25 10/23/22 05:25 Labs: Laboratory Results - last 24 hr 10/23/22 05:25: WBC 5.7, RBC 3.48 L, Hgb 10.5 L, Hct 35.6 L, MCV 102.3 H, MCH 30.2, MCHC 29.5 L, RDW Std Deviation 53.8 H, RDW Coeff of Uziel 14.2, Plt Count 205, MPV 9.4, Immature Gran % (Auto) 0.400, Neut % (Auto) 79.9 H, Lymph % (Auto) 7.8 L, [place] % (Auto) 11.0 H, Eos % (Auto) 0.7, Baso % (Auto) 0.2, Absolute Neuts (auto) 4.5, Absolute Lymphs (auto) 0.44 L, Nucleated RBC % 0, Differential Comment SCANNED 10/23/22 05:25: Sodium 145, Potassium 4.0, Chloride 104, Carbon Dioxide 41.0 H, Anion Gap 0 L, BUN 24 H, Creatinine 0.66 L, Estim Creat Clear Calc 44.86, Est GFR (MDRD) Af Amer 152, Est GFR (MDRD) Non-Af 125, BUN/Creatinine Ratio 36.3 H, Glucose 155 H, Calcium 9.2 Micro: Microbiology 10/16/22 08:47 Mucosa - Nose Respiratory Panel (PCR) - Final 10/15/22 19:32 Nasal Secretion SARS-CoV-2 & FLU Antigen (Rapid) - Final Physical Exam Const alert and no apparent distress Constitutional Narrative: Speaking. Speech is still hypophonic and weak but more comprehensible that has been. Resp normal respiratory effort, no retractions, no use of accessory muscles and clear to auscultation bilaterally Cardio regular rate, regular rhythm, S1 normal heart sound and S2 normal heart sound GI normal to inspection, nondistended, normoactive bowel sounds, soft to palpation, non-tender and non-distended Extremity normal to inspection, full ROM and no clubbing, cyanosis or edema Assessment & Plan Assessment/Plan (1) Acute and chronic respiratory failure with hypercapnia: PLAN: Acute combined respiratory failure-etiology though I suspect this is due to a neuromuscular disease has not been formally diagnosed. Etiology of such as to be determined but patient has dysphagia and trouble managing his secretions where he required a PEG tube placement. Due to neuromuscular disease, which can include Parkinson's versus PSP versus MSA versus ALS (though this diagnosis seems doubtful with patient has had reportedly normal nerve conduction test and EMGs) v other: Patient requires volume ventilation and all other alternative therapies, including bilevel, have been considered and ruled out due to the severity of the disease state, weak breathing muscles and potential life-threatening condition including CO2 retention probability of acute exacerbation, patient requires ventilation to be used during the day as needed, addition to every night usage with facemask. (2) CVA (cerebral vascular accident): PLAN: Ruled out 10/16 pt developed new onset left-sided weakness and expressive aphasia. Received tenecteplase. continue ASA, clopidogrel, HIS CTA of head and neck negative on 10/16 subsequent MRI on 10/17 was negative for CVA consult teleneurology for post-tenecteplase eval Frankly, not sure the patient actually ever had strokes. Patient had normal MRI January. negative MRIs. Given the patient's parents and concern about a neuromuscular disorder along the lines of Parkinson's/PSP/MSA or some other process altogether. Patient has prior history of nerve conduction test and EMGs which were reportedly negative therefore making the likelihood of ALS low. Strength villanueva he seems to be intact. I did recommend that he follow-up with neuromuscular/movement disorder specialist upon discharge for further diagnosis. Did tell the patient, his and daughter that if he does have such disease that it would not be reversible. Also told him that that would be an outpatient follow-up. Told him that such facilities are at [facility], [facility] and [facility]. (3) Dysphagia: PLAN: ST [place] Failed modified barium swallow. Currently NPO. Discussed comfort feedings v ersus PEG tube with the patient and his family. They will think and get back to us. Concern for neurodegenerative process including Parkinson's versus PSP versus MSA. Though unlikely, cannot rule out the possibility of this being myasthenia gravis we will check a acetylcholinesterase blocking antibody as well as modulating antibody. PEG tube placed 10/21 (4) Anxiety: PLAN: on buspirone, duloxetine avoid BZDs given respiratory issues. Symptoms seem to be exacerbated with the use of haloperidol. We will add to his allergy list though not a true allergy but adverse reaction. PLAN: Plan Chronic stable conditions: * aortic valve stenosis with insufficiency-mild to moderate, patient follows up with cardiology * essential hypertension-continue current medications * hyperlipidemia-patient is on a statin VTE prophylaxis: SCDs Charges/Coding Visit Charges Inpatient E&M: 82801 Subs Hosp L2
[2022-10-23] MEDS: Lisinopril 10 MG Tablet GT (09:44)
[2022-10-23] MEDS: Jevity 1.5 1,000 ML 50 ML GT (09:49)
--- NOTE | 2022-10-23 10:24 | CASEMGMT ---
Social Work PHQ-9 not completed as pt did not have a stroke. VITO Barragan
--- NOTE | 2022-10-23 15:11 | CASEMGMT ---
TERE RESENDEZ NOTE: TERE RESENDEZ informed pt's has some questions re: [facility], stating she was informed insurance denied pt to go to [facility]. TERE RESENDEZ spoke w/Luiza, intake liaison for [facility]. She states we are still awaiting response from pt's insurance co re: if they will approve [facility]. Luiza also states, if pre-cert is obtained today or tomorrow, the earliest pt can discharge to [facility] is Wednesday. Dr Montes De Oca notified. made aware of same. Additional questions answered. She voices appreciation for the information and denies having further questions. Byron DIXON RN, CM
--- NOTE | 2022-10-23 17:25 | PN_ITS ---
Subjective Subjective Patient's conversation is little bit better today. He does come planing of some abdominal pain near the PEG site. Objective Data Objective Data Vital Signs: Vital Signs Temp Pulse Resp BP Pulse Ox O2 Del Method O2 Flow Rate 99.0 F 84 18 111/59 L 99 Bi-pap 4 10/23/22 14:41 10/23/22 15:19 10/23/22 15:19 10/23/22 14:41 10/23/22 15:19 10/23/22 14:41 10/23/22 11:15 FiO2 25 10/23/22 15:19 Oxygen Flow Rate (L/min) 4 Oxygen Delivery Method Bi-pap Weight: 104 lb 11.513 oz Body Mass Index (BMI) 18.5 Intake & Output: Intake and Output for Last 24 Hours 10/21/22 10/22/22 10/23/22 23:59 23:59 23:59 Intake Total 100 / 320 2549.99 / 2674.99 2942.75 / 2942.75 Output Total 300 / 450 875 / 1325 600 / 600 Balance -200 / -130 1674.99 / 1349.99 2342.75 / 2342.75 Medical Nutrition Assessment Dietitian: Malnutrition Criteria Met Start: 10/16/22 12:47 Freq: Status: Active Protocol: Document 10/23/22 10:20 RMA (Rec: 10/23/22 10:20 RMA [id number]) Nutrition Malnutrition Evidence of Malnutrition Exists Yes Malnutrition (severe): Chronic Evidenced By Suboptimal Energy Intake ( Severe),Weight Loss (Severe) Clinical Problem Chronic Disease or Condition Related Malnutrition Etiology severe, chronic malnutrition related to inadequate energy intake s/p stroke Signs/Symptoms as evidenced by estimated PO intake meeting < 75% of estimated energy needs > 3 months; unintentional wt loss of 22.7#/17.5% wt loss x 8 months; BMI 18.9 Status Active Problem Recommendation Dietitian Recommendations/Changes NPO per HYDROPULPER OPERATOR; TF to meet~100% estimated nutrition needs. Continue TF via PEG: Jevity 1. 5 at goal rate of 50mL/hour w/ 125mL H2O flush every 4 hours to provide 1800 calories, 76 g protein, and 1715mL total fluid/day. Would start at 20mL /hour and increase by 15mL/ hour every 8-12 hours as tolerated until goal rate is achieved. Lab / Micro Data Result Diagrams: 10/23/22 05:25 10/23/22 05:25 Labs: Laboratory Results - last 24 hr 10/23/22 05:25: WBC 5.7, RBC 3.48 L, Hgb 10.5 L, Hct 35.6 L, MCV 102.3 H, MCH 30.2, MCHC 29.5 L, RDW Std Deviation 53.8 H, RDW Coeff of Uziel 14.2, Plt Count 205, MPV 9.4, Immature Gran % (Auto) 0.400, Neut % (Auto) 79.9 H, Lymph % (Auto) 7.8 L, Swift % (Auto) 11.0 H, Eos % (Auto) 0.7, Baso % (Auto) 0.2, Absolute Neuts (auto) 4.5, Absolute Lymphs (auto) 0.44 L, Nucleated RBC % 0, Differential Comment SCANNED 10/23/22 05:25: Sodium 145, Potassium 4.0, Chloride 104, Carbon Dioxide 41.0 H, Anion Gap 0 L, BUN 24 H, Creatinine 0.66 L, Estim Creat Clear Calc 44.86, Est GFR (MDRD) Af Amer 152, Est GFR (MDRD) Non-Af 125, BUN/Creatinine Ratio 36.3 H, Glucose 155 H, Calcium 9.2 Micro: Microbiology 10/16/22 08:47 Mucosa - Nose Respiratory Panel (PCR) - Final 10/15/22 19:32 Nasal Secretion SARS-CoV-2 & FLU Antigen (Rapid) - Final Physical Exam Const alert and no apparent distress Resp normal respiratory effort, no retractions, no use of accessory muscles and clear to auscultation bilaterally Cardio regular rate, regular rhythm, S1 normal heart sound and S2 normal heart sound GI normal to inspection, nondistended, normoactive bowel sounds, soft to palpation, non-tender and non-distended Extremity normal to inspection, full ROM and no clubbing, cyanosis or edema Assessment & Plan Assessment/Plan (1) Acute and chronic respiratory failure with hypercapnia: PLAN: Patient is doing a lot better from a respiratory standpoint at this time. I do suspect that he was having episodes of aspiration. I explained to the patient and patient's family he still has a risk of aspiration and he is not to be laid down after he has PEG feedings or during PEG feedings. Also after he undergoes feedings he should be 90 degrees for 1 hour prior to lying down. (2) CVA (cerebral vascular accident): PLAN: Patient is followed by neurology as an outpatient. He is on antiplatelet therapy he can restart that as it was held for the PEG tube placement. (3) Dysphagia: PLAN: Patient can have NG tube for full usage. Recommend nutrition consult. Hopefully if his neuro neurologic status improves he may be able to have the tube removed in the future. (4) Anxiety: Charges/Coding Visit Charges Inpatient E&M: 84835 Subs Hosp L3
[2022-10-23] MEDS: MELATONIN 10 MG TABLET GT (20:27)
[2022-10-23] MEDS: Atorvastatin Calcium 80 MG Tablet GT (20:28)
[2022-10-23] MEDS: DULoxetine Hcl 30 MG Capsule PO (20:28)
[2022-10-23] MEDS: QUEtiapine 25 MG Tablet 12.5 MG GT (22:51)
--- NOTE | 2022-10-23 23:21 | NURSING ---
pt deedee now allowed nurse to put his bipap on. bed exit on for safety
[2022-10-24] VITALS (10 sets, daily range): BP systolic 111–156; BP diastolic 55–84; PULSE 83–104; RESP 14–24; TEMP 36.5–37.1; O2SAT 94–100; BMI 18.9
--- NOTE | 2022-10-24 00:06 | NURSING ---
pt setting off bed exit, pulled his bipap into multiple pieces, cps notified. placed back on nasal canula. pt confused unable to reorient. attempted to assist to void but pt not cooperative. resting in bed. bed exit on
[2022-10-24] MEDS: Jevity 1.5 1,000 ML 50 ML GT (04:58)
[2022-10-24] MEDS: 0.9% Normal Saline 1,000 ML 100 ML IV (04:58)
[2022-10-24] MEDS: Menthol/Lanolin/Calamine/Znox 113 GM Tube 1 APPLIC TOPICAL ×3 (04:58→19:53)
[2022-10-24] MEDS: busPIRone 5 MG Tablet GT ×3 (04:59→19:53)
[2022-10-24] MEDS: Acetaminophen 650 MG/20 ML UDC GT ×3 (05:16→19:56)
--- NOTE | 2022-10-24 05:26 | NURSING ---
pt pulled out iv, pulled off bipap, confused, line closer and other rn changed linen and placed back on nasal cannula. tyl given. bed exit on
--- NOTE | 2022-10-24 06:57 | NURSING ---
NEW ABD BINDER PLACED DUE TO PT PULLING IV OUT AND BLEEDING ON OLD BINDER. BED EXIT ON
[2022-10-24] MEDS: Ipratropium/Albuterol Sulfate 3 ML AMPUL.NEB INHALATION ×2 (07:11→19:53)
--- NOTE | 2022-10-24 07:55 | PN.HOSP_ITS ---
Reason for Visit Reason for Visit: Diagnoses Anxiety disorder, unspecified (10/16/22) Cerebral infarction, unspecified (10/16/22) Acute and chronic respiratory failure with hypercapnia (10/16/22) Hypoxemia (10/16/22) Dysphagia, unspecified (10/16/22) Personal history of transient ischemic attack (TIA), and cerebral infarction without residual deficits (10/16/22) Subjective Subjective Denies abdominal pain. Objective Data Objective Data Vital Signs: Vital Signs Temp Pulse Resp BP Pulse Ox O2 Del Method O2 Flow Rate 36.5 C L 83 20 H 111/55 L 98 Nasal Cannula 2 10/24/22 03:20 10/24/22 07:11 10/24/22 07:11 10/24/22 03:20 10/24/22 07:11 10/24/22 07:11 10/24/22 07:11 FiO2 25 10/24/22 03:40 Oxygen Flow Rate (L/min) 2 Oxygen Delivery Method Nasal Cannula Weight: 48.5 kg Body Mass Index (BMI) 18.9 Intake & Output: Intake and Output for Last 24 Hours 10/22/22 10/23/22 10/24/22 23:59 23:59 23:59 Intake Total 2549.99 / 2674.99 5273.75 / 5273.75 2167.5 / 2167.5 Output Total 875 / 1325 800 / 800 200 / 200 Balance 1674.99 / 1349.99 4473.75 / 4473.75 1967.5 / 1967.5 Medical Nutrition Assessment Dietitian: Malnutrition Criteria Met Start: 10/16/22 12:47 Freq: Status: Active Protocol: Document 10/23/22 10:20 RMA (Rec: 10/23/22 10:20 RMA [id number]) Nutrition Malnutrition Evidence of Malnutrition Exists Yes Malnutrition (severe): Chronic Evidenced By Suboptimal Energy Intake ( Severe),Weight Loss (Severe) Clinical Problem Chronic Disease or Condition Related Malnutrition Etiology severe, chronic malnutrition related to inadequate energy intake s/p stroke Signs/Symptoms as evidenced by estimated PO intake meeting < 75% of estimated energy needs > 3 months; unintentional wt loss of 22.7#/17.5% wt loss x 8 months; BMI 18.9 Status Active Problem Recommendation Dietitian Recommendations/Changes NPO per COMMUNITY LIVING INSTRUCTOR; TF to meet~100% estimated nutrition needs. Continue TF via PEG: Jevity 1. 5 at goal rate of 50mL/hour w/ 125mL H2O flush every 4 hours to provide 1800 calories, 76 g protein, and 1715mL total fluid/day. Would start at 20mL /hour and increase by 15mL/ hour every 8-12 hours as tolerated until goal rate is achieved. Lab / Micro Data Result Diagrams: 10/23/22 05:25 10/23/22 05:25 Micro: Microbiology 10/16/22 08:47 Mucosa - Nose Respiratory Panel (PCR) - Final 10/15/22 19:32 Nasal Secretion SARS-CoV-2 & FLU Antigen (Rapid) - Final Physical Exam Const alert and no apparent distress Constitutional Narrative: Takes a little bit of time to wake up. When patient wakes up he is interactive but not able to phonate. Does interact by shaking his head and mouthing words HEENT head/scalp atraumatic Resp normal respiratory effort, no retractions, no use of accessory muscles and clear to auscultation bilaterally Cardio regular rate, regular rhythm, S1 normal heart sound and S2 normal heart sound GI normal to inspection, nondistended, normoactive bowel sounds, soft to palpation, non-tender and non-distended GI Narrative: PEG in place Extremity normal to inspection Assessment & Plan Assessment/Plan (1) Acute and chronic respiratory failure with hypercapnia: PLAN: Acute combined respiratory failure-etiology though I suspect this is due to a neuromuscular disease has not been formally diagnosed. Etiology of such as to be determined but patient has dysphagia and trouble managing his secretions where he required a PEG tube placement. Due to neuromuscular disease, which can include Parkinson's versus PSP versus MSA versus ALS (though this diagnosis seems doubtful with patient has had reportedly normal nerve conduction test and EMGs) v other: Patient requires volume ventilation and all other alternative therapies, including bilevel, have been considered and ruled out due to the severity of the disease state, weak breathing muscles and potential life-threatening condition including CO2 retention probability of acute exacerbation, patient requires ventilation to be used during the day as needed, addition to every night usage with facemask. (2) CVA (cerebral vascular accident): PLAN: Ruled out 10/16 pt developed new onset left-sided weakness and expressive aphasia. Received tenecteplase. continue ASA, clopidogrel, HIS CTA of head and neck negative on 10/16 subsequent MRI on 10/17 was negative for CVA consult teleneurology for post-tenecteplase eval Frankly, not sure the patient actually ever had strokes. Patient had normal MRI January. negative MRIs. Given the patient's parents and concern about a peter romuscular disorder along the lines of Parkinson's/PSP/MSA or some other process altogether. Patient has prior history of nerve conduction test and EMGs which were reportedly negative therefore making the likelihood of ALS low. Strength villanueva he seems to be intact. I did recommend that he follow-up with neuromuscular/movement disorder specialist upon discharge for further diagnosis. Did tell the patient, his and daughter that if he does have such disease that it would not be reversible. Also told him that that would be an outpatient follow-up. Told him that such facilities are at [facility], [facility] and [facility]. (3) Dysphagia: PLAN: [place] Failed modified barium swallow. Currently NPO. Discussed comfort feedings versus PEG tube with the patient and his family. They will think and get back to us. Concern for neurodegenerative process including Parkinson's versus PSP versus MSA. Though unlikely, cannot rule out the possibility of this being myasthenia gravis we will check a acetylcholinesterase blocking antibody as well as m odulating antibody. PEG tube placed 10/21 (4) Anxiety: PLAN: on buspirone, duloxetine avoid BZDs given respiratory issues. Symptoms seem to be exacerbated with the use of haloperidol. We will add to his allergy list though not a true allergy but adverse reaction. PLAN: Plan Chronic stable conditions: * aortic valve stenosis with insufficiency-mild to moderate, patient follows up with cardiology * essential hypertension-continue current medications * hyperlipidemia-patient is on a statin VTE prophylaxis: SCDs Disposition: To be determined. Medically stable for discharge. Awaiting on insurance authorization. Charges/Coding Visit Charges Inpatient E&M: 95512 Subs Hosp L2
[2022-10-24] MEDS: Lisinopril 10 MG Tablet GT (09:48)
[2022-10-24] MEDS: DULoxetine Hcl 30 MG Capsule PO ×2 (09:51→19:56)
[2022-10-24] MEDS: MELATONIN 10 MG TABLET GT (19:53)
[2022-10-24] MEDS: Atorvastatin Calcium 80 MG Tablet GT (19:53)
[2022-10-25] VITALS (7 sets, daily range): BP systolic 130–155; BP diastolic 74–92; PULSE 85–104; RESP 16–21; TEMP 36.5–37.2; O2SAT 94–100; BMI 20.2
[2022-10-25] MEDS: Jevity 1.5 1,000 ML 50 ML GT ×2 (00:01→19:16)
--- NOTE | 2022-10-25 00:15 | NURSING ---
pt setting off bedexit, staff in to assist. pt confused pulled apart bipap mask & tubing, refused to have it replaced. CPS notified. O2 NC placed back on pt. Assisted with urinal and repositioning. Bedexit on.
[2022-10-25] MEDS: Acetaminophen 650 MG/20 ML UDC GT ×2 (04:59→15:12)
[2022-10-25] MEDS: busPIRone 5 MG Tablet GT ×3 (05:00→21:03)
[2022-10-25] MEDS: Ipratropium/Albuterol Sulfate 3 ML AMPUL.NEB INHALATION ×3 (07:00→19:49)
--- NOTE | 2022-10-25 07:23 | PCM.PN.HOSP ---
Reason for Visit Reason for Visit: Diagnoses Anxiety disorder, unspecified (10/16/22) Cerebral infarction, unspecified (10/16/22) Acute and chronic respiratory failure with hypercapnia (10/16/22) Hypoxemia (10/16/22) Dysphagia, unspecified (10/16/22) Personal history of transient ischemic attack (TIA), and cerebral infarction without residual deficits (10/16/22) Subjective Subjective Denies any complaints. Objective Data Objective Data Vital Signs: Vital Signs Temp Pulse Resp BP Pulse Ox O2 Del Method O2 Flow Rate 37.2 C 91 21 H 138/92 H 94 Nasal Cannula 2 10/25/22 05:07 10/25/22 07:01 10/25/22 07:01 10/25/22 05:07 10/25/22 07:01 10/25/22 07:01 10/25/22 07:01 FiO2 25 10/24/22 23:02 Oxygen Flow Rate (L/min) 2 Oxygen Delivery Method Nasal Cannula Weight: 51.8 kg Body Mass Index (BMI) 20.2 Intake & Output: Intake and Output for Last 24 Hours 10/23/22 10/24/22 10/25/22 23:59 23:59 23:59 Intake Total 5273.75 / 5273.75 3865.83 / 3865.83 952.5 / 952.5 Output Total 800 / 800 1300 / 1300 875 / 875 Balance 4473.75 / 4473.75 2565.83 / 2565.83 77.5 / 77.5 Medical Nutrition Assessment Dietitian: Malnutrition Criteria Met Start: 10/16/22 12:47 Freq: Status: Active Protocol: Document 10/23/22 10:20 RMA (Rec: 10/23/22 10:20 RMA [id number]) Nutrition Malnutrition Evidence of Malnutrition Exists Yes Malnutrition (severe): Chronic Evidenced By Suboptimal Energy Intake ( Severe),Weight Loss (Severe) Clinical Problem Chronic Disease or Condition Related Malnutrition Etiology severe, chronic malnutrition related to inadequate energy intake s/p stroke Signs/Symptoms as evidenced by estimated PO intake meeting < 75% of estimated energy needs > 3 months; unintentional wt loss of 22.7#/17.5% wt loss x 8 months; BMI 18.9 Status Active Problem Recommendation Dietitian Recommendations/Changes NPO per CASINO PORTER; TF to meet~100% estimated nutrition needs. Continue TF via PEG: Jevity 1. 5 at goal rate of 50mL/hour w/ 125mL H2O flush every 4 hours to provide 1800 calories, 76 g protein, and 1715mL total fluid/day. Would start at 20mL /hour and increase by 15mL/ hour every 8-12 hours as tolerated until goal rate is achieved. Lab / Micro Data Result Diagrams: 10/23/22 05:25 10/23/22 05:25 Micro: Microbiology 10/16/22 08:47 Mucosa - Nose Respiratory Panel (PCR) - Final 10/15/22 19:32 Nasal Secretion SARS-CoV-2 & FLU Antigen (Rapid) - Final Physical Exam Const Constitutional Narrative: Up in chair. Awake. Able to verbalize but still hypophonic. HEENT head/scalp atraumatic Resp normal respiratory effort, no retractions, no use of accessory muscles and clear to auscultation bilaterally Cardio regular rate, regular rhythm, S1 normal heart sound and S2 normal heart sound GI normal to inspection, nondistended, normoactive bowel sounds and soft to palpation Assessment & Plan Assessment/Plan (1) Acute and chronic respiratory failure with hypercapnia: PLAN: Acute combined respiratory failure-etiology though I suspect this is due to a neuromuscular disease has not been formally diagnosed. Etiology of such as to be determined but patient has dysphagia and trouble managing his secretions where he required a PEG tube placement. Due to neuromuscular disease, which can include Parkinson's versus PSP versus MSA versus ALS (though this diagnosis seems doubtful with patient has had reportedly normal nerve conduction test and EMGs) v other: Patient requires volume ventilation and all other alternative therapies, including bilevel, have been considered and ruled out due to the severity of the disease state, weak breathing muscles and potential life-threatening condition including CO2 retention probability of acute exacerbation, patient requires ventilation to be used during the day as needed, addition to every night usage with facemask. (2) CVA (cerebral vascular accident): PLAN: Ruled out 10/16 pt developed new onset left-sided weakness and expressive aphasia. Received tenecteplase. continue ASA, clopidogrel, HIS CTA of head and neck negative on 10/16 subsequent MRI on 10/17 was negative for CVA consult teleneurology for post-tenecteplase eval Frankly, not sure the patient actually ever had strokes. Patient had normal MRI negative MRIs. Given the patient's parents and concern about a neuromuscular disorder along the lines of Parkinson's/PSP/MSA or some other process altogether. Patient has prior history of nerve conduction test and EMGs which were reportedly negative therefore making the likelihood of ALS low. Strength villanueva he seems to be intact. I did recommend that he follow-up with neuromuscular/movement disorder specialist upon discharge for further diagnosis. Did tell the patient, his and daughter that if he does have such disease that it would not be reversible. Also told him that that would be an outpatient follow-up. Told him that such facilities are at [facility], [facility] and [facility]. (3) Dysphagia: PLAN: [place] Failed modified barium swallow. Currently NPO. Discussed comfort feedings versus PEG tube with the patient and his family. They will think and get back to us. Concern for neurodegenerative process including Parkinson's versus PSP versus MSA. Though unlikely, cannot rule out the possibility of this being myasthenia gravis we will check a acetylcholinesterase blocking antibody as well as modulating antibody. PEG tube placed 10/21 (4) Anxiety: PLAN: on buspirone, duloxetine avoid BZDs given respiratory issues. Symptoms seem to be exacerbated with the use of haloperidol. We will add to his allergy list though not a true allergy but adverse reaction. 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 Medically stable for discharge. Awaiting on insurance authorization. Hopefully can be discharged on the of Charges/Coding Visit Charges Inpatient E&M: 70308 Subs Hosp L2
[2022-10-25] MEDS: Lisinopril 10 MG Tablet GT (10:20)
[2022-10-25] MEDS: DULoxetine Hcl 30 MG Capsule PO ×2 (10:33→21:19)
[2022-10-25] MEDS: Menthol/Lanolin/Calamine/Znox 113 GM Tube 1 APPLIC TOPICAL ×2 (10:34→21:02)
--- NOTE | 2022-10-25 11:49 | PCM.PROGNOTE ---
Subjective Subjective Patient is more alert today. He is speaking a little bit better today. He is tolerating tube feeds without any problems. Objective Data Objective Data Vital Signs: Vital Signs Temp Pulse Resp BP Pulse Ox O2 Del Method O2 Flow Rate 98.1 F 97 16 130/74 H 100 Nasal Cannula 2 10/25/22 10:18 10/25/22 10:18 10/25/22 10:18 10/25/22 10:18 10/25/22 10:18 10/25/22 10:18 10/25/22 10:18 FiO2 25 10/24/22 23:02 Oxygen Flow Rate (L/min) 2 Oxygen Delivery Method Nasal Cannula Weight: 114 lb 3.2 oz Body Mass Index (BMI) 20.2 Intake & Output: Intake and Output for Last 24 Hours 10/23/22 10/24/22 10/25/22 23:59 23:59 23:59 Intake Total 5273.75 / 5273.75 3865.83 / 3865.83 952.5 / 952.5 Output Total 800 / 800 1300 / 1300 875 / 875 Balance 4473.75 / 4473.75 2565.83 / 2565.83 77.5 / 77.5 Medical Nutrition Assessment Dietitian: Malnutrition Criteria Met Start: 10/16/22 12:47 Freq: Status: Active Protocol: Document 10/23/22 10:20 RMA (Rec: 10/23/22 10:20 RMA [id number]) Nutrition Malnutrition Evidence of Malnutrition Exists Yes Malnutrition (severe): Chronic Evidenced By Suboptimal Energy Intake ( Severe),Weight Loss (Severe) Clinical Problem Chronic Disease or Condition Related Malnutrition Etiology severe, chronic malnutrition related to inadequate energy intake s/p stroke Signs/Symptoms as evidenced by estimated PO intake meeting < 75% of estimated energy needs > 3 months; unintentional wt loss of 22.7#/17.5% wt loss x 8 months; BMI 18.9 Status Active Problem Recommendation Dietitian Recommendations/Changes NPO per INTERPRETER AND TRANSLATOR; TF to meet~100% estimated nutrition needs. Continue TF via PEG: Jevity 1. 5 at goal rate of 50mL/hour w/ 125mL H2O flush every 4 hours to provide 1800 calories, 76 g protein, and 1715mL total fluid/day. Would start at 20mL /hour and increase by 15mL/ hour every 8-12 hours as tolerated until goal rate is achieved. Lab / Micro Data Result Diagrams: 10/23/22 05:25 10/23/22 05:25 Micro: Microbiology 10/16/22 08:47 Mucosa - Nose Respiratory Panel (PCR) - Final 10/15/22 19:32 Nasal Secretion SARS-CoV-2 & FLU Antigen (Rapid) - Final Physical Exam Const alert and no apparent distress Constitutional Narrative: He wakes up to have conversation. However he is not able to phonate very well and is still very slow to respond. HEENT head/scalp atraumatic Resp normal respiratory effort, no retractions, no use of accessory muscles and clear to auscultation bilaterally Cardio regular rate, regular rhythm, S1 normal heart sound and S2 normal heart sound GI normal to inspection, nondistended, normoactive bowel sounds, soft to palpation, non-tender and non-distended GI Narrative: PEG in place Extremity normal to inspection Assessment & Plan Assessment/Plan (1) Dysphagia: PLAN: Patient can have NG tube for full usage. Recommend nutrition consult. Hopefully if his neuro neurologic status improves he may be able to have the tube removed in the future. (2) Acute and chronic respiratory failure with hypercapnia: PLAN: Patient is doing a lot better from a respiratory standpoint at this time. I do suspect that he was having episodes of aspiration. I explained to the patient and patient's family he still has a risk of aspiration and he is not to be laid down after he has PEG feedings or during PEG feedings. Also after he undergoes feedings he should be 90 degrees for 1 hour prior to lying down. (3) CVA (cerebral vascular accident): PLAN: Patient is followed by neurology as an outpatient. He is on antiplatelet therapy he can restart that as it was held for the PEG tube placement. (4) Anxiety: Charges/Coding Visit Charges Inpatient E&M: 95476 Subs Hosp L3
[2022-10-25] MEDS: MELATONIN 10 MG TABLET GT (21:03)
[2022-10-25] MEDS: Atorvastatin Calcium 80 MG Tablet GT (21:03)
[2022-10-25] MEDS: QUEtiapine 25 MG Tablet 12.5 MG GT (22:36)
--- NOTE | 2022-10-25 23:07 | NURSING ---
Pt very restless and getting OOB. Seroquel x1 dose ordered. Given to pt. Will continue to monitor, bed exit on.
--- NOTE | 2022-10-25 23:22 | CPS ---
Pt refusing bipap at this time
[2022-10-26] VITALS (12 sets, daily range): BP systolic 111–157; BP diastolic 61–100; PULSE 98–120; RESP 14–36; TEMP 36.6–37.2; O2SAT 66–97; BMI 19.5
--- NOTE | 2022-10-26 01:01 | PCM.HOSP.N ---
Hospitalist Note Patient with increased agitation, lisette with staff. Has had issues serially during presentation. Added low dose seroquel evening prior and it was effective. Added low dose 12.5 mg x 1; however, not effective, will additional 12.5 for total 25 mg and add as scheduled low dose in the evening. Given haldol reported allergy of unclear reaction will cautiously administer low dose ativan x 1 now until seroquel effective.
[2022-10-26] MEDS: LORazepam 2 MG/ML Syringe 0.5 MG IV (01:19)
[2022-10-26] MEDS: 0.9% Saline Lock 10 ML Syringe IV (01:19)
[2022-10-26] MEDS: QUEtiapine 25 MG Tablet 12.5 MG PO (01:21)
--- NOTE | 2022-10-26 05:02 | NURSING ---
Bladder scanned pt d/t continuous feeling of having to urinate. Found 450ml of urine on bladder scan. Messaged Dr Harkins and recieved straight cath orders. Straight cathed pt to get 500ml of urine. Pt now resting comfortably.
[2022-10-26] MEDS: busPIRone 5 MG Tablet GT ×3 (05:37→19:37)
--- NOTE | 2022-10-26 08:56 | CASEMGMT ---
Social Work SW checked in with Luiza at Rehab. Luiza informed had just spoken to pt insurance and was told precert is still pending. It is possible it will be reviewed today, however, it could take up to 14 business days to be reviewed. Luiza will follow up with YESSICA when more news is received. PLAN: [facility] Re[facility] Unit, pending precert MARAL Hardy
--- NOTE | 2022-10-26 10:27 | PN.HOSP_ITS ---
Subjective Subjective Mentation and agitation waxes and wanes Objective Data Objective Data Vital Signs: Vital Signs Temp Pulse Resp BP Pulse Ox O2 Del Method O2 Flow Rate 98.6 F 104 H 18 157/100 H 94 Nasal Cannula 2 10/26/22 09:19 10/26/22 09:19 10/26/22 09:19 10/26/22 09:19 10/26/22 09:19 10/26/22 09:19 10/26/22 09:19 FiO2 25 10/24/22 23:02 Oxygen Flow Rate (L/min) 2 Oxygen Delivery Method Nasal Cannula Weight: 110 lb 3 oz Body Mass Index (BMI) 19.5 Intake & Output: Intake and Output for Last 24 Hours 10/25/22 10/26/22 10/27/22 03:59 03:59 03:59 Intake Total 4818.33 / 4818.33 2940.5 / 2940.5 Output Total 1300 / 1300 1500 / 1500 500 / 500 Balance 3518.33 / 3518.33 1440.5 / 1440.5 -500 / -500 Medical Nutrition Assessment Dietitian: Malnutrition Criteria Met Start: 10/16/22 12:47 Freq: Status: Active Protocol: Document 10/23/22 10:20 RMA (Rec: 10/23/22 10:20 RMA [id number]) Nutrition Malnutrition Evidence of Malnutrition Exists Yes Malnutrition (severe): Chronic Evidenced By Suboptimal Energy Intake ( Severe),Weight Loss (Severe) Clinical Problem Chronic Disease or Condition Related Malnutrition Etiology severe, chronic malnutrition related to inadequate energy intake s/p stroke Signs/Symptoms as evidenced by estimated PO intake meeting < 75% of estimated energy needs > 3 months; unintentional wt loss of 22.7#/17.5% wt loss x 8 months; BMI 18.9 Status Active Problem Recommendation Dietitian Recommendations/Changes NPO per LOANS CONSULTANT; TF to meet~100% estimated nutrition needs. Continue TF via PEG: Jevity 1. 5 at goal rate of 50mL/hour w/ 125mL H2O flush every 4 hours to provide 1800 calories, 76 g protein, and 1715mL total fluid/day. Would start at 20mL /hour and increase by 15mL/ hour every 8-12 hours as tolerated until goal rate is achieved. Lab / Micro Data Result Diagrams: 10/23/22 05:25 02/24/23 05:25 Micro: Microbiology 10/16/22 08:47 Mucosa - Nose Respiratory Panel (PCR) - Final 10/15/22 19:32 Nasal Secretion SARS-CoV-2 & FLU Antigen (Rapid) - Final Physical Exam Narrative General: Alert, cooperative, No apparent distress HEENT: Atraumatic, PERRLA, EOMI, Normocephalic Oral: Moist Mucosa Neck: Supple, No JVD Lungs: Diminished, Normal air movement, No rhonchi, No wheeze, No rales Cardiovascular: Regular rate, Regular Rhythm, Normal S1, Normal S2, No murmurs Abdomen: Soft, Non Tender, Non-Distended, No Hepato-splenomegaly Extremities: No edema, Capillary Refill Less than 3 Seconds Skin: No rashes, No breakdown Musculoskeletal: No Tenderness to Palpation of Joints or Extremities Neurological: Moves all extremities Psych/Mental Status: Normal Affect, Appropriate Assessment & Plan Assessment/Plan (1) Acute and chronic respiratory failure with hypercapnia: PLAN: Acute combined respiratory failure-etiology though I suspect this is due to a neuromuscular disease has not been formally diagnosed. Etiology of such as to be determined but patient has dysphagia and trouble managing his secretions where he required a PEG tube placement. Due to neuromuscular disease, which can include Parkinson's versus PSP versus MSA versus ALS (though this diagnosis seems doubtful with patient has had reportedly normal nerve conduction test and EMGs) v other: Patient requires volume ventilation and all other alternative therapies, including bilevel, have been considered and ruled out due to the severity of the disease state, weak breathing muscles and potential life-threatening condition including CO2 retention probability of acute exacerbation, patient requires ventilation to be used during the day as needed, addition to every night usage with facemask. (2) CVA (cerebral vascular accident): PLAN: Ruled out 10/16 pt developed new onset left-sided weakness and expressive aphasia. Received tenecteplase. continue ASA, clopidogrel, HIS CTA of head and neck negative on 10/16 subsequent MRI on 10/17 was negative for CVA consult teleneurology for post-tenecteplase eval Frankly, not sure the patient actually ever had strokes. Patient had normal MRI negative MRIs. Given the patient's parents and concern about a neuromuscular disorder along the lines of Parkinson's/PSP/MSA or some other process altogether. Patient has prior history of nerve conduction test and EMGs which were reportedly negative therefore making the likelihood of ALS low. Strength villanueva he seems to be intact. I did recommend that he follow-up with neuromuscular/movement disorder specialist upon discharge for further diagnosis. Did tell the patient, his and daughter that if he does have such disease that it would not be reversible. Also told him that that would be an outpatient follow-up. Told him that such facilities are at [facility], [facility] and [facility]. (3) Dysphagia: PLAN: ST eval Failed modified barium swallow. Concern for neurodegenerative process including Parkinson's versus PSP versus MSA. Though unlikely, cannot rule out the possibility of this being myasthenia gravis we will check a acetylcholinesterase blocking antibody as well as m odulating antibody. PEG tube placed 10/21 (4) Anxiety: PLAN: on buspirone, duloxetine avoid BZDs given respiratory issues. Symptoms seem to be exacerbated with the use of haloperidol. We will add to his allergy list though not a true allergy but adverse reaction, he was given a dose of Ativan and Seroquel overnight PLAN: Plan Chronic stable conditions: * aortic valve stenosis with insufficiency-mild to moderate, patient follows up with cardiology * essential hypertension-continue current medications * hyperlipidemia-patient is on a statin VTE prophylaxis: SCDs Disposition: To be determined. Medically stable for discharge. Awaiting on insurance authorization. Charges/Coding Visit Charges Inpatient E&M: 32406 Subs Hosp L2
[2022-10-26] MEDS: Lisinopril 10 MG Tablet GT (12:33)
[2022-10-26] MEDS: Menthol/Lanolin/Calamine/Znox 113 GM Tube 1 APPLIC TOPICAL ×2 (12:38→19:48)
[2022-10-26] MEDS: Acetaminophen 650 MG/20 ML UDC GT ×2 (12:39→18:12)
[2022-10-26] MEDS: DULoxetine Hcl 30 MG Capsule PO ×2 (12:57→19:37)
--- NOTE | 2022-10-26 13:16 | CASEMGMT ---
Social Work Luiza from Rehab messaged SW. Pt was denied. [employer] offered a peer to Peer ( ) option 4. This call has to be scheduled by 12 pm savanah, 10/27/22. [employer] also sent a number if patient wants to Appeal:([phone]). MD Oh updated. MARAL Hardy
--- NOTE | 2022-10-26 14:08 | CASEMGMT ---
Social Work Pt , Donna is HCPOA. Donna brought in HCPOA/LW documents and these have been added to pt chart. MARAL Hardy
--- NOTE | 2022-10-26 14:49 | NURSING ---
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
[2022-10-26] MEDS: Jevity 1.5 1,000 ML 50 ML GT (15:03)
--- NOTE | 2022-10-26 15:56 | CASEMGMT ---
Social Work SW called pt to inform that pt has been denied for Rehab placement. , Donna, became very emotional. SW explained options to , for family to appeal insurance decision and gave pt the number provided by Nathaly or to try placement at SNF for PEG tube teaching for a skilled level of care. continued to be overwhelmed. SW validated Donna's feelings. Discussed options and decided would like to try SNFs. stated preference would be [facility], then [facility], then [facility]. Pt also informed of some concerns regarding pt medications and expressed some frustration with communications. SW offered patient advocate phone number and stated would like to speak to advocate. SW provided the number. SW sent referral to [facility] and [facility] via regular fax. PLAN: SNF, pending acceptance and precert MARAL Hardy
[2022-10-26] MEDS: QUEtiapine 25 MG Tablet PO (18:10)
[2022-10-26] MEDS: Ipratropium/Albuterol Sulfate 3 ML AMPUL.NEB INHALATION (18:54)
[2022-10-26] MEDS: Atorvastatin Calcium 80 MG Tablet GT (19:37)
[2022-10-26] MEDS: MELATONIN 10 MG TABLET GT (19:43)
[2022-10-26] MEDS: Zolpidem Tartrate 5 MG Tablet PO (19:43)
--- NOTE | 2022-10-26 19:45 | NURSING ---
had asked that pt be given tylenol today and tonight before bed
[2022-10-27] VITALS (11 sets, daily range): BP systolic 98–130; BP diastolic 56–80; PULSE 85–104; RESP 14–24; TEMP 36.4–37.2; O2SAT 92–100
--- NOTE | 2022-10-27 01:15 | NURSING ---
Patient has repeatedly taken Bipap mask off. Will not wear it. Placed back on 2L NC. Patient has been short of breath and has been working hard to breathe all shift. Patient is better when on Bipap; however, he will not leave it on. Respiratory aware. Oxygen saturation is above 90% when patient leaves mask or NC on.
[2022-10-27] MEDS: busPIRone 5 MG Tablet GT ×3 (05:46→21:31)
[2022-10-27] MEDS: Acetaminophen 650 MG/20 ML UDC GT (05:46)
[2022-10-27] MEDS: 0.9% Saline Lock 10 ML Syringe IV (05:50)
[2022-10-27] MEDS: Ipratropium/Albuterol Sulfate 3 ML AMPUL.NEB INHALATION ×2 (07:12→13:34)
[2022-10-27 07:13] LABS: Anion Gap 2 (5-15); BUN 24 mg/dL (7-18); BUN/Creat Ratio 27.4 RATIO (10-20); Calcium,Total 10.3 mg/dL (8.5-10.1); Chloride 95 mmol/L (98-107); Creatinine, Serum 0.88 mg/dL (0.70-1.30); EST Glomerular Filtration Rate 91 mL/min (>60); Est Glom Filt Rate - Afr Amer 110 mL/min (>60); Estimated Creatinine Clearance 53.64 ml/min; Glucose 166 mg/dL (74-106); Sodium Level 140 mmol/L (136-145)
--- NOTE | 2022-10-27 07:54 | CASEMGMT ---
Social Work SW has not heard back from [facility]. Trinity from [facility] did call and is able to accept pt. MARAL Hardy
--- NOTE | 2022-10-27 08:03 | WOUNDNOTE ---
Pt currently at the nurse's station in chair. will assess buttocks later this am.
--- NOTE | 2022-10-27 08:52 | PN.HOSP_ITS ---
Subjective Subjective Still not sleeping at night Objective Data Objective Data Vital Signs: Vital Signs Temp Pulse Resp BP Pulse Ox O2 Del Method O2 Flow Rate 97.5 F L 104 H 18 130/76 H 94 Nasal Cannula 2 10/27/22 05:42 10/27/22 07:12 10/27/22 07:12 10/27/22 05:42 10/27/22 07:12 10/27/22 07:12 10/27/22 07:12 FiO2 25 10/26/22 23:19 Oxygen Flow Rate (L/min) 2 Oxygen Delivery Method Nasal Cannula Weight: 110 lb 3 oz Body Mass Index (BMI) 19.5 Intake & Output: Intake and Output for Last 24 Hours 10/26/22 10/27/22 10/28/22 03:59 03:59 03:59 Intake Total 2940.5 / 2940.5 2241.17 / 2241.17 Output Total 1500 / 1500 1300 / 1300 900 / 900 Balance 1440.5 / 1440.5 941.17 / 941.17 -900 / -900 Medical Nutrition Assessment Dietitian: Malnutrition Criteria Met Start: 10/16/22 12:47 Freq: Status: Active Protocol: Document 10/26/22 14:41 LO (Rec: 10/26/22 14:41 LO [id number]) Nutrition Malnutrition Evidence of Malnutrition Exists Yes Malnutrition (severe): Chronic Evidenced By Suboptimal Energy Intake ( Severe),Weight Loss (Severe) Clinical Problem Chronic Disease or Condition Related Malnutrition Etiology severe, chronic malnutrition related to inadequate energy intake s/p stroke Signs/Symptoms as evidenced by estimated PO intake meeting < 75% of estimated energy needs > 3 months; unintentional wt loss of 22.7#/17.5% wt loss x 8 months; BMI 18.9 Status Active Problem Recommendation Dietitian Recommendations/Changes NPO per QUICK TECHNICIAN; TF to meet~100% estimated nutrition needs. Continue TF via PEG: Jevity 1. 5 at goal rate of 50mL/hour w/ 125mL H2O flush every 4 hours to provide 1800 calories, 76 g protein, and 1715mL total fluid/day. Would start at 20mL /hour and increase by 15mL/ hour every 8-12 hours as tolerated until goal rate is achieved. Lab / Micro Data Result Diagrams: 10/23/22 05:25 10/27/22 06:05 Labs: Laboratory Results - last 24 hr 10/27/22 06:05: Sodium 140, Potassium 4.0, Chloride 95 L, Carbon Dioxide 43.0 H, Anion Gap 2 L, BUN 24 H, Creatinine 0.88, Estim Creat Clear Calc 53.64, Est GFR (MDRD) Af Amer 110, Est GFR (MDRD) Non-Af 91, BUN/Creatinine Ratio 27.4 H, Glucose 166 H, Calcium 10.3 H Micro: Microbiology 10/16/22 08:47 Mucosa - Nose Respiratory Panel (PCR) - Final 10/15/22 19:32 Nasal Secretion SARS-CoV-2 & FLU Antigen (Rapid) - Final Physical Exam Narrative General: Alert, cooperative, No apparent distress HEENT: Atraumatic, PERRLA, EOMI, Normocephalic Oral: Moist Mucosa Neck: Supple, No JVD Lungs: Diminished, Normal air movement, No rhonchi, No wheeze, No rales Cardiovascular: Regular rate, Regular Rhythm, Normal S1, Normal S2, murmurs Abdomen: Soft, Non Tender, Non-Distended, No Hepato-splenomegaly Extremities: No edema, Capillary Refill Less than 3 Seconds Skin: No rashes, No breakdown Musculoskeletal: No Tenderness to Palpation of Joints or Extremities Neurological: Moves all extremities Psych/Mental Status: Normal Affect, Appropriate Assessment & Plan Assessment/Plan (1) Acute and chronic respiratory failure with hypercapnia: PLAN: Acute combined respiratory failure-etiology though I suspect this is due to a neuromuscular disease has not been formally diagnosed. Etiology of such as to be determined but patient has dysphagia and trouble managing his secretions where he required a PEG tube placement. Due to neuromuscular disease, which can include Parkinson's versus PSP versus MSA versus ALS (though this diagnosis seems doubtful with patient has had reportedly normal nerve conduction test and EMGs) v other: Patient requires volume ventilation and all other alternative therapies, including bilevel, have been considered and ruled out due to the severity of the disease state, weak breathing muscles and potential life-threatening condition including CO2 r etention probability of acute exacerbation, patient requires ventilation to be used during the day as needed, addition to every night usage with facemask. (2) CVA (cerebral vascular accident): PLAN: Ruled out 10/16 pt developed new onset left-sided weakness and expressive aphasia. Received tenecteplase. continue ASA, clopidogrel, HIS CTA of head and neck negative on 2/17 subsequent MRI on 10/17 was negative for CVA consult teleneurology for post-tenecteplase eval (3) Dysphagia: PLAN: ST eval Failed modified barium swallow. Concern for neurodegenerative process including Parkinson's versus PSP versus MSA. Though unlikely, cannot rule out the possibility of this being myasthenia gravis we will check a acetylcholinesterase blocking antibody as well as modulating antibody. PEG tube placed 10/21 (4) Anxiety: PLAN: on buspirone, duloxetine avoid BZDs given respiratory issues. Symptoms seem to be exacerbated with the use of haloperidol. We will add to his allergy list though not a true allergy but adverse reaction Can increase Seroquel to 50 mg today as well as continuing with Ambien and melatonin if necessary might also need to add trazodone PLAN: Plan Chronic stable conditions: * aortic valve stenosis with insufficiency-mild to moderate, patient follows up with cardiology * essential hypertension-continue current medications * hyperlipidemia-patient is on a statin VTE prophylaxis: SCDs Disposition: To be determined. Medically stable for discharge. Awaiting on insurance authorization. Charges/Coding Visit Charges Inpatient E&M: 11204 Subs Hosp L2
--- NOTE | 2022-10-27 09:13 | CASEMGMT ---
Social Work SW called pt , Donna, and informed [facility] is able to accept pt. Donna agreeable. SW explained process and walked through what could happen with new referral to SNF. Donna expressed appreciation for the communication. SW encouraged Donna to call with any concerns and shared intent to call Donna with any news updates about precert. SW called [facility] and spoke to Tootie. SW informed Tootie that precert can be started for pt. Done stated would tell Trinity in admissions this message. PLAN: [facility], pending precert MARAL Hardy
[2022-10-27] MEDS: DULoxetine Hcl 30 MG Capsule PO ×2 (11:07→21:32)
[2022-10-27] MEDS: Lisinopril 10 MG Tablet GT (11:07)
--- NOTE | 2022-10-27 12:14 | NURSING ---
Bladder scanned pt for [facility]. [facility] for 525ml cloudy yellow urine.
[2022-10-27 12:15] LABS: Bacteria 0 SEEN /hpf (None Seen); Mucous, Urine 0 SEEN /hpf (<or=2+); Squamous Epithelial Cells - UA 0 SEEN /hpf (0-5)
[2022-10-27 12:25] LABS: Color, Urine Yellow (Yellow); Glucose, Dipstick Normal (Normal); Ketone-Dipstick Negative (Negative); Leukocyte Esterase-Dipstick 25 /ul (Negative); Nitrite-Dipstick Negative (Negative); Occult Blood-Urine 50 /ul (Negative); Protein-Dipstick 30 mg/dl (Negative); Specific Gravity, Urine 1.015 (1.002-1.030); Urine Bilirubin Dipstick Negative (Negative); Urine Clarity Sl. Cloudy (Clear); Urine Urobilinogen Normal (Normal)
[2022-10-27 12:31] LABS: Red Blood Cells-Urine 0-5 SEEN /hpf (0-5); White Blood Cells 0-5 SEEN /hpf (0-5)
[2022-10-27] MEDS: Jevity 1.5 1,000 ML 50 ML GT (13:23)
--- NOTE | 2022-10-27 16:11 | CHAPLAIN ---
Type of Pastoral Visit ___ Initial Visit _x__ Follow-up Visit ___ On-call Visit ___ General Patient Visit ___ Spiritual Assessment ___ Family Conference ___ Bereavement ___ Rapid Response ___ Code Blue ___ Other (describe below) Pastoral Care Referral From _x__ Patient ___ Family ___ Nurse ___ Physician ___ Donor Specialist ___ Health Club Attendant ___ Other (describe below) Sacrament/Intervention _x__ Active listening ___ Anointing ___ Synagogue ___ Bereavement ___ Communion ___ Asya exploration ___ ___ Life review _x__ Prayer ___ Reconciliation ___ Sacrament of Sick _x__ Supportive presence ___ Wedding ___ Other (describe below) Pastoral Comments mostly this was tme given to sit with the patient; he is very soft spoken in voice and has had difficulty resting and sleeping but he welcomes the presence and calm of this recreation therapy aides teacher; pt welcomes time to consider his life and pictures that are in his room; pt welcomes prayer support as well
[2022-10-27 17:54] LABS: Allen Test Positive; Base Excess 23 mmol/L (-2 to +2); Bicarbonate 48.8 mmol/L (22-26); Blood Gas Specimen Type ART; PO2 112 mmHG (75-100); SITE L Radial; SO2 98 % (95-99); Total Carbon Dioxide > 50 mmol/L; pH 7.36 (7.35-7.45)
[2022-10-27] MEDS: QUEtiapine 25 MG Tablet 50 MG PO (19:31)
[2022-10-27 19:42] LABS: ACHR Recep AB, Blocking 17 % (0-25)
[2022-10-27] MEDS: Atorvastatin Calcium 80 MG Tablet GT (21:32)
[2022-10-27] MEDS: MELATONIN 10 MG TABLET GT (21:32)
[2022-10-28] VITALS (18 sets, daily range): BP systolic 100–141; BP diastolic 58–75; PULSE 80–113; RESP 14–26; TEMP 36.8–37.2; O2SAT 89–98; BMI 19.5
--- NOTE | 2022-10-28 02:46 | EKG12_ITS ---
Test Reason : CP Blood Pressure : / mmHG Vent. Rate : 105 BPM Atrial Rate : 105 BPM P-R Int : 124 ms QRS Dur : 066 ms QT Int : 316 ms P-R-T Axes : -11 -13 -09 degrees QTc Int : 417 ms Sinus tachycardia Otherwise normal ECG When compared with ECG of 15-OCT-2022 20:02, Questionable change in QRS axis ST no longer elevated in Inferior leads T wave inversion now evident in Inferior leads Confirmed by SANCHEZ HAQUE, TIMOTEO ([id number]), editor department KAITLIN MCKEON ([id number]) on 10/29/2022 9:57:59 AM Referred By: Confirmed By:TIMOTEO BRADFORD MD
[2022-10-28 04:00] LABS: Absolute Lymphocyte Count 0.43 X10^3/uL (0.83-4.51); Absolute Neutrophil Count 6.6 X10^3/uL (2.0-7.7); Basophil# 0.01 X10^3/uL; Basophil% 0.1 % (0-1); Eosinophil# 0.12 X10^3/uL; Eosinophils% 1.5 % (0-5); Hematocrit 37.8 % (40-54); Hemoglobin 11.6 g/dL (13.0-16.5); Lymphocyte # 0.43 X10^3/ul (0.83-4.51); Lymphocyte % 5.4 % (19-41); Mean Corp Hgb Conc 30.7 g/dL (32-36); Mean Corpuscular Hgb 29.8 pg (27.0-32.0); Mean Corpuscular Volume 97.2 fL (80-94); Mean Platelet Vol. 9.7 fl (6.2-12.0); Monocyte# 0.67 X10^3/uL; Monocyte% 8.5 % (0-10); NRBC Flagged by Analyzer 0 % (0-5); Neutrophil # 6.64 X10^3/uL (2.7-7.7); Neutrophil % 84.2 % (47-70); POSITIVE DIFFERENTIAL YES; Platelet Count 239 K/mm3 (150-450); RBC Distribution Width CV 14.1 % (11.6-14.6); RBC Distribution Width SD 50.1 fl (35.1-43.9); Red Blood Count 3.89 M/mm3 (4.6-6.2); White Blood Count 7.9 K/mm3 (4.4-11.0)
[2022-10-28 04:03] LABS: Differential Indicated SCAN CRITERIA MET
[2022-10-28 04:31] LABS: Differential Comment SCANNED
[2022-10-28] MEDS: busPIRone 5 MG Tablet GT ×3 (05:28→20:13)
[2022-10-28 07:25] LABS: Troponin-I HS 58 pg/mL (3.0-78.0)
[2022-10-28 07:42] LABS: Troponin-I HS 75 pg/mL (3.0-78.0)
[2022-10-28] MEDS: Ipratropium/Albuterol Sulfate 3 ML AMPUL.NEB INHALATION ×2 (07:46→19:12)
--- NOTE | 2022-10-28 08:48 | PN.HOSP_ITS ---
Subjective Subjective Per nursing staff he did wear his BiPAP last night from about 8:30 PM to 3:30 in the morning Objective Data Objective Data Vital Signs: Vital Signs Temp Pulse Resp BP Pulse Ox O2 Del Method O2 Flow Rate 98.4 F 97 22 H 130/75 H 92 Nasal Cannula 1 10/28/22 05:21 10/28/22 05:33 10/28/22 05:21 10/28/22 05:21 10/28/22 05:33 10/28/22 05:33 10/28/22 05:33 FiO2 25 10/28/22 02:50 Oxygen Flow Rate (L/min) 1 Oxygen Delivery Method Nasal Cannula Weight: 110 lb 3.698 oz Body Mass Index (BMI) 19.5 Intake & Output: Intake and Output for Last 24 Hours 10/27/22 10/28/22 10/29/22 03:59 03:59 03:59 Intake Total 2241.17 / 2241.17 4489 / 4489 689 / 689 Output Total 1300 / 1300 1525 / 1525 750 / 750 Balance 941.17 / 941.17 2964 / 2964 -61 / -61 Medical Nutrition Assessment Dietitian: Malnutrition Criteria Met Start: 10/16/22 12:47 Freq: Status: Active Protocol: Document 10/26/22 14:41 JAMESON (Rec: 10/26/22 14:41 [id number]) Nutrition Malnutrition Evidence of Malnutrition Exists Yes Malnutrition (severe): Chronic Evidenced By Suboptimal Energy Intake ( Severe),Weight Loss (Severe) Clinical Problem Chronic Disease or Condition Related Malnutrition Etiology severe, chronic malnutrition related to inadequate energy intake s/p stroke Signs/Symptoms as evidenced by estimated PO intake meeting < 75% of estimated energy needs > 3 months; unintentional wt loss of 22.7#/17.5% wt loss x 8 months; BMI 18.9 Status Active Problem Recommendation Dietitian Recommendations/Changes NPO per PERSONAL LINES ADVISOR; TF to meet~100% estimated nutrition needs. Continue TF via PEG: Jevity 1. 5 at goal rate of 50mL/hour w/ 125mL H2O flush every 4 hours to provide 1800 calories, 76 g protein, and 1715mL total fluid/day. Would start at 20mL /hour and increase by 15mL/ hour every 8-12 hours as tolerated until goal rate is achieved. Lab / Micro Data Result Diagrams: 10/28/22 03:36 10/27/22 06:05 Labs: Laboratory Results - last 24 hr 10/21/22 08:15: Acetylchol Rcpt Block Ab 17 10/27/22 11:55: Urine Color Yellow, Urine Clarity Sl. Cloudy, Urine pH 6.0, Ur Specific Thurman 1.015, Urine Protein 30 H, Urine Glucose (UA) Normal, Urine Ketones Negative, Urine Occult Blood 50 H, Urine Nitrite Negative, Urine Bilirubin Negative, Urine Urobilinogen Normal, Ur Leukocyte Esterase 25 H, Urine RBC 0-5 SEEN, Urine WBC 0-5 SEEN, Ur Squamous Epith Cells 0 SEEN, Urine Bacteria 0 SEEN, Urine Mucus 0 SEEN 10/28/22 03:36: WBC 7.9, RBC 3.89 L, Hgb 11.6 L, Hct 37.8 L, MCV 97.2 H, MCH 29.8, MCHC 30.7 L, RDW Std Deviation 50.1 H, RDW Coeff of Uziel 14.1, Plt Count 239, MPV 9.7, Immature Gran % (Auto) 0.300, Neut % (Auto) 84.2 H, Lymph % (Auto) 5.4 L, [place] % (Auto) 8.5, Eos % (Auto) 1.5, Baso % (Auto) 0.1, Absolute Neuts (auto) 6.6, Absolute Lymphs (auto) 0.43 L, Nucleated RBC % 0, Differential Comment SCANNED 10/28/22 03:36: Troponin I High Sens 58 10/28/22 06:42: Troponin I High Sens 75 Micro: Microbiology 10/16/22 08:47 Mucosa - Nose Respiratory Panel (PCR) - Final 10/15/22 19:32 Nasal Secretion SARS-CoV-2 & FLU Antigen (Rapid) - Final ABG Data ABG results: ABG 10/27/22 17:37 Specimen Type ART Sample Site L Radial pH 7.36 Bicarbonate Actual 48.8 H Total CO2 > 50 Base Excess 23 H O2 Saturation 98 ABG pCO2 86.0 H* ABG pO2 112 H Gonzalo Test Positive Liter Flow 2.0 Crit Call To/Read Back Yes Blood Gas Notified Whom KOTNOSIS Physical Exam Narrative General: Alert, cooperative, No apparent distress HEENT: Atraumatic, PERRLA, EOMI, Normocephalic Oral: Moist Mucosa Neck: Supple, No JVD Lungs: Diminished, Normal air movement, No rhonchi, No wheeze, No rales Cardiovascular: Regular rate, Regular Rhythm, Normal S1, Normal S2, murmurs Abdomen: Soft, Non Tender, Non-Distended, No Hepato-splenomegaly Extremities: No edema, Capillary Refill Less than 3 Seconds Skin: No rashes, No breakdown Musculoskeletal: No Tenderness to Palpation of Joints or Extremities Neurological: Moves all extremities Psych/Mental Status: Normal Affect, Appropriate Assessment & Plan Assessment/Plan (1) Acute and chronic respiratory failure with hypercapnia: PLAN: Acute combined respiratory failure-etiology though I suspect this is due to a neuromuscular disease has not been formally diagnosed. Etiology of such as to be determined but patient has dysphagia and trouble managing his secretions where he required a PEG tube placement. Aa gradient on room air ABG when he first came in demonstrates hypoventilation syndrome reiterated with him that he needs to wear his BiPAP at night, and during the day while he sleeps (2) CVA (cerebral vascular accident): PLAN: Ruled out 10/16 pt developed new onset left-sided weakness and expressive aphasia. Received tenecteplase. continue ASA, clopidogrel, HIS CTA of head and neck negative on 10/16 subsequent MRI on 10/17 was negative for CVA (3) Dysphagia: PLAN: ST eval Failed modified barium swallow. Concern for neurodegenerative process including Parkinson's versus PSP versus MSA. Though unlikely, cannot rule out the possibility of this being myasthenia gravis we will check a acetylcholinesterase blocking antibody as well as modulating antibody. PEG tube placed 10/21 (4) Anxiety: PLAN: on buspirone, duloxetine avoid BZDs given respiratory issues. Symptoms seem to be exacerbated with the use of haloperidol. We will add to his allergy list though not a true allergy but adverse reaction Can increase Seroquel to 50 mg today as well as continuing with Ambien and melatonin if necessary might also need to add trazodone PLAN: Plan Chronic stable conditions: * aortic valve stenosis with insufficiency-mild to moderate, patient follows up with cardiology * essential hypertension-continue current medications * hyperlipidemia-patient is on a statin DVT: SCDs Charges/Coding Visit Charges Inpatient E&M: 64695 Subs Hosp L2
[2022-10-28] MEDS: Menthol/Lanolin/Calamine/Znox 113 GM Tube 1 APPLIC TOPICAL ×2 (09:25→20:13)
[2022-10-28] MEDS: Jevity 1.5 1,000 ML 50 ML GT (09:26)
[2022-10-28] MEDS: Lisinopril 10 MG Tablet GT (09:27)
[2022-10-28] MEDS: DULoxetine Hcl 30 MG Capsule PO ×2 (09:27→20:13)
--- NOTE | 2022-10-28 11:09 | CASEMGMT ---
Social Work SW called [facility] to check on pt precert. Spoke to Trinity. Trinity informed precert has been submitted but no response has been received from [facility] as of yet. Trinity informed if news comes today that Genevieve will call back. YESSICA received pc from pt immediately after speaking to [facility]. , Donna, shared concerns that the SNF will give pt bed away from insurance takes to long to make a decisions. SW reassured Donna this will not happen. SW discussed feelings of anxiety and stress with Donna. Offered some education on coping skills to aid with managing feelings of being overwhelmed and suggested Donna ask for support from family if possible. Donna receptive to info on coping skills and agreeable to thinking about asking family for help. YESSICA informed Donna will receive pc to be given update as soon as news is given regarding insurance precert. PLAN: [facility], Pending precert. MARAL Hardy
[2022-10-28] MEDS: QUEtiapine 25 MG Tablet 50 MG PO (17:56)
[2022-10-28] MEDS: Acetaminophen 650 MG/20 ML UDC GT (18:17)
[2022-10-28 19:47] LABS: ACHR AB Modulating 0 % (0-45)
[2022-10-28] MEDS: Atorvastatin Calcium 80 MG Tablet GT (20:13)
[2022-10-28] MEDS: MELATONIN 10 MG TABLET GT (20:13)
[2022-10-28] MEDS: 0.9% Saline Lock 10 ML Syringe IV (20:13)
[2022-10-28] MEDS: Zolpidem Tartrate 5 MG Tablet PO (23:34)
[2022-10-29] VITALS (9 sets, daily range): BP systolic 102–147; BP diastolic 53–77; PULSE 85–110; RESP 14–20; TEMP 36.5–37.1; O2SAT 80–100; BMI 19.9
[2022-10-29] MEDS: busPIRone 5 MG Tablet GT ×3 (06:02→20:04)
[2022-10-29] MEDS: Jevity 1.5 1,000 ML 50 ML GT (06:20)
--- NOTE | 2022-10-29 07:20 | CPS ---
mini shifter RN reported patient off BiPAP at 0530.
[2022-10-29] MEDS: Ipratropium/Albuterol Sulfate 3 ML AMPUL.NEB INHALATION ×2 (07:24→13:15)
[2022-10-29] MEDS: Lisinopril 10 MG Tablet GT (08:37)
[2022-10-29] MEDS: DULoxetine Hcl 30 MG Capsule PO ×2 (08:38→20:03)
[2022-10-29] MEDS: Acetaminophen 650 MG/20 ML UDC GT ×2 (08:44→15:37)
[2022-10-29] MEDS: Menthol/Lanolin/Calamine/Znox 113 GM Tube 1 APPLIC TOPICAL ×2 (08:57→20:11)
--- NOTE | 2022-10-29 09:14 | PCM.PN.HOSP ---
Subjective Subjective Much more alert today, he wore his BiPAP last night as well as the night before. Continue to encourage him to wear his BiPAP whenever he is sleeping Objective Data Objective Data Vital Signs: Vital Signs Temp Pulse Resp BP Pulse Ox O2 Del Method O2 Flow Rate 98.5 F 110 H 18 147/66 H 80 Nasal Cannula 2 10/29/22 09:00 10/29/22 09:00 10/29/22 09:00 10/29/22 09:00 10/29/22 09:00 10/29/22 09:00 10/29/22 09:00 FiO2 25 10/29/22 04:45 Oxygen Flow Rate (L/min) 2 Oxygen Delivery Method Nasal Cannula Weight: 112 lb 10.499 oz Body Mass Index (BMI) 19.9 Intake & Output: Intake and Output for Last 24 Hours 10/28/22 10/29/22 10/30/22 03:59 03:59 03:59 Intake Total 4489 / 4489 2311 / 2311 1577 / 1577 Output Total 1525 / 1525 1825 / 1825 400 / 400 Balance 2964 / 2964 486 / 486 1177 / 1177 Medical Nutrition Assessment Dietitian: Malnutrition Criteria Met Start: 10/16/22 12:47 Freq: Status: Active Protocol: Document 10/26/22 14:41 LO (Rec: 10/26/22 14:41 [id number]) Nutrition Malnutrition Evidence of Malnutrition Exists Yes Malnutrition (severe): Chronic Evidenced By Suboptimal Energy Intake ( Severe),Weight Loss (Severe) Clinical Problem Chronic Disease or Condition Related Malnutrition Etiology severe, chronic malnutrition related to inadequate energy intake s/p stroke Signs/Symptoms as evidenced by estimated PO intake meeting < 75% of estimated energy needs > 3 months; unintentional wt loss of 22.7#/17.5% wt loss x 8 months; BMI 18.9 Status Active Problem Recommendation Dietitian Recommendations/Changes NPO per CERAMICS MACHINE OPERATOR; TF to meet~100% estimated nutrition needs. Continue TF via PEG: Jevity 1. 5 at goal rate of 50mL/hour w/ 125mL H2O flush every 4 hours to provide 1800 calories, 76 g protein, and 1715mL total fluid/day. Would start at 20mL /hour and increase by 15mL/ hour every 8-12 hours as tolerated until goal rate is achieved. Lab / Micro Data Result Diagrams: 10/28/22 03:36 10/27/22 06:05 Labs: Laboratory Results - last 24 hr 10/21/22 08:15: Acetylchol Rcpt Block Ab 17, Acetylchol Rcpt Modu Ab 0 Micro: Microbiology 10/27/22 11:55 Urine Catheter - Bowden Urine Culture - Final Culture exhibits no growth. 10/16/22 08:47 Mucosa - Nose Respiratory Panel (PCR) - Final 10/15/22 19:32 Nasal Secretion SARS-CoV-2 & FLU Antigen (Rapid) - Final Physical Exam Narrative General: Alert, cooperative, No apparent distress HEENT: Atraumatic, PERRLA, EOMI, Normocephalic Oral: Moist Mucosa Neck: Supple, No JVD Lungs: Diminished, Normal air movement, No rhonchi, No wheeze, No rales Cardiovascular: Regular rate, Regular Rhythm, Normal S1, Normal S2, murmurs Abdomen: Soft, Non Tender, Non-Distended, No Hepato-splenomegaly Extremities: No edema, Capillary Refill Less than 3 Seconds Skin: No rashes, No breakdown Musculoskeletal: No Tenderness to Palpation of Joints or Extremities Neurological: Moves all extremities Psych/Mental Status: Normal Affect, Appropriate Assessment & Plan Assessment/Plan (1) Acute and chronic respiratory failure with hypercapnia: PLAN: Acute combined respiratory failure-etiology though I suspect this is due to a neuromuscular disease has not been formally diagnosed. Etiology of such as to be determined but patient has dysphagia and trouble managing his secretions where he required a PEG tube placement. Aa gradient on room air ABG when he first came in demonstrates hypoventilation syndrome reiterated with him that he needs to wear his BiPAP at night, and during the day while he sleeps (2) CVA (cerebral vascular accident): PLAN: Ruled out 10/16 pt developed new onset left-sided weakness and expressive aphasia. Received tenecteplase. continue ASA, clopidogrel, HIS CTA of head and neck negative on 10/16 subsequent MRI on 10/17 was negative for CVA (3) Dysphagia: PLAN: ST eval Failed modified barium swallow. Concern for neurodegenerative process including Parkinson's versus PSP versus MSA. Though unlikely, cannot rule out the possibility of this being myasthenia gravis we will check a acetylcholinesterase blocking antibody as well as modulating antibody. PEG tube placed 10/21 (4) Anxiety: PLAN: on buspirone, duloxetine avoid BZDs given respiratory issues. Symptoms seem to be exacerbated with the use of haloperidol. 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
--- NOTE | 2022-10-29 10:10 | CASEMGMT ---
Social Work YESSICA received phone call from Hattie at [facility]. Precert was started with insurance incorrectly and now will need to be started again. At this time YESSICA sent all clinicals to [facility] via [facility] and then called to inform Hattie that information has been sent and needs to be submitted with insurance as soon as possible as per physician, pt is ready for discharge. MARAL Freedman
[2022-10-29] MEDS: QUEtiapine 25 MG Tablet 50 MG PO (18:27)
[2022-10-29] MEDS: MELATONIN 10 MG TABLET GT (20:04)
[2022-10-29] MEDS: Atorvastatin Calcium 80 MG Tablet GT (20:04)
[2022-10-29] MEDS: Zolpidem Tartrate 5 MG Tablet PO (20:10)
[2022-10-30] VITALS (9 sets, daily range): BP systolic 98–140; BP diastolic 54–79; PULSE 81–98; RESP 14–28; TEMP 36.6–36.9; O2SAT 93–100; BMI 18.1
[2022-10-30] MEDS: Jevity 1.5 1,000 ML 50 ML GT (00:20)
[2022-10-30] MEDS: busPIRone 5 MG Tablet GT ×2 (05:28→13:56)
[2022-10-30 07:29] LABS: Anion Gap 3 (5-15); BUN 20 mg/dL (7-18); BUN/Creat Ratio 30.7 RATIO (10-20); Calcium,Total 10.2 mg/dL (8.5-10.1); Chloride 93 mmol/L (98-107); Creatinine, Serum 0.65 mg/dL (0.70-1.30); EST Glomerular Filtration Rate 128 mL/min (>60); Est Glom Filt Rate - Afr Amer 154 mL/min (>60); Estimated Creatinine Clearance 43.82 ml/min; Glucose 126 mg/dL (74-106); Potassium 3.9 mmol/L (3.5-5.1); Sodium Level 138 mmol/L (136-145)
--- NOTE | 2022-10-30 09:00 | CASEMGMT ---
Social Work SW spoke with Hattie at [facility]. Pt was denied admission by insurance. SW inquiring about reasoning and peer to peer option. Hattie states she has requested this information from insurance and it has not been provided yet. Hattie to notify this SW when she receives information from insurance company. Physician updated. MARAL Salas
[2022-10-30] MEDS: DULoxetine Hcl 30 MG Capsule PO (09:59)
[2022-10-30] MEDS: Menthol/Lanolin/Calamine/Znox 113 GM Tube 1 APPLIC TOPICAL (09:59)
[2022-10-30] MEDS: Lisinopril 10 MG Tablet GT (09:59)
[2022-10-30] MEDS: Acetaminophen 650 MG/20 ML UDC GT ×2 (10:39→17:42)
--- NOTE | 2022-10-30 10:45 | PN.HOSP_ITS ---
Subjective Subjective Did wear his BiPAP overnight again, no issues Objective Data Objective Data Vital Signs: Vital Signs Temp Pulse Resp BP Pulse Ox O2 Del Method O2 Flow Rate 98.2 F 96 20 H 104/56 L 97 Nasal Cannula 1 10/30/22 02:43 10/30/22 02:43 10/30/22 02:43 10/30/22 02:43 10/30/22 02:43 10/30/22 08:58 10/30/22 08:58 FiO2 25 10/30/22 00:33 Oxygen Flow Rate (L/min) 1 Oxygen Delivery Method Nasal Cannula Weight: 102 lb 4.712 oz Body Mass Index (BMI) 18.1 Intake & Output: Intake and Output for Last 24 Hours 10/29/22 10/30/22 10/31/22 03:59 03:59 03:59 Intake Total 2311 / 2311 3829 / 3829 125 / 125 Output Total 1825 / 1825 1225 / 1225 400 / 400 Balance 486 / 486 2604 / 2604 -275 / -275 Medical Nutrition Assessment Dietitian: Malnutrition Criteria Met Start: 10/16/22 12:47 Freq: Status: Active Protocol: Document 10/26/22 14:41 LO (Rec: 10/26/22 14:41 LO [id number]) Nutrition Malnutrition Evidence of Malnutrition Exists Yes Malnutrition (severe): Chronic Evidenced By Suboptimal Energy Intake ( Severe),Weight Loss (Severe) Clinical Problem Chronic Disease or Condition Related Malnutrition Etiology severe, chronic malnutrition related to inadequate energy intake s/p stroke Signs/Symptoms as evidenced by estimated PO intake meeting < 75% of estimated energy needs > 3 months; unintentional wt loss of 22.7#/17.5% wt loss x 8 months; BMI 18.9 Status Active Problem Recommendation Dietitian Recommendations/Changes NPO per CREDENTIALS SPECIALIST; TF to meet~100% estimated nutrition needs. Continue TF via PEG: Jevity 1. 5 at goal rate of 50mL/hour w/ 125mL H2O flush every 4 hours to provide 1800 calories, 76 g protein, and 1715mL total fluid/day. Would start at 20mL /hour and increase by 15mL/ hour every 8-12 hours as tolerated until goal rate is achieved. Lab / Micro Data Result Diagrams: 10/28/22 03:36 10/30/22 06:45 Labs: Laboratory Results - last 24 hr 10/30/22 06:45: Sodium 138, Potassium 3.9, Chloride 93 L, Carbon Dioxide 42.0 H, Anion Gap 3 L, BUN 20 H, Creatinine 0.65 L, Estim Creat Clear Calc 43.82, Est GFR (MDRD) Af Amer 154, Est GFR (MDRD) Non-Af 128, BUN/Creatinine Ratio 30.7 H, Glucose 126 H, Calcium 10.2 H Micro: Microbiology 10/27/22 11:55 Urine Catheter - Bowden Urine Culture - Final Culture exhibits no growth. 10/16/22 08:47 Mucosa - Nose Respiratory Panel (PCR) - Final 10/15/22 19:32 Nasal Secretion SARS-CoV-2 & FLU Antigen (Rapid) - Final Physical Exam Narrative General: Alert, cooperative, No apparent distress HEENT: Atraumatic, PERRLA, EOMI, Normocephalic Oral: Moist Mucosa Neck: Supple, No JVD Lungs: Diminished, Normal air movement, No rhonchi, No wheeze, No rales Cardiovascular: Regular rate, Regular Rhythm, Normal S1, Normal S2, murmurs Abdomen: Soft, Non Tender, Non-Distended, No Hepato-splenomegaly Extremities: No edema, Capillary Refill Less than 3 Seconds Skin: No rashes, No breakdown Musculoskeletal: No Tenderness to Palpation of Joints or Extremities Neurological: Moves all extremities Psych/Mental Status: Normal Affect, Appropriate Assessment & Plan Assessment/Plan (1) Acute and chronic respiratory failure with hypercapnia: PLAN: Acute combined respiratory failure-etiology though I suspect this is due to a neuromuscular disease has not been formally diagnosed. Etiology of such as to be determined but patient has dysphagia and trouble managing his secretions where he required a PEG tube placement. Aa gradient on room air ABG when he first came in demonstrates hypoventilation syndrome reiterated with him that he needs to wear his BiPAP at night, and during the day while he sleeps (2) CVA (cerebral vascular accident): PLAN: Ruled out 10/16 pt developed new onset left-sided weakness and expressive aphasia. Received tenecteplase. continue ASA, clopidogrel, HIS CTA of head and neck negative on 10/16 subsequent MRI on 10/17 was negative for CVA (3) Dysphagia: PLAN: ST eval Failed modified barium swallow. Concern for neurodegenerative process including Parkinson's versus PSP versus MSA. Acetylcholine esterase antibodies are negative, unlikely to be myasthenia gravis PEG tube placed 10/21 (4) Anxiety: PLAN: on buspirone, duloxetine avoid BZDs given respiratory issues. Symptoms seem to be exacerbated with the use of haloperidol. 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
--- NOTE | 2022-10-30 12:20 | CASEMGMT ---
Addendum entered by Ivon Goodman 10/30/22 14:42: Per physician, Peer to Peer resulted in overturned determination and pt has been approved for SNF. Phone call to Hattie at [facility] and updated. Hattie states she spoke with insurance and pt can admit today. Physician updated and pt is ready for discharge today. MARAL Freedman Addendum entered by Ivon Goodman 10/30/22 13:32: Social Work Phone call to [facility] peer to peer line and spoke with [facility] and peer to peer arranged. Dr. Layla Stevenson from [facility] will be calling Dr. Oh between 1:30 and 3:30 today for peer to peer. MARAL Freedman Original Note: Social Work Return call from [facility] and Peer to Peer can be completed prior to 1pm today by calling [phone] option 3. Physician updated and agreeable to complete peer to peer. Phone call placed to pt and explained that insurance has denied and peer to peer will be attempted but outcome cannot be guaranteed. Pt is upset by insurance determination. Support provided. YESSICA discussed further plans if pt is denied after peer to peer. Pt states she cannot take care of pt at home as he is very impulsive and requires 24 hour supervision and she will need assistance with new tube feeding. YESSICA presented option of private paying at the nursing facility. Pt to consider options. YESSICA will follow up after peer to peer determination has been made. MARAL Freedman
[2022-10-30] MEDS: Ipratropium/Albuterol Sulfate 3 ML AMPUL.NEB INHALATION ×2 (13:25→19:14)
[2022-10-30] MEDS: Tamsulosin HCl 0.4 MG Capsule PO (13:56)
--- NOTE | 2022-10-30 15:48 | TREXTCAR_ITS ---
Diet Diet Order/Speech Therapy: 10/19/22 14:42 NPO [Diet: Nothing Per Oral] Is pt able to select menu?: Yes Diet Comments: Strict NPO - frequent oral care Routine Orders/Code Status Routine Lab Work: CBC and BMP Code Status: DNRCC-A Wound(s) R buttock: Wound Type: Pressure Injury abdomen: Wound Type: Surgical Incision left inner buttock: Wound Type: combination of shear/pressure Dressing Change: Mepilex Left Elbow: Wound Type: Skin Tear bridge of nose: Wound Type: Pressure Injury Therapies Physical Therapy: Eval and Treat Occupational Therapy: Eval and Treat Speech Therapy: Eval and Treat Problem/Diagnosis (1) Acute and chronic respiratory failure with hypercapnia: Status: Chronic Code(s): J96.22 - Acute and chronic respiratory failure with hypercapnia Plan: Acute combined respiratory failure-etiology though I suspect this is due to a neuromuscular disease has not been formally diagnosed. Etiology of such as to be determined but patient has dysphagia and trouble managing his secretions where he required a PEG tube placement. Aa gradient on room air ABG when he first came in demonstrates hypoventilation syndrome reiterated with him that he needs to wear his BiPAP at night, and during the day while he sleeps (2) CVA (cerebral vascular accident): Status: Acute Code(s): I63.9 - Cerebral infarction, unspecified Plan: Ruled out 10/16 pt developed new onset left-sided weakness and expressive aphasia. Received tenecteplase. continue ASA, clopidogrel, HIS CTA of head and neck negative on 10/16 subsequent MRI on 10/17 was negative for CVA (3) Dysphagia: Status: Acute Code(s): R13.10 - Dysphagia, unspecified Plan: ST eval Failed modified barium swallow. Concern for neurodegenerative process including Parkinson's versus PSP versus MSA. Acetylcholine esterase antibodies are negative, unlikely to be myasthenia gravis PEG tube placed 10/21 (4) Anxiety: Status: Acute Code(s): F41.9 - Anxiety disorder, unspecified Plan: on buspirone, duloxetine avoid BZDs given respiratory issues. Symptoms seem to be exacerbated with the use of haloperidol. 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 Continue TF via PEG: Jevity 1.5 at goal rate of 50mL/hour w/ 125mL H2O flush every 4 hours to provide 1800 calories, 76 g protein, and 1715mL total fluid/ day. Would start at 20mL/hour and increase by 15mL/hour every 8-12 hours as tolerated until goal rate is achieved. Discharge Plan Admission Admit Date/Time: 10/16/22 09:43 Attending Provider: León Oh Primary Care Provider: Em Moore Consulting Providers: Susy Rankin ; Larry Alonzo ; Bear Powell ; Yoav Leonard ; Luis M Anderson ; Shreyas Russo ; Giulia Cardozo ASSOCIATE ACCOUNT EXECUTIVE ; Wan Sandoval ; Rosy Mario ; Ike Geronimo ; Juaquin Pal ; Rosamaria Puri ; Jaren Villanueva ; Shanna Jimenez ; Cass Kowalski ; Teo Mar ; Tremayne Hammond ; Troy Campos ; Troy Hall ; Ton Carlson ; Amy Pleitez ; Justin Rosa ; Jama Campos ; Teofilo Wade ; Ajay Rodriguez ; Kade Segovia ; Napoleon Soto ; Bobby Blackman ; Bobby Funez ; Donald Woodward ; Ash Lott ; Herber Hutton ; Phil Montes De Oca Discharge Orders/Prescriptions Prescriptions: New buspirone 5 mg Tablet 5 mg G-tube TID Qty: 0 0RF melatonin 10 mg Tablet, Sublingual 10 mg G-tube QHS Qty: 0 0RF quetiapine 25 mg Tablet 50 mg PO 1800 Qty: 0 0RF sennosides-docusate sodium [Stool Softener-Stimulant Laxat] 8.6-50 mg Tablet 2 tab G-tube BID PRN PRN (Reason: Constipation) Qty: 0 0RF tamsulosin 0.4 mg Capsule 0.4 mg PO DAILY@1730 Qty: 0 0RF zolpidem 5 mg Tablet 5 mg PO QHS PRN PRN (Reason: Insomnia) Qty: 0 0RF Continued omega-3 fatty acids [Fish Oil Concentrate] 1,000 mg capsule 1,000 mg PO QDAY rosuvastatin 40 mg tablet 40 mg PO QDAY cholecalciferol (vitamin D3) 50 mcg (2,000 unit) capsule 50 mcg PO DAILY albuterol sulfate 2.5 mg /3 mL (0.083 %) solution for nebulization 2.5 mg inhalation Q4H PRN (Reason: Shortness Of Breath) loratadine 10 mg tablet 10 mg PO DAILY PRN (Reason: allergy ) Galzin 50 mg (zinc) capsule 50 mg PO DAILY megestrol 20 mg tablet 20 mg PO DAILY Label Comments: take 1 tablet by mouth once daily TO INCREASE APPITITE zolpidem 10 mg tablet 5 mg PO QHS Label Comments: take 1/2 to 1 tablet by mouth at bedtime tadalafil 2.5 mg tablet 2.5 mg PO DAILY ascorbic acid (vitamin C) 500 mg capsule 500 mg PO DAILY duloxetine 30 mg capsule,delayed release(DR/EC) 30 mg PO BID lisinopril 20 mg tablet 20 mg PO DAILY Qty: 90 3RF clopidogrel [Plavix] 75 mg tablet 75 mg PO DAILY Qty: 90 3RF Discontinued clonazepam 0.5 mg tablet 0.5 mg PO DAILY Rx Instructions: for 180 days Referrals / Follow Up: Em Moore MD [Primary Care Provider] - Disposition Disposition (needs filled in before D/C Order can be placed): [facility]
--- NOTE | 2022-10-30 16:09 | CASEMGMT ---
Social Work Per Physician pt is ready for discharge today. 7000 convalescent form completed in [facility] and faxed along with discharge orders and covid test to [facility]. Transportation arranged by clinical unit coordinator with [facility] ambulance for 7:00 pickup via cot. SW placed phone call to pt and updated on discharge time and she is agreeable. [facility] and bedside nurse notified of discharge time. Disposition: [facility], skilled level of care under convalescent stay. MARAL Freedman
--- NOTE | 2022-10-30 16:28 | DS.PCM_ITS ---
Providers Date of Admission: 10/16/22 Primary Care Physician: Dr. Em Moore MD Consultations 10/16/22 08:17 Consult: Terminal Worker / Pulmonary Medicine Routine Consulting Provider: [facility] Reason for Consult: stroke for thrombolytic EMERGENT Consult: Yes Notified: Yes Date Notified: 10/16/22 Time Notified: 08:17 Method of Notification: Verbal Consult: Neurology Routine Consulting Provider: Neurology - [facility] Reason for Consult: stroke for thrombolytic EMERGENT Consult: Yes MD Notified: Yes Date Notified: 10/16/22 Time Notified: 08:17 Method of Notification: Verbal 10/19/22 17:47 Consult: Gastroenterology Routine Consulting Provider: [facility] Reason for Consult: PEG tube EMERGENT Consult: No Notified: Yes Date Notified: 10/19/22 Time Notified: 17:47 Method of Notification: Verbal 10/22/22 06:27 Consult: Onc/Wound/hand bender Routine Comment: Reason For Visit: SOB Diagnosis Discharge Diagnosis (1) Acute and chronic respiratory failure with hypercapnia: Status: Chronic Code(s): J96.22 - Acute and chronic respiratory failure with hypercapnia Plan: Acute combined respiratory failure-etiology though I suspect this is due to a neuromuscular disease has not been formally diagnosed. Etiology of such as to be determined but patient has dysphagia and trouble managing his secretions where he required a PEG tube placement. Aa gradient on room air ABG when he first came in demonstrates hypoventilation syndrome reiterated with him that he needs to wear his BiPAP at night, and during the day while he sleeps (2) CVA (cerebral vascular accident): Status: Acute Code(s): I63.9 - Cerebral infarction, unspecified Plan: Ruled out 10/16 pt developed new onset left-sided weakness and expressive aphasia. Received tenecteplase. continue ASA, clopidogrel, HIS CTA of head and neck negative on 10/16 subsequent MRI on 10/17 was negative for CVA (3) Dysphagia: Status: Acute Code(s): R13.10 - Dysphagia, unspecified Plan: ST eval Failed modified barium swallow. Concern for neurodegenerative process including Parkinson's versus PSP versus MSA. Acetylcholine esterase antibodies are negative, unlikely to be myasthenia gravis PEG tube placed 10/21 (4) Anxiety: Status: Acute Code(s): F41.9 - Anxiety disorder, unspecified Plan: on buspirone, duloxetine avoid BZDs given respiratory issues. Symptoms seem to be exacerbated with the use of haloperidol. 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, patient follows up with cardiology * essential hypertension-continue current medications * hyperlipidemia-patient is on a statin Disposition to SNF secondary to likely neurodegenerative disease with dysregulated speech and needing tube feeds DVT: SCDs Medications at Discharge Home Medications omega-3 fatty acids 1,000 mg capsule (Fish Oil Concentrate) 1,000 mg PO QDAY supplement 10/19/17 rosuvastatin 40 mg tablet 40 mg PO QDAY cholesterol 10/19/17 duloxetine 30 mg capsule,delayed release 30 mg PO BID mental health 11/28/20 lisinopril 20 mg tablet 20 mg PO DAILY #90 tabs 11/03/21 albuterol sulfate 2.5 mg/3 mL (0.083 %) solution for nebulization 2.5 mg inhalation Q4H PRN Shortness Of Breath 01/30/22 cholecalciferol (vitamin D3) 50 mcg (2,000 unit) capsule 50 mcg PO DAILY vitamin 01/30/22 zinc acetate 50 mg (zinc) capsule (Galzin) 50 mg PO DAILY 03/09/22 clopidogrel 75 mg tablet (Plavix) 75 mg PO DAILY #90 tabs 08/07/22 tadalafil 2.5 mg tablet 2.5 mg PO DAILY 09/01/22 ascorbic acid (vitamin C) 500 mg capsule 500 mg PO DAILY 10/15/22 loratadine 10 mg tablet 10 mg PO DAILY PRN allergy 10/15/22 megestrol 20 mg tablet 20 mg PO DAILY 10/15/22 zolpidem 10 mg tablet 5 mg PO QHS 10/15/22 buspirone 5 mg tablet 5 mg G-tube TID #0 tabs 10/30/22 melatonin 10 mg sublingual tablet 10 mg G-tube QHS #0 tabs 10/30/22 quetiapine 25 mg tablet 50 mg PO 1800 #0 tabs 10/30/22 sennosides 8.6 mg-docusate sodium 50 mg tablet (Stool Softener-Stimulant Laxative) 2 tab G-tube BID PRN PRN Constipation #0 tabs 10/30/22 tamsulosin 0.4 mg capsule 0.4 mg PO DAILY@1730 #0 caps 10/30/22 zolpidem 5 mg tablet 5 mg PO QHS PRN PRN Insomnia #0 tabs 10/30/22 Hospital Course Operations None Procedures EGD and Peg tube placement Summary of Care Provided Minutes Spent on Discharge: 40 Hospital Course: Per HPI: MARY ELLEN LABOY, is a 71-year-old male with a history of CVA with resultant difficulty swallowing in January 2022, right-sided carotid stenosis s/p CEA, and hypertension presented [facility] with hypoxia which was found at his neurologist office day of presentation. Per neurology note he had had some worsening of his dysarthria and dysphagia and given the new hypoxia he wanted MRI head and neck as there is concern for central etiology of his hypoxia.? In ED patient was 81% but responded well to 2 L of O2 and hospitalist was contacted for admission.? Patient evaluated with at bedside and they report that he began to have difficulties after his stroke in January and that his speech and swallowing had never completely returned to baseline but he had been doing better until May when he began to slowly decline.? Over the past 1 month he has been having a harder time breathing and has had shallow breathing as well and then over the past couple days this is worsened. He is supposed to go back to see a telescope maintenance and have pulmonary function tests but has not had this scheduled yet. He went to his neurologist's office and was found to be hypoxic in the s and was sent to the emergency department where his hypoxia was confirmed.? Has not had significant cough and has other complaints of some generalized weakness and tremors and difficulty swallowing, no headache, no chest pain.? He does report remote history of asthma for which he uses albuterol nebs and was previously on Symbicort but was taken off of this due to tightening of his vocal cords. Hospital Course: 1. Acute on chronic respiratory failure with hypercapnia secondary to central hypoventilation syndrome/dysphagia?71-year-old male who over the last several months has been being investigated as an outpatient for a neurodegenerative disease presented to the hospital with acute on chronic respiratory failure with hypercapnia. Initially his PCO2 was over 100 and when he was on room air and AA gradient was consistent with hypoventilation syndrome. He has had some improvement with encouragement to wear BiPAP however he does have waxing and waning mentation and ability to communicate. He did have significant dysphagia and failed his modified barium swallow so he had a PEG tube placed and he will continue to need speech therapy as an outpatient. Work-up as an outpatient demonstrated a normal conduction studies essentially ruling out ALS his acetylcholine esterase antibodies here in the hospital were negative ruling out myasthenia gravis. His PEG tube was placed on 10/21/2022 and he can be started on tube feeds of Jevity 1.5. He did also have some significant urinary retention so a Bowden placed. He has been having difficulty with sleeping at night and so he is currently on 50 of Seroquel as well as as needed Ambien and melatonin. He is also on BuSpar for anxiety as well as Cymbalta. We will plan to discharge him for custodial today. He was able to walk 75 feet with minimal assistance but he needed significant redirection and loses balance several times. Of note MRI was negative for stroke and it does not appear that he is had positive imaging for stroke in the past. 2. Aortic valve stenosis with insufficiency, hypertension, hyperlipidemia, are all chronic medical conditions which complicate his care. His home medications were continued where appropriate Medical Records Data Medical Nutrition Assessment Dietitian: Malnutrition Criteria Met Start: 10/16/22 12:47 Freq: Status: Active Protocol: Document 10/26/22 14:41 (Rec: 10/26/22 14:41 [id number]) Nutrition Malnutrition Evidence of Malnutrition Exists Yes Malnutrition (severe): Chronic Evidenced By Suboptimal Energy Intake ( Severe),Weight Loss (Severe) Clinical Problem Chronic Disease or Condition Related Malnutrition Etiology severe, chronic malnutrition related to inadequate energy intake s/p stroke Signs/Symptoms as evidenced by estimated PO intake meeting < 75% of estimated energy needs > 3 months; unintentional wt loss of 22.7#/17.5% wt loss x 8 months; BMI 18.9 Status Active Problem Recommendation Dietitian Recommendations/Changes NPO per FRENCH PROFESSOR; TF to meet~100% estimated nutrition needs. Continue TF via PEG: Jevity 1. 5 at goal rate of 50mL/hour w/ 125mL H2O flush every 4 hours to provide 1800 calories, 76 g protein, and 1715mL total fluid/day. Would start at 20mL /hour and increase by 15mL/ hour every 8-12 hours as tolerated until goal rate is achieved. Weight / BMI Weight Weight: 102 lb 4.712 oz Body Mass Index (BMI) 18.1 ABG / Lab / Microbiology Data Result Diagrams: 10/28/22 03:36 10/30/22 06:45 Laboratory: Laboratory Results - last 24 hr 10/30/22 06:45: Sodium 138, Potassium 3.9, Chloride 93 L, Carbon Dioxide 42.0 H, Anion Gap 3 L, BUN 20 H, Creatinine 0.65 L, Estim Creat Clear Calc 43.82, Est GFR (MDRD) Af Amer 154, Est GFR (MDRD) Non-Af 128, BUN/Creatinine Ratio 30.7 H, Glucose 126 H, Calcium 10.2 H Microbiology: Microbiology 10/30/22 15:10 Nasal Secretion SARS-CoV-2 Antigen (Rapid) - Final 10/27/22 11:55 Urine Catheter - Bowden Urine Culture - Final Culture exhibits no growth. 10/16/22 08:47 Mucosa - Nose Respiratory Panel (PCR) - Final 10/15/22 19:32 Nasal Secretion SARS-CoV-2 & FLU Antigen (Rapid) - Final Meaningful Use Info Meaningful Use Diagnoses (Choose all that apply): None applicable Discharge Plan Admission Admit Date/Time: 10/16/22 09:43 Attending Provider: León Oh Primary Care Provider: Em oMore Consulting Providers: Susy Rankin ; Larry Alonzo ; Bear Powell ; Yoav Leonard ; Luis M Anderson ; Shreyas Russo ; Giulia Cardozo NP ; Wan Sandoval ; Rosy Mario ; Ike Geronimo ; Juaquin Pal ; Rosamaria Puri ; Jaren Villanueva ; Shanna Jimenez ; Cass Kowalski ; Simone Mar ; Tremayne Hammond ; Troy Campos ; Troy Hall ; Mary Ellen Carlson ; Amy Pleitez ; Justin Rosa ; Jama Campos ; Teofilo Wade ; Ajay Rodriguez ; Kade Segovia ; Napoleon Soto ; Bobby Blackman ; Bboby Funez ; Donald Woodward ; Ash Lott ; Herber Hutton ; Phil Montes De Oca Discharge Orders/Prescriptions Prescriptions: New buspirone 5 mg Tablet 5 mg G-tube TID Qty: 0 0RF melatonin 10 mg Tablet, Sublingual 10 mg G-tube QHS Qty: 0 0RF quetiapine 25 mg Tablet 50 mg PO 1800 Qty: 0 0RF sennosides-docusate sodium [Stool Softener-Stimulant Laxat] 8.6-50 mg Tablet 2 tab G-tube BID PRN PRN (Reason: Constipation) Qty: 0 0RF tamsulosin 0.4 mg Capsule 0.4 mg PO DAILY@1730 Qty: 0 0RF zolpidem 5 mg Tablet 5 mg PO QHS PRN PRN (Reason: Insomnia) Qty: 0 0RF Continued omega-3 fatty acids [Fish Oil Concentrate] 1,000 mg capsule 1,000 mg PO QDAY rosuvastatin 40 mg tablet 40 mg PO QDAY cholecalciferol (vitamin D3) 50 mcg (2,000 unit) capsule 50 mcg PO DAILY albuterol sulfate 2.5 mg /3 mL (0.083 %) solution for nebulization 2.5 mg inhalation Q4H PRN (Reason: Shortness Of Breath) loratadine 10 mg tablet 10 mg PO DAILY PRN (Reason: allergy ) Galzin 50 mg (zinc) capsule 50 mg PO DAILY megestrol 20 mg tablet 20 mg PO DAILY Label Comments: take 1 tablet by mouth once daily TO INCREASE APPITITE zolpidem 10 mg tablet 5 mg PO QHS Label Comments: take 1/2 to 1 tablet by mouth at bedtime tadalafil 2.5 mg tablet 2.5 mg PO DAILY ascorbic acid (vitamin C) 500 mg capsule 500 mg PO DAILY duloxetine 30 mg capsule,delayed release(DR/EC) 30 mg PO BID lisinopril 20 mg tablet 20 mg PO DAILY Qty: 90 3RF clopidogrel [Plavix] 75 mg tablet 75 mg PO DAILY Qty: 90 3RF Discontinued clonazepam 0.5 mg tablet 0.5 mg PO DAILY Rx Instructions: for 180 days Referrals / Follow Up: Em Moore MD [Primary Care Provider] - Disposition Disposition (needs filled in before D/C Order can be placed): [facility] Facility Charges/Coding Visit Charges Inpatient E&M: 08424 Disch Hosp >30min
[2022-10-30] MEDS: QUEtiapine 25 MG Tablet 50 MG PO (17:40)
--- NOTE | 2022-10-30 19:12 | NURSING ---
REPORT CALLED TO MARBELLA AT THE [facility]. ALSO CALLED AND UPDATED ON CHANGE OF PICKUP TIME AND ASKED TO BRING PTS CPAP IN FROM HOME.
== END 2022-10-30 20:30 | DRG 56 ==
LOC: ED 19:41 → MS3 10-16 00:28 → ICU 10-16 08:35 → MS3 10-23 17:17
PROVIDERS: Hospitalist; Internal Medicine; Internal Medicine Critical Care Medicine; Internal Medicine Gastroenterology; Admitting Provider Internal Medicine; Emergency Provider Emergency Medicine; PCP Internal Medicine; Visit Provider Family Medicine
PROC: 0DJ08ZZ Inspection of Upper Intestinal Tract, Via Natural or Artificial Opening Endoscopic (ICD-10-PCS; CPT 43235; principal; 2022-10-21 15:55)
DX: G31.9 Degenerative disease of nervous system, unspecified (principal); J96.22 Acute and chronic respiratory failure with hypercapnia; J96.21 Acute and chronic respiratory failure with hypoxia; E43 Unspecified severe protein-calorie malnutrition; I50.32 Chronic diastolic (congestive) heart failure; E87.29 Other acidosis; Z68.1 Body mass index [BMI] 19.9 or less, adult; I11.0 Hypertensive heart disease with heart failure; G20 Parkinson's disease; I73.9 Peripheral vascular disease, unspecified; Z93.1 Gastrostomy status; K21.00 Gastro-esophageal reflux disease with esophagitis, without bleeding; I35.2 Nonrheumatic aortic (valve) stenosis with insufficiency; E78.5 Hyperlipidemia, unspecified; K29.70 Gastritis, unspecified, without bleeding; F41.9 Anxiety disorder, unspecified; J45.909 Unspecified asthma, uncomplicated; R47.1 Dysarthria and anarthria; R13.10 Dysphagia, unspecified; R53.81 Other malaise; Z79.02 Long term (current) use of antithrombotics/antiplatelets; Z87.891 Personal history of nicotine dependence; R41.0 Disorientation, unspecified; Z79.82 Long term (current) use of aspirin; M62.81 Muscle weakness (generalized); R04.0 Epistaxis; Z66 Do not resuscitate; Z86.73 Personal history of transient ischemic attack (TIA), and cerebral infarction without residual deficits
CPT/HCPCS: 36415; 36600; 70450; 70496; 70498; 70551; 70553; 71045; 74230; 80048; 80053; 81001; 82803; 82962; 83519; 83880; 84484; 85025; 87086; 87426; 87428; 87633; 92507; 92524; 92526; 92610; 92611; 93005; 94002; 94003; 94640; 94668; 94762; 97110; 97112; 97116; 97162; 97166; 97530; 97535; 97802; 97803; 99252; 99284; A9575; J3101; J7030; Q9967; A4216; G0463; J2405